=== PATIENT | female | born 1965 | race Caucasian/White ===

== ENCOUNTER 2016-11-13 13:41 | Emergency (ER) | payer SELFPAY ==
[~2016-11-13] VITALS: Ht 160 cm; Wt 102.1 kg
[~2016-11-13 13:41] MED LIST: ASP81TEC PO; ATRV10T PO; AZAT50TA PO; AZIT-21 PO; CPR500T PO; DICY10CA12 PO; HYDR-3812 PO; HYDR1TAB PO; MERCAPTOPURINE PO; METO-333 PO; METR500T PO; ONDA8TAB13 PO; PNT40TEC PO; PRD10T PO; PRD20T PO; TRAM50TA2 PO; [UNRECOGNIZED DRUG - OTHER]
--- OUTSIDE RECORDS SUMMARY | 2016-11-13 13:47 | XMS REPORT ---
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 Name Role Phone MURRAY OROZCO CP Unavailable Allergies No Known Allergies Problems Problem Type Condition Code Onset Dates Condition Status Problem Valeria-menopausal N95.1 Active Assessment Essential hypertension I10 Active Problem Essential hypertension I10 Active Assessment Valeria-menopausal N95.1 Active Assessment Need for hepatitis C screening test Z11.59 Active Medications No Known Medications Procedures Procedure Coding System Code Date GLYCATED HEMOGLOBIN TEST CPT-4 80048 Aug 06, 2016 COMPLETE CBC W/AUTO DIFF WBC CPT-4 89243 Aug 06, 2016 HEPATITIS C AB TEST CPT-4 12044 Aug 06, 2016 URINE CULTURE/COLONY COUNT CPT-4 33228 Aug 06, 2016 COMPREHEN METABOLIC PANEL CPT-4 37495 Aug 06, 2016 LIPID PANEL CPT-4 39638 Aug 06, 2016 VENIPUNCT, ROUTINE* CPT-4 88673 Aug 06, 2016 URINALYSIS, AUTO, W/O SCOPE CPT-4 46705 Aug 06, 2016 Results Name Result Date Reference Range Unit Abnormality Flag UA W/CULTURE IF INDICATED (IN HOUSE) ----HARDIK trace 20160806 ----NIT negative 20160806 ----Exp date 20160806 ----Lot # [id number] ----SG 1.015 20160806 ----KET negative 20160806 ----SEAN negative 20160806 ----GLU negative 20160806 ----Odor none 20160806 ----pH 5.5 20160806 ----BLO negative 20160806 ----URO 0.2 20160806 ----Protein negative 20160806 ----Lot # [id number] ----Exp date 20160806 ----Clarity clear 20160806 ----Color yellow [id number] ROUTINE VENIPUNCTURE Summary Purpose [employer] Submission
[2016-11-13] MEDS ORDERED: ASPIRIN 81 MG CHEW (CHILDREN'S ASA) PO ONE (14:00)
[2016-11-13 14:04] LABS: BASOPHILS % (AUTO) 0 % (0-10); EOSINOPHILS # (AUTO) 0.2 10^3/uL (0.0-0.3); EOSINOPHILS % (AUTO) 1 % (0-10); LYMPHOCYTES # (AUTO) 3.7 X 10^3 (1.0-4.0); LYMPHOCYTES % (AUTO) 23 % (12-44); MEAN CORPUSCULAR HEMOGLOBIN 27 PG (25-34); MEAN CORPUSCULAR HGB CONC 35 G/DL (32-36); MEAN CORPUSCULAR VOLUME 77 FL (80-99); MEAN PLATELET VOLUME 10.7 FL (7.4-10.4); MONOCYTES % (AUTO) 6 % (0-12); NEUTROPHILS % (AUTO) 69 % (42-75); PLATELET COUNT 255 10^3/uL (130-400); RED CELL DISTRIBUTION WIDTH 17.4 % (10.0-14.5); WHITE BLOOD COUNT 15.9 10^3/uL (4.3-11.0)
[2016-11-13 14:13] LABS: PROTHROMBIN TIME PATIENT 12.7 SEC (12.2-14.7)
[2016-11-13 14:23] LABS: ALANINE AMINOTRANSFERASE 19 U/L (0-55); ALBUMIN 4.2 G/DL (3.2-4.5); ANION GAP 13 MMOL/L (5-14); ASPARTATE AMINO TRANSFERASE 17 U/L (5-34); BILIRUBIN,TOTAL 0.3 MG/DL (0.1-1.0); BLOOD UREA NITROGEN 10 MG/DL (7-18); BUN/CREATININE RATIO 14; CALCIUM 9.1 MG/DL (8.5-10.1); CARBON DIOXIDE 18 MMOL/L (21-32); CHLORIDE 108 MMOL/L (98-107); CREATININE SERUM 0.72 MG/DL (0.60-1.30); GFR ESTIMATED > 60; GLUCOSE 149 MG/DL (70-105); LIPASE 25 U/L (8-78); MAGNESIUM 2.1 MG/DL (1.8-2.4); POTASSIUM 3.7 MMOL/L (3.6-5.0); SODIUM 139 MMOL/L (135-145); TOTAL PROTEIN 7.6 G/DL (6.4-8.2)
--- NOTE | 2016-11-13 14:23 | ED Cardiac General ---
History of Present Illness General Chief Complaint: Respiratory Problems Stated Complaint: CHEST PAIN/SOA LEFT ARM NUMBNESS Nursing Triage Note: PT CO OF CHEST PAIN EARLIER TODAY AND HAS SOA AND COUGH. STATES FEELS LIKE MAYBE PNEMONIA Source: patient Exam Limitations: no limitations History of Present Illness Time seen by provider: 13:58 Initial Comments Here with report of cough and congestion for 5 days and thinks that she may have pneumonia. Also had an episode of chest pain earlier today that has subsequently resolved. She felt heaviness in her left anterior chest with some radiation down her left arm. Again this went away. Has persistent cough. Does report chills but no fever. Denies nausea, vomiting or diaphoresis. 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 Prescribed by: SARI JONES on 05/21/162234 Ondansetron 8 Mg Tab.rapdis #10 8 MG PO Q6H PRN PRN NAUSEA/VOMITING Prescribed by: SARI JONES on 05/21/162220 Prednisone 20 Mg Tab #10 40 MG PO DAILY Prescribed by: SARI JONES on 05/21/162220 Review of Systems Constitutional: see HPI chills fever EENTM: No Symptoms Reported Respiratory: See HPI Cough Shortness of Air Wheezing Cardiovascular: No Symptoms Reported Gastrointestinal: See HPIDenies Diarrhea, Denies Nausea Genitourinary: No Symptoms Reported Musculoskeletal: see HPI joint pain muscle pain Skin: no symptoms reported All Other Systems Reviewed Negative Unless Noted: Yes Past Jaynsyo-Njmjpk-Kzxhvt Hx Patient Social History Alcohol Use: Denies Use Recreational Drug Use: No Smoking Status: Current Everyday Smoker Type Used: Cigarettes Recent Foreign Travel: No Contact w/Someone Who Travel: No Recent Infectious Disease Expo: No Recent Hopitalizations: No Physical Abuse Screen: No Sexual Abuse: No Immunizations Up To Date Tetanus Booster (TDap): Unknown Surgeries HX Surgeries: Yes (COLONOSCOPY X2, HEART CATH) Respiratory Hx Respiratory Disorders: Yes Respiratory Disorders: Asthma Cardiovascular Hx Cardiac Disorders: Yes Cardiac Disorders: Coronary Artery Disease, High Cholesterol, Hypertension Neurological Hx Neurological Disorders: No 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 System Hx 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 Disorders: No Genitourinary Hx Genitourinary Disorders: No Gastrointestinal Hx Gastrointestinal Disorders: Yes Gastrointestinal Disorders: Crohns Disease, Polyps, Ulcer Musculoskeletal Hx Musculoskeletal Disorders: No Endocrine Hx Endocrine Disorders: No HEENT HX ENT Disorders: No Cancer Hx Cancer: No Psychosocial Hx Psychiatric Problems: No Integumentary HX Skin/Integumentary Disorder: No Blood Transfusions Hx Blood Disorders: No Adverse Reaction to a Blood Tr: No Reviewed Nursing Assessment Reviewed/Agree w Nursing PMH: Yes Family Medical History Significant Family History: No Pertinent Family Hx Physical Exam Vital Signs Vital Sign - Last 12Hours 11/13/16 13:41 Temp 98.4 Pulse 66 Resp 18 B/P 131/91 Pulse Ox 94 Capillary Refill : Less Than 3 Seconds General Appearance: No Apparent Distress WD/WN HEENT: PERRL/EOMI Pharynx Normal Neck: Non Tender Supple Respiratory: Lungs Clear Normal Breath Sounds Cardiovascular: Regular Rate, Rhythm No Murmur Gastrointestinal: Non Tender Soft Extremity: Non Tender No Calf Tenderness Neurologic/Psychiatric: Alert Oriented x3 Skin: Normal Color Warm/Dry Progress/Results/Core Measures Results/Orders Lab Results Laboratory Tests Test 11/13/16 13:50 Range/Units Activated Partial Thromboplast Time 29 24-35 SEC Alanine Aminotransferase (ALT/SGPT) 19 0-55 U/L Albumin 4.2 3.2-4.5 G/DL Alkaline Phosphatase 89 40-136 U/L Anion Gap 13 5-14 MMOL/L Anisocytosis SLIGHT Aspartate Amino Transf (AST/SGOT) 17 5-34 U/L BUN/Creatinine Ratio 14 Band Neutrophils 5 % Basophils # (Auto) 0.0 0.0-0.1 10^3/uL Basophils % (Manual) 0 % Basophils (%) (Auto) 0 0-10 % Blood Urea Nitrogen 10 7-18 MG/DL Calcium Level 9.1 8.5-10.1 MG/DL Carbon Dioxide Level 18 L 21-32 MMOL/L Chloride Level 108 H 98-107 MMOL/L Creatinine 0.72 0.60-1.30 MG/DL D-Dimer 0.80 H 0.00-0.49 UG/ML Eosinophils # (Auto) 0.2 0.0-0.3 10^3/uL Eosinophils % (Manual) 1 % Eosinophils (%) (Auto) 1 0-10 % Estimat Glomerular Filtration Rate > 60 Glucose Level 149 H 70-105 MG/DL Hematocrit 41 35-52 % Hemoglobin 14.2 11.5-16.0 G/DL INR Comment 1.0 0.8-1.4 Lipase 25 8-78 U/L Lymphocytes # (Auto) 3.7 1.0-4.0 X 10^3 Lymphocytes % (Manual) 27 % Lymphocytes (%) (Auto) 23 12-44 % Magnesium Level 2.1 1.8-2.4 MG/DL Mean Corpuscular Hemoglobin 27 25-34 PG Mean Corpuscular Hemoglobin Concent 35 32-36 G/DL Mean Corpuscular Volume 77 L 80-99 FL Mean Platelet Volume 10.7 H 7.4-10.4 FL Monocytes # (Auto) 1.0 0.0-1.0 X 10^3 Monocytes % (Manual) 4 % Monocytes (%) (Auto) 6 0-12 % Myoglobin 26.8 10.0-92.0 NG/ML Neutrophils # (Auto) 11.0 H 1.8-7.8 X 10^3 Neutrophils % (Manual) 63 % Neutrophils (%) (Auto) 69 42-75 % Platelet Count 255 130-400 10^3/uL Potassium Level 3.7 3.6-5.0 MMOL/L Prothrombin Time 12.7 12.2-14.7 SEC Red Blood Count 5.30 4.35-5.85 10^6/uL Red Cell Distribution Width 17.4 H 10.0-14.5 % Sodium Level 139 135-145 MMOL/L Total Bilirubin 0.3 0.1-1.0 MG/DL Total Protein 7.6 6.4-8.2 G/DL Troponin I < 0.30 <0.30 NG/ML White Blood Count 15.9 H 4.3-11.0 10^3/uL My Orders Orders-GLENDA LAI MD Cbc With Automated Diff (11/13/16 13:54) Magnesium (11/13/16 13:54) Chest 1 View, Ap/Pa Only (11/13/16 13:54) Ekg Tracing (11/13/16 13:54) Cardiac Profile 1 (11/13/16 13:54) Comprehensive Metabolic Panel (11/13/16 13:54) Myoglobin Serum (11/13/16 13:54) Protime With Inr (11/13/16 13:54) Partial Thromboplastin Time (11/13/16 13:54) O2 (11/13/16 13:54) Monitor-Rhythm Ecg Trace Only (11/13/16 13:54) Lipid Panel (11/14/16 06:00) Aspirin Chewable Tablet (Baby Aspirin Ch (11/13/16 14:00) Saline Lock/Iv-Start (11/13/16 13:54) Lipase (11/13/16 13:54) Fibrin Degradation Products (11/13/16 13:54) Manual Differential (11/13/16 13:50) Ct Angio Chest W (11/13/16 15:32) Ns Iv 1000 Ml (Sodium Chloride 0.9%) (11/13/16 15:33) Iohexol Injection (Omnipaque 350 Mg/Ml 1 (11/13/16 15:45) Ns (Ivpb) (Sodium Chloride 0.9% Ivpb Bag (11/13/16 15:45) Medications Given in ED Current Medications Medications Dose Ordered Sig/Calin Route Start Time Stop Time Status Last Admin Dose Admin Aspirin 324 mg 324 mg ONCE ONCE PO 11/13/16 14:00 11/13/16 14:01 DC 11/13/16 14:19 324 MG Iohexol 125 ml ONCE ONCE IV 11/13/16 15:45 11/13/16 15:46 DC 11/13/16 15:44 125 ML Sodium Chloride 100 ml ONCE ONCE IV 11/13/16 15:45 11/13/16 15:46 DC 11/13/16 15:44 80 ML Sodium Chloride 1,000 ml @ 0 mls/hr Q0M ONCE IV 11/13/16 15:33 11/13/16 15:34 DC 11/13/16 16:16 1,000 MLS/HR Vital Signs/I&O Vital Sign - Last 12Hours 11/13/16 13:41 Temp 98.4 Pulse 66 Resp 18 B/P 131/91 Pulse Ox 94 Blood Pressure Mean: 104 Progress Note : Progress Note Seen and evaluated. IV, labs, EKG and chest x-ray ordered. ASA 324 mg by mouth given. Monitor patient. Results reviewed. D-dimer elevated. CT angiogram chest ordered. Normal saline 1 L bolus. Monitor patient. 1625: Results noted below. No pulmonary embolism. We will try outpatient as COPD exacerbation. Due to chronic lung disease, we will also treat for atypical pneumonia with Zithromax. This was discussed with the patient who agrees. Discharged home with return precautions. Patient verbalize understanding instructions and agreement with plan. ECG Initial ECG Impression Date: Nov 13, 2016 Initial ECG Impression Time: 13:48 Initial ECG Rate: 80 Initial ECG Rhythm: Normal Sinus Comment Sinus rhythm with normal axis. No evidence of ST elevation IN. Overall similar to previous of 12/23/11. Interpreted by me. Diagnostic Imaging Diagonstic Imaging: Xray Plain Films/CT/US/NM/MRI: chest [facility] [place] [place] NAME: MACEYLSAHAWN [facility] REC#: [id number] PT STATUS: REG ER : 1965 PHYSICIAN: GLENDA LAI MD ADMIT DATE: 11/13/16/ER Draft Date of Exam:11/13/16 CHEST 1 VIEW, AP/PA ONLY EXAM: CHEST 1 VIEW, AP/PA ONLY. INDICATION: Chest pain. COMPARISON: Chest radiograph of 12/22/2011. FINDINGS: No significant change. Normal heart size and pulmonary vascularity. No focal pulmonary opacity, pleural effusion, or pneumothorax. The osseous structures are unremarkable. IMPRESSION: No acute cardiopulmonary findings. Dictated on workstation # [id number] Dict: 11/13/16 1607 Trans: 11/13/16 1609 [id number] [id number] Interpreted by: RACHAEL TA MD Electronically signed by: Diagonstic Imaging: CT Plain Films/CT/US/NM/MRI: chest Comments [facility] [place], [place] NAME: LASHAWN CHOUDHURY [facility] REC#: [id number] PT STATUS: REG ER : 1965 PHYSICIAN: GLENDA LAI MD ADMIT DATE: 11/13/16/ER Draft Date of Exam:11/13/16 CT ANGIO CHEST W PROCEDURE: CT angiography of the chest with contrast. TECHNIQUE: Multiple contiguous axial images were obtained through the chest after uneventful bolus administration of intravenous contrast. Reconstructed CTA MIP acquisitions were also performed. INDICATION: Chest pain. COMPARISON: Chest radiograph 11/13/2016. FINDINGS: No focal pulmonary artery filling defects. The thoracic aorta and its major branches in the chest demonstrate no narrowing, aneurysm or dissection. Diffuse bronchial wall thickening. Mild emphysematous changes in the lung apices. Minimal dependent atelectasis. The lungs are otherwise clear. No pleural or pericardial effusion. No mediastinal, hilar or axillary lymphadenopathy. Mild degenerative changes in the thoracic spine. The upper abdominal contents, including the adrenal glands, are unremarkable. IMPRESSION: 1. No pulmonary emboli. The thoracic aorta and its major branches in the chest are negative. 2. Mild emphysematous changes in the lung apices. 3. Diffuse bronchial wall thickening. Dictated on workstation # [id number] Dict: 11/13/16 1608 Trans: 11/13/16 1619 [id number] Interpreted by: RACHAEL TA MD Electronically signed by: Departure Impression Impression: Primary Impression: COPD exacerbation Disposition: HOME, SELF-CARE Condition: Stable Departure-Patient Inst. Decision time for Depature: 16:25 Referrals: MURRAY OROZCO MD (PCP/Family) Primary Care Physician Patient Instructions: Acute Bronchitis, Adult (DC) Add. Discharge Instructions: All discharge instructions reviewed with patient and/or family. Voiced understanding. Take medications as directed. Follow-up with your doctor next week for recheck and further evaluation. Return for worse pain, fever, vomiting, weakness, rhythm problems or other concerns as needed. Scripts Azithromycin 250 Mg [id number] Mg PO UD #6 TAB TAKE 2 TABLETS ON DAY ONE THEN TAKE 1 TABLET DAILY FOR FOUR MORE DAYS Prov:GLENDA LAI MD 11/13/16 Prednisone 20 Mg Tab40 Mg PO DAILY #12 TAB Prov:GLENDA LAI MD 11/13/16 GLENDA LAI MD Nov 13, 2016 14:23
[2016-11-13 14:27] LABS: ANISOCYTOSIS SLIGHT; BAND NEUTROPHILS 5 %; BASOPHILS % (MANUAL) 0 %; EOSINOPHILS % (MANUAL) 1 %; LYMPHOCYTES % (MANUAL) 27 %; NEUTROPHILS % (MANUAL) 63 %
[2016-11-13 14:30] LABS: MYOGLOBIN SERUM 26.8 NG/ML (10.0-92.0)
[2016-11-13] MEDS ORDERED: NS IV 1000 ML 1,000 ML IV ONE (15:33)
[2016-11-13] MEDS ORDERED: NS 100 ML (IVPB) BAG IV ONE (15:45)
[2016-11-13] MEDS ORDERED: IOHEXOL 350 MG/ML 150 ML (OMNIPAQUE 350) VIAL IV ONE (15:45)
--- NOTE | 2016-11-13 16:10 | Diagnostic Imaging Report ---
EXAM: CHEST 1 VIEW, AP/PA ONLY. INDICATION: Chest pain. COMPARISON: Chest radiograph of 12/22/2011. FINDINGS: No significant change. Normal heart size and pulmonary vascularity. No focal pulmonary opacity, pleural effusion, or pneumothorax. The osseous structures are unremarkable. IMPRESSION: No acute cardiopulmonary findings. Dictated by: Dictated on workstation # [id number]
--- NOTE | 2016-11-13 16:19 | Diagnostic Imaging Report ---
PROCEDURE: CT angiography of the chest with contrast. TECHNIQUE: Multiple contiguous axial images were obtained through the chest after uneventful bolus administration of intravenous contrast. Reconstructed CTA MIP acquisitions were also performed. INDICATION: Chest pain. COMPARISON: Chest radiograph 11/13/2016. FINDINGS: No focal pulmonary artery filling defects. The thoracic aorta and its major branches in the chest demonstrate no narrowing, aneurysm or dissection. Diffuse bronchial wall thickening. Mild emphysematous changes in the lung apices. Minimal dependent atelectasis. The lungs are otherwise clear. No pleural or pericardial effusion. No mediastinal, hilar or axillary lymphadenopathy. Mild degenerative changes in the thoracic spine. The upper abdominal contents, including the adrenal glands, are unremarkable. IMPRESSION: 1. No pulmonary emboli. The thoracic aorta and its major branches in the chest are negative. 2. Mild emphysematous changes in the lung apices. 3. Diffuse bronchial wall thickening. Dictated by: Dictated on workstation # [id number]
[2016-11-13] MEDS ORDERED: AZIT250T5 PO (16:32)
[2016-11-13] MEDS ORDERED: PRD20T PO (16:32)
[2016-11-13 16:55] VITALS: BP 117/84
== END 2016-11-13 16:55 | disposition home or self-care (01) ==
LOC: EDUNIT# 13:41 → ER 13:43
DX: J44.1 Chronic obstructive pulmonary disease with (acute) exacerbation (principal); I10 Essential (primary) hypertension; Z79.82 Long term (current) use of aspirin; Z79.899 Other long term (current) drug therapy
CPT/HCPCS: 36415; 71010; 71275; 80053; 83690; 83735; 83874; 84484; 85007; 85027; 85379; 85610; 85730; 93005; 93041; 96360

== ENCOUNTER 2017-07-15 21:46 | Emergency (ER) | payer SELFPAY ==
[~2017-07-15] VITALS: Ht 154.9 cm; Wt 92.1 kg
[~2017-07-15 21:46] MED LIST changes: +AZIT250T5 PO
[2017-07-15 22:27] LABS: BASOPHILS % (AUTO) 0 % (0-10); EOSINOPHILS % (AUTO) 0 % (0-10); LYMPHOCYTES # (AUTO) 2.9 X 10^3 (1.0-4.0); LYMPHOCYTES % (AUTO) 26 % (12-44); MEAN CORPUSCULAR HEMOGLOBIN 27 PG (25-34); MEAN CORPUSCULAR HGB CONC 33 G/DL (32-36); MEAN CORPUSCULAR VOLUME 80 FL (80-99); MEAN PLATELET VOLUME 10.9 FL (7.4-10.4); MONOCYTES # (AUTO) 0.5 X 10^3 (0.0-1.0); MONOCYTES % (AUTO) 4 % (0-12); NEUTROPHILS % (AUTO) 70 % (42-75); PLATELET COUNT 296 10^3/uL (130-400); RED BLOOD COUNT 5.31 10^6/uL (4.35-5.85); RED CELL DISTRIBUTION WIDTH 14.5 % (10.0-14.5); WHITE BLOOD COUNT 11.4 10^3/uL (4.3-11.0)
[2017-07-15] MEDS ORDERED: LISI10TA2 PO (22:27)
[2017-07-15 22:28] LABS: BILIRUBIN,URINE NEGATIVE (NEGATIVE); KETONES,URINE NEGATIVE (NEGATIVE); LEUKOCYTE ESTERASE ,URINE NEGATIVE (NEGATIVE); NITRITE,URINE NEGATIVE (NEGATIVE); PH,URINE 6 (5-9); PROTEIN,URINE NEGATIVE (NEGATIVE); UROBILINOGEN,URINE NORMAL (NORMAL)
--- NOTE | 2017-07-15 22:28 | ED GI ---
General Chief Complaint: Abdominal/GI Problems Stated Complaint: VOMITING;FEVER Nursing Triage Note: REPORTS WENT TO DR OROZCO THIS A.M. FOR ABD PAIN AND WAS PRESCRIBED 50 MG STEROIDS. PT CAME TO ED FOR SX OF VOMITING WITH HER ABD PAIN INSTRUCTED BY HER DR. PT REPORTS NO BM FOR 1 WEEK. PT TOOK HYDROCODONE 5/325 AT 2100. Sepsis Screen: No Definite Risk Source of Information: Patient History of Present Illness Time Seen By Provider: 22:20 Initial Comments C/O RUQ PAIN X 2 DAYS AND IS GETTING WORSE NOTHING WORSENS OR IMPROVES PAIN BEGAN HAVING NAUSEA AND VOMITED X1 AT 2000 TONIGHT NO BM X 1 WEEK, NORMALLY STOOLS ARE LOOSE AND HAS ONE DAILY NO FEVER NO DIFFICULTY URINATING--HAS CHRONIC URINARY FREQUENCY ATE [facility] AT [address] HERE PT STATES SHE HAS CROHN'S--DOES NOT TAKE ANY REGULAR MEDICATIONS FOR CROHN'S STATES SHE DOES NOT SEE AND HAS NEVER SEEN A GI SPECIALIST/FISH ROE TECHNICIAN, BUT SEES A DR MEDINA IN [facility] ( WHO IS A GENERAL SURGEON) AND STATES THAT SHE PRESCRIBES "CHEMO" WHEN EVER SHE HAS A FLARE--LAST TIME WAS OVER A YEAR AGO- -PT HAS NO IDEA WHAT "CHEMO" MEDICATIONS THESE ARE. SAW DR. OROZCO TODAY FOR THIS AND WAS PRESCRIBED HYDROCODONE AND PREDNISONE 50 MG A DAY--PT STATES NORMALLY SHE TAKES 10 MG AT A TIME WHEN SHE HAS A FLARE. STATES SHE TOOK A HYDROCODONE AND [address] HERE. PCP: [facility], DR. OROZCO Allergies and Home Medications Allergies Coded Allergies: No Known Drug Allergies (Unverified , 11/17/11) Home Medications Aspirin 81 Mg Tabec, 81 MG PO DAILY, (Reported) Hydrocodone/Acetaminophen 1 Each Tablet, 1 EACH PO Q4H PRN for PAIN, #14 Ref 0 patient must greens picker zofran and prednisone to greens picker pain med. Prescribed by: SARI JONES on 05/21/162234 Hyoscyamine Sulfate 0.125 Mg Tab.subl, 1-2 TAB SL Q4H, #15 Prescribed by: DARCY SPENCE on 07/16/17 0012 Lisinopril 10 Mg Tablet, 10 MG PO DAILY, (Reported) Ondansetron 8 Mg Tab.rapdis, 8 MG PO Q6H PRN for NAUSEA/VOMITING, #10 Ref 0 Prescribed by: SARI JONES on 05/21/16 2221 Ondansetron 8 Mg Tab.rapdis, 8 MG PO Q4H, #14 Prescribed by: DARCY SPENCE on 07/16/17 0012 Promethazine HCl 25 Mg Supp.rect, 25 MG RC Q4H, #10 Prescribed by: DARCY SPENCE on 07/16/17 0012 Review of Systems Constitutional: no symptoms reported Respiratory: No Symptoms Reported Cardiovascular: No Symptoms Reported Gastrointestinal: See HPI, Abdominal Pain, Constipated, Nausea, Vomiting Genitourinary: See HPI, Frequency Musculoskeletal: no symptoms reported Skin: no symptoms reported Psychiatric/Neurological: No Symptoms Reported, Other (STATES SHE HAS 3 CHILDREN IN CUSTODY) Endocrine: No Symptoms Reported Hematologic/Lymphatic: No Symptoms Reported Past Rlffiqb-Vcevar-Rppoua Hx Patient Social History Alcohol Use: Past History (MODERATE USE IN PAST,DENIES RECENT USE, PER PT ON ) Recreational Drug Use: No Smoking Status: Current Everyday Smoker (1 PPD) Type Used: Cigarettes 2nd Hand Smoke Exposure: Yes Recent Foreign Travel: No Contact w/Someone Who Travel: No Recent Infectious Disease Expo: No Recent Hopitalizations: No Immunizations Up To Date Tetanus Booster (TDap): Unknown Seasonal Allergies Seasonal Allergies: No Surgeries History of Surgeries: Yes (EGD'S/ COLONOSCOPIES; CARDIAC CATH--NO INTERNVENTION ; D&C X 2) Respiratory History of Respiratory Disorde: Yes Respiratory Disorders: Asthma, COPD Cardiovascular History of Cardiac Disorders: Yes (CARDIAC CATH--MILD TO MODERATE DISEASE--NO INTERVENTION) Cardiac Disorders: Coronary Artery Disease, High Cholesterol, Hypertension Neurological History of Neurological Disord: No 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 System Hx 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 Disorders: No 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 (NO PERIOID SINCE 10/2015) Genitourinary History of Genitourinary Disor: No Gastrointestinal History of Gastrointestinal Di: Yes Gastrointestinal Disorders: Gastroesophageal Reflux, Crohns Disease, Polyps, Ulcer Musculoskeletal History of Musculoskeletal Dis: No Endocrine History of Endocrine Disorders: No HEENT History of HEENT Disorders: No Cancer History of Cancer: No Psychosocial History of Psychiatric Problem: No Integumentary History of Skin or Integumenta: No Blood Transfusions History of Blood Disorders: No Adverse Reaction to a Blood Tr: No Physical Exam Vital Signs VS - Last 72 Hours, by Label 07/15/17 21:46 Temp 97.6 Pulse 91 Resp 20 B/P (MAP) 146/91 Pulse Ox 94 O2 Delivery Room Air Capillary Refill : Less Than 3 Seconds General Appearance: WD/WN, no apparent distress, obese HEENT: other (MULTIPLE MISSING TEETH) Respiratory: normal breath sounds, no respiratory distress, no accessory muscle use Cardiovascular: regular rate, rhythm, no edema, no JVD, no murmur Gastrointestinal: normal bowel sounds, soft, no organomegaly, no pulsatile mass , No distended, guarding, No rebound, tenderness (RUQ), No hernia, No mass Extremities: normal range of motion, non-tender, normal inspection, no pedal edema, no calf tenderness, normal capillary refill Back: normal inspection, no CVA tenderness Neurologic/Psychiatric: buzzle buffer II-XII nml as tested, no motor/sensory deficits, alert, normal mood/affect, oriented x 3 Skin: normal color, warm/dry, No rash Progress/Results/Core Measures Results/Orders Lab Results Laboratory Tests Test 07/15/17 21:50 07/15/17 21:56 Range/Units White Blood Count 11.4 H 4.3-11.0 10^3/uL Red Blood Count 5.31 4.35-5.85 10^6/uL Hemoglobin 14.1 11.5-16.0 G/DL Hematocrit 43 35-52 % Mean Corpuscular Volume 80 80-99 FL Mean Corpuscular Hemoglobin 27 25-34 PG Mean Corpuscular Hemoglobin Concent 33 32-36 G/DL Red Cell Distribution Width 14.5 10.0-14.5 % Platelet Count 296 130-400 10^3/uL Mean Platelet Volume 10.9 H 7.4-10.4 FL Neutrophils (%) (Auto) 70 42-75 % Lymphocytes (%) (Auto) 26 12-44 % Monocytes (%) (Auto) 4 0-12 % Eosinophils (%) (Auto) 0 0-10 % Basophils (%) (Auto) 0 0-10 % Neutrophils # (Auto) 8.0 H 1.8-7.8 X 10^3 Lymphocytes # (Auto) 2.9 1.0-4.0 X 10^3 Monocytes # (Auto) 0.5 0.0-1.0 X 10^3 Eosinophils # (Auto) 0.0 0.0-0.3 10^3/uL Basophils # (Auto) 0.0 0.0-0.1 10^3/uL Urine Color YELLOW Urine Clarity CLEAR Urine pH 6 5-9 Urine Specific [place] 1.010 L 1.016-1.022 Urine Protein NEGATIVE NEGATIVE Urine Glucose (UA) NEGATIVE NEGATIVE Urine Ketones NEGATIVE NEGATIVE Urine Nitrite NEGATIVE NEGATIVE Urine Bilirubin NEGATIVE NEGATIVE Urine Urobilinogen NORMAL NORMAL MG/DL Urine Leukocyte Esterase NEGATIVE NEGATIVE Urine RBC (Auto) NEGATIVE NEGATIVE Urine RBC NONE /HPF Urine WBC NONE /HPF Urine Squamous Epithelial Cells 0-2 /HPF Urine Crystals NONE /LPF Urine Bacteria NONE /HPF Urine Casts NONE /LPF Urine Mucus NEGATIVE /LPF Urine Culture Indicated NO Sodium Level 139 135-145 MMOL/L Potassium Level 4.2 3.6-5.0 MMOL/L Chloride Level 105 98-107 MMOL/L Carbon Dioxide Level 20 L 21-32 MMOL/L Anion Gap 14 5-14 MMOL/L Blood Urea Nitrogen 17 7-18 MG/DL Creatinine 0.74 0.60-1.30 MG/DL Estimat Glomerular Filtration Rate > 60 BUN/Creatinine Ratio 23 Glucose Level 137 H 70-105 MG/DL Calcium Level 9.6 8.5-10.1 MG/DL Total Bilirubin 0.3 0.1-1.0 MG/DL Aspartate Amino Transf (AST/SGOT) 17 5-34 U/L Alanine Aminotransferase (ALT/SGPT) 27 0-55 U/L Alkaline Phosphatase 90 40-136 U/L Total Protein 8.3 H 6.4-8.2 GM/DL Albumin 4.5 3.2-4.5 GM/DL Amylase Level 66 25-125 U/L Lipase 41 8-78 U/L My Orders Orders - DARCY SPENCE DO Saline Lock/Iv-Start (07/15/17 22:26) Amylase (07/15/17 22:26) Lipase (07/15/17 22:26) Saline Lock/Iv-Start (07/15/17 22:26) Lactated Ringers (Lr 1000 Ml Iv Solution (07/15/17 22:26) Ondansetron Injection (Zofran Injectio (07/15/17 22:30) Promethazine Injection (Phenergan Injec (07/15/17 22:30) Ct Abdomen/Pelvis W (07/15/17 22:51) Iohexol Injection (Omnipaque 350 Mg/Ml 1 (07/15/17 23:00) Ns (Ivpb) (Sodium Chloride 0.9% Ivpb Bag (07/15/17 23:00) Pharmacy Communication (Pharmacy Communi (07/15/17 22:52) Medications Given in ED Current Medications Medications Dose Ordered Sig/Calin Route Start Time Stop Time Status Last Admin Dose Admin Iohexol 100 ml ONCE ONCE IV 07/15/17 23:00 07/15/17 23:01 DC 07/15/17 23:17 100 ML Lactated Ringer's 1,000 ml @ 0 mls/hr Q0M ONCE IV 07/15/17 22:26 07/15/17 22:28 DC 07/15/17 22:37 999 MLS/HR Promethazine HCl 25 mg ONCE ONCE IVP 07/15/17 22:30 07/15/17 22:31 DC 07/15/17 22:37 25 MG Sodium Chloride 100 ml ONCE ONCE IV 07/15/17 23:00 07/15/17 23:01 DC 07/15/17 23:17 100 ML Vital Signs/I&O Vital Sign - Last 12Hours 07/15/17 21:46 Temp 97.6 Pulse 91 Resp 20 B/P (MAP) 146/91 Pulse Ox 94 O2 Delivery Room Air Blood Pressure Mean: 109 Progress Note : Progress Note NAUSEA RESOLVED WITH MEDICATIONS PAIN RESOLVED ON IT'S OWN--STATES ONLY HAS SOME SLIGHT DISCOMFORT IN LLQ NOW Diagnostic Imaging Comments CT ABDOMEN/PELVIS--NO ACUTE PROCESS, + CONSTIPATION--PER [facility] VIA FAX @ 0001 Reviewed: Reviewed by Me Departure Impression Impression: Primary Impression: Abdominal pain Additional Impressions: Constipation Hx of Crohn's disease Disposition: HOME, SELF-CARE Condition: Improved Departure-Patient Inst. Referrals: MURRAY OROZCO MD (PCP/Family) Primary Care Physician Patient Instructions: Acute Abdomen (Belly Pain), Adult (DC), Constipation, Adult (DC), Crohn's Disease (DC) Add. Discharge Instructions: CLEAR LIQUIDS UNTIL YOU HAVE HAD A BM--WATER, BROTH, JELLO, GATORADE NO FOOD UNTIL YOU HAVE HAD A BM TAKE MIRALAX--1-2 CAPFULS IN 8 OZ OF WATER EVERY 4-6 HOURS UNTIL YOU HAVE HAD A BM, THEN USE ONCE DAILY CONTINUE YOUR REGULAR MEDICATIONS PRESCRIBED FOLLOW UP WITH [facility] IN 2 DAYS IF NO BETTER RETURN TO ER IF WORSE All discharge instructions reviewed with patient and/or family. Voiced understanding. Scripts Promethazine HCl (Phenergan) 25 Mg Supp.rect 25 MG RC Q4H for Nausea/Vomiting, #10 SUPP.RECT Prov: DARCY SPENCE DO 07/16/17 Hyoscyamine Sulfate (Levsin-Sl) 0.125 Mg Tab.subl 1-2 TAB SL Q4H for Abdominal Pain, #15 TAB Prov: DARCY SPENCE DO 07/16/17 Ondansetron (Zofran Odt) 8 Mg Tab.rapdis 8 MG PO Q4H for Nausea/Vomiting, #14 TAB Prov: DARCY SPENCE DO 07/16/17 DARCY SPENCE DO Jul 15, 2017 22:28
[2017-07-15 22:35] LABS: SQUAMOUS EPITHELIAL CELL,UR 0-2 /HPF
[2017-07-15] MEDS: LACTATED RINGERS 1,000 ML IV ONE (22:37)
[2017-07-15] MEDS: PROMETHAZINE INJ 25 MG/ML (PHENERGAN) AMP IVP ONE (22:37)
[2017-07-15 22:42] LABS: ALANINE AMINOTRANSFERASE 27 U/L (0-55); ALBUMIN 4.5 GM/DL (3.2-4.5); ANION GAP 14 MMOL/L (5-14); ASPARTATE AMINO TRANSFERASE 17 U/L (5-34); BILIRUBIN,TOTAL 0.3 MG/DL (0.1-1.0); BLOOD UREA NITROGEN 17 MG/DL (7-18); BUN/CREATININE RATIO 23; CALCIUM 9.6 MG/DL (8.5-10.1); CARBON DIOXIDE 20 MMOL/L (21-32); CHLORIDE 105 MMOL/L (98-107); CREATININE SERUM 0.74 MG/DL (0.60-1.30); GFR ESTIMATED > 60; GLUCOSE 137 MG/DL (70-105); POTASSIUM 4.2 MMOL/L (3.6-5.0); SODIUM 139 MMOL/L (135-145); TOTAL PROTEIN 8.3 GM/DL (6.4-8.2)
[2017-07-15 22:54] LABS: AMYLASE 66 U/L (25-125); LIPASE 41 U/L (8-78)
[2017-07-15] MEDS: IOHEXOL 350 MG/ML 100 ML (OMNIPAQUE 350) VIAL IV ONE (23:17)
[2017-07-15] MEDS: NS 100 ML (IVPB) BAG IV ONE (23:17)
[2017-07-16] MEDS ORDERED: PROM25SU43 RC (00:12)
[2017-07-16] MEDS ORDERED: ONDA8TAB9 PO (00:12)
[2017-07-16] MEDS ORDERED: HYOS0.1283 SL (00:12)
[2017-07-16 00:18] VITALS: BP 133/55
[2017-07-16] MEDS: ONDANSETRON 4 MG/2 ML (SDV) Z0FRAN IVP ONE (00:23)
--- NOTE | 2017-07-16 08:01 | Diagnostic Imaging Report ---
PROCEDURE: CT abdomen and pelvis with contrast. TECHNIQUE: Multiple contiguous axial images were obtained through the abdomen and pelvis after administration of intravenous contrast. INDICATION: Nausea and vomiting. Fever. FINDINGS: There is minimal atelectasis in the lung bases. The liver demonstrate diffuse low density compatible with hepatic steatosis. The gallbladder is contracted. No calcified stone is seen. The spleen, the pancreas and the adrenal glands appear unremarkable. The kidneys have symmetric enhancement and contrast excretion. There is no hydronephrosis. The urinary bladder is mildly distended with no focal mass. The uterus and adnexa appear grossly unremarkable. No significant, free fluid or fluid collection in the abdomen or pelvis is seen. The proximal aspect of the appendix is visualized and appear normal. The distal portion of the appendix is not well seen. No regional inflammatory changes or fluid is seen, however. There is moderate amounts of fecal material seen in the colon and rectum. No bowel obstruction. The abdominal aorta is normal in caliber. No paraaortic significantly enlarged lymph node is seen. The osseous structures demonstrate mild degenerative changes. IMPRESSION: 1. Hepatic steatosis. 2. Moderate amounts of fecal material in the colon and rectum may relate to mild constipation. 3. The proximal aspect of the appendix is normal. Its distal aspect is inseparable from adjacent bowel loops. No surrounding inflammatory changes are seen, however. Correlate clinically. Dictated by: Dictated on workstation # [id number]
== END 2017-07-16 00:18 | disposition home or self-care (01) ==
LOC: EDUNIT# 21:46 → ER 21:47
DX: K59.00 Constipation, unspecified (principal); K21.9 Gastro-esophageal reflux disease without esophagitis; I25.10 Atherosclerotic heart disease of native coronary artery without angina pectoris; E78.00 Pure hypercholesterolemia, unspecified; I10 Essential (primary) hypertension; J45.909 Unspecified asthma, uncomplicated; J44.9 Chronic obstructive pulmonary disease, unspecified; F17.210 Nicotine dependence, cigarettes, uncomplicated; Z87.19 Personal history of other diseases of the digestive system; Z79.4 Long term (current) use of insulin
CPT/HCPCS: 36415; 74177; 80053; 81000; 82150; 83690; 85025

== ENCOUNTER 2017-12-05 21:22 | Emergency (ER) | payer OTHER ==
[~2017-12-05] VITALS: Ht 162.6 cm; Wt 81.6 kg
[~2017-12-05 21:22] MED LIST changes: +ACHD5005 PO; +AZIT250T12 PO; -AZIT250T5 PO; -HYDR-3812 PO; +HYOS0.1283 SL; +LISI10TA2 PO; +ONDA8TAB9 PO; +PROM25SU43 RC
[2017-12-05] MEDS ORDERED: KETOROLAC 30 MG/ML VIAL IVP STA (23:31)
[2017-12-05] MEDS ORDERED: LACTATED RINGERS 1,000 ML IV ONE (23:31)
[2017-12-05 23:42] LABS: BILIRUBIN,URINE NEGATIVE (NEGATIVE); CLARITY,URINE CLEAR; COLOR,URINE YELLOW; GLUCOSE, URINE (UA) NEGATIVE (NEGATIVE); KETONES,URINE NEGATIVE (NEGATIVE); LEUKOCYTE ESTERASE ,URINE 1+ (NEGATIVE); NITRITE,URINE NEGATIVE (NEGATIVE); PH,URINE 6.5 (5-9); PROTEIN,URINE NEGATIVE (NEGATIVE); UROBILINOGEN,URINE NORMAL (NORMAL)
[2017-12-05] MEDS ORDERED: ONDANSETRON 4 MG/2 ML (SDV) Z0FRAN IVP ONE (23:45)
[2017-12-05 23:51] LABS: BASOPHILS # (AUTO) 0.1 10^3/uL (0.0-0.1); BASOPHILS % (AUTO) 1 % (0-10); EOSINOPHILS # (AUTO) 0.1 10^3/uL (0.0-0.3); EOSINOPHILS % (AUTO) 1 % (0-10); HEMATOCRIT 42 % (35-52); HEMOGLOBIN 13.9 G/DL (11.5-16.0); LYMPHOCYTES # (AUTO) 1.7 X 10^3 (1.0-4.0); LYMPHOCYTES % (AUTO) 14 % (12-44); MEAN CORPUSCULAR HEMOGLOBIN 26 PG (25-34); MEAN CORPUSCULAR HGB CONC 33 G/DL (32-36); MEAN CORPUSCULAR VOLUME 79 FL (80-99); MEAN PLATELET VOLUME 10.5 FL (7.4-10.4); MONOCYTES # (AUTO) 0.3 X 10^3 (0.0-1.0); MONOCYTES % (AUTO) 2 % (0-12); NEUTROPHILS % (AUTO) 82 % (42-75); PLATELET COUNT 320 10^3/uL (130-400); RED CELL DISTRIBUTION WIDTH 14.9 % (10.0-14.5); WHITE BLOOD COUNT 12.2 10^3/uL (4.3-11.0)
[2017-12-05 23:53] LABS: BACTERIA,URINE NEGATIVE /HPF; WBC,URINE RARE /HPF
[2017-12-06 00:17] LABS: ALANINE AMINOTRANSFERASE 26 U/L (0-55); ALBUMIN 4.3 GM/DL (3.2-4.5); ALKALINE PHOSPHATASE 87 U/L (40-136); AMYLASE 56 U/L (25-125); BILIRUBIN,TOTAL 0.3 MG/DL (0.1-1.0); BUN/CREATININE RATIO 20; CALCIUM 10.1 MG/DL (8.5-10.1); CARBON DIOXIDE 20 MMOL/L (21-32); CHLORIDE 106 MMOL/L (98-107); CREATININE SERUM 0.76 MG/DL (0.60-1.30); GFR ESTIMATED > 60; GLUCOSE 130 MG/DL (70-105); LIPASE 27 U/L (8-78); POTASSIUM 4.6 MMOL/L (3.6-5.0); SODIUM 141 MMOL/L (135-145); TOTAL PROTEIN 7.6 GM/DL (6.4-8.2)
[2017-12-06] MEDS ORDERED: RX-ONDANSETRON 4 MG ODT (ZOFRAN) PPK #4 PO STA (01:01)
[2017-12-06] MEDS ORDERED: RX-HYOSCYAMINE 0.125 MG SL (LEVSIN) PPK#6 SL STA (01:01)
--- NOTE | 2017-12-06 01:13 | ED Abdominal Pain ---
General Chief Complaint: Back Problems Stated Complaint: CHRONS FLARE UP Nursing Triage Note: pt states hx of chrons disease. states lower back/flank pain rt side radiating to front. n/v Sepsis Screen: No Definite Risk Source of Information: Patient History of Present Illness Date Seen by Provider: Dec 05, 2017 Time Seen by Provider: 23:23 Initial Comments PT C/O RIGHT FLANK PAIN RADIATING TO RUQ AND UNDER RIGHT RIBS SINCE 1600 TODAY-- RATES PAIN 8-9/10 TOOK 1 HYDROCODONE AT 1630 WITHOUT RELIEF + NAUSEA, NO VOMITING HAD NORMAL BM AT 1615 WITHOUT IMPROVEMENT IN SYMPTOMS NO FEVER BUT HAD SWEATS WITH THE PAIN NO URINARY SYMPTOMS HAS HAD THESE SAME SYMPTOMS SEVERAL TIMES, BUT NEVER SOUGHT CARE PCP: DR. OROZCO AT [facility] DOES NOT SEE A CAR DISPATCHER OR BUSINESS CONTINUITY SPECIALIST Allergies and Home Medications Allergies Coded Allergies: No Known Drug Allergies (Unverified , 11/17/11) Home Medications Aspirin 81 Mg Tabec, 81 MG PO DAILY, (Reported) Dicyclomine HCl 20 Mg Tablet, 20 MG PO Q6H, #20 Prescribed by: DARCY SPENCE on 12/06/17113 Hydrocodone Bit/Acetaminophen 1 Each Tablet, 1 EACH PO Q4H PRN for PAIN, #14 Ref 0 patient must picker tender helper zofran and prednisone to picker tender helper pain med. Prescribed by: SARI JONES on 05/21/162234 Hyoscyamine Sulfate 0.125 Mg Tab.subl, 1-2 TAB SL Q4H, #15 Prescribed by: DARCY SPENCE on 12/06/17113 Lisinopril 10 Mg Tablet, 10 MG PO DAILY, (Reported) Ondansetron 4 Mg Tab.rapdis, 4 MG PO Q4H, #10 Prescribed by: DARCY SPENCE on 12/06/17113 Pantoprazole Sodium 40 Mg Tablet.dr, 40 MG PO DAILY, #15 Prescribed by: DARCY SPENCE on 12/06/17114 Review of Systems Constitutional: no symptoms reported Respiratory: No Symptoms Reported Cardiovascular: No Symptoms Reported Gastrointestinal: See HPI, Abdominal Pain, Denies Constipated, Denies Diarrhea , Nausea, Denies Vomiting Genitourinary: No Symptoms Reported Musculoskeletal: see HPI, back pain Skin: no symptoms reported Psychiatric/Neurological: No Symptoms Reported Endocrine: No Symptoms Reported Hematologic/Lymphatic: No Symptoms Reported Past Hhiekwj-Vlbvdr-Gnomgn Hx Patient Social History Alcohol Use: Occasionally Uses Recreational Drug Use: No Smoking Status: Current Everyday Smoker (1 PPD) Type Used: Cigarettes 2nd Hand Smoke Exposure: Yes Recent Foreign Travel: No Contact w/Someone Who Travel: No Recent Infectious Disease Expo: No Recent Hopitalizations: No Immunizations Up To Date Tetanus Booster (TDap): Unknown Seasonal Allergies Seasonal Allergies: No Surgeries History of Surgeries: Yes (EGD'S/ COLONOSCOPIES; CARDIAC CATH--NO INTERNVENTION ; D&C X 2) Surgeries: Cardiac Respiratory History of Respiratory Disorde: Yes Respiratory Disorders: Asthma, COPD Cardiovascular History of Cardiac Disorders: Yes (CARDIAC CATH--MILD TO MODERATE DISEASE--NO INTERVENTION) Cardiac Disorders: Coronary Artery Disease, High Cholesterol, Hypertension Neurological History of Neurological Disord: No 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 System Hx 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 Disorders: No 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 Genitourinary History of Genitourinary Disor: No Gastrointestinal History of Gastrointestinal Di: Yes Gastrointestinal Disorders: Gastroesophageal Reflux, Crohns Disease, Polyps, Ulcer Musculoskeletal History of Musculoskeletal Dis: No Endocrine History of Endocrine Disorders: No HEENT History of HEENT Disorders: No Cancer History of Cancer: No Psychosocial History of Psychiatric Problem: No Integumentary History of Skin or Integumenta: No Blood Transfusions History of Blood Disorders: No Adverse Reaction to a Blood Tr: No Physical Exam Vital Signs VS - Last 72 Hours, by Label 12/05/17 12/05/17 12/06/17 22:09 23:41 01:22 Temp 98.0 98.0 98.0 Pulse 86 74 Resp 20 16 B/P (MAP) 164/101 (122) Pulse Ox 96 93 O2 Delivery Room Air Room Air Capillary Refill : Less Than 3 Seconds General Appearance: moderate distress (DUE TO PAIN, HOLDING RIGHT FLANK AND RUQ AND ROCKING BACK AND FORTH) Respiratory: normal breath sounds, no respiratory distress, no accessory muscle use Cardiovascular: regular rate, rhythm, no murmur Gastrointestinal: normal bowel sounds, soft, no organomegaly, no pulsatile mass , No distended, guarding, No rebound, tenderness (RUQ AND RIGHT FLANK), No hernia, No mass Extremities: normal inspection Back: no vertebral tenderness, CVA tenderness (R) Neurologic/Psychiatric: 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 nml as tested, no motor/sensory deficits, alert, oriented x 3 Skin: normal color, warm/dry, No rash Progress/Results/Core Measures Results/Orders Lab Results Laboratory Tests Test 12/05/17 23:30 12/05/17 23:45 Range/Units Urine Color YELLOW Urine Clarity CLEAR Urine pH 6.5 5-9 Urine Specific [place] 1.015 L 1.016-1.022 Urine Protein NEGATIVE NEGATIVE Urine Glucose (UA) NEGATIVE NEGATIVE Urine Ketones NEGATIVE NEGATIVE Urine Nitrite NEGATIVE NEGATIVE Urine Bilirubin NEGATIVE NEGATIVE Urine Urobilinogen NORMAL NORMAL MG/DL Urine Leukocyte Esterase 1+ H NEGATIVE Urine RBC (Auto) NEGATIVE NEGATIVE Urine RBC NONE /HPF Urine WBC RARE /HPF Urine Squamous Epithelial Cells 10-25 H /HPF Urine Crystals NONE /LPF Urine Bacteria NEGATIVE /HPF Urine Casts NONE /LPF Urine Mucus NEGATIVE /LPF Urine Culture Indicated NO White Blood Count 12.2 H 4.3-11.0 10^3/uL Red Blood Count 5.30 4.35-5.85 10^6/uL Hemoglobin 13.9 11.5-16.0 G/DL Hematocrit 42 35-52 % Mean Corpuscular Volume 79 L 80-99 FL Mean Corpuscular Hemoglobin 26 25-34 PG Mean Corpuscular Hemoglobin Concent 33 32-36 G/DL Red Cell Distribution Width 14.9 H 10.0-14.5 % Platelet Count 320 130-400 10^3/uL Mean Platelet Volume 10.5 H 7.4-10.4 FL Neutrophils (%) (Auto) 82 H 42-75 % Lymphocytes (%) (Auto) 14 12-44 % Monocytes (%) (Auto) 2 0-12 % Eosinophils (%) (Auto) 1 0-10 % Basophils (%) (Auto) 1 0-10 % Neutrophils # (Auto) 10.0 H 1.8-7.8 X 10^3 Lymphocytes # (Auto) 1.7 1.0-4.0 X 10^3 Monocytes # (Auto) 0.3 0.0-1.0 X 10^3 Eosinophils # (Auto) 0.1 0.0-0.3 10^3/uL Basophils # (Auto) 0.1 0.0-0.1 10^3/uL Sodium Level 141 135-145 MMOL/L Potassium Level 4.6 3.6-5.0 MMOL/L Chloride Level 106 98-107 MMOL/L Carbon Dioxide Level 20 L 21-32 MMOL/L Anion Gap 15 H 5-14 MMOL/L Blood Urea Nitrogen 15 7-18 MG/DL Creatinine 0.76 0.60-1.30 MG/DL Estimat Glomerular Filtration Rate > 60 BUN/Creatinine Ratio 20 Glucose Level 130 H 70-105 MG/DL Calcium Level 10.1 8.5-10.1 MG/DL Total Bilirubin 0.3 0.1-1.0 MG/DL Aspartate Amino Transf (AST/SGOT) 22 5-34 U/L Alanine Aminotransferase (ALT/SGPT) 26 0-55 U/L Alkaline Phosphatase 87 40-136 U/L Total Protein 7.6 6.4-8.2 GM/DL Albumin 4.3 3.2-4.5 GM/DL Amylase Level 56 25-125 U/L Lipase 27 8-78 U/L My Orders Orders - DARCY SPENCE DO Saline Lock/Iv-Start (12/05/17 23:31) Amylase (12/05/17 23:31) Cbc With Automated Diff (12/05/17 23:31) Comprehensive Metabolic Panel (12/05/17 23:31) Lipase (12/05/17 23:31) Ua Culture If Indicated (12/05/17 23:31) Ondansetron Injection (Zofran Injectio (12/05/17 23:45) Saline Lock/Iv-Start (12/05/17 23:31) Lactated Ringers (Lr 1000 Ml Iv Solution (12/05/17 23:31) Ketorolac Injection (Toradol Injection) (12/05/17 23:31) Ct Abd/Pelvis Wo(Kidney Stone) (12/06/17 00:02) Acute Abd Series (12/06/17 00:03) Hyoscyamine Sl Tablet (Levsin Sl Tablet) (12/06/17 01:15) Rx-Hyoscyamine Tab (Rx-Levsin Sl) (12/06/17 01:01) Rx-Ondansetron Po (Rx-Zofran Po) (12/06/17 01:01) Medications Given in ED Current Medications Medications Dose Ordered Sig/Calin Route Start Time Stop Time Status Last Admin Dose Admin Hyoscyamine Sulfate 0.25 mg ONCE ONCE PO 12/06/17 01:15 12/06/17 01:16 DC 12/06/17 01:10 0.25 MG Lactated Ringer's 1,000 ml @ 0 mls/hr Q0M ONCE IV 12/05/17 23:31 12/05/17 23:34 DC 12/05/17 23:41 0 MLS/HR Ondansetron HCl 4 mg ONCE ONCE IVP 12/05/17 23:45 12/05/17 23:46 DC 12/05/17 23:41 4 MG Vital Signs/I&O Vital Sign - Last 12Hours 12/05/17 12/05/17 12/06/17 22:09 23:41 01:22 Temp 98.0 98.0 98.0 Pulse 86 74 Resp 20 16 B/P (MAP) 164/101 (122) Pulse Ox 96 93 O2 Delivery Room Air Room Air Blood Pressure Mean: 122 Progress Note : Progress Note SIGNIFICANT IMPROVEMENT IN PAIN WITH TORADOL AND NAUSEA RESOLVED WITH ZOFRAN DISCUSSED WITH PT THAT PAIN COULD BE BILIARY COLIC, AND DISCUSSED THAT FURTHER WORK UP COULD BE DONE AN OUTPATIENT BY HER PCP Diagnostic Imaging Comments ACUTE ABDOMEN XRAYS--NO ACUTE PROCESS, PENDING RADIOLOGIST REVIEW CT ABDOMEN/PELVIS--NO ACUTE PROCESS, FATTY LIVER, PER [facility] VIA FAX @ 1025 Reviewed: Reviewed by Me Departure Impression Impression: Primary Impression: RUQ AND RIGHT FLANK PAIN Additional Impression: SUSPECTED BILIARY COLIC Disposition: HOME, SELF-CARE Condition: Improved Departure-Patient Inst. Referrals: MURRAY OROZCO MD (PCP/Family) Primary Care Physician Patient Instructions: POSS GALLSTONE-W/BILIARY COLIC Add. Discharge Instructions: CLEAR LIQUIDS--WATER, BROTH, JELLO, GATORADE BRATS DIET--BANANAS, RICE, APPLESAUCE, TOAST, SALTINES TAKE YOUR HYDROCODONE 1-2 PILLS EVERY 4 HOURS NEEDED FOR PAIN FOLLOW UP WITH DR. OROZCO THIS WEEK FOR FURTHER CARE All discharge instructions reviewed with patient and/or family. Voiced understanding. Scripts Pantoprazole Sodium (Protonix) 40 Mg Tablet.dr 40 MG PO DAILY, #15 TAB Prov: DARCY SPENCE DO 12/06/17 Ondansetron (Zofran Odt) 4 Mg Tab.rapdis 4 MG PO Q4H for Nausea/Vomiting, #10 TAB Prov: DARCY SPENCE DO 2/12/18 Hyoscyamine Sulfate (Levsin-Sl) 0.125 Mg Tab.subl 1-2 TAB SL Q4H for Abdominal Pain, #15 TAB Prov: DARCY SPENCE DO 12/06/17 Dicyclomine HCl (Dicyclomine HCl) 20 Mg Tablet 20 MG PO Q6H for Abdominal Pain, #20 TAB Prov: DARCY SPENCE DO 12/06/17 DARCY SPENCE DO Dec 06, 2017 01:12
[2017-12-06] MEDS ORDERED: DICY20TA10 PO (01:14)
[2017-12-06] MEDS ORDERED: HYOS0.1283 SL (01:14)
[2017-12-06] MEDS ORDERED: ONDA4TAB8 PO (01:14)
[2017-12-06] MEDS ORDERED: HYOSCYAMINE 0.125 MG (LEVSIN) TAB PO ONE (01:15)
[2017-12-06] MEDS ORDERED: PANT40TA2 PO (01:15)
[2017-12-06 01:22] VITALS: BP 141/79
--- NOTE | 2017-12-06 05:22 | Diagnostic Imaging Report ---
INDICATION: Right flank pain COMPARISON: None FINDINGS: Supine and upright views of the abdomen show a nondistended bowel gas pattern. Moderate colonic air and stool is noted. No abnormal air fluid levels or free intraperitoneal air is seen. No abnormal extraosseous calcifications are seen. Bony and soft tissue structures are within normal limits. No organomegaly is identified. Accompanying upright chest shows normal heart size and pulmonary vascularity. The lungs are well aerated and clear. The mediastinum is normal in appearance. IMPRESSION: 1. No bowel obstruction or free air. 2. Normal chest. No pneumonia or pulmonary edema. 3. Moderate colonic air and stool. Please correlate for constipation. Dictated by: Dictated on workstation # [id number]
--- NOTE | 2017-12-06 06:36 | Diagnostic Imaging Report ---
PROCEDURE: CT urinary tract, rule out kidney stone. TECHNIQUE: Multiple contiguous axial images were obtained through the abdomen and pelvis without the use of intravenous contrast. INDICATION: Right flank pain. COMPARISON: 07/15/2017. FINDINGS: Include portions of the lungs are clear. CT ABDOMEN: Liver is diffusely hypodense consistent with background of hepatic steatosis. Otherwise, the liver, spleen, pancreas, adrenal glands, and kidneys have an unremarkable noncontrast CT appearance. Small bowel loops are nondistended. Normal appendix cannot be adequately identified, but there is no pericecal inflammation. There is no loculated fluid collection, free fluid, nor free air within the abdomen. No abnormal mesenteric or retroperitoneal adenopathy is seen. There is mild calcified aortic and arterial atherosclerosis. Bony structures show no acute abnormalities. CT PELVIS: Urinary bladder is unopacified. No calculi are seen within urinary bladder. There is no loculated fluid collection, or free fluid, nor free air within the pelvis. No abnormal lymph nodes are seen. Bony structures show no acute abnormalities. IMPRESSION: 1. No acute abnormalities are seen within the abdomen or pelvis. 2. Hepatic steatosis. Dictated by: Dictated on workstation # [id number]
== END 2017-12-06 01:16 | disposition home or self-care (01) ==
LOC: EDUNIT# 21:22 → ER 21:23
DX: R10.11 Right upper quadrant pain (principal); K21.9 Gastro-esophageal reflux disease without esophagitis; J44.9 Chronic obstructive pulmonary disease, unspecified; I10 Essential (primary) hypertension; I25.10 Atherosclerotic heart disease of native coronary artery without angina pectoris; E78.00 Pure hypercholesterolemia, unspecified; F17.210 Nicotine dependence, cigarettes, uncomplicated; Z87.19 Personal history of other diseases of the digestive system; Z79.82 Long term (current) use of aspirin
CPT/HCPCS: 36415; 74022; 74176; 80053; 81000; 82150; 83690; 85025; 96361; 96374; 96375

== ENCOUNTER → 2017-12-15 | Outpatient (CLI) | payer OTHER ==
[~2017-12-15] MED LIST changes: +DICY20TA10 PO; +ONDA4TAB8 PO; +PANT40TA2 PO
--- NOTE | 2017-12-15 12:49 | Diagnostic Imaging Report ---
EXAM: RIGHT UPPER QUADRANT ULTRASOUND DATE: 12/15/2017. COMPARISON: CT abdomen and pelvis 12/06/2017. INDICATION: 52-year-old female, right upper quadrant abdominal pain. PROCEDURE: Two-dimensional grayscale and color doppler ultrasound examination of the right upper quadrant is performed. FINDINGS: Liver: The liver is of normal size and echotexture without solid or cystic masses. Bile ducts and gallbladder: There is a shadowing echogenic focus within the gallbladder lumen consistent with gallstone. There is no gallbladder distention, pericholecystic fluid, or gallbladder wall thickening. The gallbladder wall measures 0.2 cm. There is no intrahepatic or extrahepatic biliary ductal dilation. The common bile duct measures 0.6 cm. Right kidney: Unremarkable right kidney. No hydronephrosis. The right kidney measures 10.5 cm x 4.1 cm x 5.4 cm. Pancreas: Limited visualized portions of the pancreas are unremarkable. IMPRESSION: 1. Cholelithiasis without evidence of acute cholecystitis. 2. No biliary ductal dilation. 3. Unremarkable sonographic appearance of the liver. 4. Partially visualized portions of the pancreas are unremarkable in appearance. Dictated by: Dictated on workstation # [id number]
== END ==
LOC: RAD 11:44
PROVIDERS: ATTEND Family Medicine
DX: K80.20 Calculus of gallbladder without cholecystitis without obstruction (principal)
CPT/HCPCS: 76705

== ENCOUNTER 2017-12-21 06:05 | Outpatient (CLI) | payer SELFPAY ==
[~2017-12-21] VITALS: Ht 154.9 cm; Wt 87.6 kg
[2017-12-21] MEDS ORDERED: ASPI-999 PO (13:37)
[2017-12-22] MEDS ORDERED: ACHD5005 PO (09:14)
== END 2017-12-21 13:47 ==
LOC: PREOP 06:05
PROVIDERS: ATTEND Surgery
DX: Z01.818 Encounter for other preprocedural examination (principal); K80.10 Calculus of gallbladder with chronic cholecystitis without obstruction

== ENCOUNTER 2017-12-22 06:12 | Day surgery (SDC) | payer SELFPAY ==
[~2017-12-22] VITALS: Ht 154.9 cm; Wt 87.6 kg
[~2017-12-22 06:12] MED LIST changes: +ASPI-999 PO
--- OUTSIDE RECORDS SUMMARY | 2017-12-22 06:17 | XMS REPORT | Continuity of Care Document ---
Author Author [facility] Organization [facility] Address Unknown Phone Unavailable Allergies Active Description Code Type Severity Reaction Onset Reported/Identified Relationship to Patient Clinical Status Yes No Known Drug Allergies [id number] Drug Allergy Unknown N/A 11/17/2011 Medications There is no data. Problems Date Dx Coded Attending Type Code Diagnosis Diagnosed By 02/12/2014 GLENDA LAI MD, Ot 034.0 STREP SORE THROAT 02/12/2014 GLENDA LAI MD, Ot 462 ACUTE PHARYNGITIS 02/12/2014 GLENDA LAI MD Ot 789.00 ABDOMINAL PAIN, UNSPECIFIED SITE 05/21/2016 SARI ROSARIO Ot F17.210 NICOTINE DEPENDENCE, CIGARETTES, UNCOMPL 05/21/2016 RACHEL ROSARIOEN L Ot R10.84 GENERALIZED ABDOMINAL PAIN 05/21/2016 SARI ROSARIO Ot R19.7 DIARRHEA, UNSPECIFIED 05/22/2016 SARI ROSARIO Ot F17.210 NICOTINE DEPENDENCE, CIGARETTES, UNCOMPL 05/22/2016 SARI ROSARIO L Ot R10.84 GENERALIZED ABDOMINAL PAIN 05/22/2016 SARI ROSARIO Ot R19.7 DIARRHEA, UNSPECIFIED 06/16/2016 SARI ROSARIO Ot F17.210 NICOTINE DEPENDENCE, CIGARETTES, UNCOMPL 06/16/2016 RACHEL ROSARIOEN L Ot R10.84 GENERALIZED ABDOMINAL PAIN 06/16/2016 SARI ROSARIO L Ot R19.7 DIARRHEA, UNSPECIFIED 08/12/2016 MURRAY OROZCO MD R Ot N63 UNSPECIFIED LUMP IN BREAST 08/13/2016 MURRAY OROZCO MD Ot N63 UNSPECIFIED LUMP IN BREAST 11/13/2016 MURRAY OROZCO MD Ot N63 UNSPECIFIED LUMP IN BREAST 11/13/2016 GLENDA LAI MD Ot I10 ESSENTIAL (PRIMARY) HYPERTENSION 11/13/2016 GLENDA LAI MD, Ot J44.1 CHRONIC OBSTRUCTIVE PULMONARY DISEASE W 11/13/2016 GLENDA LAI MD Ot R07.9 CHEST PAIN, UNSPECIFIED 11/13/2016 GLENDA LAI MD Ot 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 11/13/2016 GLENDA LAI MD Ot Z79.899 OTHER COLORING ROOM WORKER (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) DRUG THERAPY 07/16/2017 JORDY DO, DARCY K Ot E78.00 PURE HYPERCHOLESTEROLEMIA, UNSPECIFIED 07/16/2017 JORDY DO, DARCY K Ot F17.210 NICOTINE DEPENDENCE, CIGARETTES, UNCOMPL 07/16/2017 JORDY DO, DARCY K Ot I10 ESSENTIAL (PRIMARY) HYPERTENSION 07/16/2017 JORDY DO, DARCY K Ot I25.10 ATHSCL HEART DISEASE OF [place] CORONARY 07/16/2017 JORDY DO, DARCY K Ot J44.9 CHRONIC OBSTRUCTIVE PULMONARY DISEASE, U 07/16/2017 JORDY DO, DARCY K Ot J45.909 UNSPECIFIED ASTHMA, UNCOMPLICATED 07/16/2017 JORDY DO, DARCY K Ot K21.9 GASTRO-ESOPHAGEAL REFLUX DISEASE WITHOUT 07/16/2017 JORDY DO, DARCY K Ot K59.00 CONSTIPATION, UNSPECIFIED 07/16/2017 JORDY DO, DARCY K Ot R10.11 RIGHT UPPER QUADRANT PAIN 07/16/2017 JORDY DO, DARCY K Ot Z79.4 DETENTION (CURRENT) USE OF INSULIN 07/16/2017 JORDY , DARCY K Ot Z87.19 PERSONAL HISTORY OF OTHER DISEASES OF TH 07/21/2017 JORDY DARCY K Ot E78.00 PURE HYPERCHOLESTEROLEMIA, UNSPECIFIED 07/21/2017 JORDY DO, DARCY K Ot F17.210 NICOTINE DEPENDENCE, CIGARETTES, UNCOMPL 07/21/2017 JORDY DO, DARCY K Ot I10 ESSENTIAL (PRIMARY) HYPERTENSION 07/21/2017 JORDY DO, DARCY K Ot I25.10 ATHSCL HEART DISEASE OF [place] CORONARY 07/21/2017 JORDY DO, DARCY K Ot J44.9 CHRONIC OBSTRUCTIVE PULMONARY DISEASE, U 07/21/2017 JORDY DO, DARCY K Ot J45.909 UNSPECIFIED ASTHMA, UNCOMPLICATED 07/21/2017 JORDY DO, DARCY K Ot K21.9 GASTRO-ESOPHAGEAL REFLUX DISEASE WITHOUT 07/21/2017 JORDY DO, DARCY K Ot K59.00 CONSTIPATION, UNSPECIFIED 07/21/2017 JORDY DO, DARCY K Ot R10.11 RIGHT UPPER QUADRANT PAIN 07/21/2017 JORDY DO, DARCY K Ot Z79.4 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 ROOM 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 07/21/2017 JORDY DO, DARCY K Ot Z87.19 PERSONAL HISTORY OF OTHER DISEASES OF 12/06/2017 JORDY DO, DARCY K Ot E78.00 PURE HYPERCHOLESTEROLEMIA, UNSPECIFIED 12/06/2017 JORDY DO, DARCY K Ot F17.210 NICOTINE DEPENDENCE, CIGARETTES, UNCOMPL 12/06/2017 JORDY DO, DARCY K Ot I10 ESSENTIAL (PRIMARY) HYPERTENSION 12/06/2017 JORDY DO, DARCY K Ot I25.10 ATHSCL HEART DISEASE OF [place] CORONARY 12/06/2017 JORDY DO, DARCY K Ot J44.9 CHRONIC OBSTRUCTIVE PULMONARY DISEASE, U 12/06/2017 JORDY DO, DARCY K Ot K21.9 GASTRO-ESOPHAGEAL REFLUX DISEASE WITHOUT 12/06/2017 JORDY DO, DARCY K Ot R10.11 RIGHT UPPER QUADRANT PAIN 12/06/2017 JORDY DO, DARCY K Ot 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 12/06/2017 JORDY DO, DARCY K Ot Z87.19 PERSONAL HISTORY OF OTHER DISEASES OF 12/07/2017 JORDY DO, DARCY K Ot E78.00 PURE HYPERCHOLESTEROLEMIA, UNSPECIFIED 12/07/2017 JORDY DO, DARCY K Ot F17.210 NICOTINE DEPENDENCE, CIGARETTES, UNCOMPL 12/07/2017 JORDY DO, DARCY K Ot I10 ESSENTIAL (PRIMARY) HYPERTENSION 12/07/2017 JORDY DO, DARCY K Ot I25.10 ATHSCL HEART DISEASE OF [place] CORONARY 12/07/2017 JORDY DO, DARCY K Ot J44.9 CHRONIC OBSTRUCTIVE PULMONARY DISEASE, U 12/07/2017 JORDY DO, DARCY K Ot K21.9 GASTRO-ESOPHAGEAL REFLUX DISEASE WITHOUT 12/07/2017 JORDY DO, DARCY K Ot R10.11 RIGHT UPPER QUADRANT PAIN 12/07/2017 JORDY DO, DARCY K Ot Z79.82 DETENTION (CURRENT) USE OF ASPIRIN 12/07/2017 JORDY DO, DARCY K Ot Z87.19 PERSONAL HISTORY OF OTHER DISEASES OF 12/07/2017 ERNESTO GILES, MURRAY Tomlinson Ot N63 UNSPECIFIED LUMP IN BREAST 12/16/2017 MURRAY OROZCO MD, Ot K80.20 CALCULUS OF GALLBLADDER W/O CHOLECYSTITI Procedures There is no data. Results Test Result Range Complete blood count (CBC) with automated white blood cell (WBC) differential - 05/21/16 19:27 Blood leukocytes automated count (number/volume) 9.0 10*3/uL 4.3-11.0 Blood erythrocytes automated count (number/volume) 5.28 10*6/uL 4.35-5.85 Venous blood hemoglobin measurement (mass/volume) 14.3 g/dL 11.5-16.0 Blood hematocrit (volume fraction) 43 % 35-52 Automated erythrocyte mean corpuscular volume 81 [foz_us] 80-99 Automated erythrocyte mean corpuscular hemoglobin (mass per erythrocyte) 27 pg 25-34 Automated erythrocyte mean corpuscular hemoglobin concentration measurement ( mass/volume) 34 g/dL 32-36 Automated erythrocyte distribution width ratio 15.4 % 10.0-14.5 Automated blood platelet count (count/volume) 250 10*3/uL 130-400 Automated blood platelet mean volume measurement 10.7 [foz_us] 7.4-10.4 Automated blood neutrophils/100 leukocytes 50 % 42-75 Automated blood lymphocytes/100 leukocytes 38 % 12-44 Blood monocytes/100 leukocytes 9 % 0-12 Automated blood eosinophils/100 leukocytes 2 % 0-10 Automated blood basophils/100 leukocytes 1 % 0-10 Blood neutrophils automated count (number/volume) 4.5 10*3 1.8-7.8 Blood lymphocytes automated count (number/volume) 3.5 10*3 1.0-4.0 Blood monocytes automated count (number/volume) 0.8 10*3 0.0-1.0 Automated eosinophil count 0.2 10*3/uL 0.0-0.3 Automated blood basophil count (count/volume) 0.1 10*3/uL 0.0-0.1 Comprehensive metabolic panel - 05/21/16 19:27 Serum or plasma sodium measurement (moles/volume) 138 mmol/L 135-145 Serum or plasma potassium measurement (moles/volume) 3.9 mmol/L 3.6-5.0 Serum or plasma chloride measurement (moles/volume) 107 mmol/L 98-107 Carbon dioxide 23 mmol/L 21-32 Serum or plasma anion gap determination (moles/volume) 8 mmol/L 5-14 Serum or plasma urea nitrogen measurement (mass/volume) 16 mg/dL 7-18 Serum or plasma creatinine measurement (mass/volume) 0.73 mg/dL 0.60-1.30 Serum or plasma urea nitrogen/creatinine mass ratio 22 NRG Serum or plasma creatinine measurement with calculation of estimated glomerular filtration rate > NRG Serum or plasma glucose measurement (mass/volume) 96 mg/dL 70-105 Serum or plasma calcium measurement (mass/volume) 9.3 mg/dL 8.5-10.1 Serum or plasma total bilirubin measurement (mass/volume) 0.5 mg/dL 0.1-1.0 Serum or plasma alkaline phosphatase measurement (enzymatic activity/volume) 82 U/L 40-136 Serum or plasma aspartate aminotransferase measurement (enzymatic activity/ volume) 26 U/L 5-34 Serum or plasma alanine aminotransferase measurement (enzymatic activity/volume ) 34 U/L 0-55 Serum or plasma protein measurement (mass/volume) 7.5 g/dL 6.4-8.2 Serum or plasma albumin measurement (mass/volume) 4.5 g/dL 3.2-4.5 Lipase - 05/21/16 19:27 Lipase 28 U/L 8-78 Serum or plasma C reactive protein measurement (mass/volume) - 05/21/16 19:27 Serum or plasma C reactive protein measurement (mass/volume) 0.87 mg /dL 0.00-0.50 Erythrocyte sedimentation rate by westergren method - 05/21/16 19:27 Erythrocyte sedimentation rate by westergren method 11 mm 0-30 Complete urinalysis with reflex to culture - 05/21/16 21:24 Urine color determination YELLOW NRG Urine clarity determination CLEAR NRG Urine pH measurement by test strip 5 5-9 Specific gravity of urine by test strip 1.010 1.016- 1.022 Urine protein assay by test strip, semi-quantitative 1+ NEGATIVE Urine glucose detection by automated test strip NEGATIVE NEGATIVE Erythrocytes detection in urine sediment by light microscopy NEGATIVE NEGATIVE Urine ketones detection by automated test strip NEGATIVE NEGATIVE Urine nitrite detection by test strip NEGATIVE NEGATIVE Urine total bilirubin detection by test strip NEGATIVE NEGATIVE Urine urobilinogen measurement by automated test strip (mass/volume) NORMAL NORMAL Urine leukocyte esterase detection by dipstick NEGATIVE NEGATIVE Automated urine sediment erythrocyte count by microscopy (number/high power field) NONE NRG Automated urine sediment leukocyte count by microscopy (number/high power field ) [HPF] NRG Bacteria detection in urine sediment by light microscopy FEW NRG Squamous epithelial cells detection in urine sediment by light microscopy 2-5 NRG Crystals detection in urine sediment by light microscopy NONE NRG Casts detection in urine sediment by light microscopy NONE NRG Mucus detection in urine sediment by light microscopy NEGATIVE NRG Complete urinalysis with reflex to culture NO NRG Urine drug screening test - 05/21/16 21:24 Urine acetaminophen detection by screening method NEGATIVE NEGATIVE Urine phencyclidine detection by screening method NEGATIVE NEGATIVE Urine benzodiazepines detection by screening method NEGATIVE NEGATIVE Urine cocaine detection NEGATIVE NEGATIVE Urine amphetamines detection by screening method NEGATIVE NEGATIVE Urine methamphetamine detection by screening method NEGATIVE NEGATIVE Urine cannabinoids detection by screening method NEGATIVE NEGATIVE Urine opiates detection by screening method NEGATIVE NEGATIVE Urine barbiturates detection NEGATIVE NEGATIVE Screening urine tricyclic antidepressants detection NEGATIVE NEGATIVE Urine methadone detection by screening method NEGATIVE NEGATIVE Complete blood count (CBC) with automated white blood cell (WBC) differential - 11/13/16 13:50 Blood leukocytes automated count (number/volume) 15.9 10*3/uL 4.3-11.0 Blood erythrocytes automated count (number/volume) 5.30 10*6/uL 4.35-5.85 Venous blood hemoglobin measurement (mass/volume) 14.2 g/dL 11.5-16.0 Blood hematocrit (volume fraction) 41 % 35-52 Automated erythrocyte mean corpuscular volume 77 [foz_us] 80-99 Automated erythrocyte mean corpuscular hemoglobin (mass per erythrocyte) 27 pg 25-34 Automated erythrocyte mean corpuscular hemoglobin concentration measurement ( mass/volume) 35 g/dL 32-36 Automated erythrocyte distribution width ratio 17.4 % 10.0-14.5 Automated blood platelet count (count/volume) 255 10*3/uL 130-400 Automated blood platelet mean volume measurement 10.7 [foz_us] 7.4-10.4 Automated blood neutrophils/100 leukocytes 69 % 42-75 Automated blood lymphocytes/100 leukocytes 23 % 12-44 Blood monocytes/100 leukocytes 6 % 0-12 Automated blood eosinophils/100 leukocytes 1 % 0-10 Automated blood basophils/100 leukocytes 0 % 0-10 Blood neutrophils automated count (number/volume) 11.0 10*3 1.8-7.8 Blood lymphocytes automated count (number/volume) 3.7 10*3 1.0-4.0 Blood monocytes automated count (number/volume) 1.0 10*3 0.0-1.0 Automated eosinophil count 0.2 10*3/uL 0.0-0.3 Automated blood basophil count (count/volume) 0.0 10*3/uL 0.0-0.1 PT panel in platelet poor plasma by coagulation assay - 11/13/16 13:50 Prothrombin time (PT) in platelet poor plasma by coagulation assay 12.7 s 12.2-14.7 INR in platelet poor plasma or blood by coagulation assay 1.0 0.8-1.4 Activated partial thromboplastin time (aPTT) in platelet poor plasma bycoagulation assay - 11/13/16 13:50 Activated partial thromboplastin time (aPTT) in platelet poor plasma bycoagulation assay 29 s 24-35 Fibrin D-dimer FEU measurement in platelet poor plasma (mass/volume) - 13:50 Fibrin D-dimer FEU measurement in platelet poor plasma (mass/volume) 0.80 ug/mL 0.00-0.49 Comprehensive metabolic panel - 11/13/16 13:50 Serum or plasma sodium measurement (moles/volume) 139 mmol/L 135-145 Serum or plasma potassium measurement (moles/volume) 3.7 mmol/L 3.6-5.0 Serum or plasma chloride measurement (moles/volume) 108 mmol/L 98-107 Carbon dioxide 18 mmol/L 21-32 Serum or plasma anion gap determination (moles/volume) 13 mmol/L 5-14 Serum or plasma urea nitrogen measurement (mass/volume) 10 mg/dL 7-18 Serum or plasma creatinine measurement (mass/volume) 0.72 mg/dL 0.60-1.30 Serum or plasma urea nitrogen/creatinine mass ratio 14 NRG Serum or plasma creatinine measurement with calculation of estimated glomerular filtration rate > NRG Serum or plasma glucose measurement (mass/volume) 149 mg/dL 70-105 Serum or plasma calcium measurement (mass/volume) 9.1 mg/dL 8.5-10.1 Serum or plasma total bilirubin measurement (mass/volume) 0.3 mg/dL 0.1-1.0 Serum or plasma alkaline phosphatase measurement (enzymatic activity/volume) 89 U/L 40-136 Serum or plasma aspartate aminotransferase measurement (enzymatic activity/ volume) 17 U/L 5-34 Serum or plasma alanine aminotransferase measurement (enzymatic activity/volume ) 19 U/L 0-55 Serum or plasma protein measurement (mass/volume) 7.6 g/dL 6.4-8.2 Serum or plasma albumin measurement (mass/volume) 4.2 g/dL 3.2-4.5 Magnesium - 11/13/16 13:50 Magnesium 2.1 mg/dL 1.8-2.4 Serum or plasma troponin i.cardiac measurement (mass/volume) - 11/13/16 13:50 Serum or plasma troponin i.cardiac measurement (mass/volume) < ng/ mL <0.30 Blood manual differential performed detection - 11/13/16 13:50 Blood monocytes/100 leukocytes 4 % NRG Manual blood segmented neutrophils/100 leukocytes 63 % NRG Blood band neutrophils/100 leukocytes 5 % NRG Manual blood lymphocytes/100 leukocytes 27 % NRG Manual eosinophils/100 leukocytes in nose 1 % NRG Manual blood basophils/100 leukocytes 0 % NRG Blood anisocytosis detection by light microscopy SLIGHT NRG Myoglobin, serum - 11/13/16 13:50 Myoglobin, serum 26.8 ng/mL 10.0-92.0 Lipase - 11/13/16 13:50 Lipase 25 U/L 8-78 Complete blood count (CBC) with automated white blood cell (WBC) differential - 07/15/17 21:50 Blood leukocytes automated count (number/volume) 11.4 10*3/uL 4.3-11.0 Blood erythrocytes automated count (number/volume) 5.31 10*6/uL 4.35-5.85 Venous blood hemoglobin measurement (mass/volume) 14.1 g/dL 11.5-16.0 Blood hematocrit (volume fraction) 43 % 35-52 Automated erythrocyte mean corpuscular volume 80 [foz_us] 80-99 Automated erythrocyte mean corpuscular hemoglobin (mass per erythrocyte) 27 pg 25-34 Automated erythrocyte mean corpuscular hemoglobin concentration measurement ( mass/volume) 33 g/dL 32-36 Automated erythrocyte distribution width ratio 14.5 % 10.0-14.5 Automated blood platelet count (count/volume) 296 10*3/uL 130-400 Automated blood platelet mean volume measurement 10.9 [foz_us] 7.4-10.4 Automated blood neutrophils/100 leukocytes 70 % 42-75 Automated blood lymphocytes/100 leukocytes 26 % 12-44 Blood monocytes/100 leukocytes 4 % 0-12 Automated blood eosinophils/100 leukocytes 0 % 0-10 Automated blood basophils/100 leukocytes 0 % 0-10 Blood neutrophils automated count (number/volume) 8.0 10*3 1.8-7.8 Blood lymphocytes automated count (number/volume) 2.9 10*3 1.0-4.0 Blood monocytes automated count (number/volume) 0.5 10*3 0.0-1.0 Automated eosinophil count 0.0 10*3/uL 0.0-0.3 Automated blood basophil count (count/volume) 0.0 10*3/uL 0.0-0.1 Complete urinalysis with reflex to culture - 07/15/17 21:50 Urine color determination YELLOW NRG Urine clarity determination CLEAR NRG Urine pH measurement by test strip 6 5-9 Specific gravity of urine by test strip 1.010 1.016- 1.022 Urine protein assay by test strip, semi-quantitative NEGATIVE NEGATIVE Urine glucose detection by automated test strip NEGATIVE NEGATIVE Erythrocytes detection in urine sediment by light microscopy NEGATIVE NEGATIVE Urine ketones detection by automated test strip NEGATIVE NEGATIVE Urine nitrite detection by test strip NEGATIVE NEGATIVE Urine total bilirubin detection by test strip NEGATIVE NEGATIVE Urine urobilinogen measurement by automated test strip (mass/volume) NORMAL NORMAL Urine leukocyte esterase detection by dipstick NEGATIVE NEGATIVE Automated urine sediment erythrocyte count by microscopy (number/high power field) NONE NRG Automated urine sediment leukocyte count by microscopy (number/high power field ) NONE NRG Bacteria detection in urine sediment by light microscopy NONE NRG Squamous epithelial cells detection in urine sediment by light microscopy 0-2 NRG Crystals detection in urine sediment by light microscopy NONE NRG Casts detection in urine sediment by light microscopy NONE NRG Mucus detection in urine sediment by light microscopy NEGATIVE NRG Complete urinalysis with reflex to culture NO NRG Comprehensive metabolic panel - 07/15/17 21:50 Serum or plasma sodium measurement (moles/volume) 139 mmol/L 135-145 Serum or plasma potassium measurement (moles/volume) 4.2 mmol/L 3.6-5.0 Serum or plasma chloride measurement (moles/volume) 105 mmol/L 98-107 Carbon dioxide 20 mmol/L 21-32 Serum or plasma anion gap determination (moles/volume) 14 mmol/L 5-14 Serum or plasma urea nitrogen measurement (mass/volume) 17 mg/dL 7-18 Serum or plasma creatinine measurement (mass/volume) 0.74 mg/dL 0.60-1.30 Serum or plasma urea nitrogen/creatinine mass ratio 23 NRG Serum or plasma creatinine measurement with calculation of estimated glomerular filtration rate > NRG Serum or plasma glucose measurement (mass/volume) 137 mg/dL 70-105 Serum or plasma calcium measurement (mass/volume) 9.6 mg/dL 8.5-10.1 Serum or plasma total bilirubin measurement (mass/volume) 0.3 mg/dL 0.1-1.0 Serum or plasma alkaline phosphatase measurement (enzymatic activity/volume) 90 U/L 40-136 Serum or plasma aspartate aminotransferase measurement (enzymatic activity/ volume) 17 U/L 5-34 Serum or plasma alanine aminotransferase measurement (enzymatic activity/volume ) 27 U/L 0-55 Serum or plasma protein measurement (mass/volume) 8.3 g/dL 6.4-8.2 Serum or plasma albumin measurement (mass/volume) 4.5 g/dL 3.2-4.5 Serum or plasma amylase measurement (enzymatic activity/volume) - 07/15/17 21: 56 Serum or plasma amylase measurement (enzymatic activity/volume) 66 U /L 25-125 Lipase - 07/15/17 21:56 Lipase 41 U/L 8-78 Complete urinalysis with reflex to culture - 12/05/17 23:30 Urine color determination YELLOW NRG Urine clarity determination CLEAR NRG Urine pH measurement by test strip 6.5 5-9 Specific gravity of urine by test strip 1.015 1.016- 1.022 Urine protein assay by test strip, semi-quantitative NEGATIVE NEGATIVE Urine glucose detection by automated test strip NEGATIVE NEGATIVE Erythrocytes detection in urine sediment by light microscopy NEGATIVE NEGATIVE Urine ketones detection by automated test strip NEGATIVE NEGATIVE Urine nitrite detection by test strip NEGATIVE NEGATIVE Urine total bilirubin detection by test strip NEGATIVE NEGATIVE Urine urobilinogen measurement by automated test strip (mass/volume) NORMAL NORMAL Urine leukocyte esterase detection by dipstick 1+ NEGATIVE Automated urine sediment erythrocyte count by microscopy (number/high power field) NONE NRG Automated urine sediment leukocyte count by microscopy (number/high power field ) RARE NRG Bacteria detection in urine sediment by light microscopy NEGATIVE NRG Squamous epithelial cells detection in urine sediment by light microscopy 10-25 NRG Crystals detection in urine sediment by light microscopy NONE NRG Casts detection in urine sediment by light microscopy NONE NRG Mucus detection in urine sediment by light microscopy NEGATIVE NRG Complete urinalysis with reflex to culture NO NRG Complete blood count (CBC) with automated white blood cell (WBC) differential - 12/05/17 23:45 Blood leukocytes automated count (number/volume) 12.2 10*3/uL 4.3-11.0 Blood erythrocytes automated count (number/volume) 5.30 10*6/uL 4.35-5.85 Venous blood hemoglobin measurement (mass/volume) 13.9 g/dL 11.5-16.0 Blood hematocrit (volume fraction) 42 % 35-52 Automated erythrocyte mean corpuscular volume 79 [foz_us] 80-99 Automated erythrocyte mean corpuscular hemoglobin (mass per erythrocyte) 26 pg 25-34 Automated erythrocyte mean corpuscular hemoglobin concentration measurement ( mass/volume) 33 g/dL 32-36 Automated erythrocyte distribution width ratio 14.9 % 10.0-14.5 Automated blood platelet count (count/volume) 320 10*3/uL 130-400 Automated blood platelet mean volume measurement 10.5 [foz_us] 7.4-10.4 Automated blood neutrophils/100 leukocytes 82 % 42-75 Automated blood lymphocytes/100 leukocytes 14 % 12-44 Blood monocytes/100 leukocytes 2 % 0-12 Automated blood eosinophils/100 leukocytes 1 % 0-10 Automated blood basophils/100 leukocytes 1 % 0-10 Blood neutrophils automated count (number/volume) 10.0 10*3 1.8-7.8 Blood lymphocytes automated count (number/volume) 1.7 10*3 1.0-4.0 Blood monocytes automated count (number/volume) 0.3 10*3 0.0-1.0 Automated eosinophil count 0.1 10*3/uL 0.0-0.3 Automated blood basophil count (count/volume) 0.1 10*3/uL 0.0-0.1 Comprehensive metabolic panel - 12/05/17 23:45 Serum or plasma sodium measurement (moles/volume) 141 mmol/L 135-145 Serum or plasma potassium measurement (moles/volume) 4.6 mmol/L 3.6-5.0 Serum or plasma chloride measurement (moles/volume) 106 mmol/L 98-107 Carbon dioxide 20 mmol/L 21-32 Serum or plasma anion gap determination (moles/volume) 15 mmol/L 5-14 Serum or plasma urea nitrogen measurement (mass/volume) 15 mg/dL 7-18 Serum or plasma creatinine measurement (mass/volume) 0.76 mg/dL 0.60-1.30 Serum or plasma urea nitrogen/creatinine mass ratio 20 NRG Serum or plasma creatinine measurement with calculation of estimated glomerular filtration rate > NRG Serum or plasma glucose measurement (mass/volume) 130 mg/dL 70-105 Serum or plasma calcium measurement (mass/volume) 10.1 mg/dL 8.5-10.1 Serum or plasma total bilirubin measurement (mass/volume) 0.3 mg/dL 0.1-1.0 Serum or plasma alkaline phosphatase measurement (enzymatic activity/volume) 87 U/L 40-136 Serum or plasma aspartate aminotransferase measurement (enzymatic activity/ volume) 22 U/L 5-34 Serum or plasma alanine aminotransferase measurement (enzymatic activity/volume ) 26 U/L 0-55 Serum or plasma protein measurement (mass/volume) 7.6 g/dL 6.4-8.2 Serum or plasma albumin measurement (mass/volume) 4.3 g/dL 3.2-4.5 Serum or plasma amylase measurement (enzymatic activity/volume) - 12/05/17 23: 45 Serum or plasma amylase measurement (enzymatic activity/volume) 56 U /L 25-125 Lipase - 12/05/17 23:45 Lipase 27 U/L 8-78 Encounters ACCT No. Visit Date/Time Discharge Status Pt. Type Provider Facility Loc./Unit Complaint [id number] 12/15/2017 11:44:00 12/15/2017 23:59:59 CLS Outpatient MURRAY OROZCO MD [facility] RAD R10.11 RUQ ABD PAIN [id number] 12/05/2017 21:23:00 12/06/2017 01:16:00 DIS Emergency DARCY SPENCE DO [facility] ER CHRONS FLARE UP [id number] 08/11/2017 07:29:00 08/11/2017 23:59:59 CLS Preadmit MURRAY OROZCO MD [facility] SLEEP HYPERSOMNIA G47.10 [id number] 07/15/2017 21:47:00 07/16/2017 00:18:00 DIS Emergency DARCY SPENCE DO [facility] ER VOMITING;FEVER [id number] 11/13/2016 13:43:00 11/13/2016 16:55:00 DIS Emergency MING GILES, GLENDA Manzano [facility] ER CHEST PAIN/SOA LEFT ARM NUMBNESS [id number] 08/12/2016 12:39:00 08/12/2016 23:59:59 CLS Outpatient ERNESTO GILES, MURRAY Tomlinson [facility] RAD BREAST LUMP [id number] 05/21/2016 19:12:00 05/21/2016 22:38:00 DIS Emergency SARI ROSARIO [facility] ER ABD PAIN [id number] 02/12/2014 14:40:00 02/12/2014 16:34:00 DIS Emergency GLENDA LAI MD [facility] ER MULTIPLE COMPLAINTS [id number] 12/22/2017 08:00:00 PEN Graciela MCCRAY [facility]
[2017-12-22 06:25] VITALS: BP 126/97
[2017-12-22] MEDS ORDERED: ceFAZolin INJECTION 1,000 MG in NS (IVPB) 50 ML IV ONE (06:30)
[2017-12-22] MEDS ORDERED: metroNIDAZOLE 500MG/100ML IVPB 100 ML IV ONE (06:30)
[2017-12-22] MEDS ORDERED: ceFAZolin 1,000 MG (ANCEF) VIAL ONE ×2 (06:42→06:49)
[2017-12-22] MEDS ORDERED: metroNIDAZOLE 500MG/100ML IVPB 100 ML ONE (06:43)
[2017-12-22] MEDS ORDERED: NS (IVPB) 50 ML ONE ×2 (06:43→06:49)
[2017-12-22] MEDS: LACTATED RINGERS 1,000 ML IV PRN ×2 (06:50→09:05)
[2017-12-22] MEDS ORDERED: MIDAZOLAM 2 MG/2 ML (VERSED) VIAL ONE (06:56)
[2017-12-22] MEDS ORDERED: GLYCOPYRROLATE 0.2 MG/ML (ROBINUL) 2 ML VIAL ONE (06:56)
[2017-12-22] MEDS ORDERED: proPOfol 200 MG/20 ML (DIPRIVAN) VIAL IV ONE (06:56)
[2017-12-22] MEDS ORDERED: ROCURONIUM 50 MG/5 ML (ZEMURON) VIAL IV ONE (06:56)
[2017-12-22] MEDS ORDERED: DEXAMETHASONE 10 MG/ML (DECADRON) 1 ML VIAL ONE (06:56)
[2017-12-22] MEDS ORDERED: SEVOFLURANE (ULTANE) 15 ML INHAL SOLN ONE (06:56)
[2017-12-22] MEDS ORDERED: NEOSTIGMINE (BLOXIVERZ ) 1 MG/1ML 10 ML VIAL ONE (06:56)
[2017-12-22] MEDS ORDERED: ONDANSETRON 4 MG/2 ML (SDV) Z0FRAN ONE (06:56)
[2017-12-22] MEDS ORDERED: LIDOCAINE PF 2% 5 ML (XYLOCAINE) VIAL ONE (06:56)
[2017-12-22] MEDS ORDERED: fentaNYL INJECTION 100 MCG/2 ML AMP ONE ×2 (06:56→09:07)
[2017-12-22] MEDS ORDERED: FAMOTIDINE 20MG/2ML IV (PEPCID) IV ONE (07:00)
[2017-12-22] MEDS ORDERED: BUP/EPI 0.5% 1:200,000 (SENSORCAINE) 30 ML VIAL ONE (07:14)
--- NOTE | 2017-12-22 07:51 | Progress Note-Pre Operative ---
Pre-Operative Progress Note H&P Reviewed The H&P was reviewed, patient examined and no changes noted. Date Seen by Provider: Dec 16, 2017 Time Seen by Provider: 12:35 Date H&P Reviewed: Dec 22, 2017 Time H&P Reviewed: 07:50 Pre-Operative Diagnosis: Gallstones TASHA MCCRAY MD Dec 22, 2017 7:51 am
[2017-12-22] MEDS ORDERED: ACHD5005 PO (09:14)
--- NOTE | 2017-12-22 09:14 | Operative Report ---
Operative Report Date of Procedure/Surgery Dec 22, 2017 Surgeon (s) TASHA MCCRAY MD Automatic Grinding Machine Operator (s): N/A Post-Operative Diagnosis SAME Procedure Performed Robotic-assisted cholecystectomy Description of Procedure Anesthesia Type: General Estimated blood loss (mL): Minimal Specimen(s) collected/removed Gallbladder with stone Description of the Procedure Indication for the procedure: This lady presented with symptomatic gallstones. She was offered cholecystectomy using minimally invasive technique with robotic assistance. Informed consent was obtained after reviewing the operative details and complications of wound infection and bile leak. Description of the procedure: She was placed supine on the operative table and general anesthesia induced using an endotracheal tube. Ancef and Flagyl were administered intravenously as prophylaxis against wound infection. Sequential compression devices were placed around her legs, to minimize the risk of venous thrombosis. Abdomen was prepared and draped in the usual sterile manner. A subumbilical incision was made and pneumoperitoneum established using a Veress needle intra- abdominal pressure was maintained at 15 mmHg, using carbon dioxide insufflation 12 mm trocar was placed and anatomy visualized using a high definition, 3- dimensional laparoscope associated with da Won system. Under direct view, I placed an 8 mm trocar over each side of the abdomen, followed by a 5 mm trocar over the left subcostal region. The patient was then turned into reverse Trendelenburg position and the robotic system docked in place. Laparoscopic survey confirmed omentum adherent to the gallbladder possibly due to chronic inflammation. It was using the hook cautery and the fundus of the gallbladder retracted cephalad. Infundibulum was grasped with Cadiere forceps and peritoneum overlying Calot's triangle incised using hook cautery, delineating the cystic duct and artery. Both were divided between locking clips. Cholecystectomy was then completed using the hook cautery. Subhepatic space was irrigated with saline and the gallbladder placed in an Endo Catch bag, and removed via the subumbilical trocar site. The fascia over this incision was closed using #1 Vicryl using the German Chavez device. Skin incisions were closed using 4-0 Vicryl, in a subcuticular fashion. 0.5 percent Marcaine with epinephrine was infiltrated along the incisions, both preemptively and at the conclusion of the operation. She tolerated the procedure well, was extubated in the operating room and taken to the recovery room in a stable condition. 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 Prescribed by: SARI JONES on 05/21/16 4275 Lisinopril 10 Mg Tablet, 10 MG PO DAILY, (Reported) TASHA MCCRAY MD Dec 22, 2017 9:14 am
--- NOTE | 2017-12-22 09:15 | Discharge Inst-Simple/Standard ---
Discharge Inst-Standard Discharge Medications New, Converted or Re-Newed RX: RX on Chart Patient Instructions/Follow Up Plan of Care/Instructions/FU: Band-Aids off in 48 hours. Incentive spirometry. Follow-up in 3 weeks. Activity as Tolerated: Yes Discharge Diet: No Restrictions TASHA MCCRAY MD Dec 22, 2017 9:15 am
[2017-12-22] MEDS ORDERED: morphine INJ 10 MG/ML 1ML (SYR OR VIAL) IVP PRN (09:30)
[2017-12-22] MEDS ORDERED: ONDANSETRON 4 MG/2 ML (SDV) Z0FRAN IVP PRN (09:30)
[2017-12-22 10:20] VITALS: BP 133/69
[2017-12-22 10:21] VITALS: BP 133/69
--- NOTE | 2017-12-22 10:43 | Anesthesia-General Post-Op ---
General Patient Condition Mental Status/LOC: Same as Preop Cardiovascular: Satisfactory Nausea/Vomiting: Absent Respiratory: Satisfactory Pain: Controlled Complications: Absent Post Op Complications Complications None Follow Up Care/Instructions Patient Instructions None needed. Anesthesia/Patient Condition Patient Condition Patient is doing well, no complaints, stable vital signs, no apparent adverse anesthesia problems. No complications reported per nursing. ANDREAS ORELLANA CRNA Dec 22, 2017 10:43
[2017-12-22] MEDS ORDERED: HYDROcodone/APAP 5 MG/325 MG (LORTAB) TAB PO ONE (10:45)
[2017-12-22 10:50] VITALS: BP 134/75
[2017-12-22 11:20] VITALS: BP 150/84
== END 2017-12-22 11:20 | disposition home or self-care (01) ==
LOC: SDC 06:12
PROVIDERS: ATTEND Surgery
DX: K80.20 Calculus of gallbladder without cholecystitis without obstruction (principal); Z11.2 Encounter for screening for other bacterial diseases; Z79.899 Other long term (current) drug therapy; Z79.82 Long term (current) use of aspirin; K50.90 Crohn's disease, unspecified, without complications; I10 Essential (primary) hypertension; I25.10 Atherosclerotic heart disease of native coronary artery without angina pectoris; F17.210 Nicotine dependence, cigarettes, uncomplicated; G47.33 Obstructive sleep apnea (adult) (pediatric); J44.9 Chronic obstructive pulmonary disease, unspecified; M19.90 Unspecified osteoarthritis, unspecified site; K21.9 Gastro-esophageal reflux disease without esophagitis
CPT/HCPCS: 84703; 87081; 94664

== ENCOUNTER 2018-10-05 09:59 | Day surgery (SDC) | payer SELFPAY ==
[2018-10-05] VITALS (11 sets, daily range): BP systolic 121–162; BP diastolic 58–86
[~2018-10-05] VITALS: Ht 154.9 cm; Wt 82.1 kg
[2018-10-05] MEDS ORDERED: ASPIRIN 81 MG CHEW (CHILDREN'S ASA) PO ONE ×2 (10:15)
[2018-10-05] MEDS ORDERED: NITROGLYCERIN 0.4 MG SL TABS BTL 25'S SL PRN ×2 (10:15→14:00)
[2018-10-05 10:32] LABS: BASOPHILS # (AUTO) 0.1 10^3/uL (0.0-0.1); BASOPHILS % (AUTO) 1 % (0-10); EOSINOPHILS # (AUTO) 0.3 10^3/uL (0.0-0.3); EOSINOPHILS % (AUTO) 3 % (0-10); HEMATOCRIT 42 % (35-52); HEMOGLOBIN 13.9 G/DL (11.5-16.0); LYMPHOCYTES % (AUTO) 38 % (12-44); MEAN CORPUSCULAR HEMOGLOBIN 27 PG (25-34); MEAN CORPUSCULAR HGB CONC 34 G/DL (32-36); MEAN CORPUSCULAR VOLUME 81 FL (80-99); MEAN PLATELET VOLUME 10.7 FL (7.4-10.4); MONOCYTES # (AUTO) 0.7 X 10^3 (0.0-1.0); MONOCYTES % (AUTO) 8 % (0-12); NEUTROPHILS % (AUTO) 50 % (42-75); PLATELET COUNT 250 10^3/uL (130-400); RED BLOOD COUNT 5.12 10^6/uL (4.35-5.85)
[2018-10-05 10:48] LABS: FIBRIN DEGRADATION PRODUCTS 0.31 UG/ML (0.00-0.49); PROTHROMBIN TIME PATIENT 13.6 SEC (12.2-14.7)
--- NOTE | 2018-10-05 10:50 | Diagnostic Imaging Report ---
INDICATION: Chest pain. Frontal chest obtained at 10:40 a.m. and compared with 11/13/2016. FINDINGS: Heart and mediastinal silhouette are normal in appearance. The lungs are clear. There is no pneumothorax or pleural fluid. IMPRESSION: Negative chest. Dictated by: Dictated on workstation # [id number]
[2018-10-05 10:51] LABS: ALANINE AMINOTRANSFERASE 16 U/L (0-55); ALBUMIN 4.4 GM/DL (3.2-4.5); ALKALINE PHOSPHATASE 77 U/L (40-136); BILIRUBIN,TOTAL 0.6 MG/DL (0.1-1.0); BUN/CREATININE RATIO 19; CALCIUM 9.6 MG/DL (8.5-10.1); CARBON DIOXIDE 20 MMOL/L (21-32); CHLORIDE 106 MMOL/L (98-107); CREATININE SERUM 0.77 MG/DL (0.60-1.30); GFR ESTIMATED > 60; GLUCOSE 95 MG/DL (70-105); LIPASE 25 U/L (8-78); MAGNESIUM 2.2 MG/DL (1.8-2.4); POTASSIUM 4.3 MMOL/L (3.6-5.0); SODIUM 138 MMOL/L (135-145); TOTAL PROTEIN 7.5 GM/DL (6.4-8.2)
[2018-10-05 10:59] LABS: MYOGLOBIN SERUM 28.1 NG/ML (10.0-92.0)
--- NOTE | 2018-10-05 11:30 | ED Chest Pain ---
General Chief Complaint: Chest Pain Stated Complaint: CHEST PAIN Nursing Triage Note: Pt reports CP starting around [address] to work. Pt reports pain was a pressure in L chest followed by L arm pain and tingling. Pt initially rating pain 7/10, pain upon arrival to ED 3/10. Pt reporting she "can't focus" and feeling like L arm is numb. Nursing Sepsis Screen: No Definite Risk History of Present Illness Date Seen by Provider: Oct 05, 2018 Time Seen by Provider: 10:02 Initial Comments Here with report of chest pain that started at 850 this morning. A 7 out of 10 and now is 3 out of 10. Describes it as pressure that goes to the left arm with heaviness. Denies nausea, vomiting or sweating but was short of breath with this. Called her clinic and was instructed to come to the emergency department. Arise with pain 3 out of 10 currently. She takes baby aspirin at nighttime and has not taken it today. Nothing seems to make it better or worse except for time and rest. 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 NTG SL MIXING MACHINE TENDER CORK GASKET: No Associated Symptoms: No abdominal pain, No back pain, No diaphoresis, No dizziness, No fever/chills, No nausea/vomiting; shortness of breath; No weakness Allergies and Home Medications Allergies Coded Allergies: No Known Drug Allergies (Unverified , 12/21/17) Home Medications Aspirin 81 Mg Tablet.dr, 81 MG PO HS, (Reported) Hydrocodone/Acetaminophen 1 Each Tablet, 1 TAB PO TID PRN for PAIN-MODERATE, ( Reported) Lisinopril 10 Mg Tablet, 10 MG PO HS, (Reported) Patient Home Medication List Home Medication List Reviewed: Yes Review of Systems Review of Systems Constitutional: see HPI; No chills, No fever EENTM: No Symptoms Reported Respiratory: See HPI Cardiovascular: See HPI, Chest Pain; Denies Edema Gastrointestinal: Denies Abdominal Pain, Denies Nausea, Denies Vomiting Genitourinary: No Symptoms Reported Musculoskeletal: no symptoms reported Skin: no symptoms reported Psychiatric/Neurological: No Symptoms Reported All Other Systems Reviewed Negative Unless Noted: Yes Past Gjethgk-Zzgqgv-Dpgyyb Hx Past Med/Social Hx: Reviewed Nursing Past Med/Soc Hx Patient Social History Alcohol Use: Occasionally Uses Number of Drinks Today: Alcohol Beverage of Choice: Wine Recreational Drug Use: No Smoking Status: Current Everyday Smoker Type Used: Cigarettes 2nd Hand Smoke Exposure: Yes Recent Foreign Travel: No Contact w/Someone Who Travel: No Recent Infectious Disease Expo: No Recent Hopitalizations: No Immunizations Up To Date Tetanus Booster (TDap): Unknown PED Vaccines UTD: No Seasonal Allergies Seasonal Allergies: No Past Medical History Surgeries: Yes (EGD'S/ COLONOSCOPIES; CARDIAC CATH--NO INTERNVENTION; D&C X 2) Cardiac, Gallbladder Respiratory: Yes Asthma, COPD Cardiac: Yes (CARDIAC CATH--MILD TO MODERATE DISEASE--NO INTERVENTION) Coronary Artery Disease, Hypertension Neurological: Yes Headaches /Migraines 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 Disorders: No 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 Sexually Transmitted Disease: No HIV/AIDS: Yes Genitourinary: No Gastrointestinal: Yes Gastroesophageal Reflux, Crohns Disease, Polyps, Ulcer, Gall Bladder Disease Musculoskeletal: Yes (R HIP/KNEE) Arthritis Endocrine: No HEENT: No Loss of Vision: Bilateral Hearing Impairment: Denies Cancer: No Psychosocial: No Integumentary: No Blood Disorders: No Adverse Reaction/Blood Tranf: No (N/A) Family Medical History Reviewed Nursing Family Hx Physical Exam Vital Signs Vital Signs - First Documented 10/05/18 10:03 Pulse 71 Resp 18 B/P (MAP) 148/86 (106) Pulse Ox 98 O2 Delivery Room Air Capillary Refill : Less Than 3 Seconds Height, Weight, BMI Height: 5'1.00" Weight: 177lbs. 2.0oz. 80.836123or; 36.5 BMI Method:Stated General Appearance: No Apparent Distress, WD/WN HEENT: PERRL/EOMI, Pharynx Normal Neck: Non Tender, Supple Respiratory: Lungs Clear, Normal Breath Sounds Cardiovascular: Regular Rate, Rhythm, No Murmur Gastrointestinal: Non Tender, Soft Extremity: Normal Inspection, Normal Range of Motion Neurologic/Psychiatric: Alert, Oriented x3 Skin: Normal Color, Warm/Dry Progress/Results/Core Measures Results/Orders Lab Results Laboratory Tests Test 10/05/18 10:24 Range/Units White Blood Count 8.0 4.3-11.0 10^3/uL Red Blood Count 5.12 4.35-5.85 10^6/uL Hemoglobin 13.9 11.5-16.0 G/DL Hematocrit 42 35-52 % Mean Corpuscular Volume 81 80-99 FL Mean Corpuscular Hemoglobin 27 25-34 PG Mean Corpuscular Hemoglobin Concent 34 32-36 G/DL Red Cell Distribution Width 15.0 H 10.0-14.5 % Platelet Count 250 130-400 10^3/uL Mean Platelet Volume 10.7 H 7.4-10.4 FL Neutrophils (%) (Auto) 50 42-75 % Lymphocytes (%) (Auto) 38 12-44 % Monocytes (%) (Auto) 8 0-12 % Eosinophils (%) (Auto) 3 0-10 % Basophils (%) (Auto) 1 0-10 % Neutrophils # (Auto) 4.0 1.8-7.8 X 10^3 Lymphocytes # (Auto) 3.0 1.0-4.0 X 10^3 Monocytes # (Auto) 0.7 0.0-1.0 X 10^3 Eosinophils # (Auto) 0.3 0.0-0.3 10^3/uL Basophils # (Auto) 0.1 0.0-0.1 10^3/uL Prothrombin Time 13.6 12.2-14.7 SEC INR Comment 1.0 0.8-1.4 Activated Partial Thromboplast Time 27 24-35 SEC D-Dimer 0.31 0.00-0.49 UG/ML Sodium Level 138 135-145 MMOL/L Potassium Level 4.3 3.6-5.0 MMOL/L Chloride Level 106 98-107 MMOL/L Carbon Dioxide Level 20 L 21-32 MMOL/L Anion Gap 12 5-14 MMOL/L Blood Urea Nitrogen 15 7-18 MG/DL Creatinine 0.77 0.60-1.30 MG/DL Estimat Glomerular Filtration Rate > 60 BUN/Creatinine Ratio 19 Glucose Level 95 70-105 MG/DL Calcium Level 9.6 8.5-10.1 MG/DL Corrected Calcium 9.3 8.5-10.1 MG/DL Magnesium Level 2.2 1.8-2.4 MG/DL Total Bilirubin 0.6 0.1-1.0 MG/DL Aspartate Amino Transf (AST/SGOT) 16 5-34 U/L Alanine Aminotransferase (ALT/SGPT) 16 0-55 U/L Alkaline Phosphatase 77 40-136 U/L Myoglobin 28.1 10.0-92.0 NG/ML Troponin I < 0.30 <0.30 NG/ML Total Protein 7.5 6.4-8.2 GM/DL Albumin 4.4 3.2-4.5 GM/DL Lipase 25 8-78 U/L My Orders Orders - GLENDA LAI MD Cbc With Automated Diff (10/05/18 10:01) Magnesium (10/05/18 10:01) Chest 1 View, Ap/Pa Only (10/05/18 10:01) Ekg Tracing (10/05/18 10:01) Cardiac Profile 1 (10/05/18 10:01) Comprehensive Metabolic Panel (10/05/18 10:01) Myoglobin Serum (10/05/18 10:01) Protime With Inr (10/05/18 10:01) Partial Thromboplastin Time (10/05/18 10:01) O2 (10/05/18 10:01) Monitor-Rhythm Ecg Trace Only (10/05/18 10:01) Aspirin Chewable Tablet (Baby Aspirin Ch (10/05/18 10:15) Saline Lock/Iv-Start (10/05/18 10:01) Lipase (10/05/18 10:01) Aspirin Chewable Tablet (Baby Aspirin Ch (10/05/18 10:15) Nitroglycerin 0.4 Mg Btl 25's (Nitrostat (10/05/18 10:15) Fibrin Degradation Products (10/05/18 10:24) Ticagrelor Tablet (Brilinta Tablet) (10/05/18 12:45) Medications Given in ED Vital Signs/I&O 10/05/18 10:03 Pulse 71 Resp 18 B/P (MAP) 148/86 (106) Pulse Ox 98 O2 Delivery Room Air Blood Pressure Mean: 106 Progress Progress Note : Progress Note Seen and evaluated. IV, labs, EKG and chest x-ray ordered. ASA 324 mg by mouth. Nitroglycerin sublingual ordered. 1115: Labs reviewed and no acute findings. No significant findings on EKG. Pain resolved after nitroglycerin. Previous heart catheter shows non-severe blockage at that time. That was in 2011. She has not seen her doctor since. Monitor patient. 1220: Patient pain free. I discussed the case with her primary doctor for admission who accepts her in observation status. Consult cardiology. 1231: I discussed the case with Dr. Newell who will see the patient in consult. Remains pain free. Admit , observation status. Patient agrees with plan. Initial ECG Impression Date: Oct 05, 2018 Initial ECG Impression Time: 10:03 Initial ECG Rate: 73 Initial ECG Rhythm: Normal Sinus Comment Sinus rhythm with normal axis. No evidence of ST elevation MA. unchanged from previous of 13 November 2016. Interpreted by me. Diagnostic Imaging Diagonstic Imaging: Xray Plain Films/CT/US/NM/MRI: chest Comments [facility] [place], [place] NAME: LASHAWN CHOUDHURY [facility] REC#: [id number] PT STATUS: REG ER : 1965 PHYSICIAN: GLENDA LAI MD ADMIT DATE: 10/05/18/ER Draft Date of Exam:10/05/18 CHEST 1 VIEW, AP/PA ONLY INDICATION: Chest pain. Frontal chest obtained at 10:40 a.m. and compared with 11/13/2016. FINDINGS: Heart and mediastinal silhouette are normal in appearance. The lungs are clear. There is no pneumothorax or pleural fluid. IMPRESSION: Negative chest. Dictated on workstation # [id number] Dict: 10/05/18 1048 Trans: 10/05/18 1050 [id number] Interpreted by: GATO BERMUDEZ MD Electronically signed by: Departure Communication (Admissions) Time/Spoke to Admitting Phy: 12:20 Time/Spoke to Consulting Phy: 12:31 Impression Primary Impression: Chest pain Qualified Codes: R07.9 - Chest pain, unspecified Disposition: ADMITTED INPATIENT Condition: Stable Admissions Decision to Admit Reason: Admit from ER (General) Decision to Admit/Date: Oct 05, 2018 Time/Decision to Admit Time: 12:20 Departure-Patient Inst. Referrals: MURRAY OROZCO MD (PCP/Family) Primary Care Physician GLENDA LAI MD Oct 05, 2018 11:30
[2018-10-05] MEDS ORDERED: TICAGRELOR 90 MG TABLET (BRILINTA) PO ONE (12:45)
--- OUTSIDE RECORDS SUMMARY | 2018-10-05 12:50 | XMS REPORT ---
Author Author MURRAY OROZCO Organization [facility] Address [address] [place] [address] Care Team Providers Care Fixer Boarding Room Name Role Phone MURRAY OROZCO Unavailable PROBLEMS Type Condition ICD9-CM Code JTF02-XQ Code Onset Dates Condition Status SNOMED Code Problem Bilateral carpal tunnel syndrome G56.03 Active 69756993799618489 Problem Tension-type headache, not intractable, unspecified chronicity pattern G44.209 Active 102776254 Problem Chronic pain syndrome G89.4 Active 404096743 Problem Essential hypertension I10 Active 50067931 Problem Valeria-menopausal N95.1 Active 656861178689270 Problem Constipation, unspecified constipation type K59.00 Active 15890310 Problem Primary insomnia F51.01 Active 6116158 ALLERGIES No Information ENCOUNTERS Encounter Location Date Diagnosis [place] [id number] [place] [id number]- 5981 Jul, [facility] [id number] [place] [address] 13670- 3457 Jul, [facility] [id number] [place] [address] 22383- 7656 Jun, Tension-type headache, not intractable, unspecified chronicity pattern G44.209 ; Right hip pain M25.551 ; Chronic pain syndrome G89.4 ; Left foot pain M79.672 and Essential hypertension I10 [facility] [id number] [place] [address] 33418- 2234 May, [facility] [id number] [place] [address] 16823- 3833 Apr, [facility] [id number] [place] [address] 20787- 0248 Apr, [facility] [id number] [place] [address] 24121- 4341 Apr, [facility] [id number] [place] [address] 08219- 3333 Apr, [facility] [id number] [place] [address] 79636- 5722 Mar, [facility] [id number] [place] [address] 93346- 5164 Mar, Left wrist pain M25.532 ; Plantar fasciitis, right M72.2 and Chronic pain syndrome G89.4 [facility] [id number] [place] [address] 60446- 8431 February, [facility] [id number] [place] [address] 22[address] February, Constipation, unspecified constipation type K59.00 [facility] [id number] [place] [address] 05146- 5965 February, [facility] [id number] [place] [address]44 -7967 Jan, Nausea R11.0 ; Fever R50.9 and Acute pharyngitis due to other specified organisms J02.8 [facility] [id number] [place] [address] 27645- 3031 Jan, [facility] [id number] [place] [address] 84846- 8021 Nov, Right upper quadrant abdominal pain R10.11 [facility] [id number] [place] [address] 60490- 7402 Nov, [facility] [id number] [place] [address] 51267- 8832 Aug, [facility] [id number] [place] [address] 06356- 9004 Aug, [facility] [id number] [place] [address] 83297- 1166 Jun, Primary insomnia F51.01 [place] [id number] [place] [address] 30985- 5174 Jun, Crohn''s disease of colon without complication K50.10 ; Apnea spell R06.81 and Right upper quadrant abdominal pain R10.11 [place] [id number] [place] [address] 69144- 5579 Jun, [place] [id number] [place] [address] 98644- 6796 February, Acute Crohns disease, without complications K50.90 ; Primary insomnia F51.01 ; Tobacco abuse counseling Z71.6 and Essential hypertension I10 [place] [id number] [place] [address] 06980- 3673 Jan, [place] [id number] [place] [address] 54283- 5625 Aug, Cough R05 [place] [id number] [place] [address] 86367- 3835 Aug, [place] [id number] [place] [address] 35706- 0650 Jul, Essential hypertension I10 ; Valeria-menopausal N95.1 and Need for hepatitis C screening test Z11.59 [place] [id number] [place] [address] 83966- 6962 Jul, [place] [id number] [place] [address] 12349- 0586 Jul, Breast lump N63 ; Essential hypertension I10 ; History of Crohn's disease Z87.19 ; Valeria-menopausal N95.1 ; Tobacco abuse Z72.0 and Need for hepatitis C screening test Z11.59 IMMUNIZATIONS No Known Immunizations SOCIAL HISTORY Never Assessed REASON FOR VISIT Controlled Medication Refill PLAN OF CARE VITAL SIGNS MEDICATIONS Medication Instructions Dosage Frequency Start Date End Date Duration Status Hydrocodone-Acetaminophen 5-325 MG Orally TID PRN 1 tablet as needed Jul, Active RESULTS No Results PROCEDURES No Known procedures INSTRUCTIONS MEDICATIONS ADMINISTERED No Known Medications MEDICAL (GENERAL) HISTORY Type Description Date Medical History Crohn's Disease Medical History bleeding ulcer as child Medical History Gallbladder spasms/Gallstone Surgical History colonoscpy x2 Surgical History DNC x3 Surgical History gallbladder removed Hospitalization History Diagnosed with Crohns x3 days 2004 Hospitalization History Gallbladder attack/Gallstone 11/2017
--- OUTSIDE RECORDS SUMMARY | 2018-10-05 12:50 | XMS REPORT ---
Author Author MURRAY OROZCO Organization [facility] Address [address] [place] [address] Care Team Providers Care Tax Services Specialist Name Role Phone MURRAY OROZCO Unavailable PROBLEMS Type Condition ICD9-CM Code HYO76-US Code Onset Dates Condition Status SNOMED Code Problem Bilateral carpal tunnel syndrome G56.03 Active 18549371276719812 Problem Tension-type headache, not intractable, unspecified chronicity pattern G44.209 Active 558960641 Problem Chronic pain syndrome G89.4 Active 296489118 Problem Essential hypertension I10 Active 97462322 Problem Valeria-menopausal N95.1 Active 500378134810641 Problem Constipation, unspecified constipation type K59.00 Active 43095848 Problem Primary insomnia F51.01 Active 3022998 ALLERGIES No Information ENCOUNTERS Encounter Location Date Diagnosis [facility] [id number] [place] [address] 16895- 3283 Oct, [facility] [id number] [place] [address] 66074- 7687 Jul, [facility] [id number] [place] [address] 99441- 0926 Jul, [facility] [id number] [place] [address] 93402- 9090 Jun, Tension-type headache, not intractable, unspecified chronicity pattern G44.209 ; Right hip pain M25.551 ; Chronic pain syndrome G89.4 ; Left foot pain M79.672 and Essential hypertension I10 [facility] [id number] [place] [address] 47374- 1012 May, [facility] [id number] [place] [address] 63363- 4918 Apr, [facility] [id number] [place] [address] 20888- 2103 Apr, [facility] [id number] [place] [address] 49650- 1319 Apr, [facility] [id number] [place] [address] 44485- 5670 Apr, [facility] [id number] [place] [address] 98819- 0127 Mar, [facility] [id number] [place] [address] 64297- 5954 Mar, Left wrist pain M25.532 ; Plantar fasciitis, right M72.2 and Chronic pain syndrome G89.4 [facility] [id number] [place] [address] 07596- 8636 February, [facility] [id number] [place] [address] 41002 -5772 February, Constipation, unspecified constipation type K59.00 [facility] [id number] [place] [address] 29585- 0805 February, [facility] [id number] [place] [address] 08456 -2787 Jan, Nausea R11.0 ; Fever R50.9 and Acute pharyngitis due to other specified organisms J02.8 [facility] [id number] [place] [address] 05181- 0921 Jan, [facility] [id number] [place] [address] 14123- 0782 Nov, Right upper quadrant abdominal pain R10.11 [facility] [id number] [place] [address] 03497- 5866 Nov, [facility] [id number] [place] [address] 03072- 8827 Aug, [facility] [id number] [place] [address] 70184- 6500 14 Aug, 2017 [place] [id number] [place] [address] 92674- 3417 Jun, Primary insomnia F51.01 [place] [id number] [place] [address] 64242- 8035 21 Jun, 2017 Crohn''s disease of colon without complication K50.10 ; Apnea spell R06.81 and Right upper quadrant abdominal pain R10.11 [place] [id number] [place] [address] 15639- 7327 20 Jun, 2017 [place] [id number] [place] [address] 83427- 1467 February, Acute Crohns disease, without complications K50.90 ; Primary insomnia F51.01 ; Tobacco abuse counseling Z71.6 and Essential hypertension I10 [place] [id number] [place] [address] 30268- 9881 Jan, [place] [id number] [place] [address] 46292- 3222 Aug, Cough R05 [place] [id number] [place] [address] 75351- 4342 Aug, [place] [id number] [place] [address] 50434- 1518 Jul, Essential hypertension I10 ; Valeria-menopausal N95.1 and Need for hepatitis C screening test Z11.59 [place] [id number] [place] [address] 79344- 1315 Jul, [place] [id number] [place] [address] 47597- 6071 Jul, Breast lump N63 ; Essential hypertension I10 ; History of Crohn's disease Z87.19 ; Valeria-menopausal N95.1 ; Tobacco abuse Z72.0 and Need for hepatitis C screening test Z11.59 IMMUNIZATIONS No Known Immunizations SOCIAL HISTORY Never Assessed REASON FOR VISIT Patient requests PLAN OF CARE VITAL SIGNS MEDICATIONS Unknown Medications RESULTS No Results PROCEDURES No Known procedures [...]
--- OUTSIDE RECORDS SUMMARY | 2018-10-05 12:51 | XMS REPORT ---
Author Author MURRAY OROZCO [facility] Address [address] [place] [address] Care Team Providers Care Thermal Cutter Helper Name Role Phone MURRAY OROZCO Unavailable PROBLEMS Type Condition ICD9-CM Code KRT34-DU Code Onset Dates Condition Status SNOMED Code Problem Chronic pain syndrome G89.4 Active 167474686 Problem Constipation, unspecified constipation type K59.00 Active 83383319 Problem Essential hypertension I10 Active 20751051 Problem Primary insomnia F51.01 Active 7424720 Problem Valeria-menopausal N95.1 Active [id number] ALLERGIES No Information ENCOUNTERS Encounter Location Date Diagnosis [facility] [id number] [place] [address] 51329- 2069 Jun, [facility] [id number] [place] [address] 73373- 4666 May, [facility] [id number] [place] [address] 28860- 2046 Apr, [facility] [id number] [place] [address] 07643- 6243 Apr, [facility] [id number] [place] [address] 62271- 4780 Apr, [facility] [id number] [place] [address] 69192- 6035 Apr, [facility] [id number] [place] [address] 88278- 4181 Mar, [facility] [id number] [place] [address] 85303- 0642 14 Mar, 2018 Left wrist pain M25.532 ; Plantar fasciitis, right M72.2 and Chronic pain syndrome G89.4 [facility] [id number] [place] [address] 89984- 1668 February, [facility] [id number] [place] [address] 83967 -6215 February, Constipation, unspecified constipation type K59.00 [facility] [id number] [place] [address] 48937- 4288 February, [facility] [id number] [place] [address] 09982 -0335 Jan, Nausea R11.0 ; Fever R50.9 and Acute pharyngitis due to other specified organisms J02.8 [place] [id number] [place] [address] 72263- 7175 Jan, [facility] [id number] [place] [address] 15974- 1666 Nov, Right upper quadrant abdominal pain R10.11 [place] [id number] [place] [address] 05286- 5473 Nov, [facility] [id number] [place] [address] 95227- 7845 Aug, [place] [id number] [place] [address] 58576- 9590 Aug, [place] [id number] [place] [address] 62269- 0581 Jun, Primary insomnia F51.01 [facility] [id number] [place] [address] 47990- 9363 Jun, Crohn''s disease of colon without complication K50.10 ; Apnea spell R06.81 and Right upper quadrant abdominal pain R10.11 [facility] [id number] [place] [address] 13770- 3052 Jun, [facility] [id number] [place] [address] 23400- 4514 February, Acute Crohns disease, without complications K50.90 ; Primary insomnia F51.01 ; Tobacco abuse counseling Z71.6 and Essential hypertension I10 [place] [id number] [place] [address] 34376- 1584 Jan, [place] [id number] [place] [address] 95390- 7521 Aug, Cough R05 [place] [id number] [place] [address] 57567- 4721 Aug, [place] [id number] [place] [address] 14922- 9371 Jul, Essential hypertension I10 ; Valeria-menopausal N95.1 and Need for hepatitis C screening test Z11.59 [place] [id number] [place] [address] 38736- 6137 Jul, [place] [id number] [place] [address] 34866- 0500 10 Jul, 2016 Breast lump N63 ; Essential hypertension I10 ; History of Crohn's disease Z87.19 ; Valeria-menopausal N95.1 ; Tobacco abuse Z72.0 and Need for hepatitis C screening test Z11.59 IMMUNIZATIONS No Known Immunizations SOCIAL HISTORY Never Assessed REASON FOR VISIT Requesting brace PLAN OF CARE VITAL SIGNS MEDICATIONS Unknown [...]
--- OUTSIDE RECORDS SUMMARY | 2018-10-05 12:51 | XMS REPORT ---
Author Author MURRAY OROZCO Organization [facility] Address [address] [place] [address] Care Team Providers Care Tool Maker Name Role Phone MURRAY OROZCO Unavailable PROBLEMS Type Condition ICD9-CM Code [id number] Code Onset Dates Condition Status SNOMED Code Problem Chronic pain syndrome G89.4 Active 019600850 Problem Constipation, unspecified constipation type K59.00 Active 07876515 Problem Essential hypertension I10 Active 57991433 Problem Primary insomnia F51.01 Active 9173738 Problem Valeria-menopausal N95.1 Active [id number] ALLERGIES No Information ENCOUNTERS Encounter Location Date Diagnosis [facility] [id number] [place] [address] 95499- 5963 Jun, [facility] [id number] [place] [address] 44346- 7215 Apr, [facility] [id number] [place] [address] 10827- 7350 Apr, [facility] [id number] [place] [address] 36945- 0911 Apr, [facility] [id number] [place] [address] 13274- 9272 Apr, [facility] [id number] [place] [address] 64138- 5288 Mar, [facility] [id number] [place] [address] 43453- 2429 Mar, Left wrist pain M25.532 ; Plantar fasciitis, right M72.2 and Chronic pain syndrome G89.4 [facility] [id number] [place] [address] 39132- 6142 February, [facility] [id number] [place] [address] 68090 -5582 February, Constipation, unspecified constipation type K59.00 [facility] [id number] [place] [address] 02059- 5713 February, [facility] [id number] [place] [address] 85235 -5537 Jan, Nausea R11.0 ; Fever R50.9 and Acute pharyngitis due to other specified organisms J02.8 [place] [id number] [place] [address] 31495- 6077 Jan, [place] [address] 13368- 1343 Nov, Right upper quadrant abdominal pain R10.11 [place] [id number] [place] [address] 80849- 8165 Nov, [facility] [id number] [place] [address] 52963- 2315 Aug, [place] [id number] [place] [address] 06563- 7310 Aug, [place] [id number] [place] [address] 06320- 2624 Jun, Primary insomnia F51.01 [place] [id number] [place] [address] 48141- 9788 Jun, Crohn''s disease of colon without complication K50.10 ; Apnea spell R06.81 and Right upper quadrant abdominal pain R10.11 [place] [id number] [place] [address] 12270- 2965 Jun, [place] [address] 22393- 6165 February, Acute Crohns disease, without complications K50.90 ; Primary insomnia F51.01 ; Tobacco abuse counseling Z71.6 and Essential hypertension I10 [place] [id number] [address]- 6471 Jan, [facility] [address] [place] [address]- 3169 Aug, Cough R05 [facility] [address] [address]- 4583 Aug, [facility] [id number] [place] [address] 73174- 7531 Jul, Essential hypertension I10 ; Valeria-menopausal N95.1 and Need for hepatitis C screening test Z11.59 [facility] [address] [place] [address]- 1831 Jul, [facility] [address] [place] [address]- 5728 Jul, Breast lump N63 ; Essential hypertension I10 ; History of Crohn's disease Z87.19 ; Valeria-menopausal N95.1 ; Tobacco abuse Z72.0 and Need for hepatitis C screening test Z11.59 IMMUNIZATIONS No Known Immunizations SOCIAL HISTORY Never Assessed REASON FOR VISIT Requests return call PLAN OF CARE VITAL SIGNS MEDICATIONS Unknown [...]
--- OUTSIDE RECORDS SUMMARY | 2018-10-05 12:51 | XMS REPORT ---
Author Author MURRAY OROZCO [facility] Address [address] [place] [address] Care Team Providers Care Facsimile Operator Name Role Phone MURRAY OROZCO Unavailable PROBLEMS Type Condition ICD9-CM Code IVC89-UM Code Onset Dates Condition Status SNOMED Code Problem Chronic pain syndrome G89.4 Active 159333036 Problem Constipation, unspecified constipation type K59.00 Active 63846998 Problem Essential hypertension I10 Active 77731450 Problem Primary insomnia F51.01 Active 8404971 Problem Valeria-menopausal N95.1 Active [id number] ALLERGIES No Known Allergies ENCOUNTERS Encounter Location Date Diagnosis [facility] [id number] [place] [address] 69080- 2725 Jun, [facility] [id number] [place] [address] 39586- 3075 May, [facility] [id number] [place] [address] 53974- 3556 Apr, [facility] [id number] [place] [address] 87430- 3852 Apr, [facility] [id number] [place] [address] 13754- 9612 Apr, [facility] [id number] [place] [address] 15297- 9977 Apr, [facility] [id number] [place] [address] 04334- 7660 Mar, [facility] [id number] [place] [address] 25697- 8310 14 Mar, 2018 Left wrist pain M25.532 ; Plantar fasciitis, right M72.2 and Chronic pain syndrome G89.4 [facility] [id number] [place] [address] 36814- 3467 February, [facility] [id number] [place] [address] 86593 -8448 February, Constipation, unspecified constipation type K59.00 [facility] [id number] [place] [address] 56572- 2542 February, [facility] [id number] [place] [address] 33184 -6145 Jan, Nausea R11.0 ; Fever R50.9 and Acute pharyngitis due to other specified organisms J02.8 [place] [id number] [place] [address] 18993- 2679 Jan, [place] [id number] [place] [address] 87363- 9543 Nov, Right upper quadrant abdominal pain R10.11 [place] [id number] [place] [address] 75532- 1752 Nov, [place] [id number] [place] [address] 11988- 1472 Aug, [place] [id number] [place] [address] 33122- 6240 Aug, [place] [id number] [place] [address] 56833- 5106 Jun, Primary insomnia F51.01 [facility] [id number] [place] [address] 92097- 9356 Jun, Crohn''s disease of colon without complication K50.10 ; Apnea spell R06.81 and Right upper quadrant abdominal pain R10.11 [facility] [id number] [place] [address] 93381- 2252 Jun, [facility] [id number] [place] [address] 32461- 4676 February, Acute Crohns disease, without complications K50.90 ; Primary insomnia F51.01 ; Tobacco abuse counseling Z71.6 and Essential hypertension I10 [place] [id number] [place] [address] 94631- 5046 Jan, [place] [id number] [place] [address] 60607- 7256 Aug, Cough R05 [place] [address] 29190- 5330 Aug, [place] [address] 98169- 6232 Jul, Essential hypertension I10 ; Valeria-menopausal N95.1 and Need for hepatitis C screening test Z11.59 [place] [id number] [place] [address] 26698- 1856 Jul, [place] [address] 33333- 7750 Jul, Breast lump N63 ; Essential hypertension I10 ; History of Crohn's disease Z87.19 ; Valeria-menopausal N95.1 ; Tobacco abuse Z72.0 and Need for hepatitis C screening test Z11.59 IMMUNIZATIONS No Known Immunizations SOCIAL HISTORY Never Assessed REASON FOR VISIT pain medication-LAMONT Gonzalez, every morning pt gets tingling in her two middle fingers on left side and it moves up to her arm, Rt foot is hurting her as well so bad that she can't walk very well on it PLAN OF CARE Activity Details Follow Up 3 Months with Anthony myers wrist pain Reason: VITAL SIGNS Height 51.5 in 2018-04-07 Weight 188.5 lbs 2018-04-07 Temperature 97.8 degrees Fahrenheit 2018-04-07 Heart Rate 72 bpm 2018-04-07 Respiratory Rate 20 2018-04-07 BMI 49.96 kg/m2 2018-04-07 Blood pressure systolic 122 mmHg 2018-04-07 Blood pressure diastolic 70 mmHg 2018-04-07 MEDICATIONS Medication Instructions Dosage Frequency Start Date End Date Duration Status Aspirin 81 MG Orally Once a day 1 tablet 24h Jul, 30 day(s) Active Lisinopril 10 MG TAKE ONE TABLET BY MOUTH ONCE DAILY 30 Active Hydrocodone-Acetaminophen 5-325 MG Orally TID PRN 1 tablet as needed February, Active RESULTS No Results PROCEDURES No Known [...]
--- OUTSIDE RECORDS SUMMARY | 2018-10-05 12:51 | XMS REPORT ---
Author Author MURRAY OROZCO [facility] Address [address] [place] [address] Care Team Providers Care Spike Driver Name Role Phone MURRAY OROZCO Unavailable PROBLEMS ALLERGIES No Known Allergies ENCOUNTERS IMMUNIZATIONS No Known Immunizations SOCIAL HISTORY No smoking Hx information available REASON FOR VISIT PLAN OF CARE VITAL SIGNS MEDICATIONS RESULTS No Results PROCEDURES No Known procedures INSTRUCTIONS MEDICATIONS ADMINISTERED No Known Medications MEDICAL (GENERAL) HISTORY
--- OUTSIDE RECORDS SUMMARY | 2018-10-05 12:51 | XMS REPORT ---
Author Author MURRAY OROZCO [facility] Address [address] [place] [address] Care Team Providers Care Tube Repairer Name Role Phone MURRAY OROZCO Unavailable PROBLEMS Type Condition ICD9-CM Code [id number] Code Onset Dates Condition Status SNOMED Code Problem Chronic pain syndrome G89.4 Active 725093923 Problem Constipation, unspecified constipation type K59.00 Active 98863569 Problem Essential hypertension I10 Active 09604499 Problem Primary insomnia F51.01 Active 7081166 Problem Valeria-menopausal N95.1 Active [id number] ALLERGIES No Information ENCOUNTERS Encounter Location Date Diagnosis [facility] [id number] [place] [address] 40586- 7335 Jun, [facility] [id number] [place] [address] 76077- 0594 May, [facility] [id number] [place] [address] 00714- 7256 Apr, [facility] [id number] [place] [address] 59694- 4806 Apr, [facility] [id number] [place] [address] 23228- 2721 Apr, [facility] [id number] [place] [address] 84326- 5848 Apr, [facility] [id number] [place] [address] 42629- 7732 Mar, [facility] [id number] [place] [address] 76914- 1734 14 Mar, 2018 Left wrist pain M25.532 ; Plantar fasciitis, right M72.2 and Chronic pain syndrome G89.4 [facility] [id number] [place] [address] 38668- 2772 February, [facility] [id number] [place] [address] 73941 -3688 February, Constipation, unspecified constipation type K59.00 [facility] [id number] [place] [address] 92638- 6104 February, [facility] [id number] [place] [address] 73552 -9296 Jan, Nausea R11.0 ; Fever R50.9 and Acute pharyngitis due to other specified organisms J02.8 [place] [id number] [place] [address] 20406- 2522 Jan, [facility] [id number] [place] [address] 89281- 5673 Nov, Right upper quadrant abdominal pain R10.11 [place] [id number] [place] [address] 09580- 7009 Nov, [facility] [id number] [place] [address] 08790- 5634 Aug, [place] [id number] [place] [address] 71913- 0728 Aug, [place] [id number] [place] [address] 43746- 0816 Jun, Primary insomnia F51.01 [facility] [id number] [place] [address] 12558- 3323 Jun, Crohn''s disease of colon without complication K50.10 ; Apnea spell R06.81 and Right upper quadrant abdominal pain R10.11 [facility] [id number] [place] [address] 17029- 6886 Jun, [facility] [id number] [place] [address] 86947- 1257 February, Acute Crohns disease, without complications K50.90 ; Primary insomnia F51.01 ; Tobacco abuse counseling Z71.6 and Essential hypertension I10 [place] [id number] [place] [address] 04073- 1239 Jan, [place] [facility] [id number] [place] [address] 91564- 1122 Aug, Cough R05 [place] [id number] [place] [address] 98136- 4411 Aug, [place] [id number] [place] [address] 98425- 0273 13 Jul, 2016 Essential hypertension I10 ; Valeria-menopausal N95.1 and Need for hepatitis C screening test Z11.59 [place] [id number] [place] [address] 60756- 6334 Jul, [place] [id number] [place] [address] 63133- 7746 10 Jul, 2016 Breast lump N63 ; Essential hypertension I10 ; History of Crohn's disease Z87.19 ; Valeria-menopausal N95.1 ; Tobacco abuse Z72.0 and Need for hepatitis C screening test Z11.59 IMMUNIZATIONS No Known Immunizations SOCIAL HISTORY Never Assessed REASON FOR VISIT FYI only PLAN OF CARE VITAL SIGNS MEDICATIONS Unknown [...]
--- OUTSIDE RECORDS SUMMARY | 2018-10-05 12:51 | XMS REPORT ---
Author Author MURRAY OROZCO [facility] Address [address] [place] [address] Care Team Providers Care Tar Pot Worker Name Role Phone MURRAY OROZCO Unavailable PROBLEMS Type Condition ICD9-CM Code UCR26-MQ Code Onset Dates Condition Status SNOMED Code Problem Chronic pain syndrome G89.4 Active 359244167 Problem Constipation, unspecified constipation type K59.00 Active 52252577 Problem Essential hypertension I10 Active 12079126 Problem Primary insomnia F51.01 Active 8735609 Problem Valeria-menopausal N95.1 Active [id number] ALLERGIES No Information ENCOUNTERS Encounter Location Date Diagnosis [facility] [id number] [place] [address] 98347- 2156 Jun, [facility] [id number] [place] [address] 44244- 4647 May, [facility] [id number] [place] [address] 29622- 2917 Apr, [facility] [id number] [place] [address] 44985- 7318 Apr, [facility] [id number] [place] [address] 44723- 5142 Apr, [facility] [id number] [place] [address] 16537- 2177 Apr, [facility] [id number] [place] [address] 84854- 9248 Mar, [facility] [id number] [place] [address] 57477- 1010 14 Mar, 2018 Left wrist pain M25.532 ; Plantar fasciitis, right M72.2 and Chronic pain syndrome G89.4 [facility] [id number] [place] [address] 21548- 8008 February, [facility] [id number] [place] [address] 32411 -8405 February, Constipation, unspecified constipation type K59.00 [facility] [id number] [place] [address] 09146- 5618 February, [facility] [id number] [place] [address] 41814 -2959 Jan, Nausea R11.0 ; Fever R50.9 and Acute pharyngitis due to other specified organisms J02.8 [place] [id number] [place] [address] 61324- 7387 Jan, [facility] [id number] [place] [address] 23975- 7181 Nov, Right upper quadrant abdominal pain R10.11 [place] [facility] [id number] [place] [address] 79978- 0396 Nov, [facility] [id number] [place] [address] 42498- 6873 Aug, [place] [facility] [id number] [place] [address] 89057- 5006 Aug, [place] [facility] [id number] [place] [address] 52802- 8926 Jun, Primary insomnia F51.01 [facility] [id number] [place] [address] 18592- 6275 Jun, Crohn''s disease of colon without complication K50.10 ; Apnea spell R06.81 and Right upper quadrant abdominal pain R10.11 [facility] [id number] [place] [address] 22915- 2848 Jun, [facility] [id number] [place] [address] 50578- 3268 February, Acute Crohns disease, without complications K50.90 ; Primary insomnia F51.01 ; Tobacco abuse counseling Z71.6 and Essential hypertension I10 [place] [address] [place] [address] 81517- 9338 Jan, [facility] [facility] [id number] [place] [address] 60585- 4641 Aug, Cough R05 [place] [id number] [place] [address] 25824- 5553 Aug, [place] [facility] [id number] [place] [address] 42493- 4015 Jul, Essential hypertension I10 ; Valeria-menopausal N95.1 and Need for hepatitis C screening test Z11.59 [place] [address] [place] [address] 85728- 4704 Jul, [facility] [facility] [id number] [place] [address] 33514- 7287 10 Jul, 2016 Breast lump N63 ; [...]
--- OUTSIDE RECORDS SUMMARY | 2018-10-05 12:51 | XMS REPORT ---
Author Author STERLING KIM [facility] Address [address] [place] [address] Care Team Providers Care Circular Knife Cutter Machine Name Role Phone KIM KATZ Unavailable PROBLEMS Type Condition ICD9-CM Code IUL67-UU Code Onset Dates Condition Status SNOMED Code Problem Chronic pain syndrome G89.4 Active 502426241 Problem Constipation, unspecified constipation type K59.00 Active 27704673 Problem Essential hypertension I10 Active 14107994 Problem Primary insomnia F51.01 Active 1567099 Problem Valeria-menopausal N95.1 Active [id number] ALLERGIES No Information ENCOUNTERS Encounter Location Date Diagnosis [place] [facility] [id number] [place] [address] 77430- 6715 Jun, [facility] [id number] [place] [address] 70331- 4611 May, [facility] [id number] [place] [address] 21108- 6589 Apr, [facility] [id number] [place] [address] 02298- 6721 Apr, [facility] [id number] [place] [address] 31482- 5364 Apr, [facility] [id number] [place] [address] 88866- 4768 Apr, [facility] [address] [address]- 1969 15 Mar, 2018 [facility] [id number] [place] [address] 17699- 9671 14 Mar, 2018 Left wrist pain M25.532 ; Plantar fasciitis, right M72.2 and Chronic pain syndrome G89.4 [facility] [id number] [address]- 5259 February, [facility] [id number] [place] [address] 08789 -8222 February, Constipation, unspecified constipation type K59.00 [facility] [id number] [place] [address] 02890- 7579 February, [facility] [id number] [place] [address] 69814 -4005 Jan, Nausea R11.0 ; Fever R50.9 and Acute pharyngitis due to other specified organisms J02.8 [place] [id number] [place] [address] 61590- 6577 Jan, [facility] [id number] [place] [address] 70256- 5368 Nov, Right upper quadrant abdominal pain R10.11 [place] [id number] [place] [address] 08534- 5498 Nov, [place] [id number] [place] [address] 18706- 4227 Aug, [place] [id number] [place] [address] 53878- 7009 Aug, [place] [id number] [place] [address] 64330- 5612 Jun, Primary insomnia F51.01 [facility] [id number] [place] [address] 85032- 7183 Jun, Crohn''s disease of colon without complication K50.10 ; Apnea spell R06.81 and Right upper quadrant abdominal pain R10.11 [facility] [id number] [place] [address] 59243- 4839 Jun, [facility] [id number] [place] [address] 61000- 9308 02 May, 2017 Acute Crohns disease, without complications K50.90 ; Primary insomnia F51.01 ; Tobacco abuse counseling Z71.6 and Essential hypertension I10 [place] [address] [address]- 0184 Jan, [facility] [address] [address]- 3509 Aug, Cough R05 [place] [id number] [place] [address] 38528- 3782 Aug, [place] [id number] [place] [address] 55882- 7147 13 Jul, 2016 Essential hypertension I10 ; Valeria-menopausal N95.1 and Need for hepatitis C screening test Z11.59 [place] [address] [place] [address] 29885- 9186 Jul, [place] [id number] [place] [address] 29946- 7931 10 Jul, 2016 Breast lump N63 ; [...] Orally TID PRN 1 tablet as needed Apr, Active RESULTS No Results PROCEDURES No Known [...]
--- OUTSIDE RECORDS SUMMARY | 2018-10-05 12:51 | XMS REPORT ---
Author Author CALINMONTYKAT Organization [facility] Address [address] [place] [address] Care Team Providers Care Childbirth Educator Name Role Phone KAT LAYTON Unavailable PROBLEMS Type Condition ICD9-CM Code [id number] Code Onset Dates Condition Status SNOMED Code Problem Tension-type headache, not intractable, unspecified chronicity pattern G44.209 Active 226315751 Problem Chronic pain syndrome G89.4 Active 429921149 Problem Essential hypertension I10 Active 55700267 Problem Valeria-menopausal N95.1 Active 300119367316614 Problem Constipation, unspecified constipation type K59.00 Active 39599640 Problem Primary insomnia F51.01 Active 0877587 ALLERGIES No Information ENCOUNTERS Encounter Location Date Diagnosis [facility] [id number] [place] [address] 87119- 2360 Jun, Tension-type headache, not intractable, unspecified chronicity pattern G44.209 ; Right hip pain M25.551 ; Chronic pain syndrome G89.4 ; Left foot pain M79.672 and Essential hypertension I10 [facility] [id number] [place] [address] 60025- 5070 May, [facility] [id number] [place] [address] 18610- 6809 Apr, [facility] [id number] [place] [address] 44972- 3757 Apr, [facility] [address] 22440- 0926 Apr, [facility] [id number] [place] [address] 51355- 6522 Apr, [facility] [id number] [place] [address] 93050- 9144 Mar, [facility] [address] [place] [address] 55371- 3852 14 Mar, 2018 Left wrist pain M25.532 ; Plantar fasciitis, right M72.2 and Chronic pain syndrome G89.4 [facility] [id number] [place] [address] 40716- 5879 February, [facility] [id number] [place] [address] 01100 -1987 February, Constipation, unspecified constipation type K59.00 [place] [id number] [place] [address] 22194- 5935 February, [facility] [id number] [place] [address] 43375 -4453 Jan, Nausea R11.0 ; Fever R50.9 and Acute pharyngitis due to other specified organisms J02.8 [place] [id number] [place] [address] 93192- 7873 Jan, [facility] [id number] [place] [address] 48268- 3826 Nov, Right upper quadrant abdominal pain R10.11 [facility] [id number] [place] [address] 61533- 9179 Nov, [place] [id number] [place] [address] 56501- 4289 Aug, [facility] [id number] [place] [address] 50216- 3061 Aug, [place] [id number] [place] [address] 12704- 1647 Jun, Primary insomnia F51.01 [facility] [id number] [place] [address] 69548- 1908 Jun, Crohn''s disease of colon without complication K50.10 ; Apnea spell R06.81 and Right upper quadrant abdominal pain R10.11 [place] [address] [address]- 6976 Jun, [place] [id number] [place] [address] 69322- 9192 February, Acute Crohns disease, without complications K50.90 ; Primary insomnia F51.01 ; Tobacco abuse counseling Z71.6 and Essential hypertension I10 [place] [id number] [place] [address] 24710- 9244 Jan, [place] [id number] [place] [address] 03287- 0978 Aug, Cough R05 [place] [id number] [place] [address] 49479- 2860 Aug, [place] [id number] [place] [address] 64894- 7506 Jul, Essential hypertension I10 ; Valeria-menopausal N95.1 and Need for hepatitis C screening test Z11.59 [place] [address] [place] [address] 91076- 2768 Jul, [place] [id number] [place] [address] 21315- 8240 Jul, Breast lump N63 ; Essential hypertension I10 ; History of Crohn's disease Z87.19 ; Valeria-menopausal N95.1 ; Tobacco abuse Z72.0 and Need for hepatitis C screening test Z11.59 IMMUNIZATIONS No Known Immunizations SOCIAL HISTORY Never Assessed REASON FOR VISIT Controlled refill/FYI PLAN OF CARE VITAL SIGNS MEDICATIONS Medication Instructions Dosage Frequency Start Date End Date Duration Status Hydrocodone-Acetaminophen 5-325 MG Orally TID PRN 1 tablet as needed May, Active RESULTS No Results PROCEDURES No Known [...]
--- OUTSIDE RECORDS SUMMARY | 2018-10-05 12:52 | XMS REPORT ---
Author Author MURRAY OROZCO Organization [facility] Address [address] [place] [address] Care Team Providers Care Rumper Name Role Phone MURRAY OROZCO Unavailable PROBLEMS Type Condition ICD9-CM Code MHU63-NR Code Onset Dates Condition Status SNOMED Code Problem Chronic pain syndrome G89.4 Active 343871991 Problem Constipation, unspecified constipation type K59.00 Active 39828479 Problem Essential hypertension I10 Active 56338162 Problem Primary insomnia F51.01 Active 4715075 Problem Valeria-menopausal N95.1 Active [id number] ALLERGIES No Information ENCOUNTERS Encounter Location Date Diagnosis [facility] [address] 39231- 7122 Apr, [facility] [address] 44722- 2612 Mar, [facility] [address] 39153- 1385 Mar, Left wrist pain M25.532 ; Plantar fasciitis, right M72.2 and Chronic pain syndrome G89.4 [facility] [id number] [place] [address] 90088- 6458 February, [facility] [address] 42866 -0628 February, Constipation, unspecified constipation type K59.00 [facility] [address] 36270- 4969 February, [facility] [address] 33041 -6242 24 Jan, 2018 Nausea R11.0 ; Fever R50.9 and Acute pharyngitis due to other specified organisms J02.8 [facility] [id number] [place] [address] 89563- 0685 Jan, [facility] [id number] [place] [address] 67467- 3249 Nov, Right upper quadrant abdominal pain R10.11 [facility] [id number] [place] [address] 09654- 7030 Nov, [facility] [id number] [place] [address] 11374- 3764 Aug, [facility] [id number] [place] [address] 55499- 7955 Aug, [facility] [id number] [place] [address] 67789- 6172 Jun, Primary insomnia F51.01 [place] [id number] [place] [address] 27154- 0339 Jun, Crohn''s disease of colon without complication K50.10 ; Apnea spell R06.81 and Right upper quadrant abdominal pain R10.11 [place] [id number] [place] [address] 14079- 0429 Jun, [facility] [id number] [place] [address] 29248- 4243 February, Acute Crohns disease, without complications K50.90 ; Primary insomnia F51.01 ; Tobacco abuse counseling Z71.6 and Essential hypertension I10 [facility] [id number] [place] [address] 84692- 4986 Jan, [facility] [id number] [place] [address] 29595- 6907 Aug, Cough R05 [facility] [id number] [place] [address] 49983- 1388 Aug, [facility] [id number] [place] [address] 43275- 2346 Jul, Essential hypertension I10 ; Valeria-menopausal N95.1 and Need for hepatitis C screening test Z11.59 [facility] [address] [facility] [id number] [place] [address] 13 Jul, 2016 [facility] [address] [facility] [id number] [place] [address]- 2761 10 Jul, 2016 Breast lump N63 ; Essential hypertension I10 ; History of Crohn's disease Z87.19 ; Valeria-menopausal N95.1 ; Tobacco abuse Z72.0 and Need for hepatitis C screening test Z11.59 IMMUNIZATIONS No Known Immunizations SOCIAL HISTORY Never Assessed REASON FOR VISIT Controlled Med Refill PLAN OF CARE VITAL SIGNS MEDICATIONS Medication Instructions Dosage Frequency Start Date End Date Duration Status Hydrocodone-Acetaminophen 5-325 MG Orally TID PRN 1 tablet as needed Nov, Active RESULTS No Results PROCEDURES No Known procedures INSTRUCTIONS MEDICATIONS ADMINISTERED No Known Medications MEDICAL (GENERAL) HISTORY Type Description Date Medical History Crohn's Disease Medical History bleeding ulcer as child Medical History Gallbladder spasms/Gallstone Surgical History colonoscpy x2 Surgical History DNC x3 Surgical History gallbladder removed Hospitalization History Diagnosed with Crohns x3 days 2003 Hospitalization History Gallbladder attack/Gallstone 11/2017
--- OUTSIDE RECORDS SUMMARY | 2018-10-05 12:52 | XMS REPORT ---
Author Author MURRAY OROZCO Organization [facility] Address [address] [place] [address] Care Team Providers Care Carbon Printer Name Role Phone MURRAY OROZCO Unavailable PROBLEMS Type Condition ICD9-CM Code [id number] Code Onset Dates Condition Status SNOMED Code Problem Chronic pain syndrome G89.4 Active 570329616 Problem Constipation, unspecified constipation type K59.00 Active 50977710 Problem Essential hypertension I10 Active 88745252 Problem Primary insomnia F51.01 Active 8180178 Problem Valeria-menopausal N95.1 Active [id number] ALLERGIES No Information ENCOUNTERS Encounter Location Date Diagnosis [facility] [id number] [place] [address] 12795- 0851 Apr, [facility] [id number] [place] [address] 57294- 0519 Apr, [facility] [id number] [place] [address] 03464- 7284 Apr, [facility] [id number] [place] [address] 96067- 7556 Apr, [facility] [id number] [place] [address] 33134- 4157 Mar, [facility] [id number] [place] [address] 97320- 5494 Mar, Left wrist pain M25.532 ; Plantar fasciitis, right M72.2 and Chronic pain syndrome G89.4 [facility] [id number] [place] [address] 23007- 8670 February, [facility] [id number] [place] [address] 30981 -0137 February, Constipation, unspecified constipation type K59.00 [facility] [address] [address] 6[address] February, [facility] [id number] [place] [address] 47678 -2745 Jan, Nausea R11.0 ; Fever R50.9 and Acute pharyngitis due to other specified organisms J02.8 [facility] [id number] [place] [address] 43838- 1875 Jan, [facility] [id number] [place] [address] 60380- 8419 Nov, Right upper quadrant abdominal pain R10.11 [facility] [id number] [place] [address] 81079- 0966 Nov, [facility] [id number] [place] [address] 76896- 1222 Aug, [facility] [id number] [place] [address] 94929- 3834 Aug, [facility] [id number] [place] [address] 69759- 9424 Jun, Primary insomnia F51.01 [facility] [id number] [place] [address] 45693- 2433 21 Jun, 2017 Crohn''s disease of colon without complication K50.10 ; Apnea spell R06.81 and Right upper quadrant abdominal pain R10.11 [facility] [address] [address] 2419 Jun, [facility] [id number] [place] [address] 45331- 0134 February, Acute Crohns disease, without complications K50.90 ; Primary insomnia F51.01 ; Tobacco abuse counseling Z71.6 and Essential hypertension I10 [facility] [address] [place] [address] 81463- 5654 07 Jan, 2017 [facility] [address] [facility] [id number] [address] 5395 Aug, Cough R05 [facility] [address] [address]- 7100 Aug, [facility] [id number] [address]- 2978 Jul, Essential hypertension I10 ; Valeria-menopausal N95.1 and Need for hepatitis C screening test Z11.59 [facility] [id number] [address]- 7756 Jul, [place] [id number] [address] 9638 Jul, Breast lump N63 ; Essential hypertension I10 ; History of Crohn's disease Z87.19 ; Valeria-menopausal N95.1 ; Tobacco abuse Z72.0 and Need for hepatitis C screening test Z11.59 IMMUNIZATIONS No Known Immunizations SOCIAL HISTORY Never Assessed REASON FOR VISIT F/u PLAN OF CARE VITAL SIGNS MEDICATIONS Unknown [...]
--- OUTSIDE RECORDS SUMMARY | 2018-10-05 12:52 | XMS REPORT ---
Author Author ALYSSA DOMÍNGUEZ [facility]ALK IN [facility] Address [address] [place] [address] Care Team Providers Care Bulwark Carpenter Name Role Phone ALYSSA DOMÍNGUEZ Unavailable PROBLEMS Type Condition ICD9-CM Code AZW88-KL Code Onset Dates Condition Status SNOMED Code Problem Chronic pain syndrome G89.4 Active 888741866 Problem Constipation, unspecified constipation type K59.00 Active 23674104 Problem Essential hypertension I10 Active 66476741 Problem Primary insomnia F51.01 Active 7543194 Problem Valeria-menopausal N95.1 Active [id number] ALLERGIES No Known Allergies ENCOUNTERS Encounter Location Date Diagnosis [facility] [id number] [place] [address] 79223- 5072 Apr, [facility] [id number] [place] [address] 48291- 5726 Apr, [facility] [id number] [place] [address] 60994- 4878 Apr, [facility] [id number] [place] [address] 05608- 5004 Apr, [facility] [id number] [place] [address] 10021- 2695 Mar, [facility] [id number] [place] [address] 71063- 4480 Mar, Left wrist pain M25.532 ; Plantar fasciitis, right M72.2 and Chronic pain syndrome G89.4 [facility] [id number] [place] [address] 04290- 1447 February, [facility]ALK IN [facility] [id number] [place] [address] 38464 -4116 February, Constipation, unspecified constipation type K59.00 [facility] [id number] [place] [address] 20112- 6383 February, [facility] IN [facility] [id number] [place] [address] 61237 -7816 Jan, Nausea R11.0 ; Fever R50.9 and Acute pharyngitis due to other specified organisms J02.8 [facility] [id number] [place] [address] 80496- 6267 Jan, [facility] [id number] [place] [address] 84333- 9581 Nov, Right upper quadrant abdominal pain R10.11 [facility] [id number] [place] [address] 83008- 7909 Nov, [facility] [id number] [place] [address] 98577- 6942 Aug, [facility] [id number] [place] [address] 35014- 8323 Aug, [facility] [id number] [place] [address] 63693- 7607 Jun, Primary insomnia F51.01 [facility] [id number] [place] [address] 20062- 0639 Jun, Crohn''s disease of colon without complication K50.10 ; Apnea spell R06.81 and Right upper quadrant abdominal pain R10.11 [facility] [address] [place] [address] 66108- 1703 Jun, [facility] [id number] [place] [address] 39353- 8246 February, Acute Crohns disease, without complications K50.90 ; Primary insomnia F51.01 ; Tobacco abuse counseling Z71.6 and Essential hypertension I10 [facility] [id number] [place] [address] 93859- 3301 Jan, [facility] [address] [facility] [id number] [address]- 0383 Aug, Cough R05 [facility] [address] 8702 Aug, [facility] [id number] [address]- 1065 Jul, Essential hypertension I10 ; Valeria-menopausal N95.1 and Need for hepatitis C screening test Z11.59 [facility] [address] [address]- 9029 Jul, [place] [address] [place] [address] 27368- 9820 Jul, Breast lump N63 ; Essential hypertension I10 ; History of Crohn's disease Z87.19 ; Valeria-menopausal N95.1 ; Tobacco abuse Z72.0 and Need for hepatitis C screening test Z11.59 IMMUNIZATIONS No Known Immunizations SOCIAL HISTORY Never Assessed REASON FOR VISIT Nausea/constipated Pt c/o nausea and constipated for 4-5 days, recently had gallbladder removed 4-5 weeks ago LAM[facility] Vanegas PLAN OF CARE Activity Details Follow Up prn Reason: VITAL SIGNS Height 51.5 in 2018-02-22 Weight 188.2 lbs 2018-02-22 Temperature 97.5 degrees Fahrenheit 2018-02-22 Heart Rate 90 bpm 2018-02-22 Respiratory Rate 20 2018-02-22 BMI 49.88 kg/m2 2018-02-22 Blood pressure systolic 122 mmHg 2018-02-22 Blood pressure diastolic 76 mmHg 2018-02-22 MEDICATIONS Medication Instructions Dosage Frequency Start Date End Date Duration Status Lisinopril 10 mg Orally Once a day 1 tablet 24h 30 Active Zofran ODT 4 MG Orally every 8 hours prn 2 tablets on the tongue and allow to dissolve Jan, 05 days Not-Taking PredniSONE 20 mg Orally twice a day 1 tablet 12h 24 Jan, 2018 February, 07 days Active Pantoprazole Sodium 40 MG Orally Once a day 1 tablet 24h Not- Taking Aspirin 81 MG Orally Once a day 1 tablet 24h 10 Jul, 2016 30 day(s) Active Zofran ODT 4 MG Orally Every 8 hours PRN 1 tablet on the tongue and allow to dissolve 5 days Active Mercaptopurine 50 MG Not-Taking Hyoscyamine Sulfate 0.125 MG Orally every 4 hrs 1 tablet as needed 4h Not-Taking Hydrocodone-Acetaminophen 5-325 MG Orally TID PRN 1 tablet as needed Nov, Active Azathioprine 50 MG Not-Taking Dicyclomine HCl 20 MG Orally Four times a day 1 tablet 6h Not- Taking RESULTS No Results PROCEDURES No Known procedures [...]
--- OUTSIDE RECORDS SUMMARY | 2018-10-05 12:52 | XMS REPORT ---
Author Author MURRAY OROZCO Organization [facility] Address [address] [place] [address] Care Team Providers Care Graphotype Operator Name Role Phone MURRAY OROZCO Unavailable PROBLEMS Type Condition ICD9-CM Code CHG38-KV Code Onset Dates Condition Status SNOMED Code Problem Chronic pain syndrome G89.4 Active 869022366 Problem Constipation, unspecified constipation type K59.00 Active 81742145 Problem Essential hypertension I10 Active 72159873 Problem Primary insomnia F51.01 Active 9798679 Problem Valeria-menopausal N95.1 Active 287165011983790 ALLERGIES No Known Allergies ENCOUNTERS Encounter Location Date Diagnosis [facility] [id number] [place] [address] 12745- 2907 Jun, [facility] [id number] [place] [address] 21893- 0668 Apr, [facility] [id number] [place] [address] 35976- 3056 Apr, [facility] [id number] [place] [address] 97133- 5603 Apr, [facility] [id number] [place] [address] 01444- 4332 Apr, [facility] [id number] [place] [address] 00599- 0949 Mar, [facility] [id number] [place] [address] 11690- 2160 Mar, Left wrist pain M25.532 ; Plantar fasciitis, right M72.2 and Chronic pain syndrome G89.4 [facility] [id number] [place] [address] 53647- 3617 February, [facility] [id number] [place] [address] 55195 -1550 February, Constipation, unspecified constipation type K59.00 [facility] [id number] [place] [address] 29720- 7052 February, [facility] [id number] [place] [address] 29057 -5855 Jan, Nausea R11.0 ; Fever R50.9 and Acute pharyngitis due to other specified organisms J02.8 [place] [id number] [place] [address] 66733- 7303 Jan, [place] [address] 91305- 9121 Nov, Right upper quadrant abdominal pain R10.11 [place] [id number] [place] [address] 90056- 6308 Nov, [facility] [id number] [place] [address] 52037- 9657 Aug, [place] [id number] [place] [address] 76598- 8291 Aug, [place] [id number] [place] [address] 45950- 5767 Jun, Primary insomnia F51.01 [place] [id number] [place] [address] 85829- 5654 Jun, Crohn''s disease of colon without complication K50.10 ; Apnea spell R06.81 and Right upper quadrant abdominal pain R10.11 [place] [id number] [place] [address] 65669- 4659 Jun, [place] [address] 79647- 9300 February, Acute Crohns disease, without complications K50.90 ; Primary insomnia F51.01 ; Tobacco abuse counseling Z71.6 and Essential hypertension I10 [place] [id number] [address]- 9347 Jan, [place] [address] [address]- 8539 Aug, Cough R05 [facility] [address] [place] [address] 16600- 2075 Aug, [place] [id number] [place] [address] 35634- 5865 Jul, Essential hypertension I10 ; Valeria-menopausal N95.1 and Need for hepatitis C screening test Z11.59 [place] [address] [place] [address] 96077- 3118 Jul, [place] [address] [place] [address] 14142- 6412 Jul, Breast lump N63 ; Essential hypertension I10 ; History of Crohn's disease Z87.19 ; Valeria-menopausal N95.1 ; Tobacco abuse Z72.0 and Need for hepatitis C screening test Z11.59 IMMUNIZATIONS No Known Immunizations SOCIAL HISTORY Never Assessed REASON FOR VISIT Hospital [facility], --went in for pain, they thinking that it was caused by gallbladder. PLAN OF CARE Activity Details Follow Up Will call results later today Reason: VITAL SIGNS Height 51.5 in 2017-12-15 Weight 196 lbs 2017-12-15 Temperature 98.1 degrees Fahrenheit 2017-12-15 Heart Rate 84 bpm 2017-12-15 Respiratory Rate 20 2017-12-15 BMI 51.95 kg/m2 2017-12-15 Blood pressure systolic 130 mmHg 2017-12-15 Blood pressure diastolic 88 mmHg 2017-12-15 MEDICATIONS Medication Instructions Dosage Frequency Start Date End Date Duration Status Azathioprine 50 MG Not-Taking Hyoscyamine Sulfate 0.125 MG Orally every 4 hrs 1 tablet as needed 4h Active Mercaptopurine 50 MG Not-Taking Aspirin 81 MG Orally Once a day 1 tablet 24h Jul, 30 day(s) Active Lisinopril 10 mg Orally Once a day 1 tablet 24h 30 Active Hydrocodone-Acetaminophen 5-325 MG Orally TID PRN 1 tablet as needed Nov, Active Pantoprazole Sodium 40 MG Orally Once a day 1 tablet 24h Active Dicyclomine HCl 20 MG Orally Four times a day 1 tablet 6h Active RESULTS Name Result Date Reference Range AMERITOX 2017-12-15 Ultrasound : Abdomen, LIMITED (specify organ) 2017-12-15 PROCEDURES Procedure Date Ordered Result Body Site No Charge Dec 15, 2017 INSTRUCTIONS MEDICATIONS ADMINISTERED No Known Medications MEDICAL (GENERAL) HISTORY Type Description Date Medical History Crohn's Disease Medical History bleeding ulcer as child Medical History Gallbladder spasms/Gallstone Surgical History colonoscpy x2 Surgical History DNC x3 Surgical History gallbladder removed Hospitalization History Diagnosed with Crohns x3 days 2004 Hospitalization History Gallbladder attack/Gallstone 11/2017
--- OUTSIDE RECORDS SUMMARY | 2018-10-05 12:52 | XMS REPORT ---
Author Author MURRAY OROZCO Organization [facility] Address [address] [place] [address] Care Team Providers Care Radio Mechanic Helper Name Role Phone MURRAY OROZCO Unavailable PROBLEMS Type Condition ICD9-CM Code NXL83-UX Code Onset Dates Condition Status SNOMED Code Problem Chronic pain syndrome G89.4 Active 401346685 Problem Constipation, unspecified constipation type K59.00 Active 23069491 Problem Essential hypertension I10 Active 36710055 Problem Primary insomnia F51.01 Active 7287381 Problem Valeria-menopausal N95.1 Active [id number] ALLERGIES No Known Allergies ENCOUNTERS Encounter Location Date Diagnosis [facility] [address] 5[address]80- 9694 Apr, [facility] [id number] [place] [address] 82848- 9888 Apr, [facility] [address] 39745- 5388 Apr, [facility] [id number] [place] [address] 57946- 0199 Mar, [facility] [id number] [place] [address] 08679- 5362 14 Mar, 2018 Left wrist pain M25.532 ; Plantar fasciitis, right M72.2 and Chronic pain syndrome G89.4 [facility] [id number] [place] [address] 37754- 4155 February, [facility] [id number] [place] [address] 41544 -5817 February, Constipation, unspecified constipation type K59.00 [facility] [id number] [place] [address] 37132- 2102 February, [facility] [address] [place] [address] 00716 -9999 Jan, Nausea R11.0 ; Fever R50.9 and Acute pharyngitis due to other specified organisms J02.8 [facility] [id number] [place] [address] 70356- 1264 Jan, [facility] [address] 68288- 1694 Nov, Right upper quadrant abdominal pain R10.11 [facility] [id number] [place] [address] 14058- 1421 Nov, [facility] [id number] [place] [address] 90433- 2942 Aug, [facility] [id number] [place] [address] 47185- 2953 Aug, [facility] [id number] [place] [address] 14686- 3868 Jun, Primary insomnia F51.01 [facility] [id number] [place] [address] 19795- 6660 Jun, Crohn''s disease of colon without complication K50.10 ; Apnea spell R06.81 and Right upper quadrant abdominal pain R10.11 [facility] [id number] [place] [address] 64522- 9642 Jun, [facility] [id number] [place] [address] 68651- 8033 February, Acute Crohns disease, without complications K50.90 ; Primary insomnia F51.01 ; Tobacco abuse counseling Z71.6 and Essential hypertension I10 [facility] [id number] [place] [address] 42928- 2873 Jan, [facility] [id number] [place] [address] 19823- 3599 Aug, Cough R05 [place] [address] [facility] [id number] [address]- 0074 Aug, [facility] [address] [facility] [id number] [address]- 3343 Jul, Essential hypertension I10 ; Valeria-menopausal N95.1 and Need for hepatitis C screening test Z11.59 [facility] [address] [facility] [id number], [place] [address]- 9391 Jul, [facility] [address] [facility] [id number], [place] [address]- 2113 Jul, Breast lump N63 ; Essential hypertension I10 ; History of Crohn's disease Z87.19 ; Valeria-menopausal N95.1 ; Tobacco abuse Z72.0 and Need for hepatitis C screening test Z11.59 IMMUNIZATIONS No Known Immunizations SOCIAL HISTORY Never Assessed REASON FOR VISIT Abdominal pain, RUQ pain x2 days. Vomiting yesterday. Feels nauseas. Thinks she having a flare up -[facility] PLAN OF CARE Activity Details Follow Up 4 Weeks with Anthony myers pain Reason: VITAL SIGNS Height 51.5 in 2017-07-15 Weight 203 lbs 2017-07-15 Temperature 98.3 degrees Fahrenheit 2017-07-15 Heart Rate 90 bpm 2017-07-15 Respiratory Rate 20 2017-07-15 BMI 53.81 kg/m2 2017-07-15 Blood pressure systolic 90 mmHg 2017-07-15 Blood pressure diastolic 60 mmHg 2017-07-15 MEDICATIONS Medication Instructions Dosage Frequency Start Date End Date Duration Status Aspirin 81 MG Orally Once a day 1 tablet 24h Jul, 30 day(s) Active Hydrocodone-Acetaminophen 5-325 MG Orally every 6 hrs 1 tablet as needed 6h Not-Taking Mercaptopurine 50 MG Not-Taking PredniSONE 50 mg Orally Once a day 1 tablet 24h Jun, Jun, 07 days Active [place] 5-325 MG Orally every 6 hrs 1 tablet as needed 6h Jun,Jul 14 days Active Lisinopril 10 mg Orally Once a day 1 tablet 24h 30 Active Azathioprine 50 MG Not-Taking RESULTS No Results PROCEDURES No Known procedures [...]
--- OUTSIDE RECORDS SUMMARY | 2018-10-05 12:52 | XMS REPORT ---
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 Name Role Phone JENY LOUISA Unavailable PROBLEMS Type Condition ICD9-CM Code RDI30-AW Code Onset Dates Condition Status SNOMED Code Problem Chronic pain syndrome G89.4 Active 562621391 Problem Constipation, unspecified constipation type K59.00 Active 74925696 Problem Essential hypertension I10 Active 93150150 Problem Primary insomnia F51.01 Active 8718838 Problem Valeria-menopausal N95.1 Active [id number] ALLERGIES No Known Allergies ENCOUNTERS Encounter Location Date Diagnosis [facility] [id number] [place] [address] 84236- 3722 Apr, [facility] [id number] [place] [address] 29468- 8470 Apr, [facility] [id number] [place] [address] 51626- 9775 Apr, [facility] [id number] [place] [address] 24043- 0219 Apr, [facility] [id number] [place] [address] 80455- 4533 Mar, [facility] [id number] [place] [address] 47623- 7097 14 Mar, 2018 Left wrist pain M25.532 ; Plantar fasciitis, right M72.2 and Chronic pain syndrome G89.4 [facility] [id number] [place] [address] 70706- 1172 February, [facility] [id number] [place] [address] 24361 -9738 February, Constipation, unspecified constipation type K59.00 [facility] [address], [place] [address] February, [facility] [id number] [place] [address] 43943 -0519 Jan, Nausea R11.0 ; Fever R50.9 and Acute pharyngitis due to other specified organisms J02.8 [facility] [id number] [place] [address] 80588- 6983 Jan, [facility] [id number] [place] [address] 59372- 6481 Nov, Right upper quadrant abdominal pain R10.11 [facility] [id number] [place] [address] 24998- 6489 Nov, [facility] [id number] [place] [address] 01555- 6638 Aug, [facility] [id number] [place] [address] 86729- 0656 Aug, [facility] [id number] [place] [address] 55568- 2344 Jun, Primary insomnia F51.01 [facility] [id number] [place] [address] 98941- 1912 21 Jun, 2017 Crohn''s disease of colon without complication K50.10 ; Apnea spell R06.81 and Right upper quadrant abdominal pain R10.11 [facility] [address], [place] [address] 6381 Jun, [facility] [id number] [place] [address] 70846- 8360 February, Acute Crohns disease, without complications K50.90 ; Primary insomnia F51.01 ; Tobacco abuse counseling Z71.6 and Essential hypertension I10 [facility] [address] [place] [address] 26428- 3524 Jan, [place] [id number], [place] [address] 7522 Aug, Cough R05 [place] [address], [place] [address]- 1147 Aug, [place] [address], [place] [address] 1403 Jul, Essential hypertension I10 ; Valeria-menopausal N95.1 and Need for hepatitis C screening test Z11.59 [place] [id number], [place] [address] 0317 Jul, [place] [address] [place] [address] 84266- 3684 Jul, Breast lump N63 ; Essential hypertension I10 ; History of Crohn's disease Z87.19 ; Valeria-menopausal N95.1 ; Tobacco abuse Z72.0 and Need for hepatitis C screening test Z11.59 IMMUNIZATIONS Vaccine Route Administration Date Status BICILLIN C-R IM Intramuscular February 15, 2018 Administered SOCIAL HISTORY Never Assessed REASON FOR VISIT fever for the past 24 hours. nauseated. [email or web address] PLAN OF CARE Activity Details Follow Up 3-5 days if no improvement, sooner prn Reason: VITAL SIGNS Height 51.5 in 2018-02-15 Weight 186.6 lbs 2018-02-15 Temperature 100.4 degrees Fahrenheit 2018-02-15 Heart Rate 88 bpm 2018-02-15 Respiratory Rate 20 2018-02-15 BMI 49.46 kg/m2 2018-02-15 Blood pressure systolic 128 mmHg 2018-02-15 Blood pressure diastolic 78 mmHg 2018-02-15 MEDICATIONS Medication Instructions Dosage Frequency Start Date End Date Duration Status Lisinopril 10 mg Orally Once a day 1 tablet 24h 30 Active Hydrocodone-Acetaminophen 5-325 MG Orally TID PRN 1 tablet as needed Nov, Active Zofran ODT 4 MG Orally every 8 hours prn 2 tablets on the tongue and allow to dissolve Jan, 05 days Active Azathioprine 50 MG Not-Taking Aspirin 81 MG Orally Once a day 1 tablet 24h 10 Jul, 2016 30 day(s) Active Dicyclomine HCl 20 MG Orally Four times a day 1 tablet 6h Not- Taking Pantoprazole Sodium 40 MG Orally Once a day 1 tablet 24h Not- Taking PredniSONE 20 mg Orally twice a day 1 tablet 12h 24 Jan, 2018 February, 07 days Active Mercaptopurine 50 MG Not-Taking Hyoscyamine Sulfate 0.125 MG Orally every 4 hrs 1 tablet as needed 4h Not-Taking RESULTS Name Result Date Reference Range STREP A (IN HOUSE) 2018-02-15 STREP A negative Control + Lot # [id number] Exp date 07 11 20 PROCEDURES Procedure Date Ordered Result Body Site STREP A ASSAY W/OPTIC February 15, 2018 THER/PROPH/DIAG INJ, SC/IM February 15, 2018 INJECTION PCN G BRYAN[place] [id number] UNITS February 15, 2018 INSTRUCTIONS MEDICATIONS ADMINISTERED No Known Medications MEDICAL (GENERAL) HISTORY Type Description Date Medical History Crohn's Disease Medical History bleeding ulcer as child Medical History Gallbladder spasms/Gallstone Surgical History colonoscpy x2 Surgical History DNC x3 Surgical History gallbladder removed Hospitalization History Diagnosed with Crohns x3 days 2004 Hospitalization History Gallbladder attack/Gallstone 11/2017
--- OUTSIDE RECORDS SUMMARY | 2018-10-05 12:52 | XMS REPORT ---
Author Author MURRAY OROZCO Organization [facility] Address [address] [place] [address] Care Team Providers Care Manager Security Name Role Phone MURRAY OROZCO Unavailable PROBLEMS Type Condition ICD9-CM Code FJR06-DW Code Onset Dates Condition Status SNOMED Code Problem Chronic pain syndrome G89.4 Active 370490765 Problem Constipation, unspecified constipation type K59.00 Active 56943681 Problem Essential hypertension I10 Active 09185500 Problem Primary insomnia F51.01 Active 3780018 Problem Valeria-menopausal N95.1 Active [id number] ALLERGIES No Information ENCOUNTERS Encounter Location Date Diagnosis [facility] [id number] [place] [address] 72251- 5119 Apr, [facility] [id number] [place] [address] 66708- 3169 Apr, [facility] [id number] [place] [address] 44723- 9661 Apr, [facility] [id number] [place] [address] 54079- 4451 Apr, [facility] [id number] [place] [address] 03779- 0240 Mar, [facility] [id number] [place] [address] 94116- 1461 Mar, Left wrist pain M25.532 ; Plantar fasciitis, right M72.2 and Chronic pain syndrome G89.4 [facility] [address] [place] [address] 31233- 3236 February, [facility] [id number] [place] [address] 60562 -4671 February, Constipation, unspecified constipation type K59.00 [facility] [address], [place] [address] 4152 February, [facility] [id number] [place] [address] 54661 -1890 Jan, Nausea R11.0 ; Fever R50.9 and Acute pharyngitis due to other specified organisms J02.8 [facility] [id number] [place] [address] 75046- 6548 Jan, [facility] [id number] [place] [address] 22131- 0729 Nov, Right upper quadrant abdominal pain R10.11 [facility] [id number] [place] [address] 27586- 5908 Nov, [facility] [id number] [place] [address] 95941- 6103 Aug, [facility] [id number] [place] [address] 35770- 9309 Aug, [facility] [id number] [place] [address] 44970- 1994 Jun, Primary insomnia F51.01 [facility] [id number] [place] [address] 15668- 5812 21 Jun, 2017 Crohn''s disease of colon without complication K50.10 ; Apnea spell R06.81 and Right upper quadrant abdominal pain R10.11 [facility] [address], [place] [address]- 3259 Jun, [facility] [id number] [place] [address] 69806- 0345 February, Acute Crohns disease, without complications K50.90 ; Primary insomnia F51.01 ; Tobacco abuse counseling Z71.6 and Essential hypertension I10 [facility] [address] [place] [address] 89341- 7978 07 Jan, 2017 [facility] [address] [facility] [id number] [address] 9433 Aug, Cough R05 [facility] [address], [place] [address]- 9832 Aug, [facility] [id number], [place] [address]- 0271 Jul, Essential hypertension I10 ; Valeria-menopausal N95.1 and Need for hepatitis C screening test Z11.59 [facility] [id number], [place] [address]- 8957 Jul, [place] [id number], [place] [address]- 9107 Jul, Breast lump N63 ; Essential hypertension [...]
--- OUTSIDE RECORDS SUMMARY | 2018-10-05 12:52 | XMS REPORT ---
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 Role Phone MURRAY OROZCO Unavailable PROBLEMS Type Condition ICD9-CM Code CCA79-HA Code Onset Dates Condition Status SNOMED Code Problem Primary insomnia F51.01 Active 4095777 Problem Essential hypertension I10 Active 38845975 Problem Valeria-menopausal N95.1 Active [id number] ALLERGIES No Information ENCOUNTERS Encounter Location Date Diagnosis [facility] [id number] [place] [address] 08250 -2660 Jan, Nausea R11.0 ; Fever R50.9 and Acute pharyngitis due to other specified organisms J02.8 [facility] [id number] [place] [address] 25832- 6415 Jan, [facility] [address] 42099- 5432 Nov, Right upper quadrant abdominal pain R10.11 [facility] [id number] [place] [address] 78590- 7486 Nov, [facility] [id number] [place] [address] 76419- 1757 Aug, [facility] [id number] [place] [address] 76083- 2698 Aug, [facility] [address] 63900- 5367 Jun, Primary insomnia F51.01 [facility] [id number] [place] [address] 66081- 5864 Jun, Crohn''s disease of colon without complication K50.10 ; Apnea spell R06.81 and Right upper quadrant abdominal pain R10.11 [place] [address] [place] [address] 84349- 0303 Jun, [place] [id number] [place] [address] 71136- 0972 February, Acute Crohns disease, without complications K50.90 ; Primary insomnia F51.01 ; Tobacco abuse counseling Z71.6 and Essential hypertension I10 [place] [id number] [place] [address] 02489- 4327 Jan, [place] [id number] [place] [address] 05139- 2135 Aug, Cough R05 [place] [id number] [place] [address] 29905- 0159 Aug, [place] [address] 49675- 8742 Jul, Essential hypertension I10 ; Valeria-menopausal N95.1 and Need for hepatitis C screening test Z11.59 [place] [id number] [place] [address] 93039- 8202 Jul, [place] [id number] [place] [address] 87162- 4349 Jul, Breast lump N63 ; Essential hypertension I10 ; History of Crohn's disease Z87.19 ; Valeria-menopausal N95.1 ; Tobacco abuse Z72.0 and Need for hepatitis C screening test Z11.59 IMMUNIZATIONS No Known Immunizations SOCIAL HISTORY Never Assessed REASON FOR VISIT Requesting return call PLAN OF CARE VITAL SIGNS [...]
--- OUTSIDE RECORDS SUMMARY | 2018-10-05 12:52 | XMS REPORT ---
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 Name Role Phone MURRAY OROZCO Unavailable PROBLEMS Type Condition ICD9-CM Code ZRM24-XU Code Onset Dates Condition Status SNOMED Code Problem Chronic pain syndrome G89.4 Active 058085599 Problem Constipation, unspecified constipation type K59.00 Active 50991814 Problem Essential hypertension I10 Active 46434539 Problem Primary insomnia F51.01 Active 4232188 Problem Valeria-menopausal N95.1 Active [id number] ALLERGIES No Information ENCOUNTERS Encounter Location Date Diagnosis [facility] [id number] [place] [address] 52819- 5818 Jun, [facility] [id number] [place] [address] 66768- 1459 Apr, [facility] [id number] [place] [address] 32411- 6928 Apr, [facility] [id number] [place] [address] 16427- 1441 Apr, [facility] [id number] [place] [address] 33076- 7521 Apr, [facility] [id number] [place] [address] 98661- 6273 Mar, [facility] [id number] [place] [address] 27556- 1063 Mar, Left wrist pain M25.532 ; Plantar fasciitis, right M72.2 and Chronic pain syndrome G89.4 [facility] [id number] [place] [address] 56662- 3918 February, [facility] [address] [place] [address] 60616 -4484 February, Constipation, unspecified constipation type K59.00 [facility] [id number] [place] [address] 10310- 4652 February, [facility] [id number] [place] [address] 02483 -7548 Jan, Nausea R11.0 ; Fever R50.9 and Acute pharyngitis due to other specified organisms J02.8 [place] [id number] [place] [address] 47278- 2691 Jan, [place] [address] 99186- 1197 Nov, Right upper quadrant abdominal pain R10.11 [place] [id number] [place] [address] 38658- 4027 Nov, [facility] [id number] [place] [address] 86655- 9505 Aug, [place] [id number] [place] [address] 40569- 8526 Aug, [place] [id number] [place] [address] 03342- 2876 Jun, Primary insomnia F51.01 [place] [id number] [place] [address] 00503- 0030 Jun, Crohn''s disease of colon without complication K50.10 ; Apnea spell R06.81 and Right upper quadrant abdominal pain R10.11 [place] [id number] [place] [address] 43717- 5996 Jun, [place] [address] 37610- 5993 February, Acute Crohns disease, without complications K50.90 ; Primary insomnia F51.01 ; Tobacco abuse counseling Z71.6 and Essential hypertension I10 [place] [id number], [place] [address]- 9509 Jan, [facility] [address], [place] [address]- 8555 Aug, Cough R05 [facility] [address] 3611 Aug, [facility] [address], [place] [address]- 2948 Jul, Essential hypertension I10 ; Valeria-menopausal N95.1 and Need for hepatitis C screening test Z11.59 [place] [address], [place] [address]- 5142 Jul, [facility] [address], [place] [address]- 7611 Jul, Breast lump N63 ; Essential hypertension [...]
--- OUTSIDE RECORDS SUMMARY | 2018-10-05 12:53 | XMS REPORT ---
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 Role Phone MURRAY OROZCO Unavailable PROBLEMS Type Condition ICD9-CM Code ACF47-FM Code Onset Dates Condition Status SNOMED Code Problem Constipation, unspecified constipation type K59.00 Active 43270273 Problem Primary insomnia F51.01 Active 1906137 Problem Essential hypertension I10 Active 83694721 Problem Valeria-menopausal N95.1 Active [id number] ALLERGIES No Information ENCOUNTERS Encounter Location Date Diagnosis [facility] [id number] [place] [address] 50877 -9335 February, Constipation, unspecified constipation type K59.00 [facility] [id number] [place] [address] 40026- 7569 February, [facility] [address] 63807 -3056 Jan, Nausea R11.0 ; Fever R50.9 and Acute pharyngitis due to other specified organisms J02.8 [place] [id number] [place] [address] 00888- 8339 Jan, [facility] [address] 35869- 5073 Nov, Right upper quadrant abdominal pain R10.11 [place] [address] 77475- 2182 15 Nov, 2017 [facility] [address] 22419- 3854 Aug, [place] [address] 63435- 4760 Aug, [place] [address] [address]- 5381 Jun, Primary insomnia F51.01 [place] [id number] [place] [address] 72443- 6875 Jun, Crohn''s disease of colon without complication K50.10 ; Apnea spell R06.81 and Right upper quadrant abdominal pain R10.11 [place] [id number] [place] [address] 41504- 7217 20 Jun, 2017 [place] [id number] [place] [address] 11351- 4869 February, Acute Crohns disease, without complications K50.90 ; Primary insomnia F51.01 ; Tobacco abuse counseling Z71.6 and Essential hypertension I10 [place] [id number] [place] [address] 07938- 9067 Jan, [place] [id number] [place] [address] 98911- 2160 Aug, Cough R05 [place] [id number] [place] [address] 98583- 7905 Aug, [place] [id number] [place] [address] 37037- 6138 Jul, Essential hypertension I10 ; Valeria-menopausal N95.1 and Need for hepatitis C screening test Z11.59 [place] [id number] [place] [address] 65445- 0882 Jul, [place] [id number] [place] [address] 93066- 0111 10 Jul, 2016 Breast lump N63 ; Essential hypertension I10 ; History of Crohn's disease Z87.19 ; Valeria-menopausal N95.1 ; Tobacco abuse Z72.0 and Need for hepatitis C screening test Z11.59 IMMUNIZATIONS No Known Immunizations SOCIAL HISTORY Never Assessed REASON FOR VISIT Requests return call PLAN OF CARE VITAL SIGNS MEDICATIONS No Known Medications RESULTS No Results PROCEDURES No Known [...]
--- OUTSIDE RECORDS SUMMARY | 2018-10-05 12:54 | XMS REPORT | Continuity of Care Document ---
Author Author [facility] Organization [facility] Address Unknown Phone Unavailable Allergies Active Description Code Type Severity Reaction Onset Reported/Identified Relationship to Patient Clinical Status Yes No Known Drug Allergies [id number] Drug Allergy Unknown N/A 12/21/2017 Medications There is no data. Problems Date Dx Coded Attending Type Code Diagnosis Diagnosed By 11/17/2011 Ot 789.07 ABDOMINAL PAIN, GENERALIZED 11/18/2011 Ot 555.9 REGIONAL ENTERITIS NOS 12/23/2011 Ot 305.1 TOBACCO USE DISORDER 12/23/2011 Ot 414.01 CORONARY ATHEROSCLEROSIS OF [place] CORON 12/23/2011 Ot 555.9 REGIONAL ENTERITIS NOS 12/23/2011 Ot 786.59 CHEST PAIN NEC 12/23/2011 Ot 790.5 ABN SERUM ENZY LEVEL NEC 12/23/2011 Ot V12.71 PERSONAL HISTORY OF PEPTIC ULCER DISEASE 12/23/2011 Ot V17.49 FAMILY HISTORY OF OTHER CARDIOVASCULAR D 12/23/2011 Ot V58.65 LONG-TERM( CURRENT)USE OF STEROIDS 12/23/2011 Ot V58.69 OTH MED,LT, CURRENT USE 02/12/2014 GLENDA LAI MD Ot 034.0 STREP SORE THROAT 02/12/2014 GLENDA LAI MD Ot 462 ACUTE PHARYNGITIS 02/12/2014 GLENDA LAI MD Ot 789.00 ABDOMINAL PAIN, UNSPECIFIED SITE 05/21/2016 SARI ROSARIO Ot F17.210 NICOTINE DEPENDENCE, CIGARETTES, UNCOMPL 05/21/2016 SARI ROSARIO Ot R10.84 GENERALIZED ABDOMINAL PAIN 05/21/2016 SARI ROSARIO Ot R19.7 DIARRHEA, UNSPECIFIED 05/22/2016 SARI ROSARIO Ot F17.210 NICOTINE DEPENDENCE, CIGARETTES, UNCOMPL 05/22/2016 SARI ROSARIO Ot R10.84 GENERALIZED ABDOMINAL PAIN 05/22/2016 SARI ROSARIO Ot R19.7 DIARRHEA, UNSPECIFIED 06/16/2016 SARI ROSARIO Ot F17.210 NICOTINE DEPENDENCE, CIGARETTES, UNCOMPL 06/16/2016 SARI ROSARIO Ot R10.84 GENERALIZED ABDOMINAL PAIN 06/16/2016 SARI ROSARIO Ot R19.7 DIARRHEA, UNSPECIFIED 08/12/2016 MURRAY OROZCO MD R Ot N63 UNSPECIFIED LUMP IN BREAST 08/13/2016 MURRAY OROZCO MD R Ot N63 UNSPECIFIED LUMP IN BREAST 11/13/2016 ERNESTO GILES, MURRAY R Ot N63 UNSPECIFIED LUMP IN BREAST 11/13/2016 GLENDA LAI MD, Ot I10 ESSENTIAL (PRIMARY) HYPERTENSION 11/13/2016 GLENDA LAI MD, Ot J44.1 CHRONIC OBSTRUCTIVE PULMONARY DISEASE W 11/13/2016 GLENDA LAI MD Ot R07.9 CHEST PAIN, UNSPECIFIED 11/13/2016 GLENDA LAI MD Ot Z79.82 CUSTODIAN (CURRENT) USE OF ASPIRIN 11/13/2016 GLENDA LAI MD Ot Z79.899 OTHER HALF-WAY (CURRENT) DRUG THERAPY 07/16/2017 JORDY DO, DARCY K Ot E78.00 PURE HYPERCHOLESTEROLEMIA, UNSPECIFIED 07/16/2017 JORDY DO, DARCY K Ot F17.210 NICOTINE DEPENDENCE, CIGARETTES, UNCOMPL 07/16/2017 JORDY DO, DARCY K Ot I10 ESSENTIAL (PRIMARY) HYPERTENSION 07/16/2017 JORDY DO, DARCY K Ot I25.10 ATHSCL HEART DISEASE OF [place] CORONARY 07/16/2017 JORDY DO DARCY K Ot J44.9 CHRONIC OBSTRUCTIVE PULMONARY DISEASE, U 07/16/2017 JORDY DO, DARCY K Ot J45.909 UNSPECIFIED ASTHMA, UNCOMPLICATED 07/16/2017 JORDY DO, DARCY K Ot K21.9 GASTRO-ESOPHAGEAL REFLUX DISEASE WITHOUT 07/16/2017 JORDY DO, DARCY K Ot K59.00 CONSTIPATION, UNSPECIFIED 07/16/2017 JORDY DO, DARCY K Ot R10.11 RIGHT UPPER QUADRANT PAIN 07/16/2017 JORDY DO DARCY K Ot Z79.4 CUSTODIAN (CURRENT) USE OF INSULIN 07/16/2017 JORDY DO DARCY K Ot Z87.19 PERSONAL HISTORY OF OTHER DISEASES OF TH 07/21/2017 JORDY DO, DARCY K Ot E78.00 PURE HYPERCHOLESTEROLEMIA, UNSPECIFIED 07/21/2017 JORDY DO, DARCY K Ot F17.210 NICOTINE DEPENDENCE, CIGARETTES, UNCOMPL 07/21/2017 JORDY DO, DARCY K Ot I10 ESSENTIAL (PRIMARY) HYPERTENSION 07/21/2017 JORDY DO, DARCY K Ot I25.10 ATHSCL HEART DISEASE OF [place] CORONARY 07/21/2017 JORDY DO, DARCY K Ot J44.9 CHRONIC OBSTRUCTIVE PULMONARY DISEASE, U 07/21/2017 JORDY DO, DARCY K Ot J45.909 UNSPECIFIED ASTHMA, UNCOMPLICATED 07/21/2017 JORDY DO, DARCY K Ot K21.9 GASTRO-ESOPHAGEAL REFLUX DISEASE WITHOUT 07/21/2017 JORDY DO, DARCY K Ot K59.00 CONSTIPATION, UNSPECIFIED 07/21/2017 JORDY DO, DARCY K Ot R10.11 RIGHT UPPER QUADRANT PAIN 07/21/2017 JORDY DO, DARCY K Ot Z79.4 CUSTODIAN (CURRENT) USE OF INSULIN 07/21/2017 JORDY DO, DARCY K Ot Z87.19 PERSONAL HISTORY OF OTHER DISEASES OF TH 12/06/2017 JORDY DO, DARCY K Ot E78.00 PURE HYPERCHOLESTEROLEMIA, UNSPECIFIED 12/06/2017 JORDY DO, DARCY K Ot F17.210 NICOTINE DEPENDENCE, CIGARETTES, UNCOMPL 12/06/2017 JORDY DO, DARCY K Ot I10 ESSENTIAL (PRIMARY) HYPERTENSION 12/06/2017 JORDY DO, DARCY K Ot I25.10 ATHSCL HEART DISEASE OF [place] CORONARY 12/06/2017 JORDY DO, DARCY K Ot J44.9 CHRONIC OBSTRUCTIVE PULMONARY DISEASE, U 12/06/2017 JORDY DO, DARCY K Ot K21.9 GASTRO-ESOPHAGEAL REFLUX DISEASE WITHOUT 12/06/2017 JORDY DO, DARCY K Ot R10.11 RIGHT UPPER QUADRANT PAIN 12/06/2017 JORDY DO, DARCY K Ot Z79.82 HALF-WAY (CURRENT) USE OF ASPIRIN 12/06/2017 JORDY DO, DARCY K Ot Z87.19 PERSONAL HISTORY OF OTHER DISEASES OF TH 12/07/2017 JORDY DO, DARCY K Ot E78.00 PURE HYPERCHOLESTEROLEMIA, UNSPECIFIED 12/07/2017 JORDY DO, DARCY K Ot F17.210 NICOTINE DEPENDENCE, CIGARETTES, UNCOMPL 12/07/2017 JORDY ILDEFONSOA K Ot I10 ESSENTIAL (PRIMARY) HYPERTENSION 12/07/2017 JORDY DO DARCY K Ot I25.10 ATHSCL HEART DISEASE OF [place] CORONARY 12/07/2017 JORDY DARCY MASSEY Ot J44.9 CHRONIC OBSTRUCTIVE PULMONARY DISEASE, U 12/07/2017 JORDY DARCY K Ot K21.9 GASTRO-ESOPHAGEAL REFLUX DISEASE WITHOUT 12/07/2017 JORDY DOILDEFONSOA K Ot R10.11 RIGHT UPPER QUADRANT PAIN 12/07/2017 ILDEFONSO SPENCE DOA K Ot Z79.82 CUSTODIAN (CURRENT) USE OF ASPIRIN 12/07/2017 JORDY DOILDEFONSOA K Ot Z87.19 PERSONAL HISTORY OF OTHER DISEASES OF TH 12/07/2017 ERNESTO GILES, MURRAY Tomlinson Ot N63 UNSPECIFIED LUMP IN BREAST 12/16/2017 ERNESTO GILES, MURRAY Tomlinson Ot K80.20 CALCULUS OF GALLBLADDER W/O CHOLECYSTITI 12/21/2017 SHAZIA GILES, TASHA Love Ot K80.10 CALCULUS OF GALLBLADDER W CHRONIC CHOLEC 12/21/2017 SHAZIA GILES, TASHA Lvoe Ot Z01.818 ENCOUNTER FOR OTHER PREPROCEDURAL EXAMIN 12/22/2017 TASHA MCCRAY MD Ot K80.10 CALCULUS OF GALLBLADDER W CHRONIC CHOLEC 12/22/2017 SHAZIA GILES, TASHA Love Ot Z01.818 ENCOUNTER FOR OTHER PREPROCEDURAL EXAMIN 12/22/2017 SHAZIA GILES, TASHA Love Ot F17.210 NICOTINE DEPENDENCE, CIGARETTES, UNCOMPL 12/22/2017 SHAZIA GILES, TASHA Love Ot G47.33 OBSTRUCTIVE SLEEP APNEA (ADULT) (PEDIATR 12/22/2017 SHAZIA GILES, TASHA Love Ot I10 ESSENTIAL (PRIMARY) HYPERTENSION 12/22/2017 SHAZIA GILES, TASHA Love Ot I25.10 ATHSCL HEART DISEASE OF [place] CORONARY 12/22/2017 SHAZIA GILES, TASHA Love Ot J44.9 CHRONIC OBSTRUCTIVE PULMONARY DISEASE, U 12/22/2017 TASHA MCCRAY MD Ot K21.9 GASTRO-ESOPHAGEAL REFLUX DISEASE WITHOUT 12/22/2017 TASHA MCCRAY MD Ot K50.90 CROHN'S DISEASE, UNSPECIFIED, WITHOUT CO 12/22/2017 SHAZIA GILES, TASHA Love Ot K80.20 CALCULUS OF GALLBLADDER W/O CHOLECYSTITI 12/22/2017 TASHA MCCRAY MD Ot M19.90 UNSPECIFIED OSTEOARTHRITIS, UNSPECIFIED 12/22/2017 TASHA MCCRAY MD Ot Z11.2 ENCOUNTER FOR SCREENING FOR OTHER BACTER 12/22/2017 TASHA MCCRAY MD Ot Z79.82 CUSTODIAN (CURRENT) USE OF ASPIRIN 12/22/2017 TASHA MCCRAY MD Ot Z79.899 OTHER HALF-WAY (CURRENT) DRUG THERAPY 12/23/2017 TASHA MCCRAY MD Ot F17.210 NICOTINE DEPENDENCE, CIGARETTES, UNCOMPL 12/23/2017 TASHA MCCRAY MD Ot G47.33 OBSTRUCTIVE SLEEP APNEA (ADULT) (PEDIATR 12/23/2017 TASHA MCCRAY MD Ot I10 ESSENTIAL (PRIMARY) HYPERTENSION 12/23/2017 TASHA MCCRAY MD Ot I25.10 ATHSCL HEART DISEASE OF [place] CORONARY 12/23/2017 TASHA MCCRAY MD Ot J44.9 CHRONIC OBSTRUCTIVE PULMONARY DISEASE, U 12/23/2017 TASHA MCCRAY MD Ot K21.9 GASTRO-ESOPHAGEAL REFLUX DISEASE WITHOUT 12/23/2017 TASHA MCCRAY MD Ot K50.90 CROHN'S DISEASE, UNSPECIFIED, WITHOUT CO 12/23/2017 TASHA MCCRAY MD Ot K80.20 CALCULUS OF GALLBLADDER W/O CHOLECYSTITI 12/23/2017 TASHA MCCRAY MD Ot M19.90 UNSPECIFIED OSTEOARTHRITIS, UNSPECIFIED 12/23/2017 TASHA MCCRAY MD Ot Z11.2 ENCOUNTER FOR SCREENING FOR OTHER BACTER 12/23/2017 TASHA MCCRAY MD Ot Z79.82 CUSTODIAN (CURRENT) USE OF ASPIRIN 12/23/2017 TASHA MCCRAY MD Ot Z79.899 OTHER HALF-WAY (CURRENT) DRUG THERAPY 12/28/2017 TASHA MCCRAY MD Ot F17.210 NICOTINE DEPENDENCE, CIGARETTES, UNCOMPL 12/28/2017 TASHA MCCRAY MD Ot G47.33 OBSTRUCTIVE SLEEP APNEA (ADULT) (PEDIATR 12/28/2017 TASHA MCCRAY MD Ot I10 ESSENTIAL (PRIMARY) HYPERTENSION 12/28/2017 TASHA MCCRAY MD Ot I25.10 ATHSCL HEART DISEASE OF [place] CORONARY 12/28/2017 TASHA MCCRAY MD Ot J44.9 CHRONIC OBSTRUCTIVE PULMONARY DISEASE, U 12/28/2017 TASHA MCCRAY MD Ot K21.9 GASTRO-ESOPHAGEAL REFLUX DISEASE WITHOUT 12/28/2017 TASHA MCCRAY MD Ot K50.90 CROHN'S DISEASE, UNSPECIFIED, WITHOUT CO 12/28/2017 TASHA MCCRAY MD Ot K80.20 CALCULUS OF GALLBLADDER W/O CHOLECYSTITI 12/28/2017 TASHA MCCRAY MD Ot M19.90 UNSPECIFIED OSTEOARTHRITIS, UNSPECIFIED 12/28/2017 TASHA MCCRAY MD Ot Z11.2 ENCOUNTER FOR SCREENING FOR OTHER BACTER 12/28/2017 TASHA MCCRAY MD Ot Z79.82 HALF-WAY (CURRENT) USE OF ASPIRIN 12/28/2017 TASHA MCCRAY MD Ot Z79.899 OTHER CUSTODIAN (CURRENT) DRUG THERAPY 12/31/2017 TASHA MCCRAY MD Ot F17.210 NICOTINE DEPENDENCE, CIGARETTES, UNCOMPL 12/31/2017 TASHA MCCRAY MD Ot G47.33 OBSTRUCTIVE SLEEP APNEA (ADULT) (PEDIATR 12/31/2017 TASHA MCCRAY MD Ot I10 ESSENTIAL (PRIMARY) HYPERTENSION 12/31/2017 TASHA MCCRAY MD Ot I25.10 ATHSCL HEART DISEASE OF [place] CORONARY 12/31/2017 TASHA MCCRAY MD Ot J44.9 CHRONIC OBSTRUCTIVE PULMONARY DISEASE, U 12/31/2017 TASHA MCCRAY MD Ot K21.9 GASTRO-ESOPHAGEAL REFLUX DISEASE WITHOUT 12/31/2017 TASHA MCCRAY MD Ot K50.90 CROHN'S DISEASE, UNSPECIFIED, WITHOUT CO 12/31/2017 TASHA MCCRYA MD Ot K80.20 CALCULUS OF GALLBLADDER W/O CHOLECYSTITI 12/31/2017 TASHA MCCRAY MD Ot M19.90 UNSPECIFIED OSTEOARTHRITIS, UNSPECIFIED 12/31/2017 TASHA MCCRAY MD Ot Z11.2 ENCOUNTER FOR SCREENING FOR OTHER BACTER 12/31/2017 TASHA MCCRAY MD Ot Z79.82 CUSTODIAN (CURRENT) USE OF ASPIRIN 12/31/2017 TASHA MCCRAY MD Ot Z79.899 OTHER CUSTODIAN (CURRENT) DRUG THERAPY 03/07/2018 ERNESTO GILES, MURRAY Tomlinson Ot N63 UNSPECIFIED LUMP IN BREAST 03/07/2018 MURRAY OROZCO MD Ot K80.20 CALCULUS OF GALLBLADDER W/O CHOLECYSTITI 03/07/2018 MURRAY OROZCO MD Ot K80.20 CALCULUS OF GALLBLADDER W/O CHOLECYSTITI 03/08/2018 TASHA MCCRAY MD Ot F17.210 NICOTINE DEPENDENCE, CIGARETTES, UNCOMPL 03/08/2018 SHAZIA GILES, TASHA Love Ot G47.33 OBSTRUCTIVE SLEEP APNEA (ADULT) (PEDIATR 03/08/2018 TASHA MCCRAY MD Ot I10 ESSENTIAL (PRIMARY) HYPERTENSION 03/08/2018 TASHA MCCRAY MD Ot I25.10 ATHSCL HEART DISEASE OF [place] CORONARY 03/08/2018 TASHA MCCRAY MD Ot J44.9 CHRONIC OBSTRUCTIVE PULMONARY DISEASE, U 03/08/2018 TASHA CMCRAY MD Ot K21.9 GASTRO-ESOPHAGEAL REFLUX DISEASE WITHOUT 03/08/2018 TASHA MCCRAY MD Ot K50.90 CROHN'S DISEASE, UNSPECIFIED, WITHOUT CO 03/08/2018 TASHA MCCRAY MD Ot K80.20 CALCULUS OF GALLBLADDER W/O CHOLECYSTITI 03/08/2018 TASHA MCCRAY MD Ot M19.90 UNSPECIFIED OSTEOARTHRITIS, UNSPECIFIED 03/08/2018 TASHA MCCRAY MD Ot Z11.2 ENCOUNTER FOR SCREENING FOR OTHER BACTER 03/08/2018 TASHA MCCRAY MD Ot Z79.82 HALF-WAY (CURRENT) USE OF ASPIRIN 03/08/2018 TASHA MCCRAY MD Ot Z79.899 OTHER CUSTODIAN (CURRENT) DRUG THERAPY 05/13/2018 MURRAY OROZCO MD Ot N63 UNSPECIFIED LUMP IN BREAST 05/13/2018 MURRAY OROZCO MD Ot K80.20 CALCULUS OF GALLBLADDER W/O CHOLECYSTITI 05/13/2018 MURRAY OROZCO MD Ot N63 UNSPECIFIED LUMP IN BREAST 05/13/2018 MURRAY OROZCO MD Ot K80.20 CALCULUS OF GALLBLADDER W/O CHOLECYSTITI 07/07/2018 MURRAY OROZCO MD Ot N63 UNSPECIFIED LUMP IN BREAST 07/07/2018 MURRAY OROZCO MD Ot K80.20 CALCULUS OF GALLBLADDER W/O CHOLECYSTITI [...] methadone detection by screening method NEGATIVE NEGATIVE CBC With Differential/Platelet - 08/06/16 13:57 WBC 7.8 x10E3/uL 3.4-10.8 RBC 5.89 x10E6/uL 3.77-5.28 Hemoglobin 15.6 g/dL 11.1-15.9 Hematocrit 47.5 % 34.0-46.6 MCV 81 fL 79-97 MCH 26.5 pg 26.6-33.0 MCHC 32.8 g/dL 31.5-35.7 RDW 14.5 % 12.3-15.4 Platelets 295 x10E3/uL 150-379 Neutrophils 59 % Lymphs 30 % Monocytes 8 % Eos 2 % Basos 1 % Neutrophils (Absolute) 4.5 x10E3/uL 1.4-7.0 Lymphs (Absolute) 2.4 x10E3/uL 0.7-3.1 Monocytes(Absolute) 0.6 x10E3/uL 0.1-0.9 Eos (Absolute) 0.2 x10E3/uL 0.0-0.4 Baso (Absolute) 0.1 x10E3/uL 0.0-0.2 Immature Granulocytes 0 % Immature Grans (Abs) 0.0 x10E3/uL 0.0-0.1 Comp. Metabolic Panel (14) - 08/06/16 13:57 Glucose, Serum 95 mg/dL 65-99 BUN 10 mg/dL 6-24 Creatinine, Serum 0.69 mg/dL 0.57-1.00 eGFR If NonAfricn Am 100 mL/min/1.73 >59 eGFR If Africn Am 115 mL/min/1.73 >59 BUN/Creatinine Ratio 14 9-23 Sodium, Serum 138 mmol/L 134-144 Potassium, Serum 4.8 mmol/L 3.5-5.2 Chloride, Serum 96 mmol/L 97-108 Carbon Dioxide, Total 23 mmol/L 18-29 Calcium, Serum 9.6 mg/dL 8.7-10.2 Protein, Total, Serum 7.4 g/dL 6.0-8.5 Albumin, Serum 4.5 g/dL 3.5-5.5 Globulin, Total 2.9 g/dL 1.5-4.5 A/G Ratio 1.6 1.1-2.5 Bilirubin, Total 0.8 mg/dL 0.0-1.2 Alkaline Phosphatase, S 63 IU/L 39-117 AST (SGOT) 48 IU/L 0-40 ALT (SGPT) 63 IU/L 0-32 Lipid Panel - 08/06/16 13:57 Cholesterol, Total 254 mg/dL 100-199 Triglycerides 182 mg/dL 0-149 HDL Cholesterol 37 mg/dL >39 VLDL Cholesterol Erik 36 mg/dL 5-40 LDL Cholesterol Calc 181 mg/dL 0-99 Hemoglobin A1c - 08/06/16 13:57 Hemoglobin A1c 5.9 % 4.8-5.6 HCV Antibody - 08/06/16 13:57 Hep C Virus Ab <0.1 s/co ratio 0.0-0.9 Urine Culture, Routine - 08/06/16 13:57 Urine Culture, Routine Note Complete blood count (CBC) with automated white [...] - 12/05/17 23:45 Lipase 27 U/L 8-78 Urine beta human chorionic gonadotropin (hCG) measurement - 12/22/17 06:25 Urine beta human chorionic gonadotropin (hCG) measurement NEGATIVE NEGATIVE Methicillin resistant Staphylococcus aureus (MRSA) screening culture - 06:25 Methicillin resistant Staphylococcus aureus (MRSA) screening culture NEG NRG Complete blood count (CBC) with automated white blood cell (WBC) differential - 10/05/18 10:24 Blood leukocytes automated count (number/volume) 8.0 10*3/uL 4.3-11.0 Blood erythrocytes automated count (number/volume) 5.12 10*6/uL 4.35-5.85 Venous blood hemoglobin measurement (mass/volume) 13.9 g/dL 11.5-16.0 Blood hematocrit (volume fraction) 42 % 35-52 Automated erythrocyte mean corpuscular volume 81 [foz_us] 80-99 Automated erythrocyte mean corpuscular hemoglobin (mass per erythrocyte) 27 pg 25-34 Automated erythrocyte mean corpuscular hemoglobin concentration measurement ( mass/volume) 34 g/dL 32-36 Automated erythrocyte distribution width ratio 15.0 % 10.0-14.5 Automated blood platelet count (count/volume) 250 10*3/uL 130-400 Automated blood platelet mean volume measurement 10.7 [foz_us] 7.4-10.4 Automated blood neutrophils/100 leukocytes 50 % 42-75 Automated blood lymphocytes/100 leukocytes 38 % 12-44 Blood monocytes/100 leukocytes 8 % 0-12 Automated blood eosinophils/100 leukocytes 3 % 0-10 Automated blood basophils/100 leukocytes 1 % 0-10 Blood neutrophils automated count (number/volume) 4.0 10*3 1.8-7.8 Blood lymphocytes automated count (number/volume) 3.0 10*3 1.0-4.0 Blood monocytes automated count (number/volume) 0.7 10*3 0.0-1.0 Automated eosinophil count 0.3 10*3/uL 0.0-0.3 Automated blood basophil count (count/volume) 0.1 10*3/uL 0.0-0.1 Comprehensive metabolic panel - 10/05/18 10:24 Serum or plasma sodium measurement (moles/volume) 138 mmol/L 135-145 Serum or plasma potassium measurement (moles/volume) 4.3 mmol/L 3.6-5.0 Serum or plasma chloride measurement (moles/volume) 106 mmol/L 98-107 Carbon dioxide 20 mmol/L 21-32 Serum or plasma anion gap determination (moles/volume) 12 mmol/L 5-14 Serum or plasma urea nitrogen measurement (mass/volume) 15 mg/dL 7-18 Serum or plasma creatinine measurement (mass/volume) 0.77 mg/dL 0.60-1.30 Serum or plasma urea nitrogen/creatinine mass ratio 19 NRG Serum or plasma creatinine measurement with calculation of estimated glomerular filtration rate > NRG Serum or plasma glucose measurement (mass/volume) 95 mg/dL 70-105 Serum or plasma calcium measurement (mass/volume) 9.6 mg/dL 8.5-10.1 Serum or plasma total bilirubin measurement (mass/volume) 0.6 mg/dL 0.1-1.0 Serum or plasma alkaline phosphatase measurement (enzymatic activity/volume) 77 U/L 40-136 Serum or plasma aspartate aminotransferase measurement (enzymatic activity/ volume) 16 U/L 5-34 Serum or plasma alanine aminotransferase measurement (enzymatic activity/volume ) 16 U/L 0-55 Serum or plasma protein measurement (mass/volume) 7.5 g/dL 6.4-8.2 Serum or plasma albumin measurement (mass/volume) 4.4 g/dL 3.2-4.5 CALCIUM CORRECTED 9.3 mg/dL 8.5-10.1 Magnesium - 10/05/18 10:24 Magnesium 2.2 mg/dL 1.8-2.4 Serum or plasma troponin i.cardiac measurement (mass/volume) - 10/05/18 10:24 Serum or plasma troponin i.cardiac measurement (mass/volume) < ng/ mL <0.30 PT panel in platelet poor plasma by coagulation assay - 10/05/18 10:24 Prothrombin time (PT) in platelet poor plasma by coagulation assay 13.6 s 12.2-14.7 INR in platelet poor plasma or blood by coagulation assay 1.0 0.8-1.4 Activated partial thromboplastin time (aPTT) in platelet poor plasma bycoagulation assay - 10/05/18 10:24 Activated partial thromboplastin time (aPTT) in platelet poor plasma bycoagulation assay 27 s 24-35 Fibrin D-dimer FEU measurement in platelet poor plasma (mass/volume) - 10:24 Fibrin D-dimer FEU measurement in platelet poor plasma (mass/volume) 0.31 ug/mL 0.00-0.49 Myoglobin, serum - 10/05/18 10:24 Myoglobin, serum 28.1 ng/mL 10.0-92.0 Lipase - 10/05/18 10:24 Lipase 25 U/L 8-78 Encounters ACCT No. Visit Date/Time Discharge Status Pt. Type Provider Facility Loc./Unit Complaint [id number] 12/22/2017 06:12:00 12/22/2017 11:20:00 DIS Outpatient TASHA MCCRAY MD [facility] SDC GALLSTONES [id number] 12/21/2017 06:05:00 12/21/2017 13:47:00 DIS Outpatient TASHA MCCRAY MD [facility] PREOP G[place]ST[place]ES [id number] 12/15/2017 11:44:00 12/15/2017 23:59:59 CLS Outpatient MURRAY OROZCO MD [facility] RAD R10.11 RUQ ABD PAIN [id number] 12/05/2017 21:23:00 12/06/2017 01:16:00 DIS Emergency DARCY SPENCE DO [facility] ER CHRONS FLARE UP [id number] 08/11/2017 07:29:00 08/11/2017 23:59:59 CLS Preadmit MURRAY OROZCO MD [facility] SLEEP HYPERSOMNIA G47.10 [id number] 07/15/2017 21:47:00 07/16/2017 00:18:00 DIS Emergency DARCY SPENCE DO [facility] ER VOMITING;FEVER [id number] 11/13/2016 13:43:00 11/13/2016 16:55:00 DIS Emergency GLENDA LAI MD [facility] ER CHEST PAIN/SOA LEFT ARM NUMBNESS [id number] 08/12/2016 12:39:00 08/12/2016 23:59:59 CLS Outpatient MURRAY OROZCO MD [facility] RAD BREAST LUMP [id number] 05/21/2016 19:12:00 05/21/2016 22:38:00 DIS Emergency SARI ROSARIO [facility] ER ABD PAIN [id number] 02/12/2014 14:40:00 02/12/2014 16:34:00 DIS Emergency GLENDA LAI MD [facility] ER MULTIPLE COMPLAINTS [id number] 10/05/2018 10:00:00 ACT Emergency GLENDA LAI MD [facility] ER CHEST PAIN [id number] 12/22/2011 18:45:00 Document Registration [id number] 11/18/2011 08:25:00 Document Registration [id number] 11/17/2011 04:41:00 Document Registration [id number] 04/07/2018 09:00:00 04/07/2018 23:59:59 [facility] Outpatient MURRAY OROZCO [facility] [id number] 08/09/2016 07:05:00 Document Registration
[2018-10-05] MEDS ORDERED: morphine INJ 4 MG/ML 1 ML (VIAL/SYRINGE) IV PRN (14:00)
[2018-10-05] MEDS ORDERED: CATHETER FLUSH 10 ML SYR IV PRN (14:00)
[2018-10-05] MEDS: NS IV 1000 ML 1,000 ML IV SCH (14:02)
[2018-10-05] MEDS ORDERED: ASPI-983 PO (14:02)
[2018-10-05] MEDS ORDERED: HYDR-3812 PO (14:03)
--- OUTSIDE RECORDS SUMMARY | 2018-10-05 14:29 | XMS REPORT | Continuity of Care Document ---
Author Author [facility] Organization [facility] Address Unknown Phone Unavailable Allergies Active Description Code Type Severity Reaction Onset Reported/Identified Relationship to Patient Clinical Status Yes No Known Drug Allergies [id number] Drug Allergy Unknown N/A 12/21/2017 Medications There is no data. Problems Date Dx Coded Attending Type Code Diagnosis Diagnosed By 11/17/2011 Ot 789.07 ABDOMINAL PAIN, GENERALIZED 11/18/2011 Ot 555.9 REGIONAL ENTERITIS NOS 12/23/2011 Ot 305.1 TOBACCO USE DISORDER 12/23/2011 Ot 414.01 CORONARY ATHEROSCLEROSIS OF [place] CORON 12/23/2011 Ot 555.9 REGIONAL ENTERITIS NOS [...] UNSPECIFIED 11/13/2016 GLENDA LAI MD Ot Z79.82 ROLLER MAN (CURRENT) USE OF ASPIRIN 11/13/2016 GLENDA LAI MD Ot Z79.899 OTHER LONG-TERM (CURRENT) DRUG THERAPY 07/16/2017 JORDY DO, DARCY K Ot E78.00 PURE HYPERCHOLESTEROLEMIA, UNSPECIFIED 07/16/2017 JORDY DO, DARCY K Ot F17.210 NICOTINE DEPENDENCE, CIGARETTES, UNCOMPL 07/16/2017 JORDY DO, DARCY K Ot I10 ESSENTIAL (PRIMARY) HYPERTENSION 07/16/2017 JORDY DO, DARCY K Ot I25.10 ATHSCL HEART DISEASE OF [place] CORONARY 07/16/2017 JORDY DO DARCY K Ot J44.9 CHRONIC OBSTRUCTIVE PULMONARY DISEASE, U 07/16/2017 JORDY DO, DARCY K Ot J45.909 UNSPECIFIED ASTHMA, UNCOMPLICATED 07/16/2017 JORDY DO, DARCY K Ot K21.9 GASTRO-ESOPHAGEAL REFLUX DISEASE WITHOUT 07/16/2017 JORDY DO, DARCY K Ot K59.00 CONSTIPATION, UNSPECIFIED 07/16/2017 JORDY DO, DARCY K Ot R10.11 RIGHT UPPER QUADRANT PAIN 07/16/2017 JORDY DO DARCY K Ot Z79.4 ROLLER MAN (CURRENT) USE OF INSULIN 07/16/2017 JORDY DO DARCY K Ot Z87.19 PERSONAL HISTORY OF OTHER DISEASES OF TH 07/21/2017 JORDY DO, DARCY K Ot E78.00 PURE HYPERCHOLESTEROLEMIA, UNSPECIFIED 07/21/2017 JORDY DO, DARCY K Ot F17.210 NICOTINE DEPENDENCE, CIGARETTES, UNCOMPL 07/21/2017 JORDY DO, DARCY K Ot I10 ESSENTIAL (PRIMARY) HYPERTENSION 07/21/2017 JORDY DO, DARCY K Ot I25.10 ATHSCL HEART DISEASE OF [place] CORONARY 07/21/2017 JORDY DO, DARCY K Ot J44.9 CHRONIC OBSTRUCTIVE PULMONARY DISEASE, U 07/21/2017 JORDY DO, DARCY K Ot J45.909 UNSPECIFIED ASTHMA, UNCOMPLICATED 07/21/2017 JORDY DO, DARCY K Ot K21.9 GASTRO-ESOPHAGEAL REFLUX DISEASE WITHOUT 07/21/2017 JORDY DO, DARCY K Ot K59.00 CONSTIPATION, UNSPECIFIED 07/21/2017 JORDY DO, DARCY K Ot R10.11 RIGHT UPPER QUADRANT PAIN 07/21/2017 JORDY DO, DARCY K Ot Z79.4 ROLLER MAN (CURRENT) USE OF INSULIN 07/21/2017 JORDY DO, DARCY K Ot Z87.19 PERSONAL HISTORY OF OTHER DISEASES OF TH 12/06/2017 JORDY DO, DARCY K Ot E78.00 PURE HYPERCHOLESTEROLEMIA, UNSPECIFIED 12/06/2017 JORDY DO, DARCY K Ot F17.210 NICOTINE DEPENDENCE, CIGARETTES, UNCOMPL 12/06/2017 JORDY DO, DARCY K Ot I10 ESSENTIAL (PRIMARY) HYPERTENSION 12/06/2017 JORDY DO, DARCY K Ot I25.10 ATHSCL HEART DISEASE OF [place] CORONARY 12/06/2017 JORDY DO, DARCY K Ot J44.9 CHRONIC OBSTRUCTIVE PULMONARY DISEASE, U 12/06/2017 JORDY DO, ADRCY K Ot K21.9 GASTRO-ESOPHAGEAL REFLUX DISEASE WITHOUT 12/06/2017 JORDY DO, DARCY K Ot R10.11 RIGHT UPPER QUADRANT PAIN 12/06/2017 JORDY DO, DARCY K Ot Z79.82 LONG-TERM (CURRENT) USE OF ASPIRIN 12/06/2017 JORDY DO, DARCY K Ot Z87.19 PERSONAL HISTORY OF OTHER DISEASES OF TH 12/07/2017 JORDY DO, DARCY K Ot E78.00 PURE HYPERCHOLESTEROLEMIA, UNSPECIFIED 12/07/2017 JORDY DO, DARCY K Ot F17.210 NICOTINE DEPENDENCE, CIGARETTES, UNCOMPL 12/07/2017 JORDY ILDEFONSOA K Ot I10 ESSENTIAL (PRIMARY) HYPERTENSION 12/07/2017 JORDY DO DARCY K Ot I25.10 ATHSCL HEART DISEASE OF [place] CORONARY 12/07/2017 JORDY DARCY MASSEY Ot J44.9 CHRONIC OBSTRUCTIVE PULMONARY DISEASE, U 12/07/2017 JORDY DARCY K Ot K21.9 GASTRO-ESOPHAGEAL REFLUX DISEASE WITHOUT 12/07/2017 JORDY DOILDEFONSOA K Ot R10.11 RIGHT UPPER QUADRANT PAIN 12/07/2017 ILDEFONSO SPENCE DOA K Ot Z79.82 ROLLER MAN (CURRENT) USE OF ASPIRIN 12/07/2017 JORDY DOILDEFONSOA K Ot Z87.19 PERSONAL HISTORY OF OTHER DISEASES OF TH 12/07/2017 ERNESTO GILES, MURRAY Tomlinson Ot N63 UNSPECIFIED LUMP IN BREAST 12/16/2017 ERNESTO GILES, MURRAY Tomlinson Ot K80.20 CALCULUS OF GALLBLADDER W/O CHOLECYSTITI 12/21/2017 SHAZIA GILES, TASHA Love Ot K80.10 CALCULUS OF GALLBLADDER W CHRONIC CHOLEC 12/21/2017 SHAZIA GILES, TASHA Love Ot Z01.818 ENCOUNTER [...] Love Ot I25.10 ATHSCL HEART DISEASE OF [place] CORONARY 12/22/2017 SHAZIA GILES, TASHA Love Ot [...] BACTER 12/22/2017 TASHA MCCRAY MD Ot Z79.82 ROLLER MAN (CURRENT) USE OF ASPIRIN 12/22/2017 TASHA MCCRAY MD Ot Z79.899 OTHER LONG-TERM (CURRENT) DRUG THERAPY 12/23/2017 TASHA MCCRAY MD Ot F17.210 NICOTINE DEPENDENCE, CIGARETTES, UNCOMPL 12/23/2017 TASHA MCCRAY MD Ot G47.33 OBSTRUCTIVE SLEEP APNEA (ADULT) (PEDIATR 12/23/2017 TASHA MCCRAY MD Ot I10 ESSENTIAL (PRIMARY) HYPERTENSION 12/23/2017 TASHA MCCRAY MD Ot I25.10 ATHSCL HEART DISEASE OF [place] CORONARY 12/23/2017 TASHA MCCRAY MD Ot J44.9 [...] BACTER 12/23/2017 TASHA MCCRAY MD Ot Z79.82 ROLLER MAN (CURRENT) USE OF ASPIRIN 12/23/2017 TASHA MCCRAY MD Ot Z79.899 OTHER LONG-TERM (CURRENT) DRUG THERAPY 12/28/2017 TASHA MCCRAY MD Ot F17.210 NICOTINE DEPENDENCE, CIGARETTES, UNCOMPL 12/28/2017 TASHA MCCRAY MD Ot G47.33 OBSTRUCTIVE SLEEP APNEA (ADULT) (PEDIATR 12/28/2017 TASHA MCCRAY MD Ot I10 ESSENTIAL (PRIMARY) HYPERTENSION 12/28/2017 TASHA MCCRAY MD Ot I25.10 ATHSCL HEART DISEASE OF [place] CORONARY 12/28/2017 TASHA MCCRAY MD Ot J44.9 [...] BACTER 12/28/2017 TASHA MCCRAY MD Ot Z79.82 LONG-TERM (CURRENT) USE OF ASPIRIN 12/28/2017 TASHA MCCRAY MD Ot Z79.899 OTHER ROLLER MAN (CURRENT) DRUG THERAPY 12/31/2017 TASHA MCCRAY MD Ot F17.210 NICOTINE DEPENDENCE, CIGARETTES, UNCOMPL 12/31/2017 TASHA MCCRAY MD Ot G47.33 OBSTRUCTIVE SLEEP APNEA (ADULT) (PEDIATR 12/31/2017 TASHA MCCRAY MD Ot I10 ESSENTIAL (PRIMARY) HYPERTENSION 12/31/2017 TASHA MCCRAY MD Ot I25.10 ATHSCL HEART DISEASE OF [place] CORONARY 12/31/2017 TASHA MCCRAY MD Ot J44.9 CHRONIC OBSTRUCTIVE PULMONARY DISEASE, U 12/31/2017 TASHA MCCRAY MD Ot K21.9 GASTRO-ESOPHAGEAL REFLUX DISEASE WITHOUT 12/31/2017 TASHA MCCRAY MD Ot K50.90 CROHN'S DISEASE, UNSPECIFIED, WITHOUT CO 12/31/2017 TASHA MCCRAY MD Ot K80.20 CALCULUS OF GALLBLADDER W/O CHOLECYSTITI 12/31/2017 TASHA MCCRAY MD Ot M19.90 UNSPECIFIED OSTEOARTHRITIS, UNSPECIFIED 12/31/2017 TASHA MCCRAY MD Ot Z11.2 ENCOUNTER FOR SCREENING FOR OTHER BACTER 12/31/2017 TASHA MCCRAY MD Ot Z79.82 ROLLER MAN (CURRENT) USE OF ASPIRIN 12/31/2017 TASHA MCCRAY MD Ot Z79.899 OTHER ROLLER MAN (CURRENT) DRUG THERAPY 03/07/2018 ERNESTO GILES, MURRAY Tomlinson Ot N63 UNSPECIFIED LUMP IN BREAST 03/07/2018 MURRAY OROZCO MD Ot K80.20 CALCULUS OF GALLBLADDER W/O CHOLECYSTITI 03/07/2018 MURRAY OROZCO MD Ot K80.20 CALCULUS OF GALLBLADDER W/O CHOLECYSTITI 03/08/2018 SHAZIA GILES, TASHA Love Ot F17.210 NICOTINE DEPENDENCE, CIGARETTES, UNCOMPL 03/08/2018 SHAZIA GILES, TASHA Love Ot G47.33 OBSTRUCTIVE SLEEP APNEA (ADULT) (PEDIATR 03/08/2018 SHAZIA GILES, TASHA Love Ot I10 ESSENTIAL (PRIMARY) HYPERTENSION 03/08/2018 SHAZIA GILES, TASHA Love Ot I25.10 ATHSCL HEART DISEASE OF [place] CORONARY 03/08/2018 SHAZIA GILES, TASHA Love Ot J44.9 CHRONIC OBSTRUCTIVE PULMONARY DISEASE, U 03/08/2018 TASHA MCCRAY MD Ot K21.9 GASTRO-ESOPHAGEAL REFLUX DISEASE WITHOUT 03/08/2018 SHAZIA GILES, TASHA Love Ot K50.90 CROHN'S DISEASE, UNSPECIFIED, WITHOUT CO 03/08/2018 TASHA MCCRAY MD Ot K80.20 CALCULUS OF GALLBLADDER W/O CHOLECYSTITI 03/08/2018 TASHA MCCRAY MD Ot M19.90 UNSPECIFIED OSTEOARTHRITIS, UNSPECIFIED 03/08/2018 SHAZIA GILES, TASHA Love Ot Z11.2 ENCOUNTER FOR SCREENING FOR OTHER BACTER 03/08/2018 SHAZIA GILES, TASHA Love Ot Z79.82 LONG-TERM (CURRENT) USE OF ASPIRIN 03/08/2018 TASHA MCCRAY MD Ot Z79.899 OTHER ROLLER MAN (CURRENT) DRUG THERAPY 05/13/2018 MURRAY OROZCO MD [...] Ot K80.20 CALCULUS OF GALLBLADDER W/O CHOLECYSTITI 10/05/2018 MURRAY OROZCO MD Ot K80.20 CALCULUS OF GALLBLADDER W/O CHOLECYSTITI 10/05/2018 ERNESTO GILES, MRURAY Tomlinson Ot K80.20 CALCULUS OF GALLBLADDER W/O [...] Status Pt. Type Provider Facility Loc./Unit Complaint [id number] 12/22/2017 06:12:00 12/22/2017 11:20:00 DIS Outpatient TASHA MCCRAY MD [facility] SDC GALLSTONES [id number] 12/21/2017 06:05:00 12/21/2017 13:47:00 DIS Outpatient TASHA MCCRAY MD [facility] PREOP GALLSTONES [id number] 12/15/2017 11:44:00 12/15/2017 23:59:59 CLS Outpatient MURRAY OROZCO MD [facility] RAD R10.11 RUQ ABD PAIN [id number] 12/05/2017 21:23:00 12/06/2017 01:16:00 DIS Emergency DARCY SPENCE DO [facility] ER CHRONS FLARE UP [id number] 08/11/2017 07:29:00 08/11/2017 23:59:59 CLS Preadmit MURRAY OROZCO MD [facility] SLEEP HYPERSOMNIA G47.10 [id number] 07/15/2017 21:47:00 07/16/2017 00:18:00 DIS Emergency JORDY DODARCY [facility] ER VOMITING;FEVER [id number] 11/13/2016 13:43:00 11/13/2016 16:55:00 DIS Emergency GLENDA LAI MD [facility] ER CHEST PAIN/SOA LEFT ARM NUMBNESS [id number] 08/12/2016 12:39:00 08/12/2016 23:59:59 CLS Outpatient MURRAY OROZCO MD [facility] RAD BREAST LUMP [id number] 05/21/2016 19:12:00 05/21/2016 22:38:00 DIS Emergency SARI ROSARIO [facility] ER ABD PAIN [id number] 02/12/2014 14:40:00 02/12/2014 16:34:00 DIS Emergency GLENDA LAI MD [facility] ER MULTIPLE COMPLAINTS [id number] 10/05/2018 12:59:00 ACT Inpatient MURRAY OROZCO MD [facility] 4TH CHEST PAIN [id number] 12/22/2011 18:45:00 Document Registration [id number] 11/18/2011 08:25:00 Document Registration [id number] 11/17/2011 04:41:00 Document Registration [id number] 04/07/2018 09:00:00 04/07/2018 23:59:59 CLS Outpatient MURRAY OROZCO [facility] [id number] 08/09/2016 07:05:00 Document Registration
[2018-10-05] MEDS ORDERED: FLU QUADRIvalent (5+ YOA) 2018-2019 (AFLURIA) 0.5 ML IM ONE (14:30)
[2018-10-05] MEDS: CATHETER FLUSH 10 ML SYR IV SCH ×2 (14:49→21:51)
[2018-10-05 16:51] LABS: MYOGLOBIN SERUM 29.5 NG/ML (10.0-92.0)
--- NOTE | 2018-10-05 17:22 | Consultation-Cardiology ---
HPI-Cardiology Cardiology Consultation: Date of Consultation 10/05/18 Date of Admission Attending Physician Sandra Cruz MD Admitting Physician Sandra Cruz MD Consulting Physician Ivan NEWELL MD HPI: Time Seen by a Provider: 17:22 Chief Complaint: Chest pain This is a 53 year old lady with history of moderate CAD on cath in 2011. She also has history of active smoking and premature family history of CAD. She denies DM but has HTN. No lipids according to the patient. She presented with prolonged episode of substernal chest pain. for a few hours. moderate to severe intensity with significant improvement with ER treatment. Shortness of breath. No radiation. No exacerbating or relieving factors. no other cardiac symptoms. Review of Systems-Cardiology Review of Systems Constitutional: As described under HPI; No As described under HPI, No no symptoms reported, No chills, No fever, No lightheadedness Eyes: No As described under HPI, No no symptoms reported, No blindness, No blurred vision, No contact lenses, No drainage, No decreased acuity, No foreign body sensation, No pain, No vision change Ears/Nose/Throat: No As described under HPI, No no symptoms reported, No chronic hearing loss, No ear discharge, No ear pain, No nasal drainage, No ulcerations Respiratory: No no symptoms reported; As described under HPI; No As described under HPI, No cough, No orthopnea, No shortness of breath, No SOB with excertion Cardiovascular: No no symptoms reported; As described under HPI; No As described under HPI; chest pain; No edema, No irregular heart rate, No lightheadedness, No palpitations Gastrointestinal: No no symptoms reported, No As described under HPI, No abdomen distended, No abdominal pain, No blood streaked bowels, No constipation , No diarrhea, No nausea, No vomiting, No stool coloration changes Genitourinary: No As described under HPI, No burning, No dysuria, No discharge , No frequency, No flank pain, No hematuria, No urgency : Yes : No Skin: No rash, No skin related problems, No ulcerations Psychiatric/Neurological: No anxiety, No depression, No seizure, No focal weakness, No syncope Hematologic: No bleeding abnormalities All Other Systems Reviewed Negative Unless Noted: Yes [id number] Hx Patient Social History Alcohol Use: Occasionally Uses Recreational Drug Use: No Smoking Status: Current Everyday Smoker Type Used: Cigarettes 2nd Hand Smoke Exposure: Yes Recent Foreign Travel: No Recent Infectious Disease Expo: No Physical Abuse Screen: No Sexual Abuse: No Immunizations Up To Date Tetanus Booster (TDap): Unknown Past Medical History PMH As described under Assessment. Allergies and Home Medications Allergies Coded Allergies: No Known Drug Allergies (Unverified , 12/21/17) Home Medications Aspirin 81 Mg Tablet.dr, 81 MG PO HS, (Reported) Hydrocodone/Acetaminophen 1 Each Tablet, 1 TAB PO TID PRN for PAIN-MODERATE, ( Reported) Lisinopril 10 Mg Tablet, 10 MG PO HS, (Reported) Patient Home Medication List Home Medication List Reviewed: Yes Physical Exam-Cardiology Physical Exam Vital Signs/I&O 10/05/18 10/05/18 10/05/18 10/05/18 10:03 13:40 13:40 14:00 Temp 97.3 97.3 Pulse 71 63 63 60 Resp 18 20 20 20 B/P (MAP) 148/86 (106) 156/94 (114) 121/81 (94) 162/67 (98) Pulse Ox 98 96 100 100 O2 Delivery Room Air 10/05/18 10/05/18 10/05/18 10/05/18 14:00 14:27 14:35 14:46 Temp 98.4 98.2 Pulse 59 57 68 Resp 20 20 B/P (MAP) 122/58 (79) 137/78 (97) Pulse Ox 98 100 100 O2 Delivery Room Air 10/05/18 10/05/18 10/05/18 10/05/18 15:07 16:00 17:00 18:00 Temp 97.8 97.5 Pulse 64 67 63 68 Resp 20 20 B/P (MAP) 143/86 (105) 151/66 (94) 148/72 (97) 150/68 (95) Pulse Ox 98 98 O2 Delivery Room Air 10/05/18 10/05/18 19:00 19:00 Pulse 59 65 Capillary Refill : Less Than 3 Seconds Constitutional: appears stated age, AAO x 3; No apparent distress; well- developed, well-nourished HEENT: PERRL; No discharge; hearing is well preserved, oral hygience is good; No ulceration, No xanthelasmas are seen Neck: No non-tender, No full range of motion, No supple, No normal inspection, No carotid bruit, No limited range of motion, No lymphadenopathy (R), No lymphadenopathy (L), No tender lateral, No tender midline, No thyromegaly, No other; carotid pulses are 2 + bilaterally; No with good upstrokes Respiratory: No accessory muscle use, No respiratory distress, No chest tender , No chest expansion is symmetric; chest is bilaterally symmetric; No lungs clear to percussion; lungs clear to auscultation; No crackles, No rhonchi, No rales, No stridor, No wheezing, No pleural rub, No other Cardiovascular: regular rate-rhythm; No irregularly irregular, No extra beats, No parasternal heave is noted, No JVD, No edema, No bradycardia, No tachycardia , No point of maximal impulse, No cardiac thrills are palpable; S1 and S2; No gallop/S3, No gallop/S4, No diastolic murmur, No systolic murmur, No friction rub, No click, No other Gastrointestinal: No tender, No soft, No round, No distended, No pulsatile mass , No organomegaly, No guarding, No rebound, No tenderness, No hernia, No mass, No audible bowel sounds, No abnormal bowel sounds, No abdominal bruits, No spleenomegaly, No other Rectal: deferred Extremities: No normal range of motion, No non-tender, No normal inspection, No pedal edema, No calf tenderness, No normal capillary refill, No pelvis stable , No calf tenderness, No inflammation, No pedal edema, No slow capillary refill , No swelling, No other, No abrasion, No clubbing, No cyanosis, No ecchymosis, No laceration, No no lower extremity edema bilateral, No significant edema, No tenderness, No wound Neurologic/Psychiatric: no motor/sensory deficits, alert, normal mood/affect, oriented x 3, power is 5/5 both on sides Skin: No normal color, No warm/dry, No cyanosis, No cool, No diaphoresis, No damp, No ecchymosis, No jaundice, No mottled, No pallor, No rash, No tattoos/ piercings, No ulcerations, No rash on exposed areas, No ulcerations on exposed areas, No other Data Review Labs Laboratory Tests 12/12/18 10:24: White Blood Count 8.0, Red Blood Count 5.12, Hemoglobin 13.9, Hematocrit 42, Mean Corpuscular Volume 81, Mean Corpuscular Hemoglobin 27, Mean Corpuscular Hemoglobin Concent 34, Red Cell Distribution Width 15.0H, Platelet Count 250, Mean Platelet Volume 10.7H, Neutrophils (%) (Auto) 50, Lymphocytes (%) (Auto) 38 , Monocytes (%) (Auto) 8, Eosinophils (%) (Auto) 3, Basophils (%) (Auto) 1, Neutrophils # (Auto) 4.0, Lymphocytes # (Auto) 3.0, Monocytes # (Auto) 0.7, Eosinophils # (Auto) 0.3, Basophils # (Auto) 0.1, Prothrombin Time 13.6, INR Comment 1.0, Activated Partial Thromboplast Time 27, D-Dimer 0.31, Sodium Level 138, Potassium Level 4.3, Chloride Level 106, Carbon Dioxide Level 20L, Anion Gap 12, Blood Urea Nitrogen 15, Creatinine 0.77, Estimat Glomerular Filtration Rate > 60, BUN/Creatinine Ratio 19, Glucose Level 95, Calcium Level 9.6, Corrected Calcium 9.3, Magnesium Level 2.2, Total Bilirubin 0.6, Aspartate Amino Transf (AST/SGOT) 16, Alanine Aminotransferase (ALT/SGPT) 16, Alkaline Phosphatase 77, Myoglobin 28.1, Troponin I < 0.30, Total Protein 7.5, Albumin 4.4, Lipase 25 10/05/18 16:10: Myoglobin 29.5, Troponin I < 0.30 ECG Impression ECG Initial ECG Rhythm: Normal Sinus, PVC Initial ECG Impression: Normal A/P-Cardiology Assessment/Admission Diagnosis Unstable angina, Moderate CAD, Active smoking, Hypertension Plan I discussed at length with the patient and considering prolonged episode of chest pain with history of moderate CAD, I have recommended coronary angiography. All risk and complications explained in detail and informed consent done. Brilinta bolus given. Cath in am. Echo today. Smoking cessation strongly recommended. HTN - continue outpatient meds. Thank you for your consultation. Please call me if you have any questions. Christopher Newell MD, FACP, FACC, FSCAI, FHRS, CCDS Interventional Cardiology Cardiac Electrophysiology Vascular Medicine and Endovascular Interventions Clinical Quality Measures AMI/AHF: ASA po Prior to arrival: Yes DVT/VTE Risk/Contraindication: Risk Factor Score Per Nursin RFS Level Per Nursing on Admit: 4+=Very High Ivan NEWELL MD Oct 05, 2018 17:22
[2018-10-06] VITALS (23 sets, daily range): BP systolic 113–135; BP diastolic 58–95
[2018-10-06 04:54] LABS: BASOPHILS # (AUTO) 0.1 10^3/uL (0.0-0.1); BASOPHILS % (AUTO) 1 % (0-10); EOSINOPHILS # (AUTO) 0.3 10^3/uL (0.0-0.3); EOSINOPHILS % (AUTO) 4 % (0-10); HEMATOCRIT 42 % (35-52); HEMOGLOBIN 13.7 G/DL (11.5-16.0); LYMPHOCYTES # (AUTO) 3.8 X 10^3 (1.0-4.0); LYMPHOCYTES % (AUTO) 47 % (12-44); MEAN CORPUSCULAR HEMOGLOBIN 27 PG (25-34); MEAN CORPUSCULAR HGB CONC 33 G/DL (32-36); MEAN CORPUSCULAR VOLUME 82 FL (80-99); MEAN PLATELET VOLUME 11.1 FL (7.4-10.4); MONOCYTES # (AUTO) 0.7 X 10^3 (0.0-1.0); MONOCYTES % (AUTO) 8 % (0-12); NEUTROPHILS # (AUTO) 3.3 X 10^3 (1.8-7.8); NEUTROPHILS % (AUTO) 40 % (42-75); PLATELET COUNT 274 10^3/uL (130-400); RED BLOOD COUNT 5.15 10^6/uL (4.35-5.85); RED CELL DISTRIBUTION WIDTH 15.2 % (10.0-14.5); WHITE BLOOD COUNT 8.1 10^3/uL (4.3-11.0)
[2018-10-06] MEDS: CATHETER FLUSH 10 ML SYR IV SCH ×3 (05:15→20:12)
[2018-10-06 05:22] LABS: ALANINE AMINOTRANSFERASE 17 U/L (0-55); ALBUMIN 4.3 GM/DL (3.2-4.5); ALKALINE PHOSPHATASE 77 U/L (40-136); BILIRUBIN,TOTAL 0.6 MG/DL (0.1-1.0); BUN/CREATININE RATIO 19; CALCIUM 9.6 MG/DL (8.5-10.1); CARBON DIOXIDE 21 MMOL/L (21-32); CHLORIDE 109 MMOL/L (98-107); CHOLESTEROL 237 MG/DL (< 200); CREATININE SERUM 0.79 MG/DL (0.60-1.30); GFR ESTIMATED > 60; GLUCOSE 92 MG/DL (70-105); HDL CHOLESTEROL 41 MG/DL (40-60); POTASSIUM 4.3 MMOL/L (3.6-5.0); SODIUM 141 MMOL/L (135-145); TOTAL PROTEIN 7.3 GM/DL (6.4-8.2); TRIGLYCERIDES 219 MG/DL (<150); VLDL CHOLESTEROL 44 MG/DL (5-40)
[2018-10-06] MEDS ORDERED: HEParin (CATH LAB) 2,000 ML IV ONE (07:25)
[2018-10-06] MEDS ORDERED: LIDOCAINE 1% INJ 20 ML 20 ML VIAL ONE (07:25)
[2018-10-06] MEDS ORDERED: ASPIRIN E.C. 81 MG (ECOTRIN) TAB PO SCH (09:00)
[2018-10-06] MEDS: NS IV 1000 ML 1,000 ML IV SCH ×2 (10:32→16:18)
[2018-10-06] MEDS: NICOTINE 14 MG (NICODERM) PATCH TD SCH (12:10)
--- NOTE | 2018-10-06 12:11 | History & Physicial ([facility]) ---
HPI History of Present Illness: 53 yo F that presented to ER yesterday with chest pain. States that she was driving to work and it was like a heaviness in the middle of her chest. She states that it then let up and then came back a couple mins later and went down her arm. Nitro in the ER resolved the pain. States that she has had more mild chest pain overnight. + smoking history for the last 40 years. States that he mother had a massive heart attack in her 50s. Previous cath 2011 that showed mild-moderate disease but no intervention. States that she has been getting more headaches the last couple weeks. Source: patient, family () Exam Limitations: no limitations Date seen by provider: Oct 06, 2018 Time Seen by Provider: 09:15 Attending Physician Murray Cruz MD PCP Murray Cruz MD Consult Date of Admission Oct 05, 2018 at 12:59 Home Medications Home Medications Reviewed patient Home Medication Reconciliation performed by pharmacy medication reconciliations shift lab technician and/or nursing. Patients Allergies have been reviewed. Allergies Coded Allergies: No Known Drug Allergies (Unverified , 12/21/17) [id number] Hx Patient Social History Marrital Status: Living Status: Lives with Alcohol Use: Occasionally Uses Recreational Drug Use: No Smoking Status: Current Everyday Smoker Type Used: Cigarettes 2nd Hand Smoke Exposure: Yes Recent Foreign Travel: No Contact w/other who traveled: No Recent Hopitalizations: No Recent Infectious Disease Expo: No Physical Abuse Screen: No Sexual Abuse: No Immunizations Up To Date Tetanus Booster (TDap): Unknown Past Medical History HTN Tobacco use HLD Review of Systems ([facility]) Constitutional: no symptoms reported; No chills, No fever, No weakness EENTM: no symptoms reported Respiratory: dyspnea on exertion, short of breath Cardiovascular: chest pain; No edema, No palpitations Gastrointestinal: no symptoms reported; No abdominal pain, No constipation, No nausea, No vomiting Genitourinary: no symptoms reported; No dysuria, No frequency, No hematuria Musculoskeletal: joint pain (left arm pain with chest pain) Skin: no symptoms reported Psychiatric/Neurological: Anxiety, Headache, Numbness Reviewed Test Results Reviewed Test Results Lab Laboratory Tests Test 10/05/18 16:10 10/06/18 04:17 Range/Units Myoglobin 29.5 10.0-92.0 NG/ML Troponin I < 0.30 <0.30 NG/ML White Blood Count 8.1 4.3-11.0 10^3/uL Red Blood Count 5.15 4.35-5.85 10^6/uL Hemoglobin 13.7 11.5-16.0 G/DL Hematocrit 42 35-52 % Mean Corpuscular Volume 82 80-99 FL Mean Corpuscular Hemoglobin 27 25-34 PG Mean Corpuscular Hemoglobin Concent 33 32-36 G/DL Red Cell Distribution Width 15.2 H 10.0-14.5 % Platelet Count 274 130-400 10^3/uL Mean Platelet Volume 11.1 H 7.4-10.4 FL Neutrophils (%) (Auto) 40 L 42-75 % Lymphocytes (%) (Auto) 47 H 12-44 % Monocytes (%) (Auto) 8 0-12 % Eosinophils (%) (Auto) 4 0-10 % Basophils (%) (Auto) 1 0-10 % Neutrophils # (Auto) 3.3 1.8-7.8 X 10^3 Lymphocytes # (Auto) 3.8 1.0-4.0 X 10^3 Monocytes # (Auto) 0.7 0.0-1.0 X 10^3 Eosinophils # (Auto) 0.3 0.0-0.3 10^3/uL Basophils # (Auto) 0.1 0.0-0.1 10^3/uL Sodium Level 141 135-145 MMOL/L Potassium Level 4.3 3.6-5.0 MMOL/L Chloride Level 109 H 98-107 MMOL/L Carbon Dioxide Level 21 21-32 MMOL/L Anion Gap 11 5-14 MMOL/L Blood Urea Nitrogen 15 7-18 MG/DL Creatinine 0.79 0.60-1.30 MG/DL Estimat Glomerular Filtration Rate > 60 BUN/Creatinine Ratio 19 Glucose Level 92 70-105 MG/DL Calcium Level 9.6 8.5-10.1 MG/DL Corrected Calcium 9.4 8.5-10.1 MG/DL Total Bilirubin 0.6 0.1-1.0 MG/DL Aspartate Amino Transf (AST/SGOT) 17 5-34 U/L Alanine Aminotransferase (ALT/SGPT) 17 0-55 U/L Alkaline Phosphatase 77 40-136 U/L Total Protein 7.3 6.4-8.2 GM/DL Albumin 4.3 3.2-4.5 GM/DL Triglycerides Level 219 H <150 MG/DL Cholesterol Level 237 H < 200 MG/DL LDL Cholesterol Direct 152 H 1-129 MG/DL VLDL Cholesterol 44 H 5-40 MG/DL HDL Cholesterol 41 40-60 MG/DL Physical Exam-([facility]) Physical Exam Vital Signs VS - Last 72 Hours, by Label 10/05/18 10/05/18 10/05/18 10/05/18 10:03 13:40 13:40 14:00 Temp 97.3 97.3 Pulse 71 63 63 60 Resp 18 20 20 20 B/P (MAP) 148/86 (106) 156/94 (114) 121/81 (94) 162/67 (98) Pulse Ox 98 96 100 100 O2 Delivery Room Air 10/05/18 10/05/18 10/05/18 10/05/18 14:00 14:27 14:35 14:46 Temp 98.4 98.2 Pulse 59 57 68 Resp 20 20 B/P (MAP) 122/58 (79) 137/78 (97) Pulse Ox 98 100 100 O2 Delivery Room Air 10/05/18 10/05/18 10/05/18 10/05/18 15:07 16:00 17:00 18:00 Temp 97.8 97.5 Pulse 64 67 63 68 Resp 20 20 B/P (MAP) 143/86 (105) 151/66 (94) 148/72 (97) 150/68 (95) Pulse Ox 98 98 O2 Delivery Room Air 10/05/18 10/05/18 10/05/18 10/05/18 19:00 19:00 19:00 20:00 Temp 98.0 Pulse 59 65 67 62 Resp 20 B/P (MAP) 132/70 (90) 129/71 (90) Pulse Ox 96 O2 Delivery Room Air 10/05/18 10/06/18 10/06/18 10/06/18 21:00 00:34 01:00 04:00 Temp 97.0 97.4 Pulse 67 59 54 63 Resp 16 16 B/P (MAP) 138/73 (94) 116/75 (89) 119/58 (78) Pulse Ox 96 93 O2 Delivery Room Air Room Air 10/06/18 10/06/18 07:39 08:00 Temp 97.2 Pulse 53 67 Resp 20 B/P (MAP) 128/75 (92) Pulse Ox 97 O2 Delivery Room Air Capillary Refill : Less Than 3 Seconds General Appearance: WD/WN, no apparent distress HEENT: PERRL/EOMI Neck: non-tender, full range of motion, supple Respiratory: chest non-tender, normal breath sounds, no respiratory distress, no accessory muscle use Cardiovascular: normal peripheral pulses, regular rate, rhythm, no edema, no murmur Gastrointestinal: normal bowel sounds, non tender, soft Back: no CVA tenderness, no vertebral tenderness Extremities: no pedal edema, no calf tenderness, normal capillary refill Neurologic/Psychiatric: pin maker II-XII nml as tested, no motor/sensory deficits, alert, normal mood/affect, oriented x 3 Skin: normal color, warm/dry Lymphatic: no adenopathy Assessment/Plan Assessment/Plan Admission Status: Observation (1) Chest pain Status: Acute Assessment & Plan: - concerning for typical chest pain given pain with left arm , relieved by nitro, history of tobacco use and significant family history. Dr Newell to take patient to cath today Qualifiers: Qualified Codes: R07.9 - Chest pain, unspecified (2) HTN (hypertension) Status: Acute Assessment & Plan: - Restart Lisinopril after procedure Qualifiers: Qualified Codes: I10 - Essential (primary) hypertension (3) HLD (hyperlipidemia) Status: Chronic Assessment & Plan: - Start Statin due to CAD risk factors Qualifiers: Qualified Codes: E78.2 - Mixed hyperlipidemia (4) Headache Status: Acute Assessment & Plan: - will continue to monitor, consider Carotid US depending on cath results Qualifiers: Qualified Codes: R51 - Headache (5) Tobacco abuse Status: Chronic Assessment & Plan: - Discussed the importance of cessation Clinical Quality Measures AMI/AHF: ASA po Prior to arrival: Yes DVT/VTE Risk/Contraindication: Risk Factor Score Per Nursin RFS Level Per Nursing on Admit: 4+=Very High Copy Copies To 1: MURRAY CRUZ MD, HOLLY R MD Oct 06, 2018 12:11
[2018-10-06] MEDS ORDERED: fentaNYL INJECTION 100 MCG/2 ML AMP ONE ×2 (13:33→15:12)
[2018-10-06] MEDS ORDERED: MIDAZOLAM 5 MG/5 ML (VERSED) VIAL ONE (13:33)
[2018-10-06] MEDS ORDERED: VERAPAMIL 5 MG/2 ML (CALAN) VIAL IV ONE ×2 (13:45→14:52)
[2018-10-06] MEDS ORDERED: NITRO DRIP 25000 MCG/D5W 250 ML IV ONE (13:45)
[2018-10-06] MEDS ORDERED: HEParin 1000 UNIT/ML (10ML VIAL) FOR BOLUS ONE (13:45)
--- NOTE | 2018-10-06 13:55 | Cardiology Progress Note ---
Cardiology SOAP Progress Note Subjective: No further chest pain Objective: I&O/Vital Signs 10/06/18 10/06/18 10/06/18 10/06/18 04:00 07:39 08:00 12:00 Temp 97.4 97.2 97.5 Pulse 63 53 67 61 Resp 16 20 20 B/P (MAP) 119/58 (78) 128/75 (92) 135/95 (108) Pulse Ox 93 97 97 O2 Delivery Room Air Room Air Room Air 10/06/18 13:00 Pulse 69 10/06/18 00:00 Intake Total 265 ml Output Total 600 ml Balance -335 ml Weight (Pounds): 181 Weight (Ounces): 0.2 Weight (Calculated Kilograms): 82.079932 Constitutional: appears stated age, AAO x 3; No apparent distress; well- developed, well-nourished Respiratory: No accessory muscle use, No respiratory distress, No chest tender , No chest expansion is symmetric; chest is bilaterally symmetric; No lungs clear to percussion; lungs clear to auscultation; No crackles, No rhonchi, No rales, No stridor, No wheezing, No pleural rub, No other Cardiovascular: regular rate-rhythm; No irregularly irregular, No extra beats, No parasternal heave is noted, No JVD, No edema, No bradycardia, No tachycardia , No point of maximal impulse, No cardiac thrills are palpable; S1 and S2; No gallop/S3, No gallop/S4, No diastolic murmur, No systolic murmur, No friction rub, No click, No other Gastrointestional: No tender, No soft, No round, No distended, No pulsatile mass, No organomegaly, No guarding, No rebound, No tenderness, No hernia, No mass, No audible bowel sounds, No abnormal bowel sounds, No abdominal bruits, No spleenomegaly, No other Extremities: No normal range of motion, No non-tender, No normal inspection, No pedal edema, No calf tenderness, No normal capillary refill, No pelvis stable , No calf tenderness, No inflammation, No pedal edema, No slow capillary refill , No swelling, No other, No abrasion, No clubbing, No cyanosis, No ecchymosis, No laceration, No no lower extremity edema bilateral, No significant edema, No tenderness, No wound Neurologic/Psychiatric: no motor/sensory deficits, alert, normal mood/affect, oriented x 3, power is 5/5 both on sides Skin: No normal color, No warm/dry, No cyanosis, No cool, No diaphoresis, No damp, No ecchymosis, No jaundice, No mottled, No pallor, No rash, No tattoos/ piercings, No ulcerations, No rash on exposed areas, No ulcerations on exposed areas, No other Results/Procedures: Labs Laboratory Tests 10/05/18 16:10: Myoglobin 29.5, Troponin I < 0.30 10/06/18 04:17: White Blood Count 8.1, Red Blood Count 5.15, Hemoglobin 13.7, Hematocrit 42, Mean Corpuscular Volume 82, Mean Corpuscular Hemoglobin 27, Mean Corpuscular Hemoglobin Concent 33, Red Cell Distribution Width 15.2H, Platelet Count 274, Mean Platelet Volume 11.1H, Neutrophils (%) (Auto) 40L, Lymphocytes (%) (Auto) 47H, Monocytes (%) (Auto) 8, Eosinophils (%) (Auto) 4, Basophils (%) (Auto) 1, Neutrophils # (Auto) 3.3, Lymphocytes # (Auto) 3.8, Monocytes # (Auto) 0.7, Eosinophils # (Auto) 0.3, Basophils # (Auto) 0.1, Sodium Level 141, Potassium Level 4.3, Chloride Level 109H, Carbon Dioxide Level 21, Anion Gap 11, Blood Urea Nitrogen 15, Creatinine 0.79, Estimat Glomerular Filtration Rate > 60, BUN/ Creatinine Ratio 19, Glucose Level 92, Calcium Level 9.6, Corrected Calcium 9.4 , Total Bilirubin 0.6, Aspartate Amino Transf (AST/SGOT) 17, Alanine Aminotransferase (ALT/SGPT) 17, Alkaline Phosphatase 77, Total Protein 7.3, Albumin 4.3, Triglycerides Level 219H, Cholesterol Level 237H, LDL Cholesterol Direct 152H, VLDL Cholesterol 44H, HDL Cholesterol 41 A/P: Assessment/Dx: Unstable angina, Moderate CAD, Active smoking, Hypertension Plan: I discussed at length with the patient and considering prolonged episode of chest pain with history of moderate CAD, I have recommended coronary angiography. All risk and complications explained in detail and informed consent done. Brilinta bolus given. Cath today. Echo today. Smoking cessation strongly recommended. HTN - continue outpatient meds. Thank you for your consultation. Please call me if you have any questions. Christopher Newell MD, FACP, FACC, FSCAI, FHRS, CCDS Interventional Cardiology Cardiac Electrophysiology Vascular Medicine and Endovascular Interventions Clinical Quality Measures AMI/AHF: ASA po Prior to arrival: Yes Ivan NEWELL MD Oct 06, 2018 1:54 pm
--- NOTE | 2018-10-06 13:55 | Cardiac Procedure Note-CS/ASA ---
Pre-Procedure Note Pre-Op Procedure Note H&P Reviewed The H&P was reviewed, patient examined and no changes noted. Date H&P Reviewed: Oct 06, 2018 Time H&P Reviewed: 13:55 Conscious Sedation Pre-Proced Time 13:55 ASA Score 3 For ASA 3 and 4: Consider anesthesia and medical clearance. Also, for patients with a history of failed moderate sedation consider anesthesia. Airway Lungs Heart ASA score ASA 1: a normal healthy patient ASA 2: a patient with a mild systemic disease (mid diabetes, controlled hypertension, obesity ASA 3: a patient with a severe systemic disease that limits activity (angina , COPD, prior Myocardial infarction) ASA 4: a patient with an incapacitating disease that is a constant threat to life (CHF, renal failure) ASA 5: a moribund patient not expected to survive 24 hrs. (ruptured aneurysm) ASA 6: a declared brain patient whose organs are being harvested. For emergent operations, add the letter E after the classification Mallampati Classification Grade 1 Sedation Plan Analgesia, Amnesia, Plan communicated to team members, Discussed options with patient/fam, Discussed risks with patient/fam The patient is an appropriate candidate to undergo the planned procedure, sedation, and anesthesia. The patient immediately re-assessed prior to indication. Ivan NORIEGA MD Oct 06, 2018 13:55
[2018-10-06] MEDS ORDERED: ADENOSINE 3 MG/1 ML (ADENOSCAN) 30ML VIAL IV ONE ×2 (14:18→14:41)
[2018-10-06] MEDS ORDERED: MIDAZOLAM 2 MG/2 ML (VERSED) VIAL ONE (14:58)
--- NOTE | 2018-10-06 15:38 | Coronary Angiography Report ---
Coronary Angiography Report DATE OF PROCEDURE: 10/06/18 INDICATION: Unstable angina. PREOPERATIVE DIAGNOSIS: Unstable angina. POSTOPERATIVE DIAGNOSIS: Moderate to Severe ostial and proximal LAD stenosis, Moderate to severe pRCA stenosis. HISTORY: This is a 53-year-old lady with history of moderate CAD in 2012 angiogram. She has long-term history of active smoking, hypertension and family history. She presented with a prolonged episode of chest pain with negative troponin and EKG did not reveal any significant ST deviation. Therefore, the patient was scheduled for coronary angiography. PROCEDURES PERFORMED: 1.Coronary angiography. 2.Left heart catheterization. 3. Right upper extremity angiography. 4. Right femoral artery access attempt. 5. FFR to the LAD. 6. FFR to the RCA. COMPLICATIONS: None. SPECIMENS: None. ESTIMATED BLOOD LOSS: 10 mL ANESTHESIA: Conscious sedation ANTICOAGULATION: IV heparin CONTRAST: 165 ml. FLUOROSCOPY: FLOUROSCOPY DOSE: 659 mgy. PROCEDURE DETAILS: The patient is a 53 female and was brought to the laborer hoisting after informed consent was taken. All the risks and complications were explained in detail; this included the risk of bleeding, vascular damage, stroke , VA and even . The patient was draped and prepped in the usual sterile fashion. Access was gained in the right radial artery with a 6 [place] sheath. Coronary angiography and left heart catheterization was performed with the Turpin catheter. Right upper extremity angiography was done due to significant pain in the upper extremity with any movement of the catheter, therefore spasm needed to be ruled out. FINDINGS: 1.Left main: Patent. 2.LAD: Moderate to severe ostial stenosis. Stenosis severity 60-70%. Proximal/ mid LAD and moderate to severe stenosis. Stenosis severity 70-80 percent. 3.Left circumflex artery: Mild mid left circumflex artery disease. 4.RCA: Moderate to severe stenosis in the proximal RCA. Stenosis severity 60- 70 percent. 5.Left heart catheterization: LV 83/2 mmHg. LVEDP 11 mmHg. Aortic pressure 85/ 53 mmHg. Normal LV function with no wall motion abnormalities. There is no gradient across the aortic valve. 6. Right upper extremity angiography: This was performed since the patient developed significant discomfort in her right upper extremity after catheter exchange. Spasm needed to be ruled out. Right upper extremity angiography did not reveal any severe spasm. RECOMMENDATIONS: 1. FFR to the LAD is recommended. 2. FFR to the RCA is recommended. FFR DETAILS: We performed FFR through the same diagnostic catheter. ACT was done twice. The lesion in the LAD was crossed with the FFR wire. Baseline FFR was 0.90. Adenosine was started at 140 g per KG per minute for 3 minutes. Lowest FFR was 0.78. This is significant therefore PCI is recommended. The wire was taken out and post-angiogram did not show any significant vascular complication. We then cannulated the RCA with the same diagnostic catheter and crossed the lesion in the proximal RCA with the FFR wire. The FFR wire was placed in the distal RCA. Baseline FFR was 0.90. Adenosine was again started at 140 g per KG per minute for 3 minutes. Unfortunately there was significant dampening noted therefore I pulled out the diagnostic catheter from the ostium of the RCA. On fluoroscopy the wire was still across the lesion. When adenosine infusion was completed, FFR was 0.95. However Fluoroscopic image showed that the FFR wire was in the distal aorta. Therefore I'm not sure if the wire was inadvertently pulled back during adenosine infusion or after. However post FFR angiogram did not reveal any vascular complication. We therefore decided to pursue PCI to the LAD. We took a 3.5 EBU guide catheter, however there was a kink therefore we took it out. And we then took a JL 3.5 guide catheter. However the patient started to complain of significant right upper extremity discomfort. Angiographically did not reveal any severe spasm. Verapamil and nitroglycerin were both given however patient still continued to have discomfort even with minimal manipulation of the guide catheter. We therefore decided to quit from radial approach and gain access in the right femoral artery. The patient was fully heparinized and ACT was over 200 seconds. We did one attempt and got a good flow back however we were not able to thread a guidewire into the femoral artery. The needle was taken out and manual compression done for the next 10-15 minutes. Since the patient was fully heparinized we decided not to attempt further femoral access. The right radial artery was closed with the radial band. The patient left the catheter lab with normal hemodynamics and no further upper extremity discomfort. CONCLUSIONS: 1. Staged PCI to the LAD tomorrow. Likely will recheck the FFR of the RCA. 2. Continue dual antiplatelet therapy. Christopher Newell MD, FACP, FACC, [facility] Interventional Cardiology Ivan NEWELL MD Oct 06, 2018 15:37
[2018-10-06] MEDS ORDERED: PATIENT MAY USE OWN MEDS, ALL PO SCH (15:45)
[2018-10-06] MEDS: TICAGRELOR 90 MG TABLET (BRILINTA) PO SCH (20:11)
[2018-10-07] VITALS (25 sets, daily range): BP systolic 106–160; BP diastolic 56–92
[2018-10-07] MEDS: NS IV 1000 ML 1,000 ML IV SCH ×5 (02:21→21:39)
[2018-10-07] MEDS: CATHETER FLUSH 10 ML SYR IV SCH ×3 (03:49→22:00)
[2018-10-07] MEDS ORDERED: HEParin (CATH LAB) 2,000 ML IV ONE (07:22)
[2018-10-07] MEDS ORDERED: LIDOCAINE 1% INJ 20 ML 20 ML VIAL ONE (07:22)
[2018-10-07] MEDS ORDERED: MIDAZOLAM 5 MG/5 ML (VERSED) VIAL ONE (07:27)
[2018-10-07] MEDS ORDERED: HEParin 1000 UNIT/ML (10ML VIAL) FOR BOLUS ONE (07:28)
[2018-10-07] MEDS ORDERED: fentaNYL INJECTION 100 MCG/2 ML AMP ONE (07:28)
[2018-10-07 07:55] LABS: BUN/CREATININE RATIO 20; CALCIUM 8.6 MG/DL (8.5-10.1); CARBON DIOXIDE 20 MMOL/L (21-32); CHLORIDE 112 MMOL/L (98-107); GFR ESTIMATED > 60; GLUCOSE 87 MG/DL (70-105); POTASSIUM 3.7 MMOL/L (3.6-5.0); SODIUM 141 MMOL/L (135-145)
[2018-10-07] MEDS ORDERED: TICAGRELOR 90 MG TABLET (BRILINTA) PO ONE ×3 (08:18→09:32)
[2018-10-07] MEDS: TICAGRELOR 90 MG TABLET (BRILINTA) PO SCH ×2 (08:27→21:16)
[2018-10-07] MEDS ORDERED: ADENOSINE 3 MG/1 ML (ADENOSCAN) 30ML VIAL IV ONE (08:42)
[2018-10-07] MEDS ORDERED: NITRO DRIP 25000 MCG/D5W 250 ML IV ONE (08:55)
[2018-10-07] MEDS ORDERED: NS IV 1000 ML 1,000 ML ONE (09:18)
--- NOTE | 2018-10-07 09:43 | Cardiology Progress Note ---
Cardiology SOAP Progress Note Subjective: No further chest pain. Objective: I&O/Vital Signs 10/07/18 10/07/18 10/07/18 10/07/18 04:00 07:00 08:00 08:27 Temp 98.0 97.5 Pulse 68 71 67 Resp 20 20 B/P (MAP) 126/68 (87) 147/80 (102) Pulse Ox 96 99 O2 Delivery Room Air Room Air Room Air 10/07/18 10/07/18 10/07/18 10/07/18 10:05 10:05 10:05 10:15 Temp 97.3 Pulse 61 63 63 Resp 12 B/P (MAP) 121/67 (85) 121/67 (85) Pulse Ox 98 98 O2 Delivery Room Air Room Air Room Air 10/07/18 10/07/18 10/07/18 10/07/18 10:30 10:45 11:00 11:15 Pulse 63 64 63 65 Resp 7 8 8 B/P (MAP) 129/82 (98) 146/89 (108) 149/86 (107) 114/92 (99) Pulse Ox 98 89 98 O2 Delivery Room Air Room Air Room Air Room Air 10/07/18 10/07/18 10/07/18 10/07/18 11:30 11:48 12:00 12:00 Temp 97.8 Pulse 66 64 Resp 11 9 B/P (MAP) 130/82 (98) 135/80 (98) Pulse Ox 99 98 99 O2 Delivery Room Air Room Air Room Air 10/07/18 12:12 Temp 96.9 10/07/18 00:00 Intake Total 460 ml Balance 460 ml Weight (Pounds): 181 Weight (Ounces): 0.2 Weight (Calculated Kilograms): 82.341713 Constitutional: appears stated age, AAO x 3; No apparent distress; well- developed, well-nourished Respiratory: No accessory muscle use, No respiratory distress, No chest tender , No chest expansion is symmetric; chest is bilaterally symmetric; No lungs clear to percussion; lungs clear to auscultation; No crackles, No rhonchi, No rales, No stridor, No wheezing, No pleural rub, No other Cardiovascular: regular rate-rhythm; No irregularly irregular, No extra beats, No parasternal heave is noted, No JVD, No edema, No bradycardia, No tachycardia , No point of maximal impulse, No cardiac thrills are palpable; S1 and S2; No gallop/S3, No gallop/S4, No diastolic murmur, No systolic murmur, No friction rub, No click, No other Gastrointestional: No tender, No soft, No round, No distended, No pulsatile mass, No organomegaly, No guarding, No rebound, No tenderness, No hernia, No mass, No audible bowel sounds, No abnormal bowel sounds, No abdominal bruits, No spleenomegaly, No other Extremities: No normal range of motion, No non-tender, No normal inspection, No pedal edema, No calf tenderness, No normal capillary refill, No pelvis stable , No calf tenderness, No inflammation, No pedal edema, No slow capillary refill , No swelling, No other, No abrasion, No clubbing, No cyanosis, No ecchymosis, No laceration, No no lower extremity edema bilateral, No significant edema, No tenderness, No wound Neurologic/Psychiatric: no motor/sensory deficits, alert, normal mood/affect, oriented x 3, power is 5/5 both on sides Skin: No normal color, No warm/dry, No cyanosis, No cool, No diaphoresis, No damp, No ecchymosis, No jaundice, No mottled, No pallor, No rash, No tattoos/ piercings, No ulcerations, No rash on exposed areas, No ulcerations on exposed areas, No other Results/Procedures: Labs Laboratory Tests 10/07/18 06:38: Sodium Level 141, Potassium Level 3.7, Chloride Level 112H, Carbon Dioxide Level 20L, Anion Gap 9, Blood Urea Nitrogen 14, Creatinine 0.70, Estimat Glomerular Filtration Rate > 60, BUN/Creatinine Ratio 20, Glucose Level 87, Calcium Level 8.6 Microbiology 10/05/18 MRSA Screen - Final, Complete MRSA not isolated A/P: Assessment/Dx: Unstable angina, Moderate to severe CAD, PCI planned today. Active smoking, Hypertension Plan: Severe LAD stenosis by FFR on yesterday cath. PCI could not be done since the patient developed significant spasm and pain in her right upper extremity, where we had our guide catheter and therefore we could not manipulate our equipment. Since we had already given heparin, we tried femoral access once, we got good flow back but could not thread a wire therefore we stopped. Plan to PCI to LAD and repeat FFR to RCA. Smoking cessation strongly recommended. HTN - continue outpatient meds. Thank you for your consultation. Please call me if you have any questions. Christopher Newell MD, FACP, FACC, FSCAI, FHRS, CCDS Interventional Cardiology Cardiac Electrophysiology Vascular Medicine and Endovascular Interventions Clinical Quality Measures AMI/AHF: ASA po Prior to arrival: Yes Ivan NEWELL MD Oct 07, 2018 09:43
--- NOTE | 2018-10-07 09:44 | Coronary Angiography & PCI ---
Coronary Angiography & PCI DATE OF PROCEDURE: 10/07/18 INDICATION: Severe LAD stenosis. Unstable angina. PREOPERATIVE DIAGNOSIS: Severe LAD stenosis by FFR. Unstable angina. POSTOPERATIVE DIAGNOSIS: Successful PCI to the LAD with 2 drug-eluting stents. At least moderate stenosis in proximal RCA. HISTORY: This is a 53-year-old lady with history of moderate CAD in 2012 angiogram. She has long-term history of active smoking, hypertension and family history. She presented with a prolonged episode of chest pain with negative troponin and EKG did not reveal any significant ST deviation. Coronary angiography was done yesterday which showed severe LAD stenosis significant with FFR of 0.78. Due to significant upper extremity discomfort we had to stop the procedure from radial approach. Since the patient was fully heparinized, we did one attempt to get femoral access but were not able to advance the guidewire and therefore the needle had to be taken out and manual compression was done for 15 minutes. It was decided that the safest approach is to bring the patient back for staged PCI. PROCEDURES PERFORMED: 1. PCI to the LAD (ostium and proximal/mid). 2. FFR to the RCA. COMPLICATIONS: None. SPECIMENS: None. ESTIMATED BLOOD LOSS: 10 mL ANESTHESIA: Conscious sedation ANTICOAGULATION: IV heparin CONTRAST: 140 ml. FLUOROSCOPY: FLOUROSCOPY DOSE: 1069 mgy. INTERVENTION DETAILS: The patient was brought to the catheter lab after informed consent was taken. She was draped and prepped in the usual sterile fashion. Access was gained in the right femoral artery with a 6 Wallisian sheath. Heparin was given for anticoagulation. One ACT was done which was over 200 seconds. Patient was on aspirin and Brilinta. We took a JR4 guide catheter with sideholes and cannulated the RCA. We then took an FFR wire and crossed the lesion in the proximal RCA and the tip of the wire was placed in the distal RCA. Adenosine was started at 140 g per KG per minute. Lowest FFR was 0.80-0.82. However spasm was noted in the proximal RCA. This responded to nitroglycerin. The wire was taken out and there was no vascular complication. We then took a EBU 3.5 guide catheter and cannulated the left coronary system. The lesion was crossed with a FFR wire. The tip of the FFR wire was placed in the distal LAD. Baseline FFR was 0.89. Direct stenting of the mid LAD lesion was done with a Xience Leisa 2.5 x 12 drug-eluting stent which was deployed at 12 chapito for 22 seconds. Mild spasm was noted which responded to intracoronary nitroglycerin 200 g. Baseline FFR without adenosine improved to 0.96. We then took a second Xience Leisa 2.5 x 12 mm drug-eluting stent and very carefully deployed it in the ostium of the LAD. Before deploying we checked the placement at high magnification in numerous cranial and caudal views. Once we were satisfied with deployed it at 14 chapito for 30 seconds. Excellent angiographic results were noted. CÉSAR-3 flow with no residual stenosis. The wire was taken out and post- angiogram showed no vascular complication. The right femoral artery was closed with a mynx device. CONCLUSIONS: 1. Successful PCI to the ostium of the LAD and proximal/mid LAD with 2 drug- eluting stents. 2. At least moderate disease in the RCA which we will follow clinically. 3. Dual antiplatelet therapy for at least 1 year. Lisinopril, high-dose statin and beta jahaira. 4. Smoking cessation was strongly recommended. 5. The patient will be observed in the ICU overnight. Christopher Newell MD, FACP, FACC, [facility] Interventional Cardiology Ivan NEWELL MD Oct 07, 2018 09:44
--- NOTE | 2018-10-07 09:44 | Cardiac Procedure Note-CS/ASA ---
Pre-Procedure Note Pre-Op Procedure Note H&P Reviewed The H&P was reviewed, patient examined and no changes noted. Date H&P Reviewed: Oct 06, 2018 Time H&P Reviewed: 08:30 Conscious Sedation Pre-Proced Time 08:30 ASA Score 3 For ASA 3 and 4: Consider anesthesia and medical clearance. Also, for patients with a history of failed moderate sedation consider anesthesia. Airway Lungs Heart ASA score ASA 1: a normal healthy patient ASA 2: a patient with a mild systemic disease (mid diabetes, controlled hypertension, obesity ASA 3: a patient with a severe systemic disease that limits activity (angina , COPD, prior Myocardial infarction) ASA 4: a patient with an incapacitating disease that is a constant threat to life (CHF, renal failure) ASA 5: a moribund patient not expected to survive 24 hrs. (ruptured aneurysm) ASA 6: a declared brain patient whose organs are being harvested. For emergent operations, add the letter E after the classification Mallampati Classification Grade 1 Sedation Plan Analgesia, Amnesia, Plan communicated to team members, Discussed options with patient/fam, Discussed risks with patient/fam The patient is an appropriate candidate to undergo the planned procedure, sedation, and anesthesia. The patient immediately re-assessed prior to indication. Ivan NORIEGA MD Oct 07, 2018 09:44
[2018-10-07] MEDS ORDERED: PATIENT MAY USE OWN MEDS, ALL PO SCH (09:45)
[2018-10-07] MEDS ORDERED: HYDROcodone/APAP 5 MG/325 MG (LORTAB) TAB ONE (10:55)
[2018-10-07] MEDS: PATCH REMOVAL TP SCH (10:59)
[2018-10-07] MEDS: HYDROcodone/APAP 5 MG/325 MG (LORTAB) TAB PO PRN ×2 (10:59→17:48)
[2018-10-07] MEDS: NICOTINE 14 MG (NICODERM) PATCH TD SCH (10:59)
[2018-10-07] MEDS ORDERED: NON-FORMULARY MEDICATION 1 EA EA (Hydrocodone/Acetaminophen (Hydrocodone-Acetamin 5-325 mg PO PRN (11:00)
[2018-10-07] MEDS: ASPIRIN E.C. 81 MG (ECOTRIN) TAB PO SCH (13:41)
--- NOTE | 2018-10-07 16:27 | Progress Note (SOAP) ---
Subjective Subjective/Events-last exam Patient just got back from cath. Unable to perform yesterday due to spasms in the wrist. Patient doing well. States that she is having back pain from having to lay flat. Denies any chest pain or shortness of breath. Review of Systems Date Seen by Provider: Oct 07, 2018 Time Seen by Provider: 09:15 Pulmonary: No Dyspnea, No Cough Cardiovascular: No: Chest Pain, Palpitations Musculoskeletal: back pain Objective Exam Last Set of Vital Signs Vital Signs Date Time Temp Pulse Resp B/P (MAP) Pulse Ox O2 Delivery O2 Flow Rate FiO2 10/07/18 15:34 99.0 10/07/18 15:21 98 Room Air 10/07/18 14:00 64 34 117/64 (81) Capillary Refill : Less Than 3 Seconds I&O Intake and Output 10/07/18 00:00 Intake Total 760 ml Output Total 1100 ml Balance -340 ml Intake Oral 760 ml Output Urine Total 1100 ml # Voids 6 General: Alert, Oriented X3, Cooperative, No Acute Distress HEENT: Mucous Memb Moist/[place] Lungs: Clear to Auscultation, Normal Air Movement Heart: Regular Rate, No Murmurs Abdomen: Normal Bowel Sounds, Soft, No Tenderness, No Masses Extremities: No Edema, No Tenderness/Swelling Skin: No Rashes, No Breakdown Psych/Mental Status: Mental Status NL, Mood NL Results/Procedures Lab Laboratory Tests 10/07/18 06:38: Sodium Level 141, Potassium Level 3.7, Chloride Level 112H, Carbon Dioxide Level 20L, Anion Gap 9, Blood Urea Nitrogen 14, Creatinine 0.70, Estimat Glomerular Filtration Rate > 60, BUN/Creatinine Ratio 20, Glucose Level 87, Calcium Level 8.6 Microbiology 10/05/18 MRSA Screen - Final, Complete MRSA not isolated Assessment/Plan Assessment/Plan (1) Chest pain Status: Acute Assessment & Plan: - concerning for typical chest pain given pain with left arm , relieved by nitro, history of tobacco use and significant family history. Dr Newell to take patient to cath today 10/07- cath today from groin, + intervention, will need to be on brilinta Qualifiers: Qualified Codes: R07.9 - Chest pain, unspecified (2) HTN (hypertension) Status: Acute Assessment & Plan: - Restart Lisinopril after procedure Qualifiers: Qualified Codes: I10 - Essential (primary) hypertension (3) HLD (hyperlipidemia) Status: Chronic Assessment & Plan: - Start Statin due to CAD risk factors Qualifiers: Qualified Codes: E78.2 - Mixed hyperlipidemia (4) Headache Status: Acute Assessment & Plan: - will continue to monitor, consider Carotid US depending on cath results Qualifiers: Qualified Codes: R51 - Headache (5) Tobacco abuse Status: Chronic Assessment & Plan: - Discussed the importance of cessation Clinical Quality Measures AMI/AHF: ASA po Prior to arrival: Yes DVT/VTE Risk/Contraindication: Risk Factor Score Per Nursin RFS Level Per Nursing on Admit: 4+=Very High MURRAY OROZCO MD Oct 07, 2018 16:27
[2018-10-07] MEDS ORDERED: POLYETHYLENE GLYCOL 17 GM (MIRALAX) PACK PO PRN (17:00)
[2018-10-07] MEDS ORDERED: TICAGRELOR 90 MG TABLET (BRILINTA) PO SCH (21:00)
[2018-10-07] MEDS ORDERED: ATORVASTATIN 80 MG (LIPITOR) TABLET PO SCH (21:00)
[2018-10-07] MEDS: meTOprolol TARTRATE 25 MG (LOPRESSOR) TABLET PO SCH (21:17)
[2018-10-08] VITALS (10 sets, daily range): BP systolic 99–140; BP diastolic 52–92
[2018-10-08] MEDS ORDERED: NITROGLYCERIN 0.4 MG SL TABS BTL 25'S SL SCH
[2018-10-08 03:20] LABS: MEAN PLATELET VOLUME 10.9 FL (7.4-10.4); RED BLOOD COUNT 4.08 10^6/uL (4.35-5.85); RED CELL DISTRIBUTION WIDTH 14.8 % (10.0-14.5); WHITE BLOOD COUNT 7.7 10^3/uL (4.3-11.0)
[2018-10-08 03:39] LABS: BUN/CREATININE RATIO 14; CALCIUM 8.9 MG/DL (8.5-10.1); CARBON DIOXIDE 18 MMOL/L (21-32); CHLORIDE 111 MMOL/L (98-107); CREATININE SERUM 0.71 MG/DL (0.60-1.30); GFR ESTIMATED > 60; GLUCOSE 90 MG/DL (70-105); POTASSIUM 3.6 MMOL/L (3.6-5.0); SODIUM 141 MMOL/L (135-145)
[2018-10-08] MEDS: NS IV 1000 ML 1,000 ML IV SCH ×2 (06:50→07:47)
[2018-10-08] MEDS: CATHETER FLUSH 10 ML SYR IV SCH (06:50)
[2018-10-08] MEDS ORDERED: FLU QUADRIvalent (5+ YOA) 2018-2019 (AFLURIA) 0.5 ML IM ONE (08:08)
[2018-10-08] MEDS: meTOprolol TARTRATE 25 MG (LOPRESSOR) TABLET PO SCH (08:14)
[2018-10-08] MEDS: TICAGRELOR 90 MG TABLET (BRILINTA) PO SCH (08:14)
[2018-10-08] MEDS: NICOTINE 14 MG (NICODERM) PATCH TD SCH (08:15)
[2018-10-08] MEDS: PATCH REMOVAL TP SCH (08:15)
[2018-10-08] MEDS: ASPIRIN E.C. 81 MG (ECOTRIN) TAB PO SCH (08:15)
[2018-10-08] MEDS ORDERED: ASPIRIN E.C. 81 MG (ECOTRIN) TAB PO SCH (09:00)
[2018-10-08] MEDS ORDERED: lisINopril 40 MG (PRINIVIL) TABLET PO SCH (09:00)
[2018-10-08] MEDS ORDERED: lisINopril 5 MG (PRINIVIL) TABLET PO SCH (09:00)
--- NOTE | 2018-10-08 10:09 | Discharge Summary ---
Diagnosis/Chief Complaint Date of Admission Oct 05, 2018 at 12:59 Date of Discharge 10/08/18 Admission Diagnosis Admission Diagnosis Chest pain HTN HLD Headache Tobacco Use Discharge Diagnosis See Below Problems/Diagnosis: (1) Chest pain Assessment & Plan: - concerning for typical chest pain given pain with left arm , relieved by nitro, history of tobacco use and significant family history. Dr Newell to take patient to cath today 10/07- cath today from groin, + intervention, will need to be on brilinta 10/08- No recurrent change pain since intervention, scripts sent, will need followup with Cardiology and PCP Qualifiers: Qualified Codes: I20.0 - Unstable angina Status: Acute (2) HTN (hypertension) Assessment & Plan: - Restart Lisinopril after procedure Qualifiers: Qualified Codes: I10 - Essential (primary) hypertension Status: Acute (3) HLD (hyperlipidemia) Assessment & Plan: - Start Statin due to CAD risk factors Qualifiers: Qualified Codes: E78.2 - Mixed hyperlipidemia Status: Chronic (4) Headache Assessment & Plan: - will continue to monitor, consider Carotid US depending on cath results Qualifiers: Qualified Codes: R51 - Headache Status: Acute (5) Tobacco abuse Assessment & Plan: - Discussed the importance of cessation Status: Chronic Chief Complaint/HPI Chief Complaint/HPI 53 yo F that presented to ER yesterday with chest pain. States that she was driving to work and it was like a heaviness in the middle of her chest. She states that it then let up and then came back a couple mins later and went down her arm. Nitro in the ER resolved the pain. States that she has had more mild chest pain overnight. + smoking history for the last 40 years. States that he mother had a massive heart attack in her 50s. Previous cath 2011 that showed mild-moderate disease but no intervention. States that she has been getting more headaches the last couple weeks. Discharge Summary-Simple/Stand Procedures Cardiac Cath 10/06: Unsuccessful due to spasm Cardiac Cath 10/07: + intervention by Dr Newell Consultations Dr Newell, Cardiology Discharge Physical Examination Allergies: Coded Allergies: No Known Drug Allergies (Unverified , 12/21/17) Vitals & I&Os Vital Sign - Last 12Hours Date Time Temp Pulse Resp B/P (MAP) Pulse Ox O2 Delivery O2 Flow Rate FiO2 10/08/18 08:03 Room Air 10/08/18 08:02 98.0 10/08/18 08:00 57 22 108/60 (76) 100 Intake and Output 10/08/18 00:00 Intake Total 2180 ml Balance 2180 ml General Appearance: Alert, Oriented X3, Cooperative, No Acute Distress HEENT: Mucous Memb Moist/[place] Respiratory: Clear to Auscultation, Normal Air Movement Cardiovascular: Regular Rate, No Murmurs Abdominal: Normal Bowel Sounds, Soft, No Tenderness, No Masses Extremities: No Edema, No Tenderness/Swelling Skin: No Rashes, No Breakdown Neuro: Normal Gait, Normal Speech, Strength at 5/5 X4 Ext, Cranial Nerves 3-12 NL Psych/Mental Status: Mental Status NL, Mood NL Hospital Course See final discharge diagnosis. Discussion & Recommendations 53 yo F that presented with Chest pain concerning for unstable angina. CE were negative thru admission. Patient was taken to chemical laboratory assistant but Dr Newell and received intervention with stents. Chest pain has not reoccurred since procedure. Discussed with patient the need to stop smoking. Patient will have close followup with Dr Newell and Dr Cruz following discharge Discharge Condition at discharge stable Instructions to patient/family Please see electronic discharge instructions given to patient. Discharge Medications Reviewed and agree with Discharge Medication list on patient's Discharge Instruction sheet Clinical Quality Measures AMI/AHF: ASA po Prior to arrival: Yes DVT/VTE Risk/Contraindication: Risk Factor Score Per Nursin RFS Level Per Nursing on Admit: 4+=Very High Copy Copies To 1: MURRAY CRUZ MD, HOLLY R MD Oct 08, 2018 10:09
[2018-10-08] MEDS ORDERED: TICA90TA PO (10:12)
[2018-10-08] MEDS ORDERED: ATOR80TA76 PO (10:12)
[2018-10-08] MEDS ORDERED: Nitroglycerin SL (10:12)
[2018-10-08] MEDS ORDERED: METO-333 PO (10:12)
--- NOTE | 2018-10-08 10:14 | Discharge Instructions ---
Discharge [facility] Discharge Medications New, Converted or Re-Newed RX: Transmitted to Pharmacy New Medications: Atorvastatin Calcium (Atorvastatin Calcium) 80 Mg Tablet 80 MG PO HS, #30 TAB Metoprolol Tartrate (Metoprolol Tartrate) 25 Mg Tablet 12.5 MG PO BID, #60 TAB [Nitroglycerin] () 0.4 MG BTL 0 MG SL UD PRN for CHEST PAIN, #10 EA Ticagrelor (Brilinta) 90 Mg Tablet 90 MG PO BID, #60 TAB Continued Medications: Aspirin (Aspirin EC) 81 Mg Tablet.dr 81 MG PO HS, TAB Hydrocodone/Acetaminophen (Hydrocodone-Acetamin 5-325 mg) 1 Each Tablet 1 TAB PO TID PRN for PAIN-MODERATE, TAB Lisinopril (Lisinopril) 10 Mg Tablet 10 MG PO HS, TAB Patient Instructions Goal/Follow Up Appt: You have an appt with Anthony on 10/10 @ 1142 Return to [facility] For: Chest pain Shortness of breath Activity & Diet Discharge Diet: Cardiac Diet Activity as Tolerated: Yes Copy Copies To 1: MURRAY OROZCO MD, HOLLY R MD Oct 08, 2018 10:14
--- NOTE | 2018-10-08 10:20 | Cardiology Progress Note ---
Cardiology SOAP Progress Note Subjective: No chest pain. Objective: I&O/Vital Signs 10/07/18 10/08/18 10/08/18 10/08/18 23:00 00:00 00:00 00:18 Temp 97.8 Pulse 63 59 Resp 19 19 B/P (MAP) 106/62 (77) 126/75 (92) Pulse Ox 99 99 98 O2 Delivery Room Air Room Air Room Air 10/08/18 10/08/18 10/08/18 10/08/18 01:00 01:00 02:00 03:00 Pulse 60 58 58 62 Resp 19 20 24 B/P (MAP) 99/52 (68) 102/62 (75) 120/69 (86) Pulse Ox 100 100 100 O2 Delivery Room Air Room Air Room Air 10/08/18 10/08/18 10/08/18 10/08/18 03:46 04:00 04:00 05:00 Temp 97.8 Pulse 55 64 Resp 14 20 B/P (MAP) 123/86 (98) 140/84 (102) Pulse Ox 100 98 100 O2 Delivery Room Air Room Air Room Air 10/08/18 10/08/18 10/08/18 10/08/18 06:00 07:00 07:00 08:00 Pulse 64 64 70 57 Resp 17 19 22 B/P (MAP) 132/67 (88) 122/92 (102) 108/60 (76) Pulse Ox 100 100 100 O2 Delivery Room Air Room Air Room Air 10/08/18 10/08/18 08:02 08:03 Temp 98.0 O2 Delivery Room Air 10/08/18 00:00 Intake Total 2180 ml Balance 2180 ml Weight (Pounds): 181 Weight (Ounces): 0.2 Weight (Calculated Kilograms): 82.683302 Constitutional: appears stated age, AAO x 3; No apparent distress; well- developed, well-nourished Respiratory: No accessory muscle use, No respiratory distress, No chest tender , No chest expansion is symmetric; chest is bilaterally symmetric; No lungs clear to percussion; lungs clear to auscultation; No crackles, No rhonchi, No rales, No stridor, No wheezing, No pleural rub, No other Cardiovascular: regular rate-rhythm; No irregularly irregular, No extra beats, No parasternal heave is noted, No JVD, No edema, No bradycardia, No tachycardia , No point of maximal impulse, No cardiac thrills are palpable; S1 and S2; No gallop/S3, No gallop/S4, No diastolic murmur, No systolic murmur, No friction rub, No click, No other Gastrointestional: No tender, No soft, No round, No distended, No pulsatile mass, No organomegaly, No guarding, No rebound, No tenderness, No hernia, No mass, No audible bowel sounds, No abnormal bowel sounds, No abdominal bruits, No spleenomegaly, No other Extremities: No normal range of motion, No non-tender, No normal inspection, No pedal edema, No calf tenderness, No normal capillary refill, No pelvis stable , No calf tenderness, No inflammation, No pedal edema, No slow capillary refill , No swelling, No other, No abrasion, No clubbing, No cyanosis, No ecchymosis, No laceration, No no lower extremity edema bilateral, No significant edema, No tenderness, No wound Neurologic/Psychiatric: no motor/sensory deficits, alert, normal mood/affect, oriented x 3, power is 5/5 both on sides Skin: No normal color, No warm/dry, No cyanosis, No cool, No diaphoresis, No damp, No ecchymosis, No jaundice, No mottled, No pallor, No rash, No tattoos/ piercings, No ulcerations, No rash on exposed areas, No ulcerations on exposed areas, No other Results/Procedures: Labs Laboratory Tests 10/08/18 03:00: White Blood Count 7.7, Red Blood Count 4.08L, Hemoglobin 11.0L, Hematocrit 34L, Mean Corpuscular Volume 82, Mean Corpuscular Hemoglobin 27, Mean Corpuscular Hemoglobin Concent 33, Red Cell Distribution Width 14.8H, Platelet Count 188, Mean Platelet Volume 10.9H, Sodium Level 141, Potassium Level 3.6, Chloride Level 111H, Carbon Dioxide Level 18L, Anion Gap 12, Blood Urea Nitrogen 10, Creatinine 0.71, Estimat Glomerular Filtration Rate > 60, BUN/Creatinine Ratio 14, Glucose Level 90, Calcium Level 8.9 Microbiology 10/05/18 MRSA Screen - Final, Complete MRSA not isolated A/P: Assessment/Dx: Unstable angina, Moderate to severe CAD, PCI done yesterday to LAD with 2 RYNE Active smoking, Hypertension, Hyperlipidemia Plan: Severe LAD stenosis treated with 2 RYNE. aspirin, brilinta, BB, AKILA inhibitor and Lipitor. FFR of the RCA was 0.80-0.82. Will clinically follow. Some spasm was noted as well. Smoking cessation strongly recommended. HTN - continue outpatient meds. Lipids- lipitor. Follow in Oct 2018 in office. Thank you for your consultation. Please call me if you have any questions. Christopher Newell MD, FACP, FACC, FSCAI, FHRS, CCDS Interventional Cardiology Cardiac Electrophysiology Vascular Medicine and Endovascular Interventions Clinical Quality Measures AMI/AHF: ASA po Prior to arrival: Yes Ivan NEWELL MD Oct 08, 2018 10:20
--- NOTE | 2018-10-08 10:21 | Discharge Inst-Post CATH ---
Discharge Inst-CATH Post Cardiac Cath D/C Inst Follow Up/Plan Dr Newell in second week of Oct 2018 CARDIAC CATH DISCHARGE INSTRUCTIONS *Hold Metformin for 48 hours post heart cath. ACTIVITY * Go Home directly and rest. * Limit activity of the leg (or wrist if it was used) for 7 days including aerobics, swimming, jogging, bicycling, etc. * Restrict stair-climbing for 7 days if possible, if not, climb up with your non -cath leg, then bring together on the same step. * Avoid lifting, pushing, pulling or excessive movement of the affected extremity for 7 days. * Customary sexual activity may be resumed after 2 days-use caution not to use a position that strains or causes pain to the affected extremity. * No driving for 24 hours. * NO SMOKING. * Avoid straining for bowel movements for 7 days. * Gentle walking on level ground is allowed. * Returning to work will depend on the type of procedure and the results. Your doctor will discuss this with you. CALL YOUR DOCTOR FOR ANY OF THE FOLLOWING: *If bleeding from the puncture site occurs- Apply gentle pressure to site with clean cloth and call your doctor or EMS. * If a knot or lump forms under the skin, increases in size, or causes pain. * If bruising appears to be worsening or moving further down your leg instead of disappearing. * Temperature above 101 F. CARE OF YOUR GROIN INCISION; * Bruising or purple discoloration of the skin near the puncture site is common. * You may shower only, no bathtub bathing for 5 days. Be careful to avoid slipping as your leg may feel stiff. * If a closure device was used on your femoral artery, please see the attached guide regarding care of the device and your leg. * Leave the dressing on, until removed by office staff. CARE OF YOUR WRIST INCISION; * Bruising or purple discoloration of the skin near the puncture site is common. * You may shower. * DO NOT submerge wrist. * Leave dressing on, until removed by office staff.. Ivan NEWELL MD Oct 08, 2018 10:20
[2018-10-08] MEDS ORDERED: RELABEL FOR HOME USE MC PRN (10:30)
--- OUTSIDE RECORDS SUMMARY | 2018-10-10 14:15 | XMS REPORT ---
Author Author MURRAY OROZCO Organization [facility] Address [address] [place] [address] Care Team Providers Care Javascript Ui Developer Name Role Phone MURRAY OROZCO Unavailable PROBLEMS Type Condition ICD9-CM Code MLU69-UJ Code Onset Dates Condition Status SNOMED Code Problem Bilateral carpal tunnel syndrome G56.03 Active [id number] Problem Tension-type headache, not intractable, unspecified chronicity pattern G44.209 Active 867688390 Problem Chronic pain syndrome G89.4 Active 373036216 Problem Essential hypertension I10 Active 21010653 Problem Valeria-menopausal N95.1 Active 882034123128841 Problem Constipation, unspecified constipation type K59.00 Active 01344172 Problem Primary insomnia F51.01 Active [id number] ALLERGIES No Information ENCOUNTERS Encounter Location Date Diagnosis [facility] [id number] [place] [address] [phone]- [phone] Sep, [facility] [id number] [place] [address] 59550- 4554 Jul, [facility] [id number] [place] [address] 13582- 0918 Jul, [facility] [id number] [place] [address] 75397- 6950 Jun, Tension-type headache, not intractable, unspecified chronicity pattern G44.209 ; Right hip pain M25.551 ; Chronic pain syndrome G89.4 ; Left foot pain M79.672 and Essential hypertension I10 [facility] [id number] [place] [address] 73612- 8080 May, [facility] [id number] [place] [address] 93985- 4638 Apr, [facility] [id number] [place] [address] 31883- 9602 Apr, [facility] [id number] [place] [address] 41029- 0446 Apr, [facility] [id number] [place] [address] 75445- 8698 Apr, [facility] [id number] [place] [address] 49319- 1531 Mar, [facility] [id number] [place] [address] 61764- 4732 Mar, Left wrist pain M25.532 ; Plantar fasciitis, right M72.2 and Chronic pain syndrome G89.4 [facility] [id number] [place] [address] 09539- 6675 February, [facility] [id number] [place] [address] [phone] -[phone] February, Constipation, unspecified constipation type K59.00 [facility] [id number] [place] [address] 23282- 2548 February, [facility] [id number] [place] [address] 06435 -[phone] Jan, Nausea R11.0 ; Fever R50.9 and Acute pharyngitis due to other specified organisms J02.8 [facility] [id number] [place] [address] 74993- 8182 Jan, [facility] [id number] [place] [address] 27149- 8790 Nov, Right upper quadrant abdominal pain R10.11 [facility] [id number] [place] [address] 98323- 5086 Nov, [facility] [id number] [place] [address] 92158- 7141 Aug, [facility] [id number] [place] [address] 68852- 7419 14 Aug, 2017 [place] [id number] [place] [address] 35766- 1696 Jun, Primary insomnia F51.01 [place] [id number] [place] [address] 21073- 7106 21 Jun, 2017 Crohn''s disease of colon without complication K50.10 ; Apnea spell R06.81 and Right upper quadrant abdominal pain R10.11 [place] [id number] [place] [address] 62612- 7710 20 Jun, 2017 [place] [id number] [place] [address] 94533- 2535 February, Acute Crohns disease, without complications K50.90 ; Primary insomnia F51.01 ; Tobacco abuse counseling Z71.6 and Essential hypertension I10 [id number] [place] [address] 38451- 5126 Jan, [place] [id number] [place] [address] 36720- 9073 Aug, Cough R05 [place] [id number] [place] [address] 86591- 3069 Aug, [place] [id number] [place] [address] 09798- 7521 Jul, Essential hypertension I10 ; Valeria-menopausal N95.1 and Need for hepatitis C screening test Z11.59 [place] [id number] [place] [address] 64533- 8431 Jul, [place] [id number] [place] [address] 39596- 7712 10 Jul, 2016 Breast lump N63 ; Essential hypertension I10 ; History of Crohn's disease Z87.19 ; Valeria-menopausal N95.1 ; Tobacco abuse Z72.0 and Need for hepatitis C screening test Z11.59 IMMUNIZATIONS No Known Immunizations SOCIAL HISTORY Never Assessed REASON FOR VISIT triage PLAN OF CARE VITAL SIGNS MEDICATIONS Unknown [...]
--- OUTSIDE RECORDS SUMMARY | 2018-10-10 14:18 | XMS REPORT | Continuity of Care Document ---
Author Author [facility] Organization [facility] Address Unknown Phone Unavailable Allergies Active Description Code Type Severity Reaction Onset Reported/Identified Relationship to Patient Clinical Status Yes No Known Drug Allergies [id number] Drug Allergy Unknown N/A 12/21/2017 Medications There is no data. Problems Date Dx Coded Attending Type Code Diagnosis Diagnosed By 11/17/2011 Ot 789.07 ABDOMINAL PAIN, GENERALIZED 11/18/2011 Ot 555.9 REGIONAL ENTERITIS NOS 12/23/2011 Ot 305.1 TOBACCO USE DISORDER 12/23/2011 Ot 414.01 CORONARY ATHEROSCLEROSIS OF [place] CORON 12/23/2011 Ot 555.9 REGIONAL ENTERITIS NOS [...] UNSPECIFIED 11/13/2016 GLENDA LAI MD Ot Z79.82 HAND PACKER (CURRENT) USE OF ASPIRIN 11/13/2016 GLENDA LAI MD Ot Z79.899 OTHER MCC (CURRENT) DRUG THERAPY 07/16/2017 JORDY DO, DARCY K Ot E78.00 PURE HYPERCHOLESTEROLEMIA, UNSPECIFIED 07/16/2017 JORDY DO, DARCY K Ot F17.210 NICOTINE DEPENDENCE, CIGARETTES, UNCOMPL 07/16/2017 JORDY DO, DARCY K Ot I10 ESSENTIAL (PRIMARY) HYPERTENSION 07/16/2017 JORDY DO, DARCY K Ot I25.10 ATHSCL HEART DISEASE OF [place] CORONARY 07/16/2017 JORDY DO DARCY K Ot J44.9 CHRONIC OBSTRUCTIVE PULMONARY DISEASE, U 07/16/2017 JORDY DO, DARCY K Ot J45.909 UNSPECIFIED ASTHMA, UNCOMPLICATED 07/16/2017 JORDY DO, DARCY K Ot K21.9 GASTRO-ESOPHAGEAL REFLUX DISEASE WITHOUT 07/16/2017 JORDY DO, DARCY K Ot K59.00 CONSTIPATION, UNSPECIFIED 07/16/2017 JORDY DO, DARCY K Ot R10.11 RIGHT UPPER QUADRANT PAIN 07/16/2017 JORDY DO DARCY K Ot Z79.4 HAND PACKER (CURRENT) USE OF INSULIN 07/16/2017 JORDY DO DARCY K Ot Z87.19 PERSONAL HISTORY OF OTHER DISEASES OF TH 07/21/2017 JORDY DO, DARCY K Ot E78.00 PURE HYPERCHOLESTEROLEMIA, UNSPECIFIED 07/21/2017 JORDY DO, DARCY K Ot F17.210 NICOTINE DEPENDENCE, CIGARETTES, UNCOMPL 07/21/2017 JORDY DO, DARCY K Ot I10 ESSENTIAL (PRIMARY) HYPERTENSION 07/21/2017 JORDY DO, DARCY K Ot I25.10 ATHSCL HEART DISEASE OF [place] CORONARY 07/21/2017 JORDY DO, DARCY K Ot J44.9 CHRONIC OBSTRUCTIVE PULMONARY DISEASE, U 07/21/2017 JORDY DO, DARCY K Ot J45.909 UNSPECIFIED ASTHMA, UNCOMPLICATED 07/21/2017 JORDY DO, DARCY K Ot K21.9 GASTRO-ESOPHAGEAL REFLUX DISEASE WITHOUT 07/21/2017 JORDY DO, DARCY K Ot K59.00 CONSTIPATION, UNSPECIFIED 07/21/2017 JORDY DO, DARCY K Ot R10.11 RIGHT UPPER QUADRANT PAIN 07/21/2017 JORDY DO, DARCY K Ot Z79.4 HAND PACKER (CURRENT) USE OF INSULIN 07/21/2017 JORDY DO, DARCY K Ot Z87.19 PERSONAL HISTORY OF OTHER DISEASES OF TH 12/06/2017 JORDY DO, DARCY K Ot E78.00 PURE HYPERCHOLESTEROLEMIA, UNSPECIFIED 12/06/2017 JORDY DO, DARCY K Ot F17.210 NICOTINE DEPENDENCE, CIGARETTES, UNCOMPL 12/06/2017 JORDY DO, DARCY K Ot I10 ESSENTIAL (PRIMARY) HYPERTENSION 12/06/2017 JORYD DO, DARCY K Ot I25.10 ATHSCL HEART DISEASE OF [place] CORONARY 12/06/2017 JORDY DO, DARCY K Ot J44.9 CHRONIC OBSTRUCTIVE PULMONARY DISEASE, U 12/06/2017 JORDY DO, DARCY K Ot K21.9 GASTRO-ESOPHAGEAL REFLUX DISEASE WITHOUT 12/06/2017 JORDY DO, DARCY K Ot R10.11 RIGHT UPPER QUADRANT PAIN 12/06/2017 JORDY DO, DARCY K Ot Z79.82 MCC (CURRENT) USE OF ASPIRIN 12/06/2017 JORDY DO, DARCY K Ot Z87.19 PERSONAL HISTORY OF OTHER DISEASES OF TH 12/07/2017 JORDY DO, DARCY K Ot E78.00 PURE HYPERCHOLESTEROLEMIA, UNSPECIFIED 12/07/2017 JORDY DO, DARCY K Ot F17.210 NICOTINE DEPENDENCE, CIGARETTES, UNCOMPL 12/07/2017 JORDY ILDEFONSOA K Ot I10 ESSENTIAL (PRIMARY) HYPERTENSION 12/07/2017 JORYD DO DARCY K Ot I25.10 ATHSCL HEART DISEASE OF [place] CORONARY 12/07/2017 JORDY DARCY MASSEY Ot J44.9 CHRONIC OBSTRUCTIVE PULMONARY DISEASE, U 12/07/2017 JORDY DARCY K Ot K21.9 GASTRO-ESOPHAGEAL REFLUX DISEASE WITHOUT 12/07/2017 JORDY DOILDEFONSOA K Ot R10.11 RIGHT UPPER QUADRANT PAIN 12/07/2017 ILDEFONSO SPENCE DOA K Ot Z79.82 HAND PACKER (CURRENT) USE OF ASPIRIN 12/07/2017 JORDY DOILDEFONSOA [...] Love Ot I25.10 ATHSCL HEART DISEASE OF [place] CORONARY 12/22/2017 SHAZIA GILES, TASHA Love Ot [...] BACTER 12/22/2017 TASHA MCCRAY MD Ot Z79.82 HAND PACKER (CURRENT) USE OF ASPIRIN 12/22/2017 TASHA MCCRAY MD Ot Z79.899 OTHER MCC (CURRENT) DRUG THERAPY 12/23/2017 TASHA MCCRAY MD Ot F17.210 NICOTINE DEPENDENCE, CIGARETTES, UNCOMPL 12/23/2017 TASHA MCCRAY MD Ot G47.33 OBSTRUCTIVE SLEEP APNEA (ADULT) (PEDIATR 12/23/2017 TASHA MCCRAY MD Ot I10 ESSENTIAL (PRIMARY) HYPERTENSION 12/23/2017 TASHA MCCRAY MD Ot I25.10 ATHSCL HEART DISEASE OF [place] CORONARY 12/23/2017 TASHA MCCRAY MD Ot J44.9 [...] BACTER 12/23/2017 TASHA MCCRAY MD Ot Z79.82 HAND PACKER (CURRENT) USE OF ASPIRIN 12/23/2017 TASHA MCCRAY MD Ot Z79.899 OTHER MCC (CURRENT) DRUG THERAPY 12/28/2017 TASHA MCCRAY MD Ot F17.210 NICOTINE DEPENDENCE, CIGARETTES, UNCOMPL 12/28/2017 TASHA MCCRAY MD Ot G47.33 OBSTRUCTIVE SLEEP APNEA (ADULT) (PEDIATR 12/28/2017 TASHA MCCRAY MD Ot I10 ESSENTIAL (PRIMARY) HYPERTENSION 12/28/2017 TASHA MCCRAY MD Ot I25.10 ATHSCL HEART DISEASE OF [place] CORONARY 12/28/2017 TASHA MCCRAY MD Ot J44.9 [...] BACTER 12/28/2017 TASHA MCCRAY MD Ot Z79.82 MCC (CURRENT) USE OF ASPIRIN 12/28/2017 TASHA MCCRAY MD Ot Z79.899 OTHER HAND PACKER (CURRENT) DRUG THERAPY 12/31/2017 TASHA MCCRAY MD Ot F17.210 NICOTINE DEPENDENCE, CIGARETTES, UNCOMPL 12/31/2017 TASHA MCCRAY MD Ot G47.33 OBSTRUCTIVE SLEEP APNEA (ADULT) (PEDIATR 12/31/2017 TASHA MCCRAY MD Ot I10 ESSENTIAL (PRIMARY) HYPERTENSION 12/31/2017 TASHA MCCRAY MD Ot I25.10 ATHSCL HEART DISEASE OF [place] CORONARY 12/31/2017 TASHA MCCRAY MD Ot J44.9 CHRONIC OBSTRUCTIVE PULMONARY DISEASE, U 12/31/2017 TASHA MCCRAY MD Ot K21.9 GASTRO-ESOPHAGEAL REFLUX DISEASE WITHOUT 12/31/2017 TASHA MCCRAY MD Ot K50.90 CROHN'S DISEASE, UNSPECIFIED, WITHOUT CO 12/31/2017 ATSHA MCCRAY MD Ot K80.20 CALCULUS OF GALLBLADDER W/O CHOLECYSTITI 12/31/2017 TASHA MCCRAY MD Ot M19.90 UNSPECIFIED OSTEOARTHRITIS, UNSPECIFIED 12/31/2017 TASHA MCCRAY MD Ot Z11.2 ENCOUNTER FOR SCREENING FOR OTHER BACTER 12/31/2017 TASHA MCCRAY MD Ot Z79.82 MCC (CURRENT) USE OF ASPIRIN 12/31/2017 TASHA MCCRAY MD Ot Z79.899 OTHER HAND PACKER (CURRENT) DRUG THERAPY 03/07/2018 ERNESTO GILES, MURRAY [...] Love Ot I25.10 ATHSCL HEART DISEASE OF [place] CORONARY 03/08/2018 SHAZIA GILES, TASHA Love Ot [...] 03/08/2018 SHAZIA GILES, TASHA Love Ot Z79.82 MCC (CURRENT) USE OF ASPIRIN 03/08/2018 TASHA MCCRAY MD Ot Z79.899 OTHER HAND PACKER (CURRENT) DRUG THERAPY 05/13/2018 MURRAY OROZCO MD [...] OF GALLBLADDER W/O CHOLECYSTITI 10/05/2018 ERNESTO GILES, MURRAY Tomlinson Ot K80.20 CALCULUS [...] - 10/05/18 10:24 Lipase 25 U/L 8-78 Serum or plasma troponin i.cardiac measurement (mass/volume) - 10/05/18 16:10 Serum or plasma troponin i.cardiac measurement (mass/volume) < ng/ mL <0.30 Myoglobin, serum - 10/05/18 16:10 Myoglobin, serum 29.5 ng/mL 10.0-92.0 Methicillin resistant Staphylococcus aureus (MRSA) screening culture - 18:10 Methicillin resistant Staphylococcus aureus (MRSA) screening culture NEG NRG Complete blood count (CBC) with automated white blood cell (WBC) differential - 10/06/18 04:17 Blood leukocytes automated count (number/volume) 8.1 10*3/uL 4.3-11.0 Blood erythrocytes automated count (number/volume) 5.15 10*6/uL 4.35-5.85 Venous blood hemoglobin measurement (mass/volume) 13.7 g/dL 11.5-16.0 Blood hematocrit (volume fraction) 42 % 35-52 Automated erythrocyte mean corpuscular volume 82 [foz_us] 80-99 Automated erythrocyte mean corpuscular hemoglobin (mass per erythrocyte) 27 pg 25-34 Automated erythrocyte mean corpuscular hemoglobin concentration measurement ( mass/volume) 33 g/dL 32-36 Automated erythrocyte distribution width ratio 15.2 % 10.0-14.5 Automated blood platelet count (count/volume) 274 10*3/uL 130-400 Automated blood platelet mean volume measurement 11.1 [foz_us] 7.4-10.4 Automated blood neutrophils/100 leukocytes 40 % 42-75 Automated blood lymphocytes/100 leukocytes 47 % 12-44 Blood monocytes/100 leukocytes 8 % 0-12 Automated blood eosinophils/100 leukocytes 4 % 0-10 Automated blood basophils/100 leukocytes 1 % 0-10 Blood neutrophils automated count (number/volume) 3.3 10*3 1.8-7.8 Blood lymphocytes automated count (number/volume) 3.8 10*3 1.0-4.0 Blood monocytes automated count (number/volume) 0.7 10*3 0.0-1.0 Automated eosinophil count 0.3 10*3/uL 0.0-0.3 Automated blood basophil count (count/volume) 0.1 10*3/uL 0.0-0.1 Comprehensive metabolic panel - 10/06/18 04:17 Serum or plasma sodium measurement (moles/volume) 141 mmol/L 135-145 Serum or plasma potassium measurement (moles/volume) 4.3 mmol/L 3.6-5.0 Serum or plasma chloride measurement (moles/volume) 109 mmol/L 98-107 Carbon dioxide 21 mmol/L 21-32 Serum or plasma anion gap determination (moles/volume) 11 mmol/L 5-14 Serum or plasma urea nitrogen measurement (mass/volume) 15 mg/dL 7-18 Serum or plasma creatinine measurement (mass/volume) 0.79 mg/dL 0.60-1.30 Serum or plasma urea nitrogen/creatinine mass ratio 19 NRG Serum or plasma creatinine measurement with calculation of estimated glomerular filtration rate > NRG Serum or plasma glucose measurement (mass/volume) 92 mg/dL 70-105 Serum or plasma calcium measurement (mass/volume) 9.6 mg/dL 8.5-10.1 Serum or plasma total bilirubin measurement (mass/volume) 0.6 mg/dL 0.1-1.0 Serum or plasma alkaline phosphatase measurement (enzymatic activity/volume) 77 U/L 40-136 Serum or plasma aspartate aminotransferase measurement (enzymatic activity/ volume) 17 U/L 5-34 Serum or plasma alanine aminotransferase measurement (enzymatic activity/volume ) 17 U/L 0-55 Serum or plasma protein measurement (mass/volume) 7.3 g/dL 6.4-8.2 Serum or plasma albumin measurement (mass/volume) 4.3 g/dL 3.2-4.5 CALCIUM CORRECTED 9.4 mg/dL 8.5-10.1 Lipid 1996 panel - 10/06/18 04:17 Serum or plasma triglyceride measurement (mass/volume) 219 mg/dL <150 Serum or plasma cholesterol measurement (mass/volume) 237 mg/dL < 200 Serum or plasma cholesterol in HDL measurement (mass/volume) 41 mg/ dL 40-60 Cholesterol in LDL [mass/volume] in serum or plasma by direct assay 152 mg/dL 1-129 Serum or plasma cholesterol in VLDL measurement (mass/volume) 44 mg/ dL 5-40 Whole blood basic metabolic panel - 10/07/18 06:38 Serum or plasma sodium measurement (moles/volume) 141 mmol/L 135-145 Serum or plasma potassium measurement (moles/volume) 3.7 mmol/L 3.6-5.0 Serum or plasma chloride measurement (moles/volume) 112 mmol/L 98-107 Carbon dioxide 20 mmol/L 21-32 Serum or plasma anion gap determination (moles/volume) 9 mmol/L 5-14 Serum or plasma urea nitrogen measurement (mass/volume) 14 mg/dL 7-18 Serum or plasma creatinine measurement (mass/volume) 0.70 mg/dL 0.60-1.30 Serum or plasma urea nitrogen/creatinine mass ratio 20 NRG Serum or plasma creatinine measurement with calculation of estimated glomerular filtration rate > NRG Serum or plasma glucose measurement (mass/volume) 87 mg/dL 70-105 Serum or plasma calcium measurement (mass/volume) 8.6 mg/dL 8.5-10.1 Automated blood complete blood count (hemogram) panel - 10/08/18 03:00 Blood leukocytes automated count (number/volume) 7.7 10*3/uL 4.3-11.0 Blood erythrocytes automated count (number/volume) 4.08 10*6/uL 4.35-5.85 Venous blood hemoglobin measurement (mass/volume) 11.0 g/dL 11.5-16.0 Blood hematocrit (volume fraction) 34 % 35-52 Automated erythrocyte mean corpuscular volume 82 [foz_us] 80-99 Automated erythrocyte mean corpuscular hemoglobin (mass per erythrocyte) 27 pg 25-34 Automated erythrocyte mean corpuscular hemoglobin concentration measurement ( mass/volume) 33 g/dL 32-36 Automated erythrocyte distribution width ratio 14.8 % 10.0-14.5 Automated blood platelet count (count/volume) 188 10*3/uL 130-400 Automated blood platelet mean volume measurement 10.9 [foz_us] 7.4-10.4 Whole blood basic metabolic panel - 10/08/18 03:00 Serum or plasma sodium measurement (moles/volume) 141 mmol/L 135-145 Serum or plasma potassium measurement (moles/volume) 3.6 mmol/L 3.6-5.0 Serum or plasma chloride measurement (moles/volume) 111 mmol/L 98-107 Carbon dioxide 18 mmol/L 21-32 Serum or plasma anion gap determination (moles/volume) 12 mmol/L 5-14 Serum or plasma urea nitrogen measurement (mass/volume) 10 mg/dL 7-18 Serum or plasma creatinine measurement (mass/volume) 0.71 mg/dL 0.60-1.30 Serum or plasma urea nitrogen/creatinine mass ratio 14 NRG Serum or plasma creatinine measurement with calculation of estimated glomerular filtration rate > NRG Serum or plasma glucose measurement (mass/volume) 90 mg/dL 70-105 Serum or plasma calcium measurement (mass/volume) 8.9 mg/dL 8.5-10.1 Encounters ACCT No. Visit Date/Time Discharge Status Pt. Type Provider Facility Loc./Unit Complaint [id number] 10/05/2018 12:59:00 10/08/2018 10:46:00 DIS Inpatient MURRAY OROZCO MD [facility] ICU CHEST PAIN [id number] 12/22/2017 06:12:00 12/22/2017 11:20:00 DIS Outpatient TASHA MCCRAY MD [facility] SDC GALLSTONES [id number] 12/21/2017 06:05:00 12/21/2017 13:47:00 DIS Outpatient TASHA MCCRAY MD [facility] PREOP GALLSTONES [id number] 12/15/2017 11:44:00 12/15/2017 23:59:59 CLS Outpatient MURRAY OROZCO MD [facility] RAD R10.11 RUQ ABD PAIN [id number] 12/05/2017 21:23:00 12/06/2017 01:16:00 DIS Emergency JORDY DARCY MASSEY [facility] ER CHRONS FLARE UP [id number] 08/11/2017 07:29:00 08/11/2017 23:59:59 CLS Preadmit MURRAY OROZCO MD [facility] SLEEP HYPERSOMNIA G47.10 [id number] 07/15/2017 21:47:00 07/16/2017 00:18:00 DIS Emergency JORDY DODARCY [facility] ER VOMITING;FEVER [id number] 11/13/2016 13:43:00 11/13/2016 16:55:00 DIS Emergency GLENDA LAI MD [facility] ER CHEST PAIN/SOA LEFT ARM NUMBNESS [id number] 08/12/2016 12:39:00 08/12/2016 23:59:59 CLS Outpatient MURRAY OROZCO MD [facility] RAD BREAST LUMP [id number] 05/21/2016 19:12:00 05/21/2016 22:38:00 DIS Emergency SARI ROSARIO [facility] ER ABD PAIN [id number] 02/12/2014 14:40:00 02/12/2014 16:34:00 DIS Emergency GLENDA LAI MD [facility] ER MULTIPLE COMPLAINTS [id number] 12/22/2011 18:45:00 Document Registration [id number] 11/18/2011 08:25:00 Document Registration [id number] 11/17/2011 04:41:00 Document Registration [id number] 10/10/2018 11:40:00 ACT Outpatient MURRAY OROZCO [facility] [id number] 08/09/2016 07:05:00 Document Registration
== END 2018-10-08 10:46 | disposition home or self-care (01) ==
LOC: EDUNIT# 09:59 → ER 10:00 → UNDOADMOB 12:59 → 4TH 12:59 → CATH 13:45 → 4TH 13:45 → ICU 10-07 10:02 → 4TH 10-07 10:02 → ICU 10-07 13:15 → CATH 10-08 10:46 → UNDODISOB 10-08 10:46
PROVIDERS: ATTEND Family Medicine
DX: I25.119 Atherosclerotic heart disease of native coronary artery with unspecified angina pectoris (principal); I10 Essential (primary) hypertension; E78.5 Hyperlipidemia, unspecified; F17.210 Nicotine dependence, cigarettes, uncomplicated; R51 Headache; K50.90 Crohn's disease, unspecified, without complications; K21.9 Gastro-esophageal reflux disease without esophagitis
CPT/HCPCS: 36140; 36415; 71045; 80048; 80053; 80061; 83690; 83735; 83874; 84484; 85025; 85027; 85347; 85379; 85610; 85730; 87081; 90471; 90686; 93005; 93041; 93306; 93458; G0378

== ENCOUNTER 2019-02-20 21:50 | Observation (INO) | payer OTHER ==
[~2019-02-20] VITALS: Ht 154.9 cm; Wt 83.5 kg
[~2019-02-20 21:50] MED LIST changes: +ASPI-983 PO; +ATOR80TA76 PO; +HYDR-3812 PO; +Nitroglycerin SL; +TICA90TA PO
[2019-02-20 22:14] LABS: BASOPHILS # (AUTO) 0.1 10^3/uL (0.0-0.1); BASOPHILS % (AUTO) 1 % (0-10); EOSINOPHILS # (AUTO) 0.3 10^3/uL (0.0-0.3); EOSINOPHILS % (AUTO) 3 % (0-10); HEMATOCRIT 40 % (35-52); LYMPHOCYTES # (AUTO) 4.6 X 10^3 (1.0-4.0); LYMPHOCYTES % (AUTO) 48 % (12-44); MEAN CORPUSCULAR HEMOGLOBIN 27 PG (25-34); MEAN CORPUSCULAR HGB CONC 33 G/DL (32-36); MEAN CORPUSCULAR VOLUME 82 FL (80-99); MONOCYTES # (AUTO) 0.8 X 10^3 (0.0-1.0); MONOCYTES % (AUTO) 8 % (0-12); NEUTROPHILS # (AUTO) 3.8 X 10^3 (1.8-7.8); NEUTROPHILS % (AUTO) 39 % (42-75); PLATELET COUNT 252 10^3/uL (130-400); RED CELL DISTRIBUTION WIDTH 16.3 % (10.0-14.5); WHITE BLOOD COUNT 9.6 10^3/uL (4.3-11.0)
[2019-02-20 22:22] LABS: INR 1.1 (0.8-1.4); PROTHROMBIN TIME PATIENT 14.3 SEC (12.2-14.7)
[2019-02-20 22:29] LABS: ALANINE AMINOTRANSFERASE 22 U/L (0-55); ALBUMIN 4.5 GM/DL (3.2-4.5); ALKALINE PHOSPHATASE 110 U/L (40-136); BILIRUBIN,TOTAL 0.7 MG/DL (0.1-1.0); BUN/CREATININE RATIO 22; CALCIUM 9.5 MG/DL (8.5-10.1); CARBON DIOXIDE 22 MMOL/L (21-32); CHLORIDE 106 MMOL/L (98-107); CREATININE SERUM 0.82 MG/DL (0.60-1.30); GFR ESTIMATED > 60; GLUCOSE 103 MG/DL (70-105); MAGNESIUM 2.4 MG/DL (1.8-2.4); POTASSIUM 3.6 MMOL/L (3.6-5.0); SODIUM 142 MMOL/L (135-145); TOTAL PROTEIN 7.5 GM/DL (6.4-8.2)
[2019-02-20] MEDS ORDERED: ASPIRIN 81 MG CHEW (CHILDREN'S ASA) PO ONE (22:30)
--- NOTE | 2019-02-20 23:14 | ED Chest Pain ---
General Chief Complaint: Chest Pain Stated Complaint: INTERMITTENT CP, "3 HEART ATTACKS TODAY" Nursing Triage Note: PATIENT AMBULATORY TO ER WITH FAMILY MEMBERS WITH COMPLAINT OF CHEST PAIN. PATIENT STATES FIRST EPISODE OF CHEST PAIN WOKE HER UP FROM SLEEP THIS MORNING. SHE STATES SHE WENT TO WORK AND AROUND 10 AM HAD ANOTHER EPISODE OF CHEST PAIN. SHE TOOK ONE NITRO SUBLINGUAL AROUND 10:00 AM AND THE CHEST PAIN SUBSIDED. TONIGHT THE CHEST PAIN CAME BACK AND PATIENT TOOK A SECOND NITRO JUST BEFORE COMING TO THE ER. PATIENT STATES SHE IS PAIN FREE AT THIS TIME. PAIN IS TO THE CENTER OF HER CHEST AND PATIENT DESCRIBES IT PRESSURE. PAIN DOES NOT RADIATE. Nursing Sepsis Screen: No Definite Risk Source: patient, old records Exam Limitations: no limitations History of Present Illness Date Seen by Provider: Feb 20, 2019 Time Seen by Provider: 21:52 Initial Comments This 53-year-old woman presents to the emergency room with complaints of chest pain starting this morning. The initial pain woke her from sleep and then dissipated. She had another episode of chest pain at 10:00 that was alleviated with a dose of nitroglycerin. She then had another episode of chest pain at 22: 00 that again was relieved by nitroglycerin. She took aspirin 81 mg this morning and her usual Brilinta. Patient has history of coronary artery disease and had 2 stents placed during a cardiac catheterization September 2018. Dr. Newell is her visitor services associate. She is presently pain free. Allergies and Home Medications Allergies Coded Allergies: No Known Drug Allergies (Unverified , 12/21/17) Home Medications Aspirin 81 Mg Tablet., 81 MG PO HS, (Reported) Atorvastatin Calcium 80 Mg Tablet, 80 MG PO HS Prescribed by: MURRAY OROZCO on 10/08/18 1012 Hydrocodone/Acetaminophen 1 Each Tablet, 1 TAB PO TID PRN for PAIN-MODERATE, ( Reported) Lisinopril 10 Mg Tablet, 10 MG PO HS, (Reported) Metoprolol Tartrate 25 Mg Tablet, 12.5 MG PO BID Prescribed by: MURRAY OROZCO on 10/08/18 1012 Ticagrelor 90 Mg Tablet, 90 MG PO BID Prescribed by: MURRAY OROZCO on 10/08/18 1012 [Nitroglycerin] 0.4 MG BTL, 0 MG SL UD PRN for CHEST PAIN Prescribed by: MURRAY OROZCO on 10/08/18 1012 Patient Home Medication List Home Medication List Reviewed: Yes Review of Systems Review of Systems Constitutional: no symptoms reported EENTM: No Symptoms Reported Respiratory: No Symptoms Reported Cardiovascular: See HPI Gastrointestinal: No Symptoms Reported Genitourinary: No Symptoms Reported Musculoskeletal: no symptoms reported Skin: no symptoms reported Psychiatric/Neurological: No Symptoms Reported Endocrine: No Symptoms Reported Hematologic/Lymphatic: No Symptoms Reported Past Wjhfhhy-Cukokn-Abmkff Hx Past Med/Social Hx: Reviewed and Corrections made Patient Social History Alcohol Use: Rarely Uses Alcohol Beverage of Choice: Wine Recreational Drug Use: No Smoking Status: Current Everyday Smoker Type Used: Cigarettes, Electronic/Vapor 2nd Hand Smoke Exposure: Yes Recent Foreign Travel: No Contact w/Someone Who Travel: No Recent Infectious Disease Expo: No Recent Hopitalizations: No Immunizations Up To Date Tetanus Booster (TDap): Unknown PED Vaccines UTD: Yes Seasonal Allergies Seasonal Allergies: No Past Medical History Surgeries: Yes Coronary Stent Respiratory: Yes Asthma Cardiac: Yes (CORONARY STENTS X 2) Coronary Artery Disease, Hypertension Neurological: Yes Headaches /Migraines 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 Disorders: No 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 0.2oz. 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 as Tested Skin: Normal Color, Warm/Dry Progress/Results/Core Measures Results/Orders Lab Results Laboratory Tests Test 02/20/19 21:58 Range/Units White Blood Count 9.6 4.3-11.0 10^3/uL Red Blood Count 4.87 4.35-5.85 10^6/uL Hemoglobin 13.0 11.5-16.0 G/DL Hematocrit 40 35-52 % Mean Corpuscular Volume 82 80-99 FL Mean Corpuscular Hemoglobin 27 25-34 PG Mean Corpuscular Hemoglobin Concent 33 32-36 G/DL Red Cell Distribution Width 16.3 H 10.0-14.5 % Platelet Count 252 130-400 10^3/uL Mean Platelet Volume 11.0 H 7.4-10.4 FL Neutrophils (%) (Auto) 39 L 42-75 % Lymphocytes (%) (Auto) 48 H 12-44 % Monocytes (%) (Auto) 8 0-12 % Eosinophils (%) (Auto) 3 0-10 % Basophils (%) (Auto) 1 0-10 % Neutrophils # (Auto) 3.8 1.8-7.8 X 10^3 Lymphocytes # (Auto) 4.6 H 1.0-4.0 X 10^3 Monocytes # (Auto) 0.8 0.0-1.0 X 10^3 Eosinophils # (Auto) 0.3 0.0-0.3 10^3/uL Basophils # (Auto) 0.1 0.0-0.1 10^3/uL Prothrombin Time 14.3 12.2-14.7 SEC INR Comment 1.1 0.8-1.4 Activated Partial Thromboplast Time 34 24-35 SEC Sodium Level 142 135-145 MMOL/L Potassium Level 3.6 3.6-5.0 MMOL/L Chloride Level 106 98-107 MMOL/L Carbon Dioxide Level 22 21-32 MMOL/L Anion Gap 14 5-14 MMOL/L Blood Urea Nitrogen 18 7-18 MG/DL Creatinine 0.82 0.60-1.30 MG/DL Estimat Glomerular Filtration Rate > 60 BUN/Creatinine Ratio 22 Glucose Level 103 70-105 MG/DL Calcium Level 9.5 8.5-10.1 MG/DL Corrected Calcium 9.1 8.5-10.1 MG/DL Magnesium Level 2.4 1.8-2.4 MG/DL Total Bilirubin 0.7 0.1-1.0 MG/DL Aspartate Amino Transf (AST/SGOT) 18 5-34 U/L Alanine Aminotransferase (ALT/SGPT) 22 0-55 U/L Alkaline Phosphatase 110 40-136 U/L Myoglobin 26.9 10.0-92.0 NG/ML Troponin I < 0.028 <0.028 NG/ML Total Protein 7.5 6.4-8.2 GM/DL Albumin 4.5 3.2-4.5 GM/DL My Orders Orders - AUGUSTUS DIAZ MD Cbc With Automated Diff (02/20/19 22:10) Magnesium (02/20/19 22:10) Chest 1 View, Ap/Pa Only (02/20/19 22:10) Ekg Tracing (02/20/19 22:10) Cardiac Profile 1 (02/20/19 22:10) Comprehensive Metabolic Panel (02/20/19 22:10) Myoglobin Serum (02/20/19 22:10) Protime With Inr (02/20/19 22:10) Partial Thromboplastin Time (02/20/19 22:10) O2 (02/20/19 22:10) Monitor-Rhythm Ecg Trace Only (02/20/19 22:10) Lipid Panel (02/21/19 06:00) Ed Iv/Invasive Line Start (02/20/19 22:10) Aspirin Chewable Tablet (Baby Aspirin Ch (02/20/19 22:30) Medications Given in ED Current Medications Medications Dose Ordered Sig/Calin Route Start Time Stop Time Status Last Admin Dose Admin Aspirin 243 mg ONCE ONCE PO 02/20/19 22:30 02/20/19 22:31 DC 02/20/19 22:26 243 MG Vital Signs/I&O 02/20/19 02/20/19 21:52 22:09 Temp 98.3 Pulse 63 Resp 18 B/P (MAP) 136/76 (96) Pulse Ox 98 O2 Delivery Room Air Room Air Blood Pressure Mean: 96 Progress Progress Note : Progress Note Patient remained pain free throughout her ER stay. Workup was unremarkable. Case was discussed with Dr. Beckford who agrees patient should stay for cardiac rule out given her repeated episodes of chest pain with known coronary artery disease. She received the balance of her 324 mg aspirin dose. Initial ECG Impression Date: Feb 20, 2019 Initial ECG Impression Time: 21:52 Initial ECG Rate: 61 Initial ECG Rhythm: Normal Sinus Initial ECG Intervals: Normal Initial ECG Impression: Normal Comment Normal sinus rhythm with no ST elevation or depression. No abnormal intervals or axis deviation. Diagnostic Imaging Diagonstic Imaging: Xray Plain Films/CT/US/NM/MRI: chest Comments Chest x-ray viewed by me. Report not yet available. No acute abnormalities appreciated. Departure Communication (Admissions) Time/Spoke to Admitting Phy: 23:18 Dr. Flanagan Time/Spoke to Consulting Phy: 23:15 Dr. Beckford Impression Primary Impression: Chest pain Qualified Codes: R07.9 - Chest pain, unspecified Additional Impression: Coronary artery disease Qualified Codes: I25.10 - Atherosclerotic heart disease of [place] coronary artery without angina pectoris Disposition: 09 ADMITTED INPATIENT Condition: Improved Admissions Decision to Admit Reason: Admit from ER (General) Decision to Admit/Date: Feb 20, 2019 Time/Decision to Admit Time: 23:15 Departure-Patient Inst. Referrals: MURRAY OROZCO MD (PCP/Family) Primary Care Physician AUGUSTUS DIAZ MD Feb 20, 2019 23:14
[2019-02-21] VITALS (34 sets, daily range): BP systolic 91–142; BP diastolic 40–88
--- OUTSIDE RECORDS SUMMARY | 2019-02-21 00:25 | XMS REPORT ---
Author Author MURRAY OROZCO Organization [facility] Address [address] [place] [address] Care Team Providers Care Toe Former Stitchdowns Name Role Phone MURRAY OROZCO Unavailable PROBLEMS Type Condition ICD9-CM Code [id number] Code Onset Dates Condition Status SNOMED Code Problem Essential hypertension I10 Active 24655762 Problem Constipation, unspecified constipation type K59.00 Active 89464387 Problem Primary insomnia F51.01 Active 6070855 Problem Bilateral carpal tunnel syndrome G56.03 Active 18523959733704551 Problem Valeria-menopausal N95.1 Active 069643230598276 Problem Mixed hyperlipidemia E78.2 Active 505495907 Problem Unstable angina I20.0 Active 8390768 Problem Tension-type headache, not intractable, unspecified chronicity pattern G44.209 Active 995765103 Problem Chronic pain syndrome G89.4 Active 983130318 Problem 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 Active 4396301654468 Problem Adult BMI 45.0-49.9 kg/sq m Z68.42 Active 720976561 ALLERGIES No Information ENCOUNTERS Encounter Location Date Diagnosis [facility] [address] [address] Sep, [facility] [id number] [place] [address] Sep, [facility] [id number] [place] [address] 82371- 99[address] Sep, Unstable angina I20.0 ; 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 ; Tobacco use Z72.0 ; Essential hypertension I10 ; Mixed hyperlipidemia E78.2 and Adult BMI 45.0-49.9 kg/sq m Z68.42 [facility] [id number] [place] [address] 96410- 8[address] Sep, [facility] [id number] [place] [address] 92396- 5763 Jul, [facility] [id number] [place] [address] 56500- 3451 Jul, [facility] [id number] [place] [address] 61826- 8212 Jun, Tension-type headache, not intractable, unspecified chronicity pattern G44.209 ; Right hip pain M25.551 ; Chronic pain syndrome G89.4 ; Left foot pain M79.672 and Essential hypertension I10 [facility] [address] [address] May, [facility] [id number] [place] [address] 61761- 8665 Apr, [facility] [address] [address] Apr, [facility] [id number] [place] [address] 08689- 6870 Apr, [facility] [id number] [place] [address] 81621- 3474 Apr, [facility] [id number] [place] [address] 80968- 5545 Mar, [facility] [id number] [place] [address] 36031- 7636 Mar, Left wrist pain M25.532 ; Plantar fasciitis, right M72.2 and Chronic pain syndrome G89.4 [facility] [id number] [place] [address] 60654- 49[address] February, [facility] [id number] [place] [address]37 [address] February, Constipation, unspecified constipation type K59.00 [facility] [id number] [place] [address] 72389- 8[address] February, [facility] [address] [address] Jan, Nausea R11.0 ; Fever R50.9 and Acute pharyngitis due to other specified organisms J02.8 [facility] [address] [address] Jan, [facility] [id number] [place] [address] 63532- 2085 Nov, Right upper quadrant abdominal pain R10.11 [facility] [id number] [place] [address] 54766- 1625 Nov, [facility] [id number] [place] [address] 32101- 9547 Aug, [facility] [id number] [place] [address] 63428- 0034 Aug, [facility] [id number] [place] [address] 22878- 1810 Jun, Primary insomnia F51.01 [facility] [id number] [place] [address] 38778- 6[address] Jun, Crohn''s disease of colon without complication K50.10 ; Apnea spell R06.81 and Right upper quadrant abdominal pain R10.11 [facility] [id number] [place] [address] 44085- 3345 Jun, [facility] [id number] [place] [address] 55281- 1480 February, Acute Crohns disease, without complications K50.90 ; Primary insomnia F51.01 ; Tobacco abuse counseling Z71.6 and Essential hypertension I10 [facility] [address] [address] Jan, [facility] [id number] [place] [address] 84286- 4636 Aug, Cough R05 [facility] [address] [facility] [id number] [address] Aug, [facility] [address] [facility] [id number], [place] [address] Jul, Essential hypertension I10 ; Valeria-menopausal N95.1 and Need for hepatitis C screening test Z11.59 [facility] [address] [facility] [id number] [address] Jul, [facility] [address] [facility] [id number] [address] Jul, Breast lump N63 ; Essential hypertension I10 ; History of Crohn's disease Z87.19 ; Valeria-menopausal N95.1 ; Tobacco abuse Z72.0 and Need for hepatitis C screening test Z11.59 IMMUNIZATIONS No Known Immunizations SOCIAL HISTORY Never Assessed REASON FOR VISIT PALS- Brilinta PLAN OF CARE VITAL SIGNS MEDICATIONS Medication Instructions Dosage Frequency Start Date End Date Duration Status Brilinta 90 MG Orally Twice a day 1 tablet 12h 18 Sep, 2018 90 days Active RESULTS No Results PROCEDURES No Known [...]
--- OUTSIDE RECORDS SUMMARY | 2019-02-21 00:25 | XMS REPORT ---
Author Author MURRAY OROZCO Organization [facility] Address [address] [place] [address] Care Team Providers Care Pickling Machine Operator Name Role Phone MURRAY OROZCO Unavailable PROBLEMS Type Condition ICD9-CM Code [id number] Code Onset Dates Condition Status SNOMED Code Problem Essential hypertension I10 Active 78210050 Problem Constipation, unspecified constipation type K59.00 Active 14119834 Problem Primary insomnia F51.01 Active 1299768 Problem Bilateral carpal tunnel syndrome G56.03 Active 28442719291465206 Problem Valeria-menopausal N95.1 Active 737969307562428 Problem Mixed hyperlipidemia E78.2 Active 634402978 Problem Unstable angina I20.0 Active 1856172 Problem Tension-type headache, not intractable, unspecified chronicity pattern G44.209 Active 609082410 Problem Chronic pain syndrome G89.4 Active 858906432 Problem Coronary artery disease involving [place] coronary artery of ag[place] heart with unstable angina pectoris I25.110 Active 1498105035538 Problem Adult BMI 45.0-49.9 kg/sq m Z68.42 Active 922105088 ALLERGIES No Information ENCOUNTERS Encounter Location Date Diagnosis [facility] [address], [place] [address] Sep, [facility] [address] [place] [address]13- [address] Sep, Unstable angina I20.0 ; Coronary artery disease involving [place] coronary artery of ag[place] heart with unstable angina pectoris I25.110 ; Tobacco use Z72.0 ; Essential hypertension I10 ; Mixed hyperlipidemia E78.2 and Adult BMI 45.0-49.9 kg/sq m Z68.42 [facility] [address] [place] [address] 60008[address] Sep, [facility] [id number] [place] [address] 66180- 5912 Jul, [facility] [id number] [place] [address] 85348- 3260 Jul, [facility] [id number] [place] [address] 55245- 3497 Jun, Tension-type headache, not intractable, unspecified chronicity pattern G44.209 ; Right hip pain M25.551 ; Chronic pain syndrome G89.4 ; Left foot pain M79.672 and Essential hypertension I10 [facility] [id number] [place] [address] 35183- 0053 May, [facility] [id number] [place] [address] 28838- 4869 Apr, [facility] [id number] [place] [address] 35738- 7885 Apr, [facility] [id number] [place] [address] 39517- 4209 Apr, [facility] [id number] [place] [address] 60282- 5658 Apr, [facility] [id number] [place] [address] 61834- 2490 Mar, [facility] [id number] [place] [address] 23904- 2980 Mar, Left wrist pain M25.532 ; Plantar fasciitis, right M72.2 and Chronic pain syndrome G89.4 [facility] [id number] [place] [address] 32223- 9613 February, [facility] [id number] [place] [address] 89029 [address] February, Constipation, unspecified constipation type K59.00 [facility] [id number] [place] [address] 46834- 6378 February, [facility] [id number] [place] [address] 41299 -9064 Jan, Nausea R11.0 ; Fever R50.9 and Acute pharyngitis due to other specified organisms J02.8 [facility] [id number] [place] [address] 88026- 8465 Jan, [facility] [id number] [place] [address] 88699- 8877 Nov, Right upper quadrant abdominal pain R10.11 [facility] [id number] [place] [address] 65668- 9428 Nov, [place] [address] [address] Aug, [place] [id number] [place] [address] 08929- 5814 Aug, [place] [address] [address]- [address] Jun, Primary insomnia F51.01 [place] [id number] [place] [address] 39016- 0631 Jun, Crohn''s disease of colon without complication K50.10 ; Apnea spell R06.81 and Right upper quadrant abdominal pain R10.11 [place] [id number] [place] [address] 43330- 8926 Jun, [place] [id number] [place] [address] 77187- 7976 February, Acute Crohns disease, without complications K50.90 ; Primary insomnia F51.01 ; Tobacco abuse counseling Z71.6 and Essential hypertension I10 [place] [address] [address]- [address] Jan, [facility] [id number] [place] [address] 15682- 2132 Aug, Cough R05 [place] [address] 23921- [address] Aug, [facility] [address] [facility] [id number] [place] [address] Jul, Essential hypertension I10 ; Valeria-menopausal N95.1 and Need for hepatitis C screening test Z11.59 [facility] [address] [facility] [id number] [place] [address] Jul, [facility] [address] [facility] [id number] [address] Jul, Breast lump N63 ; Essential hypertension [...]
--- OUTSIDE RECORDS SUMMARY | 2019-02-21 00:25 | XMS REPORT ---
Author Author MURRAY OROZCO Organization [facility] Address [address] [place] [address] Care Team Providers Care Debubblizer Name Role Phone MURRAY OROZCO Unavailable PROBLEMS Type Condition ICD9-CM Code NUI04-EJ Code Onset Dates Condition Status SNOMED Code Problem Essential hypertension I10 Active 30270584 Problem Constipation, unspecified constipation type K59.00 Active 75192500 Problem Primary insomnia F51.01 Active 8613874 Problem Bilateral carpal tunnel syndrome G56.03 Active 59330115200725274 Problem Valeria-menopausal N95.1 Active 917652522832933 Problem Mixed hyperlipidemia E78.2 Active 910057103 Problem Unstable angina I20.0 Active 9813454 Problem Tension-type headache, not intractable, unspecified chronicity pattern G44.209 Active 254558581 Problem Chronic pain syndrome G89.4 Active 784481513 Problem Coronary artery disease involving atka coronary artery of atka heart with unstable angina pectoris I25.110 Active 0950903239721 Problem Adult BMI 45.0-49.9 kg/sq m Z68.42 Active 486525521 ALLERGIES No Known Allergies ENCOUNTERS Encounter Location Date Diagnosis [facility] [address] [address] Sep, [facility] [id number] [place] [address] Sep, Unstable angina I20.0 ; Coronary artery disease involving atka coronary artery of atka heart with unstable angina pectoris I25.110 ; Tobacco use Z72.0 ; Essential hypertension I10 ; Mixed hyperlipidemia E78.2 and Adult BMI 45.0-49.9 kg/sq m Z68.42 [facility] [address], [place] [address] Sep, [facility] [id number] [place] [address] Jul, [facility] [id number] [place] [address]- [address] Jul, [facility] [id number] [place] [address]44- [address] Jun, Tension-type headache, not intractable, unspecified chronicity pattern G44.209 ; Right hip pain M25.551 ; Chronic pain syndrome G89.4 ; Left foot pain M79.672 and Essential hypertension I10 [facility] [id number] [place] [address] May, [facility] [id number] [place] [address]- 6[address] Apr, [facility] [id number] [place] [address] 04[address]- [address] Apr, [facility] [id number] [place] [address]62- 0[address] Apr, [facility] [id number] [place] [address] 98068- 0362 Apr, [facility] [id number] [place] [address] 90369- 37[address] Mar, [facility] [id number] [place] [address]- [address] Mar, Left wrist pain M25.532 ; Plantar fasciitis, right M72.2 and Chronic pain syndrome G89.4 [facility] [id number] [place] [address] 89468- [address] February, [facility] [id number] [place] [address] February, Constipation, unspecified constipation type K59.00 [facility] [id number] [place] [address] 7[address]- [address] February, [facility] [id number] [place] [address] Jan, Nausea R11.0 ; Fever R50.9 and Acute pharyngitis due to other specified organisms J02.8 [place] [place] [id number] [place] [address] 74714- [address]238 Jan, [facility] [id number] [place] [address] 24466- 9417 Nov, Right upper quadrant abdominal pain R10.11 [facility] [id number] [place] [address] 73916- 0989 Nov, [place] [address] [address] Aug, [place] [id number] [place] [address] 8[address]68- [address] Aug, [place] [address] [address]- [address] Jun, Primary insomnia F51.01 [place] [id number] [place] [address] 80381- [address] Jun, Crohn''s disease of colon without complication K50.10 ; Apnea spell R06.81 and Right upper quadrant abdominal pain R10.11 [place] [id number] [place] [address] 15222- 0061 Jun, [place] [id number] [place] [address] 17906- 3940 February, Acute Crohns disease, without complications K50.90 ; Primary insomnia F51.01 ; Tobacco abuse counseling Z71.6 and Essential hypertension I10 [place] [address] [address]- [address] Jan, [place] [id number] [place] [address] 14356- 6401 Aug, Cough R05 [place] [address] [address] Aug, [facility] [address] [facility] [id number] [address] 13 Jul, 2016 Essential hypertension I10 ; Valeria-menopausal N95.1 and Need for hepatitis C screening test Z11.59 [facility] [address] [facility] [id number] [address] 13 Jul, 2016 [facility] [address] [facility] [id number] [address] Jul, Breast lump N63 ; Essential hypertension I10 ; History of Crohn's disease Z87.19 ; Valeria-menopausal N95.1 ; Tobacco abuse Z72.0 and Need for hepatitis C screening test Z11.59 IMMUNIZATIONS No Known Immunizations SOCIAL HISTORY Never Assessed REASON FOR VISIT [facility] follow up -- ghassan glass PLAN OF CARE Activity Details Follow Up 4 Weeks with [place] Reason: VITAL SIGNS Height 51.5 in 2018-10-10 Weight 178.0 lbs 2018-10-10 Temperature 97.2 degrees Fahrenheit 2018-10-10 BMI 47.18 kg/m2 2018-10-10 Blood pressure systolic 128 mmHg 2018-10-10 Blood pressure diastolic 72 mmHg 2018-10-10 MEDICATIONS Medication Instructions Dosage Frequency Start Date End Date Duration Status Ticagrelor 90 MG Orally Twice a day 1 tablet 12h 30 day(s) Active Aspirin 81 MG Orally Once a day 1 tablet 24h Jul, 30 day(s) Active Atorvastatin Calcium 80 MG Orally Once a day 1 tablet 24h 30 day(s) Active Lisinopril 10 MG TAKE ONE TABLET BY MOUTH ONCE DAILY 30 Active Hydrocodone-Acetaminophen 5-325 MG Orally TID PRN 1 tablet as needed Jul, Active Nitroglycerin 0.4 MG as directed Active Metoprolol Tartrate 25 MG Orally Twice a day 1 tablet with food 12h 30 day(s) Active RESULTS No Results PROCEDURES No Known [...]
--- OUTSIDE RECORDS SUMMARY | 2019-02-21 00:28 | XMS REPORT | Continuity of Care Document ---
Author Organization Unknown Address Unknown Allergies Active Description Code Type Severity Reaction Onset Reported/Identified Relationship to Patient Clinical Status Yes No Known Drug Allergies [id number] Drug Allergy Unknown N/A 12/21/2017 Medications There is no data. Problems Date Dx Coded Attending Type Code Diagnosis Diagnosed By 11/17/2011 Ot 789.07 ABDOMINAL PAIN, GENERALIZED 11/18/2011 Ot 555.9 REGIONAL ENTERITIS NOS 12/23/2011 Ot 305.1 TOBACCO USE DISORDER 12/23/2011 Ot 414.01 CORONARY ATHEROSCLEROSIS OF UTE CORON 12/23/2011 Ot 555.9 REGIONAL ENTERITIS NOS [...] LUMP IN BREAST 11/13/2016 MURRAY OROZCO MD R Ot N63 UNSPECIFIED LUMP IN BREAST 11/13/2016 GLENDA LAI MD, Ot I10 ESSENTIAL (PRIMARY) HYPERTENSION 11/13/2016 GLENDA LAI MD, Ot J44.1 CHRONIC OBSTRUCTIVE PULMONARY DISEASE W 11/13/2016 GLENDA LAI MD Ot R07.9 CHEST PAIN, UNSPECIFIED 11/13/2016 GLENDA LAI MD Ot 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 11/13/2016 GLENDA LAI MD Ot Z79.899 OTHER SHELTER (CURRENT) DRUG THERAPY 07/16/2017 JORDY DO, DARCY K Ot E78.00 PURE HYPERCHOLESTEROLEMIA, UNSPECIFIED 07/16/2017 JORDY DO, DARCY K Ot F17.210 NICOTINE DEPENDENCE, CIGARETTES, UNCOMPL 07/16/2017 JORDY DO, DARCY K Ot I10 ESSENTIAL (PRIMARY) HYPERTENSION 07/16/2017 JORDY DO, DARCY K Ot I25.10 ATHSCL HEART DISEASE OF U[place] CORONARY 07/16/2017 JORDY DO DARCY K Ot J44.9 CHRONIC OBSTRUCTIVE PULMONARY DISEASE, U 07/16/2017 JORDY DO, DARCY K Ot J45.909 UNSPECIFIED ASTHMA, UNCOMPLICATED 07/16/2017 JORDY DO, DARCY K Ot K21.9 GASTRO-ESOPHAGEAL REFLUX DISEASE WITHOUT 07/16/2017 JORDY DO, DARCY K Ot K59.00 CONSTIPATION, UNSPECIFIED 07/16/2017 JORDY DO DARCY K Ot R10.11 RIGHT UPPER QUADRANT PAIN 07/16/2017 JORDY DO DARCY K Ot Z79.4 SHELTER (CURRENT) USE OF INSULIN 07/16/2017 JORDY DO DARCY K Ot Z87.19 PERSONAL HISTORY OF OTHER DISEASES OF TH 07/21/2017 JORDY DO, DARCY K Ot E78.00 PURE HYPERCHOLESTEROLEMIA, UNSPECIFIED 07/21/2017 JORDY DO, DARCY K Ot F17.210 NICOTINE DEPENDENCE, CIGARETTES, UNCOMPL 07/21/2017 JORDY DO, DARCY K Ot I10 ESSENTIAL (PRIMARY) HYPERTENSION 07/21/2017 JORDY DO, DARCY K Ot I25.10 ATHSCL HEART DISEASE OF [place] CORONARY 07/21/2017 JORDY DO, DARCY K Ot J44.9 CHRONIC OBSTRUCTIVE PULMONARY DISEASE, U 07/21/2017 JORDY DO, DARCY K Ot J45.909 UNSPECIFIED ASTHMA, UNCOMPLICATED 07/21/2017 JORDY DO, DARCY K Ot K21.9 GASTRO-ESOPHAGEAL REFLUX DISEASE WITHOUT 07/21/2017 JORDY DO, DARCY K Ot K59.00 CONSTIPATION, UNSPECIFIED 07/21/2017 JORDY DO, DARCY K Ot R10.11 RIGHT UPPER QUADRANT PAIN 07/21/2017 JORDY DO, DARCY K Ot Z79.4 SHELTER (CURRENT) USE OF INSULIN 07/21/2017 JORDY DO, DARCY K Ot Z87.19 PERSONAL HISTORY OF OTHER DISEASES OF TH 12/06/2017 JORDY DO, DARCY K Ot E78.00 PURE HYPERCHOLESTEROLEMIA, UNSPECIFIED 12/06/2017 JORDY DO, DARCY K Ot F17.210 NICOTINE DEPENDENCE, CIGARETTES, UNCOMPL 12/06/2017 JORDY DO, DARCY K Ot I10 ESSENTIAL (PRIMARY) HYPERTENSION 12/06/2017 JORDY DO, DARCY K Ot I25.10 ATHSCL HEART DISEASE OF [place] CORONARY 12/06/2017 JORDY DO, DARCY K Ot J44.9 CHRONIC OBSTRUCTIVE PULMONARY DISEASE, U 12/06/2017 JORDY DO, DARCY K Ot K21.9 GASTRO-ESOPHAGEAL REFLUX DISEASE WITHOUT 12/06/2017 JORDY DO, DARCY K Ot R10.11 RIGHT UPPER QUADRANT PAIN 12/06/2017 JORDY DO, DARCY K Ot 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 12/06/2017 JORDY DO, DARCY K Ot Z87.19 PERSONAL HISTORY OF OTHER DISEASES OF 12/07/2017 JORDY DO, DARCY K Ot E78.00 PURE HYPERCHOLESTEROLEMIA, UNSPECIFIED 12/07/2017 JORDY DO, DARCY K Ot F17.210 NICOTINE DEPENDENCE, CIGARETTES, UNCOMPL 12/07/2017 ILDEFONSO SPENCE DOA K Ot I10 ESSENTIAL (PRIMARY) HYPERTENSION 12/07/2017 DARCY SPENCE DO K Ot I25.10 ATHSCL HEART DISEASE OF [place] CORONARY 12/07/2017 DARCY SPENCE DO Ot J44.9 CHRONIC OBSTRUCTIVE PULMONARY DISEASE, U 12/07/2017 JORDY DARCY MASSEY Ot K21.9 GASTRO-ESOPHAGEAL REFLUX DISEASE WITHOUT 12/07/2017 JORDY DODARCY Ot R10.11 RIGHT UPPER QUADRANT PAIN 12/07/2017 DARCY SPENCE DO K Ot 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 12/07/2017 JORDY ILDEFONSOA K Ot Z87.19 PERSONAL HISTORY OF OTHER [...] EXAMIN 12/22/2017 SHAZIA GILES, TASHA Love Ot K80.10 CALCULUS OF GALLBLADDER W CHRONIC CHOLEC 12/22/2017 SHAZIA GLIES, TASHA Love Ot Z01.818 ENCOUNTER FOR OTHER PREPROCEDURAL EXAMIN 12/22/2017 SHAZIA GILES, TASHA Love Ot F17.210 NICOTINE DEPENDENCE, CIGARETTES, UNCOMPL 12/22/2017 SHAZIA GILES, TASHA Love Ot G47.33 OBSTRUCTIVE SLEEP APNEA (ADULT) (PEDIATR 12/22/2017 SHAZIA GILES, TASHA Love Ot I10 ESSENTIAL (PRIMARY) HYPERTENSION 12/22/2017 SHAZIA GILES, TASHA Love Ot I25.10 ATHSCL HEART DISEASE OF UTE CORONARY 12/22/2017 SHAZIA GILES, TASHA Love Ot J44.9 CHRONIC OBSTRUCTIVE PULMONARY DISEASE, U 12/22/2017 SHAZIA GILES, TASHA Love Ot K21.9 GASTRO-ESOPHAGEAL REFLUX DISEASE WITHOUT 12/22/2017 SHAZIA GILES, TASHA Love Ot K50.90 CROHN'S DISEASE, UNSPECIFIED, WITHOUT CO 12/22/2017 SHAZIA GILES, TASHA Love Ot K80.20 CALCULUS OF GALLBLADDER W/O CHOLECYSTITI 12/22/2017 TASHA MCCRAY MD Ot M19.90 UNSPECIFIED OSTEOARTHRITIS, UNSPECIFIED 12/22/2017 TASHA MCCRAY MD Ot Z11.2 ENCOUNTER FOR SCREENING FOR OTHER BACTER 12/22/2017 TASHA MCCRAY MD Ot 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 12/22/2017 TASHA MCCRAY MD Ot Z79.899 OTHER SHELTER (CURRENT) DRUG THERAPY 12/23/2017 TASHA MCCRAY MD Ot F17.210 NICOTINE DEPENDENCE, CIGARETTES, UNCOMPL 12/23/2017 TASHA MCCRAY MD Ot G47.33 OBSTRUCTIVE SLEEP APNEA (ADULT) (PEDIATR 12/23/2017 TASHA MCCRAY MD Ot I10 ESSENTIAL (PRIMARY) HYPERTENSION 12/23/2017 TASHA MCCRAY MD Ot I25.10 ATHSCL HEART DISEASE OF UTE CORONARY 12/23/2017 TASHA MCCRAY MD Ot J44.9 [...] BACTER 12/23/2017 TASHA MCCRAY MD Ot 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 12/23/2017 TASHA MCCRAY MD Ot 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 12/28/2017 TASHA MCCRAY MD Ot F17.210 NICOTINE DEPENDENCE, CIGARETTES, UNCOMPL 12/28/2017 TASHA MCCRAY MD Ot G47.33 OBSTRUCTIVE SLEEP APNEA (ADULT) (PEDIATR 12/28/2017 TASHA MCCRAY MD Ot I10 ESSENTIAL (PRIMARY) HYPERTENSION 12/28/2017 TASHA MCCRAY MD Ot I25.10 ATHSCL HEART DISEASE OF [place] CORONARY 12/28/2017 TASHA MCCRAY MD Ot J44.9 CHRONIC OBSTRUCTIVE PULMONARY DISEASE, U 12/28/2017 TASHA MCCRAY MD Ot K21.9 GASTRO-ESOPHAGEAL REFLUX DISEASE WITHOUT 12/28/2017 TASHA MCCRAY MD Ot K50.90 CROHN'S DISEASE, UNSPECIFIED, WITHOUT CO 12/28/2017 TASHA MCCRAY MD Ot K80.20 CALCULUS OF GALLBLADDER W/O CHOLECYSTITI 12/28/2017 TASHA MCCRAY MD, Ot M19.90 UNSPECIFIED OSTEOARTHRITIS, UNSPECIFIED 12/28/2017 TASHA MCCRAY MD Ot Z11.2 ENCOUNTER FOR SCREENING FOR OTHER BACTER 12/28/2017 TASHA MCCRAY MD Ot 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 12/28/2017 TASHA MCCRAY MD, Ot 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 12/31/2017 TASHA MCCRAY MD Ot F17.210 NICOTINE DEPENDENCE, CIGARETTES, UNCOMPL 12/31/2017 TASHA MCCRAY MD Ot G47.33 OBSTRUCTIVE SLEEP APNEA (ADULT) (PEDIATR 12/31/2017 TASHA MCCRAY MD Ot I10 ESSENTIAL (PRIMARY) HYPERTENSION 12/31/2017 TASHA MCCRAY MD Ot I25.10 ATHSCL HEART DISEASE OF UTE CORONARY 12/31/2017 TASHA MCCRAY MD Ot J44.9 CHRONIC OBSTRUCTIVE PULMONARY DISEASE, U 12/31/2017 TASHA MCCRAY MD Ot K21.9 GASTRO-ESOPHAGEAL REFLUX DISEASE WITHOUT 12/31/2017 TASHA MCCRAY MD Ot K50.90 CROHN'S DISEASE, UNSPECIFIED, WITHOUT CO 12/31/2017 TASHA MCCRAY MD Ot K80.20 CALCULUS OF GALLBLADDER W/O CHOLECYSTITI 12/31/2017 TASHA MCCRAY MD, Ot M19.90 UNSPECIFIED OSTEOARTHRITIS, UNSPECIFIED 12/31/2017 TASHA MCCRAY MD Ot Z11.2 ENCOUNTER FOR SCREENING FOR OTHER BACTER 12/31/2017 TASHA MCCRAY MD Ot Z79.82 SHELTER (CURRENT) USE OF ASPIRIN 12/31/2017 TASHA MCCRAY MD Ot Z79.899 OTHER SHELTER (CURRENT) DRUG THERAPY 03/07/2018 MURRAY OROZCO MD Ot N63 UNSPECIFIED LUMP IN BREAST 03/07/2018 [...] Love Ot I25.10 ATHSCL HEART DISEASE OF [place] CORONARY 03/08/2018 SHAZIA GILES, TASHA Love Ot J44.9 CHRONIC OBSTRUCTIVE PULMONARY DISEASE, U 03/08/2018 SHAZIA GILES, TASHA Love Ot K21.9 GASTRO-ESOPHAGEAL REFLUX DISEASE WITHOUT 03/08/2018 TASHA MCCRAY MD Ot K50.90 CROHN'S DISEASE, UNSPECIFIED, WITHOUT CO 03/08/2018 TASHA MCCRAY MD Ot K80.20 CALCULUS OF GALLBLADDER W/O CHOLECYSTITI 03/08/2018 TASHA MCCRAY MD Ot M19.90 UNSPECIFIED OSTEOARTHRITIS, UNSPECIFIED 03/08/2018 SHAZIA GILES, TASHA Love Ot Z11.2 ENCOUNTER FOR SCREENING FOR OTHER BACTER 03/08/2018 SHAZIA GILES, TASHA Love Ot Z79.82 SHELTER (CURRENT) USE OF ASPIRIN 03/08/2018 TASHA MCCRAY MD Ot 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 05/13/2018 MURRAY OROZCO MD [...] Ot K80.20 CALCULUS OF GALLBLADDER W/O CHOLECYSTITI 10/08/2018 MURRAY OROZCO MD Ot E78.5 HYPERLIPIDEMIA, UNSPECIFIED 10/08/2018 MURRAY OROZCO MD Ot F17.210 NICOTINE DEPENDENCE, CIGARETTES, UNCOMPL 10/08/2018 MURRAY OROZCO MD Ot I10 ESSENTIAL (PRIMARY) HYPERTENSION 10/08/2018 MURRAY OROZCO MD Ot I25.119 ATHSCL HEART DISEASE OF [place] COR ART W 10/08/2018 MURRAY OROZCO MD Ot K21.9 GASTRO-ESOPHAGEAL REFLUX DISEASE WITHOUT 10/08/2018 MURRAY OROZCO MD Ot K50.90 CROHN'S DISEASE, UNSPECIFIED, WITHOUT CO 10/08/2018 MURRAY OROZCO MD Ot R51 HEADACHE 10/10/2018 MURRAY OROZCO MD Ot E78.5 HYPERLIPIDEMIA, UNSPECIFIED 10/10/2018 MURRAY OROZCO MD Ot F17.210 NICOTINE DEPENDENCE, CIGARETTES, UNCOMPL 10/10/2018 MURRAY OROZCO MD Ot I10 ESSENTIAL (PRIMARY) HYPERTENSION 10/10/2018 MURRAY OROZCO MD Ot I25.119 ATHSCL HEART DISEASE OF [place] COR ART W 10/10/2018 MURRAY OROZCO MD Ot K21.9 GASTRO-ESOPHAGEAL REFLUX DISEASE WITHOUT 10/10/2018 MURRAY OROZCO MD Ot K50.90 CROHN'S DISEASE, UNSPECIFIED, WITHOUT CO 10/10/2018 MURRAY OROZCO MD Ot R51 HEADACHE 11/29/2018 MURRAY OROZCO MD Ot K80.20 CALCULUS OF GALLBLADDER W/O CHOLECYSTITI 11/29/2018 Ivan NORIEGA MD Ot R06.02 SHORTNESS OF BREATH 11/29/2018 Ivan NORIEGA MD Ot R06.02 SHORTNESS OF BREATH 01/24/2019 Ivan NORIEGA MD Ot R06.02 SHORTNESS OF BREATH Procedures There is no data. Results Test [...] Status Pt. Type Provider Facility Loc./Unit Complaint [id number] 02/07/2019 14:20:00 02/07/2019 23:59:59 CLS Outpatient MURRAY OROZCO [facility] [id number] 11/18/2018 15:39:00 11/18/2018 23:59:59 CLS Outpatient Ivan [facility]GA [facility] [id number] 10/05/2018 13:45:00 10/08/2018 10:46:00 DIS Outpatient MURRAY OROZCO MD [facility] CATH CHEST PAIN [id number] 12/22/2017 06:12:00 12/22/2017 11:20:00 DIS Outpatient TASHA MCCRAY MD [facility] SDC GALLSTONES [id number] 12/21/2017 06:05:00 12/21/2017 13:47:00 DIS Outpatient TASHA MCCRAY MD [facility] PREOP GALLSTONES [id number] 12/15/2017 11:44:00 12/15/2017 23:59:59 CLS Outpatient MURRAY OROZCO MD [facility] RAD R10.11 RUQ ABD PAIN [id number] 12/05/2017 21:23:00 12/06/2017 01:16:00 DIS Emergency DARCY SPENCE DO [facility] ER CHRONS FLARE UP [id number] 08/11/2017 07:29:00 08/11/2017 23:59:59 CLS Preadmit MURRAY OROZCO MD [facility] SLEEP HYPERSOMNIA G47.10 [id number] 07/15/2017 21:47:00 07/16/2017 00:18:00 DIS Emergency DARCY SPENCE DO [facility] ER VOMITING;FEVER [id number] 11/13/2016 13:43:00 11/13/2016 16:55:00 DIS Emergency GLENDA LAI MD [facility] ER CHEST PAIN/SOA LEFT ARM NUMBNESS [id number] 08/12/2016 12:39:00 08/12/2016 23:59:59 CLS Outpatient MURRAY OROZCO MD [facility] RAD BREAST LUMP [id number] 05/21/2016 19:12:00 05/21/2016 22:38:00 DIS Emergency SARI ROSARIO [facility] ER ABD PAIN [id number] 02/12/2014 14:40:00 02/12/2014 16:34:00 DIS Emergency GLENDA LAI MD [facility] ER MULTIPLE COMPLAINTS [id number] 12/22/2011 18:45:00 Document Registration [id number] 11/18/2011 08:25:00 Document Registration [id number] 11/17/2011 04:41:00 Document Registration
[2019-02-21] MEDS ORDERED: NITROGLYCERIN 0.4 MG SL TABS BTL 25'S SL PRN (02:00)
[2019-02-21] MEDS ORDERED: morphine INJ 4 MG/ML 1 ML (VIAL/SYRINGE) IV PRN (02:00)
[2019-02-21] MEDS ORDERED: CATHETER FLUSH 10 ML SYR IV PRN (02:00)
[2019-02-21] MEDS: CATHETER FLUSH 10 ML SYR IV SCH ×3 (05:06→23:21)
[2019-02-21 06:32] LABS: CHOLESTEROL 110 MG/DL (< 200); HDL CHOLESTEROL 33 MG/DL (40-60); TRIGLYCERIDES 211 MG/DL (<150); VLDL CHOLESTEROL 42 MG/DL (5-40)
--- NOTE | 2019-02-21 07:40 | Diagnostic Imaging Report ---
Patient History: Chest pain. Technique: Single frontal view of the chest Comparison: 10/05/2018 FINDINGS: The lung volumes are normal. No focal consolidation is seen. No large pleural effusion or pneumothorax is seen. The cardiomediastinal silhouette is normal in size and contour. No acute osseous abnormality is seen. IMPRESSION: No acute pulmonary abnormality seen. Dictated by: Dictated on workstation # [id number]
--- NOTE | 2019-02-21 08:45 | NUR ---
DR. NORIEGA NOTIFIED OF PTS. P=52 AND BP-106/50 AND STATED TO HOLD ALL BP MEDS FOR NOW.
[2019-02-21] MEDS ORDERED: ASPIRIN E.C. 81 MG (ECOTRIN) TAB PO SCH (09:00)
[2019-02-21] MEDS ORDERED: TICAGRELOR 90 MG TABLET (BRILINTA) PO SCH (09:00)
[2019-02-21] MEDS: lisINopril 10 MG (PRINIVIL) TABLET PO SCH (09:47)
[2019-02-21] MEDS: meTOprolol TARTRATE 25 MG (LOPRESSOR) TABLET PO SCH ×2 (09:47→21:24)
[2019-02-21] MEDS ORDERED: ATOR80TA76 PO (10:22)
--- NOTE | 2019-02-21 10:30 | NUR ---
LASHAWN CHOUDHURY demonstrates understanding of discharge instructions and accurately returns instructions upon questioning. Copy of Post-Discharge Instructions given to PT. LASHAWN CHOUDHURY is able to manage continuing needs after discharge. Patients belongings returned to PT. Patient discharged from [facility] on 02/21/19 at 10:30. LASHAWN CHOUDHURY left floor via W/C, accompanied by STAFF AND FAMILY PER AUTO. Addendum: 02/21/19 at 1509 by MIKAYLA YOUSIF RN WRONG CHART
[2019-02-21] MEDS ORDERED: METO-333 PO (10:41)
[2019-02-21] MEDS ORDERED: BUPR-42 PO (10:41)
[2019-02-21] MEDS ORDERED: TICA90TA PO (10:41)
--- NOTE | 2019-02-21 10:44 | NUR ---
SPOKE WITH THE PATIENT ABOUT HER MEDICATIONS, SHE LISTED WHAT SHE IS TAKING AND I VERIFIED WITH [facility]. [facility] FILLED: 02-15-19 HYDROCODONE 5-325MG TID PRN #84 02-07-19 METOPROLOL TARTRATE 25MG 1/2 BID 01-31-19 LIPITOR 80MG HS (DOES NOT THINK SHE TAKES A CHOLESTEROL MED BUT DOES KNOW SHE TAKES A BIG WHITE TAB AT HS THAT SHE IS NOT SURE WHAT IT IS FOR) 01-31-19 LISINOPRIL 10MG DAILY SHE RECEIVED WELLBUTRIN XL 150MG DAILY #90 FROM THE REPOSITORY 02-06-19. THEY ALSO STATE THEY COMPLETED THE PALS APPLICATION FOR BRILINTA 90MG BID ON 02-09-19 SO IT MAY NOT HAVE BEEN DELIVERED TO THE PATIENT YET FROM THE [facility] BUT SHOULD BE IN THE WORKS. OTC: ASPIRIN 81MG DAILY
--- NOTE | 2019-02-21 10:45 | Consultation-Cardiology ---
HPI-Cardiology Cardiology Consultation: Date of Consultation 02/21/19 Date of Admission Attending Physician Sosa Flanagan MD Admitting Physician Sandra Cruz MD Consulting Physician Ivan NEWELL MD HPI: Time Seen by a Provider: 09:00 Chief Complaint: Chest pain This is a 53-year-old lady with known history of CAD with unstable angina in September 2018 requiring coronary angiography which revealed severe LAD stenosis treated with 2 drug-eluting stents. Moderate to severe RCA stenosis with borderline FFR was left alone. The patient was on dual antiplatelet therapy but complained of severe prolonged chest pain which brought her to the ER. Severe intensity 08/03. No significant radiation. Substernal in origin. No significant associated cardiac symptoms. No exacerbating or relieving factors. Review of Systems-Cardiology Review of Systems Constitutional: As described under HPI; No As described under HPI, No no symptoms reported, No chills, No fever, No lightheadedness Eyes: No As described under HPI, No no symptoms reported, No blindness, No blurred vision, No contact lenses, No drainage, No decreased acuity, No foreign body sensation, No pain, No vision change Ears/Nose/Throat: No As described under HPI, No no symptoms reported, No chronic hearing loss, No ear discharge, No ear pain, No nasal drainage, No ulcerations Respiratory: No no symptoms reported; As described under HPI; No As described under HPI, No cough, No orthopnea, No shortness of breath, No SOB with excertion Cardiovascular: No no symptoms reported; As described under HPI; No As described under HPI; chest pain; No edema, No irregular heart rate, No lightheadedness, No palpitations Gastrointestinal: No no symptoms reported, No As described under HPI, No abdomen distended, No abdominal pain, No blood streaked bowels, No constipation , No diarrhea, No nausea, No vomiting, No stool coloration changes Genitourinary: No As described under HPI, No burning, No dysuria, No discharge , No frequency, No flank pain, No hematuria, No urgency : Yes : No Skin: No rash, No skin related problems, No ulcerations Psychiatric/Neurological: No anxiety, No depression, No seizure, No focal weakness, No syncope Hematologic: No bleeding abnormalities NSH-Gepdzp-Ibtlkr Hx Patient Social History Alcohol Use: Rarely Uses Recreational Drug Use: No Smoking Status: Current Everyday Smoker Type Used: Cigarettes, Electronic/Vapor 2nd Hand Smoke Exposure: Yes Recent Foreign Travel: No Recent Infectious Disease Expo: No Hospitalization with Isolation: Denies Immunizations Up To Date Tetanus Booster (TDap): Unknown Date of Pneumonia Vaccine: Sep 24, 2018 Past Medical History PMH As described under Assessment. Family Medical History Family History: Cancer of mouth 19 MOTHER, , Age:67, Onset:Unknown Cardiovascular disease 19 MOTHER, , Age:67, Onset:Unknown Completed stroke 19 MOTHER, , Age:67, Onset:Unknown Diabetes mellitus 19 MOTHER, , Age:67, Onset:Unknown FH: CABG (coronary artery bypass surgery) 19 MOTHER, , Age:67, Onset:Unknown FH: lung cancer 19 MOTHER, , Age:67, Onset:Unknown FH: ovarian cancer 19 MOTHER, , Age:67, Onset:Unknown GERD 19 FATHER, , Age:69, Onset:Unknown Hypertension 19 MOTHER, , Age:67, Onset:Unknown Allergies and Home Medications Allergies Coded Allergies: No Known Drug Allergies (Unverified , 12/21/17) Home Medications Aspirin 81 Mg Tablet.dr, 81 MG PO DAILY, (Reported) Atorvastatin Calcium 80 Mg Tablet, 80 MG PO HS, (Reported) Bupropion HCl 150 Mg Tab.er.24h, 150 MG PO DAILY, (Reported) Hydrocodone/Acetaminophen 1 Each Tablet, 1 TAB PO TID PRN for PAIN-MODERATE, ( Reported) Lisinopril 10 Mg Tablet, 10 MG PO DAILY, (Reported) Metoprolol Tartrate 25 Mg Tablet, 12.5 MG PO BID, (Reported) TAKES 1/2 (25MG) TABLET Ticagrelor 90 Mg Tablet, 90 MG PO BID, (Reported) Patient Home Medication List Home Medication List Reviewed: Yes Physical Exam-Cardiology Physical Exam Vital Signs/I&O 02/21/19 02/21/19 02/21/19 02/21/19 01:30 01:45 02:00 02:30 Pulse 57 56 52 49 Resp 17 12 25 16 B/P (MAP) 108/49 (68) 114/55 (74) 107/60 (76) 95/52 (66) O2 Delivery Room Air Room Air Room Air Room Air 02/21/19 02/21/19 02/21/19 02/21/19 03:00 03:30 04:00 04:00 Pulse 47 50 46 Resp 15 21 17 B/P (MAP) 91/60 (70) 121/68 (85) 92/68 (76) Pulse Ox 99 O2 Delivery Room Air Room Air Room Air Room Air 02/21/19 02/21/19 02/21/19 02/21/19 04:20 04:25 05:00 06:00 Temp 97.2 Pulse 68 61 48 Resp 14 25 21 B/P (MAP) 119/88 (98) 130/70 (90) 124/63 (83) O2 Delivery Room Air Room Air Room Air 02/21/19 02/21/19 02/21/19 02/21/19 07:00 08:00 08:00 08:00 Temp 97.2 Pulse 54 56 Resp 23 B/P (MAP) 106/40 (62) Pulse Ox 96 O2 Delivery Room Air Room Air 02/21/19 02/21/19 09:00 10:30 Pulse 56 Resp 23 B/P (MAP) 106/40 Pulse Ox 96 O2 Delivery Room Air Room Air Capillary Refill : Less Than 3 Seconds Constitutional: appears stated age, AAO x 3; No apparent distress; well- developed, well-nourished HEENT: PERRL; No normal ENT inspection, No TMs normal, No pharynx normal, No scleral icterus (R), No scleral icterus (L), No pale conjunctivae (R), No pale conjunctivae (L), No photophobia, No TM abnormal (R), No TM abnormal (L), No pharyngeal erythema, No tonsillar exudate, No other, No discharge, No EOMI; hearing is well preserved; No hard of hearing; oral hygience is good; No ulceration, No xanthelasmas are seen Neck: No non-tender, No full range of motion, No supple, No normal inspection, No carotid bruit, No limited range of motion, No lymphadenopathy (R), No lymphadenopathy (L), No tender lateral, No tender midline, No thyromegaly, No other; carotid pulses are 2 + bilaterally; No with good upstrokes Respiratory: No accessory muscle use, No respiratory distress, No chest tender , No chest expansion is symmetric; chest is bilaterally symmetric; No lungs clear to percussion; lungs clear to auscultation; No crackles, No rhonchi, No rales, No stridor, No wheezing, No pleural rub, No other Cardiovascular: regular rate-rhythm; No irregularly irregular, No extra beats, No parasternal heave is noted, No JVD, No edema, No bradycardia, No tachycardia , No point of maximal impulse, No cardiac thrills are palpable; S1 and S2; No gallop/S3, No gallop/S4, No diastolic murmur, No systolic murmur, No friction rub, No click, No other Gastrointestinal: No tender, No soft, No round, No distended, No pulsatile mass , No organomegaly, No guarding, No rebound, No tenderness, No hernia, No mass, No audible bowel sounds, No abnormal bowel sounds, No abdominal bruits, No spleenomegaly, No other Rectal: deferred Extremities: No normal range of motion, No non-tender, No normal inspection, No pedal edema, No calf tenderness, No normal capillary refill, No pelvis stable , No calf tenderness, No inflammation, No pedal edema, No slow capillary refill , No swelling, No other, No abrasion, No clubbing, No cyanosis, No ecchymosis, No laceration, No no lower extremity edema bilateral, No significant edema, No tenderness, No wound Neurologic/Psychiatric: no motor/sensory deficits, alert, normal mood/affect, oriented x 3, power is 5/5 both on sides Skin: No normal color, No warm/dry, No cyanosis, No cool, No diaphoresis, No damp, No ecchymosis, No jaundice, No mottled, No pallor, No rash, No tattoos/ piercings, No ulcerations, No rash on exposed areas, No ulcerations on exposed areas, No other Data Review Labs Laboratory Tests 02/20/19 21:58: White Blood Count 9.6, Red Blood Count 4.87, Hemoglobin 13.0, Hematocrit 40, Mean Corpuscular Volume 82, Mean Corpuscular Hemoglobin 27, Mean Corpuscular Hemoglobin Concent 33, Red Cell Distribution Width 16.3H, Platelet Count 252, Mean Platelet Volume 11.0H, Neutrophils (%) (Auto) 39L, Lymphocytes (%) (Auto) 48H, Monocytes (%) (Auto) 8, Eosinophils (%) (Auto) 3, Basophils (%) (Auto) 1, Neutrophils # (Auto) 3.8, Lymphocytes # (Auto) 4.6H, Monocytes # (Auto) 0.8, Eosinophils # (Auto) 0.3, Basophils # (Auto) 0.1, Prothrombin Time 14.3, INR Comment 1.1, Activated Partial Thromboplast Time 34, Sodium Level 142, Potassium Level 3.6, Chloride Level 106, Carbon Dioxide Level 22, Anion Gap 14, Blood Urea Nitrogen 18, Creatinine 0.82, Estimat Glomerular Filtration Rate > 60 , BUN/Creatinine Ratio 22, Glucose Level 103, Calcium Level 9.5, Corrected Calcium 9.1, Magnesium Level 2.4, Total Bilirubin 0.7, Aspartate Amino Transf ( AST/SGOT) 18, Alanine Aminotransferase (ALT/SGPT) 22, Alkaline Phosphatase 110, Myoglobin 26.9, Troponin I < 0.028, Total Protein 7.5, Albumin 4.5 02/21/19 04:15: Troponin I < 0.028, Triglycerides Level 211H, Cholesterol Level 110, LDL Cholesterol Direct 46, VLDL Cholesterol 42H, HDL Cholesterol 33L ECG Impression ECG Initial ECG Rhythm: Normal Sinus Initial ECG Impression: Normal A/P-Cardiology Assessment/Admission Diagnosis Prolonged chest pain, CAD, Hypertension, Hyperlipidemia Plan Unstable angina, negative serial troponin and EKG. However due to recent stents and previously known moderate to severe RCA disease, will recommend coronary angiography. Continue dual antiplatelet therapy. CAD, known PCI to the LAD in September 2018 with 2 drug-eluting stents. Continue aspirin, Brilinta, Lipitor. Hypertension, currently patient heart rate was in the 50s and systolic blood pressure of 100 mmHg. Therefore beta jahaira and lisinopril was held. Hyperlipidemia, continue atorvastatin. Thank you for your consultation. Please call me if you have any questions. Christopher Newell MD, FACP, FACC, FSCAI, FHRS, CCDS Interventional Cardiology Cardiac Electrophysiology Vascular Medicine and Endovascular Interventions Clinical Quality Measures AMI/AHF: ASA po Prior to arrival: Yes (THIS MORNING 81 MG) DVT/VTE Risk/Contraindication: Risk Factor Score Per Nursin RFS Level Per Nursing on Admit: 3=High Ivan NEWELL MD Feb 21, 2019 10:45
--- NOTE | 2019-02-21 11:00 | NUR ---
TRANSFERRED FROM ICU PER W/C. ALERT AND COOPERATIVE. SKIN W/D. RESP. REGULAR. DENIES CHEST PAIN. AT BEDSIDE.
--- NOTE | 2019-02-21 12:10 | History & Physicial (CHS) ---
HPI History of Present Illness: 53 yo female came to ER due to recurrent chest pain. She had 2 stents placed a few months ago and follows with Dr. Newell. She states yesterday am she was woken from sleep with chest pain, nausea, dizziness and diaphoresis. She brushed it off because she had to go to work, but it did persist throughout the day until she finally felt she should take nitroglycerin, which helped a little. At the end of the day when she was showering the pain recurred and she decided to come to the ER. Source: patient Date seen by provider: Feb 21, 2019 Time Seen by Provider: 09:40 Attending Physician Sosa Flanagan MD PCP Murray Cruz MD Consult Date of Admission Feb 20, 2019 at 23:21 Home Medications Home Medications Reviewed patient Home Medication Reconciliation performed by pharmacy medication reconciliations certified ophthalmic technician and/or nursing. Patients Allergies have been reviewed. Allergies Coded Allergies: No Known Drug Allergies (Unverified , 12/21/17) [id number] Hx Patient Social History Alcohol Use: Rarely Uses Recreational Drug Use: No Smoking Status: Current Everyday Smoker Type Used: Cigarettes, Electronic/Vapor 2nd Hand Smoke Exposure: Yes Recent Foreign Travel: No Contact w/other who traveled: No Recent Hopitalizations: No Recent Infectious Disease Expo: No Immunizations Up To Date Tetanus Booster (TDap): Unknown Date of Pneumonia Vaccine: Sep 24, 2018 Past Medical History PMHx: HTN Tobacco use HLD CAD ASOD COPD SurgHx: Cardiac stent x2 Family Medical History Family History: Cancer of mouth 19 MOTHER, , Age:67, Onset:Unknown Cardiovascular disease 19 MOTHER, , Age:67, Onset:Unknown Completed stroke 19 MOTHER, , Age:67, Onset:Unknown Diabetes mellitus 19 MOTHER, , Age:67, Onset:Unknown FH: CABG (coronary artery bypass surgery) 19 MOTHER, , Age:67, Onset:Unknown FH: lung cancer 19 MOTHER, , Age:67, Onset:Unknown FH: ovarian cancer 19 MOTHER, , Age:67, Onset:Unknown GERD 19 FATHER, , Age:69, Onset:Unknown Hypertension 19 MOTHER, , Age:67, Onset:Unknown Review of Systems (CHC) Constitutional: dizziness; No fever Respiratory: No cough Cardiovascular: see HPI Gastrointestinal: constipation (chronic), nausea Genitourinary: No dysuria Musculoskeletal: No joint pain Skin: No rash Psychiatric/Neurological: No Symptoms Reported Reviewed Test Results Reviewed Test Results Lab Laboratory Tests Test 02/20/19 21:58 02/21/19 04:15 Range/Units White Blood Count 9.6 4.3-11.0 10^3/uL Red Blood Count 4.87 4.35-5.85 10^6/uL Hemoglobin 13.0 11.5-16.0 G/DL Hematocrit 40 35-52 % Mean Corpuscular Volume 82 80-99 FL Mean Corpuscular Hemoglobin 27 25-34 PG Mean Corpuscular Hemoglobin Concent 33 32-36 G/DL Red Cell Distribution Width 16.3 H 10.0-14.5 % Platelet Count 252 130-400 10^3/uL Mean Platelet Volume 11.0 H 7.4-10.4 FL Neutrophils (%) (Auto) 39 L 42-75 % Lymphocytes (%) (Auto) 48 H 12-44 % Monocytes (%) (Auto) 8 0-12 % Eosinophils (%) (Auto) 3 0-10 % Basophils (%) (Auto) 1 0-10 % Neutrophils # (Auto) 3.8 1.8-7.8 X 10^3 Lymphocytes # (Auto) 4.6 H 1.0-4.0 X 10^3 Monocytes # (Auto) 0.8 0.0-1.0 X 10^3 Eosinophils # (Auto) 0.3 0.0-0.3 10^3/uL Basophils # (Auto) 0.1 0.0-0.1 10^3/uL Prothrombin Time 14.3 12.2-14.7 SEC INR Comment 1.1 0.8-1.4 Activated Partial Thromboplast Time 34 24-35 SEC Sodium Level 142 135-145 MMOL/L Potassium Level 3.6 3.6-5.0 MMOL/L Chloride Level 106 98-107 MMOL/L Carbon Dioxide Level 22 21-32 MMOL/L Anion Gap 14 5-14 MMOL/L Blood Urea Nitrogen 18 7-18 MG/DL Creatinine 0.82 0.60-1.30 MG/DL Estimat Glomerular Filtration Rate > 60 BUN/Creatinine Ratio 22 Glucose Level 103 70-105 MG/DL Calcium Level 9.5 8.5-10.1 MG/DL Corrected Calcium 9.1 8.5-10.1 MG/DL Magnesium Level 2.4 1.8-2.4 MG/DL Total Bilirubin 0.7 0.1-1.0 MG/DL Aspartate Amino Transf (AST/SGOT) 18 5-34 U/L Alanine Aminotransferase (ALT/SGPT) 22 0-55 U/L Alkaline Phosphatase 110 40-136 U/L Myoglobin 26.9 10.0-92.0 NG/ML Troponin I < 0.028 < 0.028 <0.028 NG/ML Total Protein 7.5 6.4-8.2 GM/DL Albumin 4.5 3.2-4.5 GM/DL Triglycerides Level 211 H <150 MG/DL Cholesterol Level 110 < 200 MG/DL LDL Cholesterol Direct 46 1-129 MG/DL VLDL Cholesterol 42 H 5-40 MG/DL HDL Cholesterol 33 L 40-60 MG/DL Radiology CXR 02/20 no acute abnormalities Physical Exam-(CHC) Physical Exam Vital Signs VS - Last 72 Hours, by Label 02/20/19 02/20/19 02/21/19 02/21/19 21:52 22:09 00:34 00:42 Temp 98.3 98.3 Pulse 63 54 Resp 18 18 B/P (MAP) 136/76 (96) 123/67 (85) Pulse Ox 98 98 99 O2 Delivery Room Air Room Air Room Air Room Air 02/21/19 02/21/19 02/21/19 02/21/19 00:48 00:48 00:58 01:00 Temp 96.8 Pulse 54 58 55 53 Resp 16 11 B/P (MAP) 128/58 (81) 113/72 (86) Pulse Ox 99 O2 Delivery Room Air Room Air 02/21/19 02/21/19 02/21/19 02/21/19 01:00 01:01 01:15 01:30 Temp 96.8 Pulse 53 54 64 57 Resp 13 16 23 17 B/P (MAP) 113/74 (87) 128/58 107/72 (84) 108/49 (68) Pulse Ox 99 O2 Delivery Room Air Room Air Room Air Room Air 02/21/19 02/21/19 02/21/19 02/21/19 01:45 02:00 02:30 03:00 Pulse 56 52 49 47 Resp 12 25 16 15 B/P (MAP) 114/55 (74) 107/60 (76) 95/52 (66) 91/60 (70) O2 Delivery Room Air Room Air Room Air Room Air 02/21/19 02/21/19 02/21/19 02/21/19 03:30 04:00 04:00 04:20 Temp 97.2 Pulse 50 46 Resp 21 17 B/P (MAP) 121/68 (85) 92/68 (76) Pulse Ox 99 O2 Delivery Room Air Room Air Room Air 02/21/19 02/21/19 02/21/19 02/21/19 04:25 05:00 06:00 07:00 Pulse 68 61 48 54 Resp 14 25 21 B/P (MAP) 119/88 (98) 130/70 (90) 124/63 (83) O2 Delivery Room Air Room Air Room Air 02/21/19 02/21/19 02/21/19 02/21/19 08:00 08:00 08:00 09:00 Temp 97.2 Pulse 56 Resp 23 B/P (MAP) 106/40 (62) Pulse Ox 96 O2 Delivery Room Air Room Air Room Air 02/21/19 10:30 Pulse 56 Resp 23 B/P (MAP) 106/40 Pulse Ox 96 O2 Delivery Room Air Capillary Refill : Less Than 3 Seconds General Appearance: WD/WN, no apparent distress Respiratory: lungs clear, normal breath sounds Cardiovascular: regular rate, rhythm, no murmur Gastrointestinal: normal bowel sounds, non tender, soft, no organomegaly Extremities: no pedal edema Neurologic/Psychiatric: alert, normal mood/affect Skin: normal color, warm/dry Assessment/Plan Assessment/Plan Admission Status: Observation (1) Chest pain Status: Acute Assessment & Plan: Troponin negative but high risk, Cardiology consulted, appreciate recommendations. Qualifiers: Qualified Codes: R07.9 - Chest pain, unspecified (2) Coronary artery disease Status: Acute Qualifiers: Qualified Codes: I25.10 - Atherosclerotic heart disease of [place] coronary artery without angina pectoris (3) HLD (hyperlipidemia) Status: Chronic Qualifiers: Qualified Codes: E78.00 - Pure hypercholesterolemia, unspecified (4) HTN (hypertension) Status: Acute Qualifiers: Qualified Codes: I10 - Essential (primary) hypertension (5) Tobacco abuse Status: Chronic Assessment & Plan: Encouraged cessation (6) DVT prophylaxis Status: Acute Assessment & Plan: Enoxaparin Clinical Quality Measures AMI/AHF: ASA po Prior to arrival: Yes (THIS MORNING 81 MG) DVT/VTE Risk/Contraindication: Risk Factor Score Per Nursin RFS Level Per Nursing on Admit: 3=High Copy Copies To 1: MURRAY CRUZ MD, BETHANY N MD Feb 21, 2019 12:10
[2019-02-21] MEDS ORDERED: NON-FORMULARY MEDICATION 1 EA EA (Hydrocodone/Acetaminophen (Hydrocodone-Acetamin 5-325 mg PO PRN (12:15)
[2019-02-21] MEDS ORDERED: ENOXAPARIN 40 MG/0.4 ML (LOVENOX) SYR SC SCH (13:00)
[2019-02-21] MEDS ORDERED: HYDROcodone/APAP 5 MG/325 MG (LORTAB) TAB PO PRN (13:00)
--- NOTE | 2019-02-21 13:45 | NUR ---
Pastoral care visit.
[2019-02-21] MEDS ORDERED: LIDOCAINE 1% INJ 20 ML 20 ML VIAL ONE (14:57)
[2019-02-21] MEDS ORDERED: HEParin (CATH LAB) 2,000 ML IV ONE (14:57)
[2019-02-21] MEDS ORDERED: NS IV 1000 ML 1,000 ML ONE ×2 (14:57→16:27)
--- NOTE | 2019-02-21 16:26 | NUR ---
TO HEART CATH CENTER PER BED.
[2019-02-21] MEDS ORDERED: MIDAZOLAM 5 MG/5 ML (VERSED) VIAL ONE (16:27)
[2019-02-21] MEDS ORDERED: fentaNYL INJECTION 100 MCG/2 ML AMP ONE (16:28)
--- NOTE | 2019-02-21 17:22 | Cardiac Procedure Note-CS/ASA ---
Pre-Procedure Note Pre-Op Procedure Note H&P Reviewed The H&P was reviewed, patient examined and no changes noted. Date H&P Reviewed: Feb 21, 2019 Time H&P Reviewed: 16:00 Conscious Sedation Pre-Proced Time 16:00 ASA Score 3 For ASA 3 and 4: Consider anesthesia and medical clearance. Also, for patients with a history of failed moderate sedation consider anesthesia. Airway Lungs Heart ASA score ASA 1: a normal healthy patient ASA 2: a patient with a mild systemic disease (mid diabetes, controlled hypertension, obesity ASA 3: a patient with a severe systemic disease that limits activity (angina , COPD, prior Myocardial infarction) ASA 4: a patient with an incapacitating disease that is a constant threat to life (CHF, renal failure) ASA 5: a moribund patient not expected to survive 24 hrs. (ruptured aneurysm) ASA 6: a declared brain- patient whose organs are being harvested. For emergent operations, add the letter E after the classification Mallampati Classification Grade 1 Sedation Plan Analgesia, Amnesia, Plan communicated to team members, Discussed options with patient/fam, Discussed risks with patient/fam The patient is an appropriate candidate to undergo the planned procedure, sedation, and anesthesia. The patient immediately re-assessed prior to indication. Ivan NORIEGA MD Feb 21, 2019 17:22
--- NOTE | 2019-02-21 17:27 | Coronary Angiography Report ---
Coronary Angiography Report DATE OF PROCEDURE: 02/21/19 INDICATION: Unstable angina. PREOPERATIVE DIAGNOSIS: Unstable angina. POSTOPERATIVE DIAGNOSIS: No severe CAD noted. Patent stents. HISTORY: This is a 53-year-old lady with history of CAD, PCI with 2 drug- eluting stents to the LAD in September 2018. She has been on dual antiplatelet therapy since then. She presented with prolonged episode of chest pain with negative serial troponin and EKG. Therefore, the patient was scheduled for coronary angiography. PROCEDURES PERFORMED: 1.Coronary angiography. 2.Left heart catheterization. 3. Aortic arch angiogram. COMPLICATIONS: None. SPECIMENS: None. ESTIMATED BLOOD LOSS: 10 mL ANESTHESIA: Conscious sedation ANTICOAGULATION: None. CONTRAST: 55 mL. FLUOROSCOPY: 2.8 minutes. FLOUROSCOPY DOSE: 362 mgy. PROCEDURE DETAILS: The patient is a 53 female and was brought to the cardiac cath tech after informed consent was taken. All the risks and complications were explained in detail; this included the risk of bleeding, vascular damage, stroke , MD and even . The patient was draped and prepped in the usual sterile fashion. Access was gained in the right femoral artery with a 5 Scottish sheath. Coronary angiography, aortic arch angiogram and left heart catheterization was performed with a JR4 and JL4 catheter. FINDINGS: 1.Left main: Patent. 2.LAD: Patent stents. Mild diffuse disease distally. 3.Left circumflex artery: Mild diffuse disease. 4.RCA: Ostial spasm. Mild disease. 5.Left heart catheterization: LV pressure 89/1 mmHg. LVEDP 8 mmHg. Aortic pressure 92/57 mmHg. Normal LV function with no wall motion abnormalities. Normal gradient across the aortic valve. 6. Aortic arch angiogram showed no evidence of aneurysm or dissection. Patent proximal segments of the great arteries including brachycephalic artery, common carotid artery and subclavian artery. CONCLUSIONS: Patent stents with no significant focal severe stenosis. Mild diffuse disease. Continue dual antiplatelet therapy. Normal LV function with normal LVEDP. Christopher Newell MD, FACP, FACC, [facility] Interventional Cardiology Ivan NEWELL MD Feb 21, 2019 17:27
[2019-02-21] MEDS ORDERED: PATIENT MAY USE OWN MEDS, ALL PO SCH (17:30)
--- NOTE | 2019-02-21 17:42 | NUR ---
Pt to laboratory engineer holding bay 1. pt awake and denies any issues. Pt access site is soft without any blood noted on dressing. Pt placed on monitors and V/S will be taken per order. Pt will be transported to 4th floor after 30 mins of post op recovery without issues.
--- NOTE | 2019-02-21 18:20 | NUR ---
RETURNED FROM HEART CATH PER BED. ALERT AND ORIENTED. SKIN W/D. RESP. REGULAR. DEEP BREATHING ENCOURAGED. RIGHT GROIN DRESSING D/I WITH GAUGE AND OP-SITE IN PLACE. RIGHT FOOT PINK AND WARM. DENIES DISCOMFORT AT THIS TIME.
[2019-02-21] MEDS: NS IV 1000 ML 1,000 ML IV SCH (18:57)
[2019-02-21] MEDS ORDERED: ATORVASTATIN 80 MG (LIPITOR) TABLET PO SCH (21:00)
[2019-02-21] MEDS: TICAGRELOR 90 MG TABLET (BRILINTA) PO SCH (21:24)
[2019-02-22] VITALS: BP 89/52
[2019-02-22] MEDS: NS IV 1000 ML 1,000 ML IV SCH (03:29)
[2019-02-22 04:00] VITALS: BP 111/58
[2019-02-22] MEDS: CATHETER FLUSH 10 ML SYR IV SCH (05:17)
[2019-02-22 06:28] LABS: HEMOGLOBIN 12.3 G/DL (11.5-16.0); MEAN PLATELET VOLUME 11.1 FL (7.4-10.4); RED CELL DISTRIBUTION WIDTH 16.2 % (10.0-14.5); WHITE BLOOD COUNT 9.4 10^3/uL (4.3-11.0)
[2019-02-22 08:00] VITALS: BP 113/70
[2019-02-22] MEDS ORDERED: buPROPion SR 150 MG (WELLBUTRIN SR) TAB PO SCH (09:00)
[2019-02-22] MEDS ORDERED: buPROPion XL 150 MG (WELLBUTRIN XL) NON-FORM PO SCH (09:00)
[2019-02-22] MEDS ORDERED: ASPIRIN E.C. 81 MG (ECOTRIN) TAB PO SCH (09:00)
[2019-02-22] MEDS: meTOprolol TARTRATE 25 MG (LOPRESSOR) TABLET PO SCH (09:04)
[2019-02-22] MEDS: lisINopril 10 MG (PRINIVIL) TABLET PO SCH (09:04)
[2019-02-22] MEDS: TICAGRELOR 90 MG TABLET (BRILINTA) PO SCH (09:04)
--- NOTE | 2019-02-22 10:32 | NUR ---
LASHAWN CHOUDHURY demonstrates understanding of discharge instructions and accurately returns instructions upon questioning. Copy of Post-Discharge Instructions and Medication Discharge Instructions given to patient and . LASHAWN CHOUDHURY is able to manage continuing needs after discharge. Patients belongings returned to patient. Skin dry and intact; no breakdown noted. Patient discharged from [facility] on 02/22/19 at 1023. LASHAWN CHOUDHURY left floor via wheelchair, accompanied by staff and .
--- NOTE | 2019-02-22 11:58 | Discharge Summary ---
Diagnosis/Chief Complaint Date of Admission Feb 20, 2019 at 23:21 Date of Discharge February 22, 2019 at 10:23 Admission Diagnosis Admission Diagnosis Chest pain Discharge Diagnosis See problem list Problems/Diagnosis: (1) Chest pain Assessment & Plan: Troponin negative but high risk, Cardiology consulted, appreciate recommendations. Cath showed patent stents. Qualifiers: Qualified Codes: R07.9 - Chest pain, unspecified Status: Acute (2) Coronary artery disease Qualifiers: Qualified Codes: I25.10 - Atherosclerotic heart disease of [place] coronary artery without angina pectoris Status: Acute (3) HLD (hyperlipidemia) Qualifiers: Qualified Codes: E78.00 - Pure hypercholesterolemia, unspecified Status: Chronic (4) HTN (hypertension) Qualifiers: Qualified Codes: I10 - Essential (primary) hypertension Status: Acute (5) Tobacco abuse Assessment & Plan: Encouraged cessation Status: Chronic Chief Complaint/HPI Chief Complaint/HPI 53 yo female came to ER due to recurrent chest pain. She had 2 stents placed a few months ago and follows with Dr. Newell. She states yesterday am she was woken from sleep with chest pain, nausea, dizziness and diaphoresis. She brushed it off because she had to go to work, but it did persist throughout the day until she finally felt she should take nitroglycerin, which helped a little. At the end of the day when she was showering the pain recurred and she decided to come to the ER. Discharge Summary-Simple/Stand Consultations Discharge Physical Examination Allergies: Coded Allergies: No Known Drug Allergies (Unverified , 12/21/17) Vitals & I&Os Vital Sign - Last 12Hours Date Time Temp Pulse Resp B/P (MAP) Pulse Ox O2 Delivery O2 Flow Rate FiO2 02/22/19 08:00 97.9 59 18 113/70 (84) 97 Room Air Intake and Output 02/22/19 00:00 Intake Total 1350 ml Balance 1350 ml Hospital Course See final discharge diagnosis. Radiology Reviewed CXR 02/20 no acute abnormalities Discharge Instructions to patient/family Please see electronic discharge instructions given to patient. Discharge Medications Reviewed and agree with Discharge Medication list on patient's Discharge Instruction sheet Clinical Quality Measures AMI/AHF: ASA po Prior to arrival: Yes (THIS MORNING 81 MG) DVT/VTE Risk/Contraindication: Risk Factor Score Per Nursin RFS Level Per Nursing on Admit: 3=High Copy Copies To 1: GAULT,MURRAY R MD STERLING,KIM Cummings MD February 22, 2019 11:58
--- NOTE | 2019-02-22 13:50 | Cardiology Progress Note ---
Cardiology SOAP Progress Note Subjective: No chest pain today. Patient is upset that we did not find anything on coronary angiography. Objective: I&O/Vital Signs 02/22/19 02/22/19 02/22/19 02/22/19 04:00 04:17 07:15 08:00 Temp 97.6 97.9 Pulse 78 60 59 Resp 16 18 B/P (MAP) 111/58 (75) 113/70 (84) Pulse Ox 94 96 97 O2 Delivery Room Air Room Air Room Air 02/22/19 00:00 Intake Total 1350 ml Balance 1350 ml Weight (Pounds): 184 Weight (Ounces): 4.0 Weight (Calculated Kilograms): 83.146090 Constitutional: appears stated age, AAO x 3; No apparent distress; well- developed, well-nourished Respiratory: No accessory muscle use, No respiratory distress, No chest tender , No chest expansion is symmetric; chest is bilaterally symmetric; No lungs clear to percussion; lungs clear to auscultation; No crackles, No rhonchi, No rales, No stridor, No wheezing, No pleural rub, No other Cardiovascular: regular rate-rhythm; No irregularly irregular, No extra beats, No parasternal heave is noted, No JVD, No edema, No bradycardia, No tachycardia , No point of maximal impulse, No cardiac thrills are palpable; S1 and S2; No gallop/S3, No gallop/S4, No diastolic murmur, No systolic murmur, No friction rub, No click, No other Gastrointestional: No tender, No soft, No round, No distended, No pulsatile mass, No organomegaly, No guarding, No rebound, No tenderness, No hernia, No mass, No audible bowel sounds, No abnormal bowel sounds, No abdominal bruits, No spleenomegaly, No other Extremities: No normal range of motion, No non-tender, No normal inspection, No pedal edema, No calf tenderness, No normal capillary refill, No pelvis stable , No calf tenderness, No inflammation, No pedal edema, No slow capillary refill , No swelling, No other, No abrasion, No clubbing, No cyanosis, No ecchymosis, No laceration, No no lower extremity edema bilateral, No significant edema, No tenderness, No wound Neurologic/Psychiatric: no motor/sensory deficits, alert, normal mood/affect, oriented x 3, power is 5/5 both on sides Skin: No normal color, No warm/dry, No cyanosis, No cool, No diaphoresis, No damp, No ecchymosis, No jaundice, No mottled, No pallor, No rash, No tattoos/ piercings, No ulcerations, No rash on exposed areas, No ulcerations on exposed areas, No other Results/Procedures: Labs Laboratory Tests 02/22/19 06:10: White Blood Count 9.4, Red Blood Count 4.66, Hemoglobin 12.3, Hematocrit 39, Mean Corpuscular Volume 83, Mean Corpuscular Hemoglobin 26, Mean Corpuscular Hemoglobin Concent 32, Red Cell Distribution Width 16.2H, Platelet Count 204, Mean Platelet Volume 11.1H A/P: Assessment/Dx: Prolonged chest pain, CAD, Hypertension, Hyperlipidemia Plan: Prolonged chest pain, coronary angiography done 02/21/2019 showed patent stents in the LAD, moderate disease in the ostial RCA with no severe stenosis. Medical therapy is recommended. Other etiologies for chest pain need to be considered including peptic ulcer disease and esophageal spasm. Patient was upset that we did not find anything on coronary angiography. I explained to her at length that her chest pain is very unlikely due to cardiac in origin and other noncardiac causes need to be evaluated including musculoskeletal and GI causes. And that I will discuss with her primary care physician Dr. Cruz. CAD, known PCI to the LAD in September 2018 with 2 drug-eluting stents. Continue aspirin, Brilinta, Lipitor. Hypertension, currently patient heart rate was in the 50s and systolic blood pressure of 100 mmHg. Therefore beta jahaira and lisinopril was held. Hyperlipidemia, continue atorvastatin. Thank you for your consultation. Please call me if you have any questions. Christopher Newell MD, FACP, FACC, FSCAI, FHRS, CCDS Interventional Cardiology Cardiac Electrophysiology Vascular Medicine and Endovascular Interventions Clinical Quality Measures AMI/AHF: ASA po Prior to arrival: Yes (THIS MORNING 81 MG) Ivan NEWELL MD February 22, 2019 13:50
== END 2019-02-22 10:23 | disposition home or self-care (01) ==
LOC: EDUNIT# 21:50 → ER 21:52 → ICU 23:21 → 4TH 02-21 11:15
PROVIDERS: ADMIT Family Medicine; ATTEND Family Medicine
DX: R07.89 Other chest pain (principal); I25.10 Atherosclerotic heart disease of native coronary artery without angina pectoris; I10 Essential (primary) hypertension; E78.5 Hyperlipidemia, unspecified; J44.9 Chronic obstructive pulmonary disease, unspecified; K50.90 Crohn's disease, unspecified, without complications; F17.210 Nicotine dependence, cigarettes, uncomplicated; K59.09 Other constipation; M19.91 Primary osteoarthritis, unspecified site; Z95.5 Presence of coronary angioplasty implant and graft; Z79.82 Long term (current) use of aspirin; Z79.899 Other long term (current) drug therapy
CPT/HCPCS: 36221; 36415; 71045; 80053; 80061; 83735; 83874; 84484; 85025; 85027; 85610; 85730; 93005; 93041; 93458

== ENCOUNTER → 2019-05-16 | Outpatient (CLI) | payer OTHER ==
[~2019-05-16] MED LIST changes: +BUPR-42 PO
[2019-05-16 12:20] LABS: ABG BASE EXCESS -4.2 MMOL/L (-2.5-2.5); ABG OXYGEN SATURATION 96 % (94-100); ABG PCO2 33 MMHG (35-45); ABG PH 7.39 (7.37-7.43); ABG PO2 68 MMHG (79-93); ABG TCO2 21.1 MMOL/L (21.0-31.0); ALLENS TEST YES-POS; INSPIRED O2 ROOM AIR; PATIENT TEMP 96.5; VENTILATOR NO
== END ==
LOC: PULM 11:29
PROVIDERS: ATTEND Nurse Practitioner Family
DX: J45.909 Unspecified asthma, uncomplicated (principal); G47.10 Hypersomnia, unspecified; G47.50 Parasomnia, unspecified
CPT/HCPCS: 36600; 82805

== ENCOUNTER 2019-05-19 10:29 | Emergency (ER) | payer OTHER ==
[~2019-05-19] VITALS: Ht 154.9 cm; Wt 80.7 kg
[2019-05-19] MEDS ORDERED: ASPIRIN 81 MG CHEW (CHILDREN'S ASA) PO ONE (10:45)
[2019-05-19] MEDS ORDERED: NITROGLYCERIN 0.4 MG SL TABS BTL 25'S SL PRN (10:45)
--- NOTE | 2019-05-19 10:48 | NUR ---
Pt's BP 99/68. Holding Nitro at this time.
[2019-05-19 10:50] LABS: BASOPHILS # (AUTO) 0.1 10^3/uL (0.0-0.1); BASOPHILS % (AUTO) 1 % (0-10); EOSINOPHILS # (AUTO) 0.4 10^3/uL (0.0-0.3); EOSINOPHILS % (AUTO) 3 % (0-10); HEMATOCRIT 41 % (35-52); HEMOGLOBIN 13.5 G/DL (11.5-16.0); LYMPHOCYTES # (AUTO) 2.8 X 10^3 (1.0-4.0); LYMPHOCYTES % (AUTO) 22 % (12-44); MEAN CORPUSCULAR HEMOGLOBIN 27 PG (25-34); MEAN CORPUSCULAR HGB CONC 33 G/DL (32-36); MEAN CORPUSCULAR VOLUME 83 FL (80-99); MEAN PLATELET VOLUME 10.4 FL (7.4-10.4); MONOCYTES # (AUTO) 0.8 X 10^3 (0.0-1.0); MONOCYTES % (AUTO) 6 % (0-12); NEUTROPHILS # (AUTO) 8.7 X 10^3 (1.8-7.8); NEUTROPHILS % (AUTO) 69 % (42-75); PLATELET COUNT 240 10^3/uL (130-400); RED CELL DISTRIBUTION WIDTH 15.6 % (10.0-14.5); WHITE BLOOD COUNT 12.6 10^3/uL (4.3-11.0)
[2019-05-19 11:01] LABS: PROTHROMBIN TIME PATIENT 13.9 SEC (12.2-14.7)
--- OUTSIDE RECORDS SUMMARY | 2019-05-19 11:04 | XMS REPORT | Continuity of Care Document ---
Author Organization Unknown Address Unknown Allergies Active Description Code Type Severity Reaction Onset Reported/Identified Relationship to Patient Clinical Status Yes No Known Drug Allergies [id number] Drug Allergy Unknown N/A 12/21/2017 Medications There is no data. 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 12/23/2011 Ot V17.49 FAMILY HISTORY OF OTHER CARDIOVASCULAR D 12/23/2011 Ot V58.65 LONG-TERM(CURRENT)USE OF STEROIDS 12/23/2011 Ot V58.69 OTH MED,LT,CURRENT USE 02/12/2014 GLENDA LAI MD Ot 034.0 [...] UNSPECIFIED 11/13/2016 GLENDA LAI MD Ot Z79.82 LONGTERM (CURRENT) USE OF ASPIRIN 11/13/2016 GLENDA LAI MD Ot Z79.899 OTHER TRIMMER MACHINE (CURRENT) DRUG THERAPY 07/16/2017 JORDY DO, DARCY K Ot E78.00 PURE HYPERCHOLESTEROLEMIA, UNSPECIFIED 07/16/2017 JORDY DO, DARCY K Ot F17.210 NICOTINE DEPENDENCE, CIGARETTES, UNCOMPL 07/16/2017 JORDY DO, DARCY K Ot I10 ESSENTIAL (PRIMARY) HYPERTENSION 07/16/2017 JORDY DO, DARCY K Ot I25.10 ATHSCL HEART DISEASE OF [place] CORONARY 07/16/2017 JORDY DO DARCY K Ot J44.9 CHRONIC OBSTRUCTIVE PULMONARY DISEASE, U 07/16/2017 JORDY DO, DARCY K Ot J45.909 UNSPECIFIED ASTHMA, UNCOMPLICATED 07/16/2017 JORDY DO, DARCY K Ot K21.9 GASTRO-ESOPHAGEAL REFLUX DISEASE WITHOUT 07/16/2017 JORDY DO, DARCY K Ot K59.00 CONSTIPATION, UNSPECIFIED 07/16/2017 JORDY DO DARCY K Ot R10.11 RIGHT UPPER QUADRANT PAIN 07/16/2017 JORDY DO DARCY K Ot Z79.4 LONGTERM (CURRENT) USE OF INSULIN 07/16/2017 JORDY DO DARCY K Ot Z87.19 PERSONAL HISTORY OF OTHER DISEASES OF TH 07/21/2017 JORDY DO, DARCY K Ot E78.00 PURE HYPERCHOLESTEROLEMIA, UNSPECIFIED 07/21/2017 JORDY DO, DARCY K Ot F17.210 NICOTINE DEPENDENCE, CIGARETTES, UNCOMPL 07/21/2017 JORDY DO, DARCY K Ot I10 ESSENTIAL (PRIMARY) HYPERTENSION 07/21/2017 JORDY DO, DARCY K Ot I25.10 ATHSCL HEART DISEASE OF [place] CORONARY 07/21/2017 JORDY DO, DARCY K Ot J44.9 CHRONIC OBSTRUCTIVE PULMONARY DISEASE, U 07/21/2017 JORDY DO, DARCY K Ot J45.909 UNSPECIFIED ASTHMA, UNCOMPLICATED 07/21/2017 JORDY DO, DARCY K Ot K21.9 GASTRO-ESOPHAGEAL REFLUX DISEASE WITHOUT 07/21/2017 JORDY DO, DARCY K Ot K59.00 CONSTIPATION, UNSPECIFIED 07/21/2017 JORDY DO, DARCY K Ot R10.11 RIGHT UPPER QUADRANT PAIN 07/21/2017 JORDY DO, DARCY K Ot Z79.4 TRIMMER MACHINE (CURRENT) USE OF INSULIN 07/21/2017 JORDY DO, DARCY K Ot Z87.19 PERSONAL HISTORY OF OTHER DISEASES OF TH 12/06/2017 JORDY DO, DARCY K Ot E78.00 PURE HYPERCHOLESTEROLEMIA, UNSPECIFIED 12/06/2017 JORDY DO, DARCY K Ot F17.210 NICOTINE DEPENDENCE, CIGARETTES, UNCOMPL 12/06/2017 JORDY DO, DARCY K Ot I10 ESSENTIAL (PRIMARY) HYPERTENSION 12/06/2017 JORDY DO, DARCY K Ot I25.10 ATHSCL HEART DISEASE OF [place] CORONARY 12/06/2017 JORDY DO, DARCY K Ot J44.9 CHRONIC OBSTRUCTIVE PULMONARY DISEASE, U 12/06/2017 JORDY DO, DARCY K Ot K21.9 GASTRO-ESOPHAGEAL REFLUX DISEASE WITHOUT 12/06/2017 JORDY DO, DARCY K Ot R10.11 RIGHT UPPER QUADRANT PAIN 12/06/2017 JORDY DO, DARCY K Ot Z79.82 TRIMMER MACHINE (CURRENT) USE OF ASPIRIN 12/06/2017 JORDY DO, DARCY K Ot Z87.19 PERSONAL HISTORY OF OTHER DISEASES OF 12/07/2017 JORDY DO, DARCY K Ot E78.00 PURE HYPERCHOLESTEROLEMIA, UNSPECIFIED 12/07/2017 JORDY DO, DARCY K Ot F17.210 NICOTINE DEPENDENCE, CIGARETTES, UNCOMPL 12/07/2017 ILDEFONSO SPENCE DOA K Ot I10 ESSENTIAL (PRIMARY) HYPERTENSION 12/07/2017 DARCY SPENCE DO K Ot I25.10 ATHSCL HEART DISEASE OF [place] CORONARY 12/07/2017 DARCY SPENCE DO Ot J44.9 CHRONIC OBSTRUCTIVE PULMONARY DISEASE, U 12/07/2017 JORDY DARCY MASSEY Ot K21.9 GASTRO-ESOPHAGEAL REFLUX DISEASE WITHOUT 12/07/2017 JORDY DODARCY Ot R10.11 RIGHT UPPER QUADRANT PAIN 12/07/2017 DARCY SPENCE DO K Ot Z79.82 TRIMMER MACHINE (CURRENT) USE OF ASPIRIN 12/07/2017 JORDY ILDEFONSOA [...] Z01.818 ENCOUNTER FOR OTHER PREPROCEDURAL EXAMIN 12/22/2017 SHAIZA GILES, TASHA Love Ot K80.10 CALCULUS OF GALLBLADDER W CHRONIC CHOLEC 12/22/2017 SHAZIA GILES, TASHA Love Ot Z01.818 ENCOUNTER FOR OTHER PREPROCEDURAL EXAMIN 12/22/2017 SHAZIA GILES, TASHA Love Ot F17.210 NICOTINE DEPENDENCE, CIGARETTES, UNCOMPL 12/22/2017 SHAZIA GILES, TASHA Love Ot G47.33 OBSTRUCTIVE SLEEP APNEA (ADULT) (PEDIATR 12/22/2017 SHAZIA GILSE, TASHA Love Ot I10 ESSENTIAL (PRIMARY) HYPERTENSION 12/22/2017 SHAZIA GILES, TASHA Love Ot I25.10 ATHSCL HEART DISEASE OF [place] CORONARY 12/22/2017 SHAZIA GILES, TASHA Love Ot [...] BACTER 12/22/2017 TASHA MCCRAY MD Ot Z79.82 LONGTERM (CURRENT) USE OF ASPIRIN 12/22/2017 TASHA MCCRAY MD Ot Z79.899 OTHER LONGTERM (CURRENT) DRUG THERAPY 12/23/2017 TASHA MCCRAY MD Ot F17.210 NICOTINE DEPENDENCE, CIGARETTES, UNCOMPL 12/23/2017 TASHA MCCRAY MD Ot G47.33 OBSTRUCTIVE SLEEP APNEA (ADULT) (PEDIATR 12/23/2017 TASHA MCCRAY MD Ot I10 ESSENTIAL (PRIMARY) HYPERTENSION 12/23/2017 TASHA MCCRAY MD Ot I25.10 ATHSCL HEART DISEASE OF [place] CORONARY 12/23/2017 TASHA MCCRAY MD Ot J44.9 [...] BACTER 12/23/2017 TASHA MCCRAY MD Ot Z79.82 TRIMMER MACHINE (CURRENT) USE OF ASPIRIN 12/23/2017 TASHA MCCRAY MD Ot Z79.899 OTHER TRIMMER MACHINE (CURRENT) DRUG THERAPY 12/28/2017 TASHA MCCRAY MD Ot F17.210 NICOTINE DEPENDENCE, CIGARETTES, UNCOMPL 12/28/2017 TASHA MCCRAY MD Ot G47.33 OBSTRUCTIVE SLEEP APNEA (ADULT) (PEDIATR 12/28/2017 TASHA MCCRAY MD Ot I10 ESSENTIAL (PRIMARY) HYPERTENSION 12/28/2017 TASHA MCCRAY MD Ot I25.10 ATHSCL HEART DISEASE OF [place] CORONARY 12/28/2017 TASHA MCCRAY MD Ot J44.9 [...] BACTER 12/28/2017 TASHA MCCRAY MD Ot Z79.82 LONGTERM (CURRENT) USE OF ASPIRIN 12/28/2017 TASHA MCCRAY MD, Ot Z79.899 OTHER TRIMMER MACHINE (CURRENT) DRUG THERAPY 12/31/2017 TASHA MCCRAY MD Ot F17.210 NICOTINE DEPENDENCE, CIGARETTES, UNCOMPL 12/31/2017 TASHA MCCRAY MD Ot G47.33 OBSTRUCTIVE SLEEP APNEA (ADULT) (PEDIATR 12/31/2017 TASHA MCCRAY MD Ot I10 ESSENTIAL (PRIMARY) HYPERTENSION 12/31/2017 TASHA MCCRAY MD Ot I25.10 ATHSCL HEART DISEASE OF [place] CORONARY 12/31/2017 TASHA MCCRAY MD Ot J44.9 [...] BACTER 12/31/2017 TASHA MCCRAY MD Ot Z79.82 TRIMMER MACHINE (CURRENT) USE OF ASPIRIN 12/31/2017 TASHA MCCRAY MD Ot Z79.899 OTHER LONGTERM (CURRENT) DRUG THERAPY 03/07/2018 MURRAY OROZCO MD Ot N63 UNSPECIFIED LUMP IN BREAST 03/07/2018 MURRAY OROZCO MD Ot K80.20 CALCULUS OF GALLBLADDER W/O CHOLECYSTITI 03/07/2018 MURRAY OROZCO MD Ot K80.20 CALCULUS OF GALLBLADDER W/O CHOLECYSTITI 03/08/2018 SHAZIA GILES, TASHA Love Ot F17.210 NICOTINE DEPENDENCE, CIGARETTES, UNCOMPL 03/08/2018 SHAZIA GILES, TASHA oLve Ot G47.33 OBSTRUCTIVE SLEEP APNEA (ADULT) (PEDIATR 03/08/2018 SHAZIA GILES, TASHA Love Ot I10 ESSENTIAL (PRIMARY) HYPERTENSION 03/08/2018 SHAZIA GILES, TASHA Love Ot I25.10 ATHSCL HEART DISEASE OF [place] CORONARY 03/08/2018 SHAZIA GILES, TASHA Love Ot [...] 03/08/2018 SHAZIA GILES, TASHA Love Ot Z79.82 LONGTERM (CURRENT) USE OF ASPIRIN 03/08/2018 TASHA MCCRAY MD Ot Z79.899 OTHER LONGTERM (CURRENT) DRUG THERAPY 05/13/2018 MURRAY OROZCO MD [...] GALLBLADDER W/O CHOLECYSTITI 10/05/2018 MURRAY OROZCO MD R Ot K80.20 CALCULUS OF GALLBLADDER W/O CHOLECYSTITI 10/08/2018 ERNESTO GILES, MURRAY Tomlinson Ot E78.5 HYPERLIPIDEMIA, UNSPECIFIED 10/08/2018 ERNESTO GILES, MURRAY R Ot F17.210 NICOTINE DEPENDENCE, CIGARETTES, UNCOMPL 10/08/2018 ERNESTO GILES, MURRAY R Ot I10 ESSENTIAL (PRIMARY) HYPERTENSION 10/08/2018 ERNESTO GILES, MURRAY R Ot I25.119 ATHSCL HEART DISEASE OF [place] COR ART W 10/08/2018 MURRAY OROZCO MD R Ot K21.9 GASTRO-ESOPHAGEAL REFLUX DISEASE WITHOUT 10/08/2018 ERNESTO GILES, MURRAY R Ot K50.90 CROHN'S DISEASE, UNSPECIFIED, WITHOUT CO 10/08/2018 MURRAY OROZCO MD R Ot R51 HEADACHE 10/10/2018 MURRAY OROZCO MD R Ot E78.5 HYPERLIPIDEMIA, UNSPECIFIED 10/10/2018 ERNESTO GILES, MURRAY R Ot F17.210 NICOTINE DEPENDENCE, CIGARETTES, UNCOMPL 10/10/2018 MURRAY OROZCO MD R Ot I10 ESSENTIAL (PRIMARY) HYPERTENSION 10/10/2018 ERNESTO GILES, MURRAY R Ot I25.119 ATHSCL HEART DISEASE OF [place] COR ART W 10/10/2018 MURRAY OROZCO MD R Ot K21.9 GASTRO-ESOPHAGEAL REFLUX DISEASE WITHOUT 10/10/2018 ERNESTO GILES, MURRAY R Ot K50.90 CROHN'S DISEASE, UNSPECIFIED, WITHOUT CO 10/10/2018 MURRAY OROZCO MD R Ot R51 HEADACHE 11/29/2018 MURRAY OROZCO MD R Ot K80.20 CALCULUS OF GALLBLADDER W/O CHOLECYSTITI 11/29/2018 LEANN GILES, Ivan SUNSHINE Ot R06.02 SHORTNESS OF BREATH 11/29/2018 LEANN GILES, Iavn SUNSHINE Ot R06.02 SHORTNESS OF BREATH 01/24/2019 LEANN GILES, Ivan SUNSHINE Ot R06.02 SHORTNESS OF BREATH 02/20/2019 MURRAY OROZCO MD Ot K80.20 CALCULUS OF GALLBLADDER W/O CHOLECYSTITI 02/20/2019 LEANN GILES, Ivan SUNSHINE Ot R06.02 SHORTNESS OF BREATH 02/21/2019 Ivan NORIEGA MD Ot R06.02 SHORTNESS OF BREATH 02/22/2019 KIM KATZ MD Ot E78.5 HYPERLIPIDEMIA, UNSPECIFIED 02/22/2019 KIM KATZ MD Ot F17.210 NICOTINE DEPENDENCE, CIGARETTES, UNCOMPL 02/22/2019 KIM KATZ MD Ot I10 ESSENTIAL (PRIMARY) HYPERTENSION 02/22/2019 KIM KATZ MD Ot I25.10 ATHSCL HEART DISEASE OF [place] CORONARY 02/22/2019 KIM KATZ MD Ot J44.9 CHRONIC OBSTRUCTIVE PULMONARY DISEASE, U 02/22/2019 KIM KATZ MD Ot K50.90 CROHN'S DISEASE, UNSPECIFIED, WITHOUT CO 02/22/2019 KIM KATZ MD Ot K59.09 OTHER CONSTIPATION 02/22/2019 KIM KATZ MD Ot M19.91 PRIMARY OSTEOARTHRITIS, UNSPECIFIED SITE 02/22/2019 KIM KATZ MD Ot R07.89 OTHER CHEST PAIN 02/22/2019 KIM KATZ MD Ot Z79.82 TRIMMER MACHINE (CURRENT) USE OF ASPIRIN 02/22/2019 KIM KATZ MD Ot Z79.899 OTHER TRIMMER MACHINE (CURRENT) DRUG THERAPY 02/22/2019 KIM KATZ MD Ot Z95.5 PRESENCE OF CORONARY ANGIOPLASTY IMPLANT 02/27/2019 ERNESTO GILES, MURRAY Tomlinson Ot K80.20 CALCULUS OF GALLBLADDER W/O CHOLECYSTITI 02/27/2019 Ivan NORIEGA MD Ot R06.02 SHORTNESS OF BREATH 03/02/2019 KIM KATZ MD Ot E78.5 HYPERLIPIDEMIA, UNSPECIFIED 03/02/2019 KIM KATZ MD Ot F17.210 NICOTINE DEPENDENCE, CIGARETTES, UNCOMPL 03/02/2019 KIM KATZ MD Ot I10 ESSENTIAL (PRIMARY) HYPERTENSION 03/02/2019 KIM KATZ MD Ot I25.10 ATHSCL HEART DISEASE OF [place] CORONARY 03/02/2019 KIM KATZ MD Ot J44.9 CHRONIC OBSTRUCTIVE PULMONARY DISEASE, U 03/02/2019 KIM KATZ MD Ot K50.90 CROHN'S DISEASE, UNSPECIFIED, WITHOUT CO 03/02/2019 KIM KATZ MD Ot K59.09 OTHER CONSTIPATION 03/02/2019 KIM KATZ MD Ot M19.91 PRIMARY OSTEOARTHRITIS, UNSPECIFIED SITE 03/02/2019 KIM KATZ MD Ot R07.89 OTHER CHEST PAIN 03/02/2019 KIM KATZ MD Ot Z79.82 LONGTERM (CURRENT) USE OF ASPIRIN 03/02/2019 KIM KATZ MD Ot Z79.899 OTHER TRIMMER MACHINE (CURRENT) DRUG THERAPY 03/02/2019 KIM KATZ MD Ot Z95.5 PRESENCE OF CORONARY ANGIOPLASTY IMPLANT 03/03/2019 KIM KATZ MD Ot E78.5 HYPERLIPIDEMIA, UNSPECIFIED 03/03/2019 KIM KATZ MD Ot F17.210 NICOTINE DEPENDENCE, CIGARETTES, UNCOMPL 03/03/2019 KIM KATZ MD Ot I10 ESSENTIAL (PRIMARY) HYPERTENSION 03/03/2019 KIM KATZ MD Ot I25.10 ATHSCL HEART DISEASE OF [place] CORONARY 03/03/2019 KIM KATZ MD Ot J44.9 CHRONIC OBSTRUCTIVE PULMONARY DISEASE, U 03/03/2019 KIM KATZ MD Ot K50.90 CROHN'S DISEASE, UNSPECIFIED, WITHOUT CO 03/03/2019 KIM KATZ MD Ot K59.09 OTHER CONSTIPATION 03/03/2019 KIM KATZ MD Ot M19.91 PRIMARY OSTEOARTHRITIS, UNSPECIFIED SITE 03/03/2019 KIM KATZ MD Ot R07.89 OTHER CHEST PAIN 03/03/2019 KIM KATZ MD Ot Z79.82 LONGTERM (CURRENT) USE OF ASPIRIN 03/03/2019 KIM KATZ MD Ot Z79.899 OTHER TRIMMER MACHINE (CURRENT) DRUG THERAPY 03/03/2019 KIM KATZ MD Ot Z95.5 PRESENCE OF CORONARY ANGIOPLASTY IMPLANT 05/16/2019 Ivan NORIEGA MD Ot R06.02 SHORTNESS OF BREATH 05/16/2019 ERNESTO GILES, MURRAY Tomlinson Ot K80.20 CALCULUS OF GALLBLADDER W/O CHOLECYSTITI 05/16/2019 Ivan NORIEGA MD Ot R06.02 SHORTNESS OF [...] Automated erythrocyte mean corpuscular hemoglobin concentration measurement (mass/volume) 34 g/dL 32-36 Automated erythrocyte distribution width ratio 15.4 % 10.0- 14.5 Automated blood platelet count (count/volume) 250 10*3/uL [...] Blood monocytes automated count (number/volume) 0.8 10*3 0.0- 1.0 Automated eosinophil count 0.2 10*3/uL 0.0-0.3 Automated [...] Serum or plasma aspartate aminotransferase measurement (enzymatic activity/volume) 26 U/L 5-34 Serum or plasma alanine aminotransferase measurement (enzymatic activity/volume) 34 U/L 0-55 Serum or plasma protein measurement (mass/volume) 7.5 g/dL 6.4-8.2 Serum or plasma albumin measurement (mass/volume) 4.5 g/dL 3.2-4.5 Lipase - 05/21/16 19:27 Lipase 28 U/L 8-78 Serum or plasma C reactive protein measurement (mass/volume) - 05/21/16 19:27 Serum or plasma C reactive protein measurement (mass/volume) 0.87 mg/dL 0.00-0.50 Erythrocyte sedimentation rate by westergren method - 05/21/16 19:27 Erythrocyte sedimentation rate by westergren method 11 mm 0-30 Complete urinalysis with reflex to culture - 05/21/16 21:24 Urine color determination YELLOW NRG Urine clarity determination CLEAR NRG Urine pH measurement by test strip 5 5-9 Specific gravity of urine by test strip 1.010 1.016-1.022 Urine protein assay by test strip, semi-quantitative [...] sediment leukocyte count by microscopy (number/high power field) [HPF] NRG Bacteria detection in urine sediment [...] Automated erythrocyte mean corpuscular hemoglobin concentration measurement (mass/volume) 35 g/dL 32-36 Automated erythrocyte distribution width ratio 17.4 % 10.0- 14.5 Automated blood platelet count (count/volume) 255 10*3/uL [...] Blood monocytes automated count (number/volume) 1.0 10*3 0.0- 1.0 Automated eosinophil count 0.2 10*3/uL 0.0-0.3 Automated [...] measurement in platelet poor plasma (mass/volume) - 11/13/16 13:50 Fibrin D-dimer FEU measurement in platelet [...] Serum or plasma aspartate aminotransferase measurement (enzymatic activity/volume) 17 U/L 5-34 Serum or plasma alanine aminotransferase measurement (enzymatic activity/volume) 19 U/L 0-55 Serum or plasma protein measurement (mass/volume) 7.6 g/dL 6.4-8.2 Serum or plasma albumin measurement (mass/volume) 4.2 g/dL 3.2-4.5 Magnesium - 11/13/16 13:50 Magnesium 2.1 mg/dL 1.8-2.4 Serum or plasma troponin i.cardiac measurement (mass/volume) - 11/13/16 13:50 Serum or plasma troponin i.cardiac measurement (mass/volume) < ng/mL <0.30 Blood manual differential performed detection - [...] Automated erythrocyte mean corpuscular hemoglobin concentration measurement (mass/volume) 33 g/dL 32-36 Automated erythrocyte distribution width ratio 14.5 % 10.0- 14.5 Automated blood platelet count (count/volume) 296 10*3/uL [...] Blood monocytes automated count (number/volume) 0.5 10*3 0.0- 1.0 Automated eosinophil count 0.0 10*3/uL 0.0-0.3 Automated blood basophil count (count/volume) 0.0 10*3/uL 0.0-0.1 Complete urinalysis with reflex to culture - 07/15/17 21:50 Urine color determination YELLOW NRG Urine clarity determination CLEAR NRG Urine pH measurement by test strip 6 5-9 Specific gravity of urine by test strip 1.010 1.016-1.022 Urine protein assay by test strip, semi-quantitative [...] sediment leukocyte count by microscopy (number/high power field) NONE NRG Bacteria detection in urine sediment [...] Serum or plasma aspartate aminotransferase measurement (enzymatic activity/volume) 17 U/L 5-34 Serum or plasma alanine aminotransferase measurement (enzymatic activity/volume) 27 U/L 0-55 Serum or plasma protein measurement (mass/volume) 8.3 g/dL 6.4-8.2 Serum or plasma albumin measurement (mass/volume) 4.5 g/dL 3.2-4.5 Serum or plasma amylase measurement (enzymatic activity/volume) - 07/15/17 21:56 Serum or plasma amylase measurement (enzymatic activity/volume) 66 U/L 25-125 Lipase - 07/15/17 21:56 Lipase 41 U/L 8-78 Complete urinalysis with reflex to culture - 12/05/17 23:30 Urine color determination YELLOW NRG Urine clarity determination CLEAR NRG Urine pH measurement by test strip 6.5 5-9 Specific gravity of urine by test strip 1.015 1.016-1.022 Urine protein assay by test strip, semi-quantitative [...] sediment leukocyte count by microscopy (number/high power field) RARE NRG Bacteria detection in urine sediment [...] Automated erythrocyte mean corpuscular hemoglobin concentration measurement (mass/volume) 33 g/dL 32-36 Automated erythrocyte distribution width ratio 14.9 % 10.0- 14.5 Automated blood platelet count (count/volume) 320 10*3/uL [...] Blood monocytes automated count (number/volume) 0.3 10*3 0.0- 1.0 Automated eosinophil count 0.1 10*3/uL 0.0-0.3 Automated [...] Serum or plasma aspartate aminotransferase measurement (enzymatic activity/volume) 22 U/L 5-34 Serum or plasma alanine aminotransferase measurement (enzymatic activity/volume) 26 U/L 0-55 Serum or plasma protein measurement (mass/volume) 7.6 g/dL 6.4-8.2 Serum or plasma albumin measurement (mass/volume) 4.3 g/dL 3.2-4.5 Serum or plasma amylase measurement (enzymatic activity/volume) - 12/05/17 23:45 Serum or plasma amylase measurement (enzymatic activity/volume) 56 U/L 25-125 Lipase - 12/05/17 23:45 Lipase 27 U/L 8-78 Urine beta human chorionic gonadotropin (hCG) measurement - 12/22/17 06:25 Urine beta human chorionic gonadotropin (hCG) measurement NEGATIVE NEGATIVE Methicillin resistant Staphylococcus aureus (MRSA) screening culture - 12/22/17 06:25 Methicillin resistant Staphylococcus aureus (MRSA) screening [...] Automated erythrocyte mean corpuscular hemoglobin concentration measurement (mass/volume) 34 g/dL 32-36 Automated erythrocyte distribution width ratio 15.0 % 10.0- 14.5 Automated blood platelet count (count/volume) 250 10*3/uL [...] Blood monocytes automated count (number/volume) 0.7 10*3 0.0- 1.0 Automated eosinophil count 0.3 10*3/uL 0.0-0.3 Automated [...] Serum or plasma aspartate aminotransferase measurement (enzymatic activity/volume) 16 U/L 5-34 Serum or plasma alanine aminotransferase measurement (enzymatic activity/volume) 16 U/L 0-55 Serum or plasma protein measurement (mass/volume) 7.5 g/dL 6.4-8.2 Serum or plasma albumin measurement (mass/volume) 4.4 g/dL 3.2-4.5 CALCIUM CORRECTED 9.3 mg/dL 8.5-10.1 Magnesium - 10/05/18 10:24 Magnesium 2.2 mg/dL 1.8-2.4 Serum or plasma troponin i.cardiac measurement (mass/volume) - 10/05/18 10:24 Serum or plasma troponin i.cardiac measurement (mass/volume) < ng/mL <0.30 PT panel in platelet poor plasma [...] measurement in platelet poor plasma (mass/volume) - 10/05/18 10:24 Fibrin D-dimer FEU measurement in platelet poor plasma (mass/volume) 0.31 ug/mL 0.00-0.49 Myoglobin, serum - 10/05/18 10:24 Myoglobin, serum 28.1 ng/mL 10.0-92.0 Lipase - 10/05/18 10:24 Lipase 25 U/L 8-78 Serum or plasma troponin i.cardiac measurement (mass/volume) - 10/05/18 16:10 Serum or plasma troponin i.cardiac measurement (mass/volume) < ng/mL <0.30 Myoglobin, serum - 10/05/18 16:10 Myoglobin, serum 29.5 ng/mL 10.0-92.0 Methicillin resistant Staphylococcus aureus (MRSA) screening culture - 10/05/18 18:10 Methicillin resistant Staphylococcus aureus (MRSA) screening [...] Automated erythrocyte mean corpuscular hemoglobin concentration measurement (mass/volume) 33 g/dL 32-36 Automated erythrocyte distribution width ratio 15.2 % 10.0- 14.5 Automated blood platelet count (count/volume) 274 10*3/uL [...] Blood monocytes automated count (number/volume) 0.7 10*3 0.0- 1.0 Automated eosinophil count 0.3 10*3/uL 0.0-0.3 Automated [...] Serum or plasma aspartate aminotransferase measurement (enzymatic activity/volume) 17 U/L 5-34 Serum or plasma alanine aminotransferase measurement (enzymatic activity/volume) 17 U/L 0-55 Serum or plasma protein measurement (mass/volume) 7.3 g/dL 6.4-8.2 Serum or plasma albumin measurement (mass/volume) 4.3 g/dL 3.2-4.5 CALCIUM CORRECTED 9.4 mg/dL 8.5-10.1 Lipid 1996 panel - 10/06/18 04:17 Serum or plasma triglyceride measurement (mass/volume) 219 mg/dL <150 Serum or plasma cholesterol measurement (mass/volume) 237 mg/dL < 200 Serum or plasma cholesterol in HDL measurement (mass/volume) 41 mg/dL 40-60 Cholesterol in LDL [mass/volume] in serum or plasma by direct assay 152 mg/dL 1-129 Serum or plasma cholesterol in VLDL measurement (mass/volume) 44 mg/dL 5-40 Whole blood basic metabolic panel - [...] Automated erythrocyte mean corpuscular hemoglobin concentration measurement (mass/volume) 33 g/dL 32-36 Automated erythrocyte distribution width ratio 14.8 % 10.0- 14.5 Automated blood platelet count (count/volume) 188 10*3/uL [...] plasma calcium measurement (mass/volume) 8.9 mg/dL 8.5-10.1 Complete blood count (CBC) with automated white blood cell (WBC) differential - 02/20/19 21:58 Blood leukocytes automated count (number/volume) 9.6 10*3/uL 4.3-11.0 Blood erythrocytes automated count (number/volume) 4.87 10*6/uL 4.35-5.85 Venous blood hemoglobin measurement (mass/volume) 13.0 g/dL 11.5-16.0 Blood hematocrit (volume fraction) 40 % 35-52 Automated erythrocyte mean corpuscular volume 82 [foz_us] 80-99 Automated erythrocyte mean corpuscular hemoglobin (mass per erythrocyte) 27 pg 25-34 Automated erythrocyte mean corpuscular hemoglobin concentration measurement (mass/volume) 33 g/dL 32-36 Automated erythrocyte distribution width ratio 16.3 % 10.0- 14.5 Automated blood platelet count (count/volume) 252 10*3/uL 130-400 Automated blood platelet mean volume measurement 11.0 [foz_us] 7.4-10.4 Automated blood neutrophils/100 leukocytes 39 % 42-75 Automated blood lymphocytes/100 leukocytes 48 % 12-44 Blood monocytes/100 leukocytes 8 % 0-12 Automated blood eosinophils/100 leukocytes 3 % 0-10 Automated blood basophils/100 leukocytes 1 % 0-10 Blood neutrophils automated count (number/volume) 3.8 10*3 1.8-7.8 Blood lymphocytes automated count (number/volume) 4.6 10*3 1.0-4.0 Blood monocytes automated count (number/volume) 0.8 10*3 0.0- 1.0 Automated eosinophil count 0.3 10*3/uL 0.0-0.3 Automated blood basophil count (count/volume) 0.1 10*3/uL 0.0-0.1 PT panel in platelet poor plasma by coagulation assay - 02/20/19 21:58 Prothrombin time (PT) in platelet poor plasma by coagulation assay 14.3 s 12.2-14.7 INR in platelet poor plasma or blood by coagulation assay 1.1 0.8-1.4 Activated partial thromboplastin time (aPTT) in platelet poor plasma bycoagulation assay - 02/20/19 21:58 Activated partial thromboplastin time (aPTT) in platelet poor plasma bycoagulation assay 34 s 24-35 Comprehensive metabolic panel - 02/20/19 21:58 Serum or plasma sodium measurement (moles/volume) 142 mmol/L 135-145 Serum or plasma potassium measurement (moles/volume) 3.6 mmol/L 3.6-5.0 Serum or plasma chloride measurement (moles/volume) 106 mmol/L 98-107 Carbon dioxide 22 mmol/L 21-32 Serum or plasma anion gap determination (moles/volume) 14 mmol/L 5-14 Serum or plasma urea nitrogen measurement (mass/volume) 18 mg/dL 7-18 Serum or plasma creatinine measurement (mass/volume) 0.82 mg/dL 0.60-1.30 Serum or plasma urea nitrogen/creatinine mass ratio 22 NRG Serum or plasma creatinine measurement with calculation of estimated glomerular filtration rate > NRG Serum or plasma glucose measurement (mass/volume) 103 mg/dL 70-105 Serum or plasma calcium measurement (mass/volume) 9.5 mg/dL 8.5-10.1 Serum or plasma total bilirubin measurement (mass/volume) 0.7 mg/dL 0.1-1.0 Serum or plasma alkaline phosphatase measurement (enzymatic activity/volume) 110 U/L 40-136 Serum or plasma aspartate aminotransferase measurement (enzymatic activity/volume) 18 U/L 5-34 Serum or plasma alanine aminotransferase measurement (enzymatic activity/volume) 22 U/L 0-55 Serum or plasma protein measurement (mass/volume) 7.5 g/dL 6.4-8.2 Serum or plasma albumin measurement (mass/volume) 4.5 g/dL 3.2-4.5 CALCIUM CORRECTED 9.1 mg/dL 8.5-10.1 Magnesium - 02/20/19 21:58 Magnesium 2.4 mg/dL 1.8-2.4 Serum or plasma troponin i.cardiac measurement (mass/volume) - 02/20/19 21:58 Serum or plasma troponin i.cardiac measurement (mass/volume) < ng/mL <0.028 Myoglobin, serum - 02/20/19 21:58 Myoglobin, serum 26.9 ng/mL 10.0-92.0 Serum or plasma troponin i.cardiac measurement (mass/volume) - 02/21/19 04:15 Serum or plasma troponin i.cardiac measurement (mass/volume) < ng/mL <0.028 Lipid 1996 panel - 02/21/19 04:15 Serum or plasma triglyceride measurement (mass/volume) 211 mg/dL <150 Serum or plasma cholesterol measurement (mass/volume) 110 mg/dL < 200 Serum or plasma cholesterol in HDL measurement (mass/volume) 33 mg/dL 40-60 Cholesterol in LDL [mass/volume] in serum or plasma by direct assay 46 mg/dL 1-129 Serum or plasma cholesterol in VLDL measurement (mass/volume) 42 mg/dL 5-40 Automated blood complete blood count (hemogram) panel - 02/22/19 06:10 Blood leukocytes automated count (number/volume) 9.4 10*3/uL 4.3-11.0 Blood erythrocytes automated count (number/volume) 4.66 10*6/uL 4.35-5.85 Venous blood hemoglobin measurement (mass/volume) 12.3 g/dL 11.5-16.0 Blood hematocrit (volume fraction) 39 % 35-52 Automated erythrocyte mean corpuscular volume 83 [foz_us] 80-99 Automated erythrocyte mean corpuscular hemoglobin (mass per erythrocyte) 26 pg 25-34 Automated erythrocyte mean corpuscular hemoglobin concentration measurement (mass/volume) 32 g/dL 32-36 Automated erythrocyte distribution width ratio 16.2 % 10.0- 14.5 Automated blood platelet count (count/volume) 204 10*3/uL 130-400 Automated blood platelet mean volume measurement 11.1 [foz_us] 7.4-10.4 Arterial blood gas measurement - 05/16/19 12:12 Blood pCO2 33 mm[Hg] 35-45 Blood pO2 68 mm[Hg] 79-93 Arterial blood bicarbonate measurement (moles/volume) 20 mmol/L 23-27 Arterial blood base excess by calculation -4.2 mmol/L -2.5-2.5 Arterial blood oxygen saturation measurement 96 % 94-100 * Inhaled oxygen flow rate ROOM AIR NRG Arterial blood pH measurement with patient temperature correction 7.39 7.37-7.43 Arterial blood carbon dioxide, total measurement (moles/volume) 21.1 mmol/L 21.0-31.0 Body site R BRACHIAL NRG Assessment of wrist artery patency prior to arterial puncture YES-POS NRG Setting of ventilation mode NO NRG Measurement of body temperature 96.5 NRG Complete blood count (CBC) with automated white blood cell (WBC) differential - 05/19/19 10:42 Blood leukocytes automated count (number/volume) 12.6 10*3/uL 4.3-11.0 Blood erythrocytes automated count (number/volume) 4.97 10*6/uL 4.35-5.85 Venous blood hemoglobin measurement (mass/volume) 13.5 g/dL 11.5-16.0 Blood hematocrit (volume fraction) 41 % 35-52 Automated erythrocyte mean corpuscular volume 83 [foz_us] 80-99 Automated erythrocyte mean corpuscular hemoglobin (mass per erythrocyte) 27 pg 25-34 Automated erythrocyte mean corpuscular hemoglobin concentration measurement (mass/volume) 33 g/dL 32-36 Automated erythrocyte distribution width ratio 15.6 % 10.0- 14.5 Automated blood platelet count (count/volume) 240 10*3/uL 130-400 Automated blood platelet mean volume measurement 10.4 [foz_us] 7.4-10.4 Automated blood neutrophils/100 leukocytes 69 % 42-75 Automated blood lymphocytes/100 leukocytes 22 % 12-44 Blood monocytes/100 leukocytes 6 % 0-12 Automated blood eosinophils/100 leukocytes 3 % 0-10 Automated blood basophils/100 leukocytes 1 % 0-10 Blood neutrophils automated count (number/volume) 8.7 10*3 1.8-7.8 Blood lymphocytes automated count (number/volume) 2.8 10*3 1.0-4.0 Blood monocytes automated count (number/volume) 0.8 10*3 0.0- 1.0 Automated eosinophil count 0.4 10*3/uL 0.0-0.3 Automated blood basophil count (count/volume) 0.1 10*3/uL 0.0-0.1 Encounters ACCT No. Visit Date/Time Discharge Status Pt. Type Provider Facility Loc./Unit Complaint [id number] 05/17/2019 09:20:00 ACT Outpatient MURRAY OROZCO [facility] [id number] 02/20/2019 23:21:00 02/22/2019 10:23:00 DIS Outpatient KIM KATZ MD [facility] CATH CHEST PAIN,CAD [id number] 11/18/2018 15:39:00 11/18/2018 23:59:59 CLS Outpatient Ivan NORIEGA MD [facility] RT SOB [id number] 10/05/2018 13:45:00 10/08/2018 10:46:00 DIS Outpatient MURRAY OROZCO MD [facility] CATH CHEST PAIN [id number] 12/22/2017 06:12:00 12/22/2017 11:20:00 DIS Outpatient TASHA MCCRAY MD [facility] SDC GALLSTONES [id number] 12/21/2017 06:05:00 12/21/2017 13:47:00 DIS Outpatient TASHA MCCRAY MD [facility] PREOP GALLSTONES [id number] 12/15/2017 11:44:00 12/15/2017 23:59:59 CLS Outpatient MURRAY OROZCO MD [facility] RAD R10.11 RUQ ABD PAIN [id number] 12/05/2017 21:23:00 12/06/2017 01:16:00 DIS Emergency JORDY DODARCY [facility] ER CHRONS FLARE UP [id number] 08/11/2017 07:29:00 08/11/2017 23:59:59 CLS Preadmit MURRAY OROZCO MD [facility] SLEEP HYPERSOMNIA G47.10 [id number] 07/15/2017 21:47:00 07/16/2017 00:18:00 DIS Emergency JORDY DODARCY [facility] ER VOMITING;FEVER [id number] 11/13/2016 13:43:00 11/13/2016 16:55:00 DIS Emergency GLENDA LAI MD [facility] ER CHEST PAIN/SOA LEFT ARM NUMBNESS [id number] 08/12/2016 12:39:00 08/12/2016 23:59:59 CLS Outpatient MURRAY OROZCO MD [facility] RAD BREAST LUMP [id number] 05/21/2016 19:12:00 05/21/2016 22:38:00 DIS Emergency SARI ROSARIO [facility] ER ABD PAIN [id number] 02/12/2014 14:40:00 02/12/2014 16:34:00 DIS Emergency GLENDA LAI MD [facility] ER MULTIPLE COMPLAINTS [id number] 05/19/2019 10:51:00 Document Registration [id number] 05/16/2019 11:29:00 ACT Outpatient RAMSEY PAVON APRN [facility] PULM ROUTINE [id number] 12/22/2011 18:45:00 Document Registration [id number] 11/18/2011 08:25:00 Document Registration [id number] 11/17/2011 04:41:00 Document Registration
[2019-05-19 11:08] LABS: ALANINE AMINOTRANSFERASE 22 U/L (0-55); ALBUMIN 4.4 GM/DL (3.2-4.5); ALKALINE PHOSPHATASE 112 U/L (40-136); BILIRUBIN,TOTAL 0.8 MG/DL (0.1-1.0); BUN/CREATININE RATIO 19; CALCIUM 9.8 MG/DL (8.5-10.1); CARBON DIOXIDE 18 MMOL/L (21-32); CHLORIDE 108 MMOL/L (98-107); CREATININE SERUM 0.78 MG/DL (0.60-1.30); GFR ESTIMATED > 60; GLUCOSE 117 MG/DL (70-105); MAGNESIUM 2.6 MG/DL (1.8-2.4); POTASSIUM 4.6 MMOL/L (3.6-5.0); SODIUM 139 MMOL/L (135-145); TOTAL PROTEIN 7.8 GM/DL (6.4-8.2)
--- NOTE | 2019-05-19 11:09 | Diagnostic Imaging Report ---
INDICATION: Chest pain COMPARISON: 02/20/2019 FINDINGS: Single frontal view of the chest demonstrates normal heart size and pulmonary vascularity. The lungs are well aerated and clear. No large pleural effusion or pneumothorax is seen. The visualized osseous structures show no acute abnormalities. IMPRESSION: 1. No acute cardiopulmonary process. Dictated by: Dictated on workstation # [id number]
--- NOTE | 2019-05-19 11:45 | NUR ---
Patient is resting comfortably at this time and denies chest pain.
--- NOTE | 2019-05-19 13:15 | Consultation-Cardiology ---
HPI-Cardiology Cardiology Consultation: Date of Consultation 05/19/19 Date of Admission Attending Physician Admitting Physician Sandra Cruz MD Consulting Physician Ivan NEWELL MD HPI: Time Seen by a Provider: 13:15 Chief Complaint: Chest pain This is a 53-year-old lady who is well known to me from the clinic. She has previous history of CAD with PCI to proximal LAD on 09/2018. She is on dual antiplatelet therapy. She presented with chest pain again in January 2019, we performed coronary angiography which revealed patent stent and mild to moderate disease in the proximal RCA. No PCI was indicated. She presented again to my office with complains of recurrent chest discomfort. She was started on long- acting nitrates. She presented to the ER today with complains of chest pain which improved with nitroglycerin. She does tell me that she has history of hiatal hernia. Review of Systems-Cardiology Review of Systems Constitutional: As described under HPI; No As described under HPI, No no symptoms reported, No chills, No fever, No lightheadedness Eyes: No As described under HPI, No no symptoms reported, No blindness, No blurred vision, No contact lenses, No drainage, No decreased acuity, No foreign body sensation, No pain, No vision change Ears/Nose/Throat: No As described under HPI, No no symptoms reported, No chronic hearing loss, No ear discharge, No ear pain, No nasal drainage, No ulcerations Respiratory: No no symptoms reported; As described under HPI; No As described u nder HPI, No cough, No orthopnea, No shortness of breath, No SOB with excertion Cardiovascular: No no symptoms reported; As described under HPI; No As described under HPI; chest pain; No edema, No irregular heart rate, No lightheadedness, No palpitations Gastrointestinal: No no symptoms reported, No As described under HPI, No abdomen distended, No abdominal pain, No blood streaked bowels, No constipation, No diarrhea, No nausea, No vomiting, No stool coloration changes Genitourinary: No As described under HPI, No burning, No dysuria, No discharge, No frequency, No flank pain, No hematuria, No urgency : Yes : No Skin: No rash, No skin related problems, No ulcerations Psychiatric/Neurological: No anxiety, No depression, No seizure, No focal weakness, No syncope Hematologic: No bleeding abnormalities [id number] Hx Patient Social History Alcohol Use: Denies Use Recreational Drug Use: No Smoking Status: Current Everyday Smoker Type Used: Cigarettes 2nd Hand Smoke Exposure: Yes Recent Foreign Travel: No Recent Infectious Disease Expo: No Immunizations Up To Date Tetanus Booster (TDap): Unknown Date of Pneumonia Vaccine: Sep 24, 2018 Past Medical History PMH As described under Assessment. Family Medical History Family History: Cancer of mouth 19 MOTHER, , Age:67, Onset:Unknown Cardiovascular disease 19 MOTHER, , Age:67, Onset:Unknown Completed stroke 19 MOTHER, , Age:67, Onset:Unknown Diabetes mellitus 19 MOTHER, , Age:67, Onset:Unknown FH: CABG (coronary artery bypass surgery) 19 MOTHER, , Age:67, Onset:Unknown FH: lung cancer 19 MOTHER, , Age:67, Onset:Unknown FH: ovarian cancer 19 MOTHER, , Age:67, Onset:Unknown GERD 19 FATHER, , Age:69, Onset:Unknown Hypertension 19 MOTHER, , Age:67, Onset:Unknown Allergies and Home Medications Allergies Coded Allergies: No Known Drug Allergies (Unverified , 12/21/17) Home Medications Aspirin 81 Mg Tablet.dr, 81 MG PO DAILY, (Reported) Atorvastatin Calcium 80 Mg Tablet, 80 MG PO HS, (Reported) Bupropion HCl 150 Mg Tab.er.24h, 150 MG PO DAILY, (Reported) Hydrocodone/Acetaminophen 1 Each Tablet, 1 TAB PO TID PRN for PAIN-MODERATE, (Reported) Lisinopril 10 Mg Tablet, 10 MG PO DAILY, (Reported) Metoprolol Tartrate 25 Mg Tablet, 12.5 MG PO BID, (Reported) TAKES 1/2 (25MG) TABLET Pantoprazole Sodium 40 Mg Tablet.dr, 40 MG PO DAILY Prescribed by: AUGUSTUS KENNEDY on 05/19/19 1326 Ticagrelor 90 Mg Tablet, 90 MG PO BID, (Reported) Patient Home Medication List Home Medication List Reviewed: Yes Physical Exam-Cardiology Physical Exam Vital Signs/I&O 05/19/19 05/19/19 05/19/19 05/19/19 10:34 10:40 10:40 13:29 Temp 98.0 Pulse 62 54 Resp 14 14 B/P (MAP) 121/82 (95) 112/79 (90) Pulse Ox 97 99 98 O2 Delivery Room Air Room Air Room Air Room Air Capillary Refill : Less Than 3 Seconds Constitutional: appears stated age, AAO x 3; No apparent distress; well- developed, well-nourished HEENT: PERRL; No normal ENT inspection, No TMs normal, No pharynx normal, No scleral icterus (R), No scleral icterus (L), No pale conjunctivae (R), No pale conjunctivae (L), No photophobia, No TM abnormal (R), No TM abnormal (L), No pharyngeal erythema, No tonsillar exudate, No other, No discharge, No EOMI; hea ring is well preserved; No hard of hearing; oral hygience is good; No ulceration, No xanthelasmas are seen Neck: No non-tender, No full range of motion, No supple, No normal inspection, No carotid bruit, No limited range of motion, No lymphadenopathy (R), No lymphadenopathy (L), No tender lateral, No tender midline, No thyromegaly, No other; carotid pulses are 2 + bilaterally; No with good upstrokes Respiratory: No accessory muscle use, No respiratory distress, No chest tender, No chest expansion is symmetric; chest is bilaterally symmetric; No lungs clear to percussion; lungs clear to auscultation; No crackles, No rhonchi, No rales, No stridor, No wheezing, No pleural rub, No other Cardiovascular: regular rate-rhythm; No irregularly irregular, No extra beats, No parasternal heave is noted, No JVD, No edema, No bradycardia, No tachycardia, No point of maximal impulse, No cardiac thrills are palpable; S1 and S2; No gallop/S3, No gallop/S4, No diastolic murmur, No systolic murmur, No friction rub, No click, No other Gastrointestinal: No tender, No soft, No round, No distended, No pulsatile mass, No organomegaly, No guarding, No rebound, No tenderness, No hernia, No mass, No audible bowel sounds, No abnormal bowel sounds, No abdominal bruits, No spleenomegaly, No other Rectal: deferred Extremities: No normal range of motion, No non-tender, No normal inspection, No pedal edema, No calf tenderness, No normal capillary refill, No pelvis stable, No calf tenderness, No inflammation, No pedal edema, No slow capillary refill, No swelling, No other, No abrasion, No clubbing, No cyanosis, No ecchymosis, No laceration, No no lower extremity edema bilateral, No significant edema, No tenderness, No wound Neurologic/Psychiatric: no motor/sensory deficits, alert, normal mood/affect, oriented x 3, power is 5/5 both on sides Skin: No rash, No ulcerations Data Review Labs Laboratory Tests 05/19/19 10:42: White Blood Count 12.6H, Red Blood Count 4.97, Hemoglobin 13.5, Hematocrit 41, Mean Corpuscular Volume 83, Mean Corpuscular Hemoglobin 27, Mean Corpuscular Hemoglobin Concent 33, Red Cell Distribution Width 15.6H, Platelet Count 240, Mean Platelet Volume 10.4, Neutrophils (%) (Auto) 69, Lymphocytes (%) (Auto) 22, Monocytes (%) (Auto) 6, Eosinophils (%) (Auto) 3, Basophils (%) (Auto) 1, Neutrophils # (Auto) 8.7H, Lymphocytes # (Auto) 2.8, Monocytes # (Auto) 0.8, Eosinophils # (Auto) 0.4H, Basophils # (Auto) 0.1, Prothrombin Time 13.9, INR Comment 1.0, Activated Partial Thromboplast Time 33, D-Dimer 0.26, Sodium Level 139, Potassium Level 4.6, Chloride Level 108H, Carbon Dioxide Level 18L, Anion Gap 13, Blood Urea Nitrogen 15, Creatinine 0.78, Estimat Glomerular Filtration Rate > 60, BUN/Creatinine Ratio 19, Glucose Level 117H, Calcium Level 9.8, Corrected Calcium 9.5, Magnesium Level 2.6H, Total Bilirubin 0.8, Aspartate Amino Transf (AST/SGOT) 25, Alanine Aminotransferase (ALT/SGPT) 22, Alkaline Phosphatase 112, Myoglobin 27.5, Troponin I < 0.028, Total Protein 7.8, Albumin 4.4 05/19/19 12:39: Troponin I < 0.028 ECG Impression ECG Initial ECG Rhythm: Normal Sinus Initial ECG Impression: Normal A/P-Cardiology Assessment/Admission Diagnosis Chest pain, CAD/PCI, Hiatal hernia Plan Acute coronary syndrome is ruled out with negative serial cardiac enzymes. Negative EKG. We will continue long-acting nitrate. Nuclear stress test as an outpatient. CAD/PCI, continue dual antiplatelet therapy, statin therapy. Hiatal hernia, possible esophageal spasm. I will recommend general surgery consultation. We will give PPI. Patient was educated in the ER. Thank you for your consultation. Please call me if you have any questions. Christopher Newell MD, FACP, FACC, FSCAI, FHRS, CCDS Interventional Cardiology Cardiac Electrophysiology Vascular Medicine and Endovascular Interventions Clinical Quality Measures AMI/AHF: ASA po Prior to arrival: Ivan Reich MD May 19, 2019 13:15
[2019-05-19] MEDS ORDERED: PANT40TA2 PO (13:26)
--- NOTE | 2019-05-19 13:27 | ED Chest Pain ---
General Chief Complaint: Chest Pain Stated Complaint: CHEST PAIN Nursing Triage Note: Patient advises she has been experiencing chest pain x 2 days that has become progressively worse. She advises Dr. Harris recently started her on a knew medication but is unsure what it is called. She state shte chest pain is a heavy pressure that radiates into her left arm. Nursing Sepsis Screen: No Definite Risk Source: patient, old records Exam Limitations: no limitations History of Present Illness Date Seen by Provider: May 19, 2019 Time Seen by Provider: 10:38 Initial Comments This 53-year-old woman presents to the emergency room with heaviness and tightness in the chest accompanied by left arm pain. She rates the pain as a 7 out of 10. She has known heart disease and had a angiogram in January of this year. No severe disease was noted and her stents were patent. She noted relief of her pain with nitroglycerin used at home. However, she is now out of her nitroglycerin. She attempted to get her nitroglycerin filled at the [facility] pharmacy but they referred her to the ER to have her chest pain evaluated first. She had intermittent pain throughout the night. Her most recent episode of pain started at around 09:00. Chest pain resolved shortly after my assessment without treatment. Allergies and Home Medications Allergies Coded Allergies: No Known Drug Allergies (Unverified , 12/21/17) Home Medications Aspirin 81 Mg Tablet., 81 MG PO DAILY, (Reported) Atorvastatin Calcium 80 Mg Tablet, 80 MG PO HS, (Reported) Bupropion HCl 150 Mg Tab.er.24h, 150 MG PO DAILY, (Reported) Hydrocodone/Acetaminophen 1 Each Tablet, 1 TAB PO TID PRN for PAIN-MODERATE, (Reported) Lisinopril 10 Mg Tablet, 10 MG PO DAILY, (Reported) Metoprolol Tartrate 25 Mg Tablet, 12.5 MG PO BID, (Reported) TAKES 1/2 (25MG) TABLET Pantoprazole Sodium 40 Mg Tablet., 40 MG PO DAILY Prescribed by: AUGUSTUS KENNEDY on 05/19/19 1326 Ticagrelor 90 Mg Tablet, 90 MG PO BID, (Reported) Patient Home Medication List Home Medication List Reviewed: Yes Review of Systems Review of Systems Constitutional: no symptoms reported EENTM: No Symptoms Reported Respiratory: No Symptoms Reported Cardiovascular: See HPI Gastrointestinal: No Symptoms Reported Genitourinary: No Symptoms Reported Musculoskeletal: no symptoms reported Skin: no symptoms reported Psychiatric/Neurological: No Symptoms Reported Endocrine: No Symptoms Reported Hematologic/Lymphatic: No Symptoms Reported Past Lzmtenh-Wikkfp-Urhwoo Hx Patient Social History Alcohol Use: Denies Use Alcohol Beverage of Choice: Wine Recreational Drug Use: No Smoking Status: Current Everyday Smoker Type Used: Cigarettes 2nd Hand Smoke Exposure: Yes Recent Foreign Travel: No Contact w/Someone Who Travel: No Recent Infectious Disease Expo: No Recent Hopitalizations: No Immunizations Up To Date Tetanus Booster (TDap): Unknown PED Vaccines UTD: Yes Date of Pneumonia Vaccine: Sep 24, 2018 Seasonal Allergies Seasonal Allergies: No Past Medical History Surgeries: Yes Coronary Stent Respiratory: Yes Asthma Cardiac: Yes (CORONARY STENTS X 2) Coronary Artery Disease, Hypertension Neurological: Yes Headaches /Migraines 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 Disorders: 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 Sexually Transmitted Disease: No HIV/AIDS: Yes Genitourinary: No Gastrointestinal: Yes Crohns Disease Musculoskeletal: Yes Arthritis Endocrine: No HEENT: No Loss of Vision: Bilateral Hearing Impairment: Denies Cancer: No Psychosocial: No Integumentary: No Blood Disorders: No Adverse Reaction/Blood Tranf: No (N/A) Family Medical History Cancer of mouth 19 MOTHER, , Age:67, Onset:Unknown Cardiovascular disease 19 MOTHER, , Age:67, Onset:Unknown Completed stroke 19 MOTHER, , Age:67, Onset:Unknown Diabetes mellitus 19 MOTHER, , Age:67, Onset:Unknown FH: CABG (coronary artery bypass surgery) 19 MOTHER, , Age:67, Onset:Unknown FH: lung cancer 19 MOTHER, , Age:67, Onset:Unknown FH: ovarian cancer 19 MOTHER, , Age:67, Onset:Unknown GERD 19 FATHER, , Age:69, Onset:Unknown Hypertension 19 MOTHER, , Age:67, Onset:Unknown Physical Exam Vital Signs Vital Signs - First Documented 05/19/19 10:34 Pulse Ox 97 O2 Delivery Room Air Capillary Refill : Less Than 3 Seconds Height, Weight, BMI Height: 5'1.00" Weight: 178lbs. 4.0oz. 80.011696eu; 34.1 BMI Method:Stated General Appearance: No Apparent Distress, WD/WN HEENT: PERRL/EOMI, Normal ENT Inspection Neck: Normal Inspection Respiratory: Lungs Clear, Normal Breath Sounds, No Accessory Muscle Use, No Respiratory Distress Cardiovascular: Regular Rate, Rhythm, No Edema, No Murmur Gastrointestinal: Normal Bowel Sounds, Non Tender, Soft Extremity: Normal Inspection, Non Tender, No Calf Tenderness, No Pedal Edema Neurologic/Psychiatric: Alert, Oriented x3, No Motor/Sensory Deficits, Normal Mood/Affect, rn or lpn II-XII Norm as Tested Skin: Normal Color, Warm/Dry Progress/Results/Core Measures Results/Orders Lab Results Laboratory Tests Test 05/19/19 10:42 05/19/19 12:39 Range/Units White Blood Count 12.6 H 4.3-11.0 10^3/uL Red Blood Count 4.97 4.35-5.85 10^6/uL Hemoglobin 13.5 11.5-16.0 G/DL Hematocrit 41 35-52 % Mean Corpuscular Volume 83 80-99 FL Mean Corpuscular Hemoglobin 27 25-34 PG Mean Corpuscular Hemoglobin Concent 33 32-36 G/DL Red Cell Distribution Width 15.6 H 10.0-14.5 % Platelet Count 240 130-400 10^3/uL Mean Platelet Volume 10.4 7.4-10.4 FL Neutrophils (%) (Auto) 69 42-75 % Lymphocytes (%) (Auto) 22 12-44 % Monocytes (%) (Auto) 6 0-12 % Eosinophils (%) (Auto) 3 0-10 % Basophils (%) (Auto) 1 0-10 % Neutrophils # (Auto) 8.7 H 1.8-7.8 X 10^3 Lymphocytes # (Auto) 2.8 1.0-4.0 X 10^3 Monocytes # (Auto) 0.8 0.0-1.0 X 10^3 Eosinophils # (Auto) 0.4 H 0.0-0.3 10^3/uL Basophils # (Auto) 0.1 0.0-0.1 10^3/uL Prothrombin Time 13.9 12.2-14.7 SEC INR Comment 1.0 0.8-1.4 Activated Partial Thromboplast Time 33 24-35 SEC D-Dimer 0.26 0.00-0.49 UG/ML Sodium Level 139 135-145 MMOL/L Potassium Level 4.6 3.6-5.0 MMOL/L Chloride Level 108 H 98-107 MMOL/L Carbon Dioxide Level 18 L 21-32 MMOL/L Anion Gap 13 5-14 MMOL/L Blood Urea Nitrogen 15 7-18 MG/DL Creatinine 0.78 0.60-1.30 MG/DL Estimat Glomerular Filtration Rate > 60 BUN/Creatinine Ratio 19 Glucose Level 117 H 70-105 MG/DL Calcium Level 9.8 8.5-10.1 MG/DL Corrected Calcium 9.5 8.5-10.1 MG/DL Magnesium Level 2.6 H 1.8-2.4 MG/DL Total Bilirubin 0.8 0.1-1.0 MG/DL Aspartate Amino Transf (AST/SGOT) 25 5-34 U/L Alanine Aminotransferase (ALT/SGPT) 22 0-55 U/L Alkaline Phosphatase 112 40-136 U/L Myoglobin 27.5 10.0-92.0 NG/ML Troponin I < 0.028 < 0.028 <0.028 NG/ML Total Protein 7.8 6.4-8.2 GM/DL Albumin 4.4 3.2-4.5 GM/DL My Orders Orders - AUGUSTUS DIAZ MD Cbc With Automated Diff (05/19/19 10:39) Magnesium (05/19/19 10:39) Chest 1 View, Ap/Pa Only (05/19/19 10:39) Ekg Tracing (05/19/19 10:39) Cardiac Profile 1 (05/19/19 10:39) Comprehensive Metabolic Panel (05/19/19 10:39) Myoglobin Serum (05/19/19 10:39) Protime With Inr (05/19/19 10:39) Partial Thromboplastin Time (05/19/19 10:39) O2 (05/19/19 10:39) Monitor-Rhythm Ecg Trace Only (05/19/19 10:39) Ed Iv/Invasive Line Start (05/19/19 10:39) Nitroglycerin 0.4 Mg Btl 25's (Nitrostat (05/19/19 10:45) Aspirin Chewable Tablet (Baby Aspirin Ch (05/19/19 10:45) Troponin I (05/19/19 12:45) Fibrin Degradation Products (05/19/19 11:31) Medications Given in ED Vital Signs/I&O 05/19/19 05/19/19 05/19/19 05/19/19 10:34 10:40 10:40 13:29 Temp 98.0 Pulse 62 54 Resp 14 14 B/P (MAP) 121/82 (95) 112/79 (90) Pulse Ox 97 99 98 O2 Delivery Room Air Room Air Room Air Room Air Blood Pressure Mean: 95 Progress Progress Note : Progress Note Nitroglycerin was not given due to patient's blood pressure. Chest pain resolved without treatment. Repeat troponin at 2 hours was obtained and was also negative. Patient remained pain free. Case was discussed with Dr. Newell who also came to see the patient. He suggested further workup with endoscopy as patient is concerned she may have acid reflux or hiatal hernia. She may be experiencing esophageal spasm that is relieved with her nitroglycerin. I did contact Dr. Ernandez who wished to see the patient in the office on Wednesday. I called the office and made that appointment. Patient is pleased with this plan. She has a refill left on her nitroglycerin and plans to pick that up at the in today. Protonix was prescribed. Patient was encouraged to aggressively pursue smoking cessation. Initial ECG Impression Date: May 19, 2019 Initial ECG Impression Time: 10:34 Initial ECG Rate: 59 Initial ECG Rhythm: Normal Sinus Initial ECG Intervals: Normal Initial ECG Impression: Normal Comment Normal sinus rhythm with no ST elevation or depression. No abnormal intervals or axis deviation. Diagnostic Imaging Diagonstic Imaging: Xray Plain Films/CT/US/NM/MRI: chest Comments Chest x-ray viewed by me and report reviewed. See report below: NAME: LASHAWN CHOUDHURY [facility] REC#: [id number] PT STATUS: REG ER : 1965 PHYSICIAN: AUGUSTUS DIAZ MD ADMIT DATE: 05/19/19/ER Signed Date of Exam: 05/19/19 CHEST 1 VIEW, AP/PA ONLY INDICATION: Chest pain COMPARISON: 02/20/2019 FINDINGS: Single frontal view of the chest demonstrates normal heart size and pulmonary vascularity. The lungs are well aerated and clear. No large pleural effusion or pneumothorax is seen. The visualized osseous structures show no acute abnormalities. IMPRESSION: 1. No acute cardiopulmonary process. Dictated by: Dictated on workstation # [id number] Dict: 05/19/19 1107 Trans: 05/19/19 1127 Interpreted by: MANDO RAYMOND MD Electronically signed by: MANDO RAYMOND MD 05/19/19 1127 Departure Impression Primary Impression: Chest pain Qualified Codes: R07.9 - Chest pain, unspecified Disposition: 01 HOME, SELF-CARE Condition: Improved Departure-Patient Inst. Decision time for Depature: 13:24 Referrals: MURRAY OROZCO MD (PCP/Family) Primary Care Physician Ivan NEWELL MD, TAKAAKI MD Patient Instructions: Chest Pain Add. Discharge Instructions: Follow-up with Dr. Newell as previously directed. Continue medications as previously prescribed by Dr. Newell. You have an appointment with Dr. Ernandez at 4:15 on Wednesday, May 22. Please call his office to confirm the time and provide any further information they need. Start Protonix as prescribed and work toward quitting smoking. Return to the ER if you have worsening symptoms. All discharge instructions reviewed with patient and/or family. Voiced understanding. Scripts Pantoprazole Sodium (Protonix) 40 Mg Tablet. 40 MG PO DAILY, #30 TAB Prov: AUGUSTUS DIAZ MD 05/19/19 Copy Copies To 1: Ivan NEWELL MD Copies To 2: ANIL ERNANDEZ MD, JOSHUA T MD May 19, 2019 13:27
[2019-05-19 13:29] VITALS: BP 112/79
== END 2019-05-19 13:34 | disposition home or self-care (01) ==
LOC: EDUNIT# 10:29 → ER 10:32
DX: R07.9 Chest pain, unspecified (principal); J45.909 Unspecified asthma, uncomplicated; I25.10 Atherosclerotic heart disease of native coronary artery without angina pectoris; I10 Essential (primary) hypertension; G43.909 Migraine, unspecified, not intractable, without status migrainosus; F17.210 Nicotine dependence, cigarettes, uncomplicated; Z87.19 Personal history of other diseases of the digestive system; Z79.82 Long term (current) use of aspirin; Z95.5 Presence of coronary angioplasty implant and graft; Z82.49 Family history of ischemic heart disease and other diseases of the circulatory system; Z80.1 Family history of malignant neoplasm of trachea, bronchus and lung; Z80.0 Family history of malignant neoplasm of digestive organs; Z80.8 Family history of malignant neoplasm of other organs or systems
CPT/HCPCS: 36415; 71045; 80053; 83735; 83874; 84484; 85025; 85379; 85610; 85730; 93005; 93041

== ENCOUNTER → 2019-05-23 | Outpatient (CLI) | payer OTHER ==
[2019-05-23 13:52] LABS: BUN/CREATININE RATIO 15; CREATININE SERUM 0.87 MG/DL (0.60-1.30); GFR ESTIMATED > 60
--- NOTE | 2019-05-23 16:30 | Diagnostic Imaging Report ---
PROCEDURE: CT chest with contrast only. TECHNIQUE: Multiple contiguous axial images were obtained through the chest after administration of intravenous contrast. Auto Exposure Controls were utilized during the CT exam to meet ALARA standards for radiation dose reduction. INDICATION: Dyspnea and chest pain. Patient is a smoker. COMPARISON: Comparison is made with prior CT chest from 11/13/2016. FINDINGS: No axillary lymphadenopathy is detected. No hilar or mediastinal lymphadenopathy is detected. No pericardial or pleural fluid is identified. The central airways are patent. There are centrilobular emphysematous changes in the upper lung pena bilaterally. No parenchymal consolidation or mass is seen. The upper abdomen is unremarkable. IMPRESSION: Emphysematous changes, similar to prior CT chest from 11/13/2016. No acute abnormality is detected. Dictated by: Dictated on workstation # [id number]
== END ==
LOC: RAD 13:07
PROVIDERS: ATTEND Nurse Practitioner Family
DX: J43.9 Emphysema, unspecified (principal); J30.9 Allergic rhinitis, unspecified; G47.10 Hypersomnia, unspecified; G47.50 Parasomnia, unspecified; F17.200 Nicotine dependence, unspecified, uncomplicated
CPT/HCPCS: 36415; 71260; 82565; 84520

== ENCOUNTER 2019-06-03 13:20 | Day surgery (SDC) | payer OTHER ==
[~2019-06-03] VITALS: Ht 154.9 cm; Wt 81.6 kg
[2019-06-03] VITALS (11 sets, daily range): BP systolic 100–135; BP diastolic 65–81
[2019-06-03 13:32] LABS: BASOPHILS # (AUTO) 0.1 10^3/uL (0.0-0.1); BASOPHILS % (AUTO) 1 % (0-10); EOSINOPHILS # (AUTO) 0.3 10^3/uL (0.0-0.3); EOSINOPHILS % (AUTO) 3 % (0-10); HEMATOCRIT 41 % (35-52); HEMOGLOBIN 13.6 G/DL (11.5-16.0); LYMPHOCYTES # (AUTO) 3.4 X 10^3 (1.0-4.0); LYMPHOCYTES % (AUTO) 33 % (12-44); MEAN CORPUSCULAR HEMOGLOBIN 28 PG (25-34); MEAN CORPUSCULAR HGB CONC 33 G/DL (32-36); MEAN CORPUSCULAR VOLUME 83 FL (80-99); MEAN PLATELET VOLUME 10.9 FL (7.4-10.4); MONOCYTES # (AUTO) 0.7 X 10^3 (0.0-1.0); MONOCYTES % (AUTO) 7 % (0-12); NEUTROPHILS # (AUTO) 5.9 X 10^3 (1.8-7.8); NEUTROPHILS % (AUTO) 57 % (42-75); PLATELET COUNT 252 10^3/uL (130-400); RED CELL DISTRIBUTION WIDTH 15.2 % (10.0-14.5); WHITE BLOOD COUNT 10.3 10^3/uL (4.3-11.0)
[2019-06-03] MEDS ORDERED: LIDOCAINE 2% VISCOUS 15 ML UDC PO ONE (13:45)
[2019-06-03] MEDS ORDERED: ANTACID SUSP 30 ML UDC (MYLANTA) PO ONE (13:45)
[2019-06-03] MEDS ORDERED: morphine INJ 10 MG/ML 1ML (SYR OR VIAL) IVP ONE (13:45)
[2019-06-03 13:46] LABS: PROTHROMBIN TIME PATIENT 13.8 SEC (12.2-14.7)
[2019-06-03 13:54] LABS: ALANINE AMINOTRANSFERASE 29 U/L (0-55); ALBUMIN 4.5 GM/DL (3.2-4.5); ALKALINE PHOSPHATASE 112 U/L (40-136); BILIRUBIN,TOTAL 0.6 MG/DL (0.1-1.0); BUN/CREATININE RATIO 20; CALCIUM 9.5 MG/DL (8.5-10.1); CARBON DIOXIDE 20 MMOL/L (21-32); CHLORIDE 107 MMOL/L (98-107); CREATININE SERUM 0.84 MG/DL (0.60-1.30); GFR ESTIMATED > 60; GLUCOSE 108 MG/DL (70-105); MAGNESIUM 2.1 MG/DL (1.8-2.4); POTASSIUM 4.1 MMOL/L (3.6-5.0); SODIUM 142 MMOL/L (135-145); TOTAL PROTEIN 7.7 GM/DL (6.4-8.2)
--- NOTE | 2019-06-03 14:00 | Diagnostic Imaging Report ---
EXAMINATION: Single AP view of the chest. INDICATION: Chest pain. COMPARISON: Multiple priors, most recent performed on 05/19/2019. FINDINGS: There is mild elevation of left hemidiaphragm. There is mild hyperlucency in the upper lung pena, likely reflecting chronic changes of COPD. The lungs are clear and the pulmonary vasculature is normal. No pneumothorax or large pleural effusion. The cardiomediastinal silhouette is unchanged. No acute osseous abnormality is appreciated. IMPRESSION: No radiographic evidence of acute chest disease. No significant change from prior. Dictated by: Dictated on workstation # [id number]
--- NOTE | 2019-06-03 14:11 | ED Chest Pain ---
General Chief Complaint: Chest Pain Stated Complaint: CHEST PAIN Nursing Triage Note: Patient reports sternal chest pain starting at 0230 that woke her up. patient reports taking numerous nitro without relief and 2 hydro 5/325mg tablets without relief. Nursing Sepsis Screen: No Definite Risk Source: patient Exam Limitations: no limitations History of Present Illness Date Seen by Provider: Jun 03, 2019 Time Seen by Provider: 13:21 Initial Comments Here with report of central chest pain that has woke her up several times since early this morning. She has tried nitroglycerin on 3 or 4 occasions in that might help briefly and then it continues. She is also tried taking 2 hydrocodone and that has not helped. Ultimately she called EMS due to severe pain that is central to lower and radiates to her back. Describes it as sharp and achy. Denies nausea and vomiting. When episodes occur she feels rapid heart rate and pain in the center of her chest and feels like her heart is beating fast. Timing/Duration: 12 hours Severity/Quality: moderate, severe, aching, sharp Location: central Radiation: back, epigastric ASA po EVENTS INTERN: Yes NTG SL EVENTS INTERN: Yes Associated Symptoms: abdominal pain, back pain; No diaphoresis, No fatigue, No nausea/vomiting, No shortness of breath, No weakness Allergies and Home Medications Allergies Coded Allergies: No Known Drug Allergies (Unverified , 12/21/17) Home Medications Aspirin 81 Mg Tablet.dr, 81 MG PO DAILY, (Reported) Atorvastatin Calcium 80 Mg Tablet, 80 MG PO HS, (Reported) Bupropion HCl 150 Mg Tab.er.24h, 150 MG PO DAILY, (Reported) Hydrocodone/Acetaminophen 1 Each Tablet, 1 TAB PO TID PRN for PAIN-MODERATE, (Reported) Lisinopril 10 Mg Tablet, 10 MG PO DAILY, (Reported) Metoprolol Tartrate 25 Mg Tablet, 12.5 MG PO BID, (Reported) TAKES 1/2 (25MG) TABLET Pantoprazole Sodium 40 Mg Tablet.dr, 40 MG PO DAILY Prescribed by: AUGUSTUS KENNEDY on 05/19/19 1326 Ticagrelor 90 Mg Tablet, 90 MG PO BID, (Reported) Patient Home Medication List Home Medication List Reviewed: Yes Review of Systems Review of Systems Constitutional: see HPI; No chills, No fever EENTM: No Symptoms Reported Respiratory: Denies Orthopnea, Denies Shortness of Air Cardiovascular: Chest Pain; Denies Edema; Irregular Heart Rate, Palpitations All Other Systems Reviewed Negative Unless Noted: Yes Past Jlaadfg-Kzzgnw-Pkpzjo Hx Patient Social History Alcohol Use: Denies Use Number of Drinks Today: Alcohol Beverage of Choice: Wine Recreational Drug Use: No Type Used: Cigarettes 2nd Hand Smoke Exposure: Yes Recent Foreign Travel: No Contact w/Someone Who Travel: No Recent Infectious Disease Expo: No Recent Hopitalizations: No Physical Abuse: No Sexual Abuse: No Immunizations Up To Date Tetanus Booster (TDap): Unknown PED Vaccines UTD: Yes Date of Pneumonia Vaccine: Sep 24, 2018 Seasonal Allergies Seasonal Allergies: No Past Medical History Surgeries: Yes Coronary Stent, Gallbladder Respiratory: Yes Asthma Cardiac: Yes (CORONARY STENTS X 2) Coronary Artery Disease, Hypertension Neurological: Yes Headaches /Migraines 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 Sexually Transmitted Disease: No HIV/AIDS: Yes Genitourinary: No Gastrointestinal: Yes Crohns Disease Musculoskeletal: Yes Arthritis Endocrine: No HEENT: No Loss of Vision: Bilateral Hearing Impairment: Denies Cancer: No Psychosocial: No Integumentary: No Blood Disorders: No Adverse Reaction/Blood Tranf: No (N/A) Family Medical History Reviewed Nursing Family Hx Cancer of mouth 19 MOTHER, , Age:67, Onset:Unknown Cardiovascular disease 19 MOTHER, , Age:67, Onset:Unknown Completed stroke 19 MOTHER, , Age:67, Onset:Unknown Diabetes mellitus 19 MOTHER, , Age:67, Onset:Unknown FH: CABG (coronary artery bypass surgery) 19 MOTHER, , Age:67, Onset:Unknown FH: lung cancer 19 MOTHER, , Age:67, Onset:Unknown FH: ovarian cancer 19 MOTHER, , Age:67, Onset:Unknown GERD 19 FATHER, , Age:69, Onset:Unknown Hypertension 19 MOTHER, , Age:67, Onset:Unknown Physical Exam Vital Signs Vital Signs - First Documented 06/03/19 13:24 Temp 98.2 Pulse 75 Resp 18 B/P (MAP) 136/83 (100) Pulse Ox 97 Capillary Refill : Less Than 3 Seconds Height, Weight, BMI Height: 5'1.00" Weight: 178lbs. 4.0oz. 80.398473lm; 34.1 BMI Method:Stated General Appearance: WD/WN, Anxious, Mild Distress HEENT: PERRL/EOMI, Pharynx Normal Neck: Non Tender, Supple Respiratory: Lungs Clear, Normal Breath Sounds, Other (tender across the anterior chest wall especially mid sternum and on the left side) Cardiovascular: Regular Rate, Rhythm, No Murmur Gastrointestinal: Non Tender, Soft Extremity: Normal Range of Motion, Non Tender Neurologic/Psychiatric: Alert, Oriented x3 Skin: Normal Color, Warm/Dry Progress/Results/Core Measures Results/Orders Lab Results Laboratory Tests Test 06/03/19 13:21 06/03/19 15:45 Range/Units White Blood Count 10.3 4.3-11.0 10^3/uL Red Blood Count 4.95 4.35-5.85 10^6/uL Hemoglobin 13.6 11.5-16.0 G/DL Hematocrit 41 35-52 % Mean Corpuscular Volume 83 80-99 FL Mean Corpuscular Hemoglobin 28 25-34 PG Mean Corpuscular Hemoglobin Concent 33 32-36 G/DL Red Cell Distribution Width 15.2 H 10.0-14.5 % Platelet Count 252 130-400 10^3/uL Mean Platelet Volume 10.9 H 7.4-10.4 FL Neutrophils (%) (Auto) 57 42-75 % Lymphocytes (%) (Auto) 33 12-44 % Monocytes (%) (Auto) 7 0-12 % Eosinophils (%) (Auto) 3 0-10 % Basophils (%) (Auto) 1 0-10 % Neutrophils # (Auto) 5.9 1.8-7.8 X 10^3 Lymphocytes # (Auto) 3.4 1.0-4.0 X 10^3 Monocytes # (Auto) 0.7 0.0-1.0 X 10^3 Eosinophils # (Auto) 0.3 0.0-0.3 10^3/uL Basophils # (Auto) 0.1 0.0-0.1 10^3/uL Prothrombin Time 13.8 12.2-14.7 SEC INR Comment 1.0 0.8-1.4 Activated Partial Thromboplast Time 26 24-35 SEC Sodium Level 142 135-145 MMOL/L Potassium Level 4.1 3.6-5.0 MMOL/L Chloride Level 107 98-107 MMOL/L Carbon Dioxide Level 20 L 21-32 MMOL/L Anion Gap 15 H 5-14 MMOL/L Blood Urea Nitrogen 17 7-18 MG/DL Creatinine 0.84 0.60-1.30 MG/DL Estimat Glomerular Filtration Rate > 60 BUN/Creatinine Ratio 20 Glucose Level 108 H 70-105 MG/DL Calcium Level 9.5 8.5-10.1 MG/DL Corrected Calcium 9.1 8.5-10.1 MG/DL Magnesium Level 2.1 1.8-2.4 MG/DL Total Bilirubin 0.6 0.1-1.0 MG/DL Aspartate Amino Transf (AST/SGOT) 21 5-34 U/L Alanine Aminotransferase (ALT/SGPT) 29 0-55 U/L Alkaline Phosphatase 112 40-136 U/L Myoglobin 46.2 10.0-92.0 NG/ML Troponin I < 0.028 0.055 H <0.028 NG/ML Total Protein 7.7 6.4-8.2 GM/DL Albumin 4.5 3.2-4.5 GM/DL My Orders Orders - GLENDA LAI MD Cbc With Automated Diff (06/03/19:) Magnesium (06/03/19:) Chest 1 View, Ap/Pa Only (06/03/19:) Ekg Tracing (06/03/19:) Cardiac Profile 1 (06/03/19:) Comprehensive Metabolic Panel (06/03/19:) Myoglobin Serum (06/03/19:) Protime With Inr (06/03/19:) Partial Thromboplastin Time (06/03/19:) O2 (06/03/19:) Monitor-Rhythm Ecg Trace Only (06/03/19:) Lipid Panel (06/04/19 06:00) Ed Iv/Invasive Line Start (06/03/19:21) Morphine Injection (Morphine Injection (06/03/19 13:45) Lidocaine 2% Viscous 15 Ml (Xylocaine Vi (06/03/19 13:45) Antacid Suspension (Mylanta Suspension (06/03/19 13:45) Famotidine Injection (Pepcid Injection) (06/03/19 15:21) Pantoprazole Injection (Protonix Injecti (06/03/19 15:30) Ekg Tracing (06/03/19 15:22) Troponin I (06/03/19 15:45) Medications Given in ED Current Medications Medications Dose Ordered Sig/Calin Route Start Time Stop Time Status Last Admin Dose Admin Al Hydrox/Mg Hydrox/Simethicone 30 ml ONCE ONCE PO 06/03/19 13:45 06/03/19 13:46 DC 06/03/19 13:50 30 ML Lidocaine HCl 15 ml ONCE ONCE PO 06/03/19 13:45 06/03/19 13:46 DC 06/03/19 13:50 15 ML Morphine Sulfate 4 mg ONCE ONCE IVP 06/03/19 13:45 06/03/19 13:46 DC 06/03/19 13:51 4 MG Pantoprazole 40 mg ONCE ONCE IV 06/03/19 15:30 06/03/19 15:31 DC 06/03/19 15:32 40 MG Vital Signs/I&O 06/03/19 06/03/19 06/03/19 13:24 13:28 13:28 Temp 98.2 Pulse 75 Resp 18 B/P (MAP) 136/83 (100) Pulse Ox 97 97 O2 Delivery Room Air Room Air Blood Pressure Mean: 100 Progress Progress Note : Progress Note Seen and evaluated. IV, aspirin and nitroglycerin given by EMS. Patient still with chest pain. Labs, EKG and chest x-ray ordered. Morphine 4 mg IV and GI cocktail ordered. I did review her previous history. Monitor patient. 1530: Repeat troponin and EKG ordered for further evaluation. Patient is pain-free. Pepcid 20 mg IV and Protonix 40 mg IV ordered. Monitor patient. 1648: Repeat troponin did elevate to 0.055. Patient remains chest pain-free. I did discuss the case with Dr. Castro at 1648 and she accepts patient for admission. I did discuss the case with Dr. Barahona at 1652 and he accepts patient in consult. Requests repeat troponin in the morning which was ordered. All findings and concerns discussed with patient and family and they agree. Initial ECG Impression Date: Jun 03, 2019 Initial ECG Impression Time: 13:21 Initial ECG Rate: 75 Initial ECG Rhythm: Normal Sinus Initial ECG Comparisson: Unchanged Comment Sinus rhythm with normal axis. No evidence of ST elevation IN. Unchanged from previous. Interpreted by me. EKG : EKG Time: 15:47 Rate: 56 Rhythm: Normal Sinus ECG Comparisson: Unchanged ECG Impression: Normal Comment Sinus rhythm with normal axis. No evidence of ST elevation IN. Unchanged from previous done earlier today. Interpreted by me. Diagnostic Imaging Diagonstic Imaging: Xray Plain Films/CT/US/NM/MRI: chest Comments [facility] [place] [place] NAME: LASHAWN CHOUDHURY [facility] REC#: [id number] PT STATUS: REG ER : 1965 PHYSICIAN: GLENDA LAI MD ADMIT DATE: 06/03/19/ER Draft Date of Exam:06/03/19 CHEST 1 VIEW, AP/PA ONLY EXAMINATION: Single AP view of the chest. INDICATION: Chest pain. COMPARISON: Multiple priors, most recent performed on 05/19/2019. FINDINGS: There is mild elevation of left hemidiaphragm. There is mild hyperlucency in the upper lung pena, likely reflecting chronic changes of COPD. The lungs are clear and the pulmonary vasculature is normal. No pneumothorax or large pleural effusion. The cardiomediastinal silhouette is unchanged. No acute osseous abnormality is appreciated. IMPRESSION: No radiographic evidence of acute chest disease. No significant change from prior. Dictated on workstation # [id number] Dict: 06/03/19 1357 Trans: 06/03/19 1400 [facility] [id number] Interpreted by: DEBI WEST DO Electronically signed by: Departure Communication (Admissions) Time/Spoke to Admitting Phy: 16:48 Time/Spoke to Consulting Phy: 16:52 Impression Primary Impression: Chest pain Qualified Codes: R07.9 - Chest pain, unspecified Disposition: ADMITTED INPATIENT Condition: Stable Admissions Decision to Admit Reason: Admit from ER (General) Decision to Admit/Date: Jun 03, 2019 Time/Decision to Admit Time: 16:48 Departure-Patient Inst. Referrals: MURRAY OROZCO MD (PCP/Family) Primary Care Physician GLENDA LAI MD Jun 03, 2019 14:11
[2019-06-03] MEDS ORDERED: FAMOTIDINE 20MG/2ML IV (PEPCID) IV STA (15:21)
[2019-06-03] MEDS ORDERED: PANTOPRAZOLE 40 MG (PROTONIX) VIAL IV ONE (15:30)
--- NOTE | 2019-06-03 17:38 | NUR ---
MACEYLASHAWN admitted to room 411-1, with an admitting diagnosis of chest pain , on 06/03/19 from ED via wheelchair, accompanied by staff, and family. LASHAWN CHOUDHURY introduced to surroundings, call light, bed controls, phone, TV, temperature control, lights, meal times, smoking policy, visitor policy, side rail policy, bathrooms and showers. Patient Rights given to patient in the handbook. LASHAWN CHOUDHURY verbalizes understanding that [facility] is not responsible for the loss or damage to any personal effects or valuables that are kept in the patients posession during their hospitalization. The following Patient Care Plans were discussed with the patient: Discharge Planning, medications, pain managment, and dehydration. LASHAWN CHOUDHURY verbalizes understanding of Interdisciplinary Patient Education. Patient and/or family were informed about the Rapid Response Team and its purpose.
[2019-06-03] MEDS ORDERED: morphine INJ 10 MG/ML 1ML (SYR OR VIAL) IVP PRN (18:30)
[2019-06-03] MEDS ORDERED: NITROGLYCERIN 0.4 MG SL TABS BTL 25'S SL PRN (18:30)
[2019-06-03] MEDS: NS IV 1000 ML 1,000 ML IV SCH (19:00)
--- NOTE | 2019-06-03 20:55 | NUR ---
PT CONCERNED ABOUT NOT BEING ABLE TO TAKE HOME MEDS SCHEDULED. HOME MEDS REVIEWED. DR. TURK AND DR. JOHN CONTACTED BY THIS RN. BOTH DRS ORDERED TO RESTART HOME MEDS.
[2019-06-03] MEDS ORDERED: NON-FORMULARY MEDICATION 1 EA EA (Hydrocodone/Acetaminophen (Hydrocodone-Acetamin 5-325 mg PO PRN (21:30)
[2019-06-03] MEDS ORDERED: MONT10TA21 PO (21:57)
[2019-06-03] MEDS ORDERED: TICAGRELOR 90 MG TABLET (BRILINTA) PO ONE (21:59)
[2019-06-03] MEDS ORDERED: meTOprolol TARTRATE 25 MG (LOPRESSOR) TABLET ONE (21:59)
[2019-06-03] MEDS: TICAGRELOR 90 MG TABLET (BRILINTA) PO SCH (22:56)
[2019-06-03] MEDS: meTOprolol TARTRATE 25 MG (LOPRESSOR) TABLET PO SCH (22:56)
[2019-06-04 00:17] VITALS: BP 95/63
[2019-06-04] MEDS ORDERED: PATIENT MAY USE OWN MEDS, ALL MC SCH (03:15)
[2019-06-04 04:19] VITALS: BP 94/67
[2019-06-04 05:30] LABS: BASOPHILS # (AUTO) 0.1 10^3/uL (0.0-0.1); BASOPHILS % (AUTO) 1 % (0-10); EOSINOPHILS # (AUTO) 0.3 10^3/uL (0.0-0.3); EOSINOPHILS % (AUTO) 3 % (0-10); HEMATOCRIT 40 % (35-52); HEMOGLOBIN 12.8 G/DL (11.5-16.0); LYMPHOCYTES # (AUTO) 3.7 X 10^3 (1.0-4.0); LYMPHOCYTES % (AUTO) 34 % (12-44); MEAN CORPUSCULAR HEMOGLOBIN 27 PG (25-34); MEAN CORPUSCULAR HGB CONC 32 G/DL (32-36); MEAN CORPUSCULAR VOLUME 84 FL (80-99); MONOCYTES # (AUTO) 0.8 X 10^3 (0.0-1.0); MONOCYTES % (AUTO) 7 % (0-12); NEUTROPHILS % (AUTO) 55 % (42-75); PLATELET COUNT 257 10^3/uL (130-400); RED CELL DISTRIBUTION WIDTH 15.6 % (10.0-14.5); WHITE BLOOD COUNT 10.8 10^3/uL (4.3-11.0)
[2019-06-04 05:49] LABS: ALANINE AMINOTRANSFERASE 24 U/L (0-55); ALBUMIN 4.2 GM/DL (3.2-4.5); ALKALINE PHOSPHATASE 120 U/L (40-136); BILIRUBIN,TOTAL 0.5 MG/DL (0.1-1.0); BUN/CREATININE RATIO 21; CALCIUM 9.3 MG/DL (8.5-10.1); CARBON DIOXIDE 19 MMOL/L (21-32); CHLORIDE 107 MMOL/L (98-107); CHOLESTEROL 140 MG/DL (< 200); CREATININE SERUM 0.85 MG/DL (0.60-1.30); GFR ESTIMATED > 60; GLUCOSE 92 MG/DL (70-105); HDL CHOLESTEROL 46 MG/DL (40-60); POTASSIUM 4.6 MMOL/L (3.6-5.0); SODIUM 140 MMOL/L (135-145); TOTAL PROTEIN 7.3 GM/DL (6.4-8.2); TRIGLYCERIDES 168 MG/DL (<150); VLDL CHOLESTEROL 34 MG/DL (5-40)
[2019-06-04 05:54] LABS: CARDIAC PROFILE 2 < 0.028 NG/ML (<0.028)
[2019-06-04 08:00] VITALS: BP 108/72
[2019-06-04] MEDS: TICAGRELOR 90 MG TABLET (BRILINTA) PO SCH ×2 (08:08→21:21)
[2019-06-04] MEDS: PANTOPRAZOLE 40 MG (PROTONIX) TAB PO SCH (08:08)
[2019-06-04] MEDS: meTOprolol TARTRATE 25 MG (LOPRESSOR) TABLET PO SCH ×2 (08:08→21:21)
[2019-06-04] MEDS: lisINopril 10 MG (PRINIVIL) TABLET PO SCH (08:09)
[2019-06-04] MEDS: buPROPion SR 150 MG (WELLBUTRIN SR) TAB PO SCH (08:10)
[2019-06-04] MEDS: ASPIRIN E.C. 81 MG (ECOTRIN) TAB PO SCH (08:13)
[2019-06-04] MEDS ORDERED: ASPIRIN E.C. 81 MG (ECOTRIN) TAB PO SCH (09:00)
--- NOTE | 2019-06-04 11:05 | Consultation-Cardiology ---
HPI-Cardiology Cardiology Consultation Date of Consultation 06/04/19 Date of Admission Time Seen by Provider: 10:58 Indication: Chest pain HPI 53 years old lady with history of coronary artery disease, hypertension hyperlipidemia. Has been having recurrent episodes of chest pain, had a severe episode of chest pain around 230 in the morning described it as achiness in the retrosternal area and left shoulder and arm numbness associated with shortness of breath and diaphoresis, took nitroglycerin without significant relief. Came into the emergency room and reported improvement after receiving nitroglycerin and morphine and Tylenol. Currently having mild discomfort in the lower retrosternal area and upper epigastric area. Has been having episode of chest pain on and off. Reporting some dyspnea on exertion. No PND or orthopnea. Has been compliant with her medication and she is an active smoker Home Medications & Allergies Allergies: Coded Allergies: No Known Drug Allergies (Unverified , 12/21/17) Home Medication List Reviewed: Yes MWL-Tsrvrk-Ndsnxb Hx Patient Social History Marital Status: Employed/Student: employed Alcohol Use: Denies Use Recreational Drug Use: No Type Used: Cigarettes 2nd Hand Smoke Exposure: Yes Recent Foreign Travel: No Recent Infectious Disease Expo: No Recent Hopitalizations: No Immunizations Up To Date Tetanus Booster (TDap): Unknown Date of Pneumonia Vaccine: Sep 24, 2018 Past Medical History discussed below Family Medical History Family History: Cancer of mouth 19 MOTHER, , Age:67, Onset:Unknown Cardiovascular disease 19 MOTHER, , Age:67, Onset:Unknown Completed stroke 19 MOTHER, , Age:67, Onset:Unknown Diabetes mellitus 19 MOTHER, , Age:67, Onset:Unknown FH: CABG (coronary artery bypass surgery) 19 MOTHER, , Age:67, Onset:Unknown FH: lung cancer 19 MOTHER, , Age:67, Onset:Unknown FH: ovarian cancer 19 MOTHER, , Age:67, Onset:Unknown GERD 19 FATHER, , Age:69, Onset:Unknown Hypertension 19 MOTHER, , Age:67, Onset:Unknown Review of Systems-General Review of Systems Constitutional: see HPI; No chills, No diaphoresis, No dizziness, No fever, No malaise, No weakness, No weight gain, No weight loss, No other EENTM: see HPI, no symptoms reported Respiratory: see HPI, dyspnea on exertion, short of breath, wheezing Cardiovascular: see HPI, chest pain; No edema, No Hx of Intervention, No palpitations, No syncope, No vascular heart diseas, No other Gastrointestinal: no symptoms reported, see HPI Genitourinary: no symptoms reported, see HPI Musculoskeletal: no symptoms reported, see HPI Skin: no symptoms reported, see HPI Psychiatric/Neurological: No Symptoms Reported, See HPI All Other Systems Reviewed Negative Unless Noted: Yes Reviewed Test Results Reviewed Test Results Lab Laboratory Tests Test 06/03/19 13:21 06/03/19 15:45 06/04/19 05:17 Range/Units White Blood Count 10.3 10.8 4.3-11.0 10^3/uL Red Blood Count 4.95 4.77 4.35-5.85 10^6/uL Hemoglobin 13.6 12.8 11.5-16.0 G/DL Hematocrit 41 40 35-52 % Mean Corpuscular Volume 83 84 80-99 FL Mean Corpuscular Hemoglobin 28 27 25-34 PG Mean Corpuscular Hemoglobin Concent 33 32 32-36 G/DL Red Cell Distribution Width 15.2 H 15.6 H 10.0-14.5 % Platelet Count 252 257 130-400 10^3/uL Mean Platelet Volume 10.9 H 11.0 H 7.4-10.4 FL Neutrophils (%) (Auto) 57 55 42-75 % Lymphocytes (%) (Auto) 33 34 12-44 % Monocytes (%) (Auto) 7 7 0-12 % Eosinophils (%) (Auto) 3 3 0-10 % Basophils (%) (Auto) 1 1 0-10 % Neutrophils # (Auto) 5.9 6.0 1.8-7.8 X 10^3 Lymphocytes # (Auto) 3.4 3.7 1.0-4.0 X 10^3 Monocytes # (Auto) 0.7 0.8 0.0-1.0 X 10^3 Eosinophils # (Auto) 0.3 0.3 0.0-0.3 10^3/uL Basophils # (Auto) 0.1 0.1 0.0-0.1 10^3/uL Prothrombin Time 13.8 12.2-14.7 SEC INR Comment 1.0 0.8-1.4 Activated Partial Thromboplast Time 26 24-35 SEC Sodium Level 142 140 135-145 MMOL/L Potassium Level 4.1 4.6 3.6-5.0 MMOL/L Chloride Level 107 107 98-107 MMOL/L Carbon Dioxide Level 20 L 19 L 21-32 MMOL/L Anion Gap 15 H 14 5-14 MMOL/L Blood Urea Nitrogen 17 18 7-18 MG/DL Creatinine 0.84 0.85 0.60-1.30 MG/DL Estimat Glomerular Filtration Rate > 60 > 60 BUN/Creatinine Ratio 20 21 Glucose Level 108 H 92 70-105 MG/DL Calcium Level 9.5 9.3 8.5-10.1 MG/DL Corrected Calcium 9.1 9.1 8.5-10.1 MG/DL Magnesium Level 2.1 1.8-2.4 MG/DL Total Bilirubin 0.6 0.5 0.1-1.0 MG/DL Aspartate Amino Transf (AST/SGOT) 21 19 5-34 U/L Alanine Aminotransferase (ALT/SGPT) 29 24 0-55 U/L Alkaline Phosphatase 112 120 40-136 U/L Myoglobin 46.2 10.0-92.0 NG/ML Troponin I < 0.028 0.055 H < 0.028 <0.028 NG/ML Total Protein 7.7 7.3 6.4-8.2 GM/DL Albumin 4.5 4.2 3.2-4.5 GM/DL Triglycerides Level 168 H <150 MG/DL Cholesterol Level 140 < 200 MG/DL LDL Cholesterol Direct 68 1-129 MG/DL VLDL Cholesterol 34 5-40 MG/DL HDL Cholesterol 46 40-60 MG/DL Physical Exam Physical Exam Vital Signs Vital Signs - First Documented 06/03/19 13:24 Temp 98.2 Pulse 75 Resp 18 B/P (MAP) 136/83 (100) Pulse Ox 97 Capillary Refill : Less Than 3 Seconds Height, Weight, BMI Height: 5'1.00" Weight: 180lbs. 0.0oz. [id number]; 34.0 BMI Method:Stated General Appearance: No Apparent Distress, WD/WN, Anxious Eyes: Bilateral Eye Normal Inspection, Bilateral Eye PERRL, Bilateral Eye EOMI HEENT: PERRL/EOMI, TMs Normal, Normal ENT Inspection, Pharynx Normal Neck: Full Range of Motion, Non Tender, Supple Respiratory: Chest Non Tender, Lungs Clear, Normal Breath Sounds, No Accessory Muscle Use, No Respiratory Distress, Other (tender across the anterior chest wall especially mid sternum and on the left side) Cardiovascular: Regular Rate, Rhythm, No Edema, No Gallop, No JVD, No Murmur, Normal Peripheral Pulses Gastrointestinal: Normal Bowel Sounds, No Organomegaly, Non Tender, Soft Rectal: Normal Exam, Deferred Back: Normal Inspection, No CVA Tenderness, No Vertebral Tenderness Extremity: Normal Capillary Refill, Normal Inspection, Normal Range of Motion, Non Tender Neurologic/Psychiatric: Alert, Oriented x3, No Motor/Sensory Deficits, Normal Mood/Affect Skin: Normal Color, Warm/Dry Lymphatic: No Adenopathy A/P-Cardiology Admission Diagnosis Chest pain Coronary artery disease Hypertension Hyperlipidemia Assessment/Plan Chest pain nonspecific etiology, atypical in presentation, associated with shortness of breath and diaphoresis. Had extensive workup done in the past, she will need to have stress test done as an outpatient, patient is requesting to have it done while she is in the hospital Coronary artery disease, history of stenting to the LAD done in September [address] Newell, had another cardiac catheter done in January 2019 showing patent stent with novy-[id number]-svmbzfco disease, another hospitalization in April 2019 for chest pain recommended a stress test to be done as an outpatient, did not have the stress test done. Hypertension, controlled on current medication, continue on her medication. Monitor blood pressure Hyperlipidemia, continue on current medication monitor lipids Tobaccoism, educated on smoking cessation History of hiatal hernia, has been on Protonix, continue with current medications and monitor History of Crohn's disease Okay for discharge, I instructed her on smoking cessation, continue current medication and seek an appointment with Dr. Newell next week to have a stress test done as soon as possible. Clinical Quality Measures AMI/AHF: ASA po Prior to arrival: Yes DVT/VTE Risk/Contraindication: Risk Factor Score Per Nursin RFS Level Per Nursing on Admit: 3=High EN JOHN MD Jun 04, 2019 11:05
[2019-06-04] MEDS ORDERED: REGADENOSON 0.4 MG/5 ML SYR (LEXISCAN) IV ONE (11:45)
[2019-06-04 12:00] VITALS: BP 98/53
--- NOTE | 2019-06-04 12:20 | History & Physical-Hospitalist ---
History of Present Illness HPI/Chief Complaint 53-year-old white female with a history of coronary artery disease and previous stent placement. She relates a history of severe midsternal chest pain that awakened her from a sound sleep 2 nights ago. She took a nitroglycerin with relief, then went back to sleep and awakened again in an hour with chest pain associated with diaphoresis and gasping shortness of breath, took another nitroglycerin with relief and went back to sleep. The pain re-occurred in about an hour and awakened her and she called the ambulance. The nitroglycerin they gave her in the ambulance seemed to provide her with some relief. She is extremely anxious about going home without having her heart checked. She identifies increase stress in her with this continued chest pain that causes her and inability to work consistently. She is raising HER-2 grandchildren, and is very tight on finances. She continues to smoke. Source: patient Exam Limitations: no limitations Date Seen 06/04/19 Time Seen by a Provider: 11:00 Attending Physician Joy Castro MD PCP Murray Orozco MD Referring Physician Date of Admission Jun 03, 2019 at 16:56 Home Medications & Allergies Home Medications Reviewed patient Home Medication Reconciliation performed by pharmacy medication reconciliations radioactivity technician and/or nursing. Patients Allergies have been reviewed. Allergies Allergies Coded Allergies No Known Drug Allergies (Unverified12/21/17) Past Gklaxfw-Gruocq-Ilkkew Hx Past Med/Social Hx: Reviewed Nursing Past Med/Soc Hx Patient Social History Marrital Status: Employed/Student: employed Alcohol Use: Denies Use Number of Drinks Today: Alcohol Beverage of Choice: Wine Recreational Drug Use: No Type Used: Cigarettes 2nd Hand Smoke Exposure: Yes Recent Foreign Travel: No Contact w/other who traveled: No Recent Hopitalizations: No Recent Infectious Disease Expo: No Immunizations Up To Date Tetanus Booster (TDap): Unknown Pediatric: Yes Date of Pneumonia Vaccine: Sep 24, 2018 Seasonal Allergies Seasonal Allergies: No Past Medical History Surgeries: Coronary Stent, Gallbladder Cardiac: Coronary Artery Disease, High Cholesterol, Hypertension Neurological: Headaches /Migraines 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: No Sexually Transmitted Disease: No HIV/AIDS: Yes Menopausal Gastrointestinal: Crohns Disease, Irritable Bowel Musculoskeletal: Arthritis Loss of Vision: Bilateral Hearing Impairment: Denies History of Blood Disorders: No Adverse Reaction to Blood Nagy: No (N/A) Family History Reviewed Nursing Family Hx Cancer of mouth 19 MOTHER, , Age:67, Onset:Unknown Cardiovascular disease 19 MOTHER, , Age:67, Onset:Unknown Completed stroke 19 MOTHER, , Age:67, Onset:Unknown Diabetes mellitus 19 MOTHER, , Age:67, Onset:Unknown FH: CABG (coronary artery bypass surgery) 19 MOTHER, , Age:67, Onset:Unknown FH: lung cancer 19 MOTHER, , Age:67, Onset:Unknown FH: ovarian cancer 19 MOTHER, , Age:67, Onset:Unknown GERD 19 FATHER, , Age:69, Onset:Unknown Hypertension 19 MOTHER, , Age:67, Onset:Unknown Review of Systems Constitutional: see HPI EENTM: no symptoms reported Respiratory: cough, dyspnea on exertion, orthopnea Cardiovascular: chest pain Gastrointestinal: abdominal pain, constipation, diarrhea, heartburn Genitourinary: no symptoms reported Musculoskeletal: muscle cramps Skin: no symptoms reported Psychiatric/Neurological: Anxiety Physical Exam Physical Exam Vital Signs Vital Signs - First Documented 06/03/19 13:24 Temp 98.2 Pulse 75 Resp 18 B/P (MAP) 136/83 (100) Pulse Ox 97 Capillary Refill : Less Than 3 Seconds Height, Weight, BMI Height: 5'1.00" Weight: 180lbs. 0.0oz. 81.520367mn; 34.0 BMI Method:Stated General Appearance: Anxious HEENT: Normal ENT Inspection, Pharynx Normal Neck: Full Range of Motion, Normal Inspection, Non Tender, Supple Respiratory: Chest Non Tender, Lungs Clear, Normal Breath Sounds, No Accessory Muscle Use, No Respiratory Distress Cardiovascular: Regular Rate, Rhythm, No Edema, No Gallop, No JVD, No Murmur, Normal Peripheral Pulses Gastrointestinal: Normal Bowel Sounds, Non Tender, Soft Extremity: Normal Capillary Refill, Normal Inspection, Normal Range of Motion, Non Tender, No Calf Tenderness Neurologic/Psychiatric: Alert, Oriented x3, No Motor/Sensory Deficits, Normal Mood/Affect Skin: Normal Color, Warm/Dry Results Results/Procedures Labs Laboratory Tests 06/03/19 13:21 06/04/19 05:17 Patient resulted labs reviewed. Imaging: Reviewed Imaging Report Assessment/Plan Admission Diagnosis chest pain PND coronary artery disease hypertension reflux possibly tobaccoism anxiety poor social situation discussed with Dr. Wilson will order a stress test for the morning before discharge. consider beginning medication for anxiety Admission Status: Observation Clinical Quality Measures AMI/AHF: ASA po Prior to arrival: Yes DVT/VTE Risk/Contraindication: Risk Factor Score Per Nursin RFS Level Per Nursing on Admit: 3=High Copy Copies To 1: MURRAY OROZCO MD, KATHLEEN M MD Jun 04, 2019 12:20
[2019-06-04] MEDS ORDERED: FAMOTIDINE 20 MG (PEPCID) TABLET PO PRN (12:30)
[2019-06-04 15:55] VITALS: BP 117/69
[2019-06-04] MEDS: NS IV 1000 ML 1,000 ML IV SCH (17:14)
[2019-06-04 19:40] VITALS: BP 135/87
--- NOTE | 2019-06-04 20:10 | NUR ---
PATIENT C/O CHEST PAIN AT 1999. PT HAD SOB AND PULSE AT 122. PRN NITRO ADMIN AND CHEST PAIN RESOLVED W/I 5 MINUTES. PT HAD JUST GOTTEN OUT OF SHOWER WHEN EPISODE OCCURRED AND TELEMETRY WAS OFF AT THIS TIME. TELEMETRY PUT BACK ON PT AND RUNNING SINUS RHYTHM PER TECH. EKG ORDERED PER PROTOCOL. VS 129/63 P 68 RR 20 T 96.8 02 97 % RA. DR TURK NOTIFIED AND ORDERED TROPININ. EKG BEING ADMIN AT THIS TIME. PT LAYING IN BED AND REPORTS THAT SHE HAS NO PAIN. FAMILY AT BEDSIDE
[2019-06-04] MEDS: ATORVASTATIN 80 MG (LIPITOR) TABLET PO SCH (21:21)
--- NOTE | 2019-06-04 21:44 | NUR ---
DR JOHN NOTIFIED OF TROPONIN AT 0.030. NO NEW ORDERS.
[2019-06-05] VITALS (14 sets, daily range): BP systolic 83–140; BP diastolic 56–97
[2019-06-05] MEDS: lisINopril 10 MG (PRINIVIL) TABLET PO SCH (09:00)
[2019-06-05] MEDS: TICAGRELOR 90 MG TABLET (BRILINTA) PO SCH ×2 (09:00→20:38)
[2019-06-05] MEDS: PANTOPRAZOLE 40 MG (PROTONIX) TAB PO SCH (09:00)
[2019-06-05] MEDS: meTOprolol TARTRATE 25 MG (LOPRESSOR) TABLET PO SCH ×2 (09:00→20:39)
[2019-06-05] MEDS: buPROPion SR 150 MG (WELLBUTRIN SR) TAB PO SCH (09:00)
--- NOTE | 2019-06-05 09:19 | Cardiology Progress Note ---
Subjective Date Seen by Provider: Jun 05, 2019 Time Seen by Provider: 09:17 Subjective/Events-last exam patient is laying down in bed, had significant chest pain, appear to be rep roducible by pushing on her lower portion of her sternum Review of Systems General: No Chills, No Night Sweats, No Fatigue, No Malaise, No Appetite, No Other HEENT: No Head Aches, No Visual Changes, No Eye Pain, No Ear Pain, No Dysphasia, No Sinus Congestion, No Post Nasal Drip, No Sore Throat, No Other Pulmonary: No Dyspnea, No Cough, No Pleuritic Chest Pain, No Other Cardiovascular: Chest Pain; No: Palpitations, Orthopnea, Paroxysmal Noc. Dyspnea, Edema, Lt Headedness, Other Objective-Cardiology Exam Last Set of Vital Signs Vital Signs 06/05/19 08:00 Temp 97.8 Pulse 57 Resp 18 B/P (MAP) 109/72 (84) Pulse Ox 97 O2 Delivery Room Air Capillary Refill : Less Than 3 Seconds I&O Intake and Output 06/05/19 00:00 Intake Total 2640 ml Balance 2640 ml Intake Oral 2640 ml # Voids 7 # Bowel Movements 1 General: Alert, Oriented X3, Cooperative HEENT: Atraumatic, PERRLA Neck: Supple, No JVD, No Thyromegaly Lungs: Clear to Auscultation, Normal Air Movement Heart: Regular Rate, Normal S1, Normal S2, No Murmurs Abdomen: Normal Bowel Sounds, Soft, No Tenderness, No Hepatosplenomegaly, No Masses Extremities: No Clubbing, No Cyanosis, No Edema, Normal Pulses, No Tenderness/Swelling Skin: No Rashes, No Breakdown, No Significant Lesion Neuro: Normal Gait, Normal Speech, Strength at 5/5 X4 Ext, Normal Tone, Sensation Intact Psych/Mental Status: Mental Status NL, Mood NL Results Lab Laboratory Tests Test 06/04/19 21:05 Range/Units Troponin I 0.030 H <0.028 NG/ML A/P-Cardiology Admission Diagnosis Chest pain Coronary artery disease Hypertension Hyperlipidemia Assessment/Plan Chest pain nonspecific etiology, atypical in presentation, associated with shortness of breath and diaphoresis. Had extensive workup done in the past, scheduled for stress test today. Coronary artery disease, history of stenting to the LAD done in September [address] Newell, had another cardiac catheter done in January 2019 showing patent stent with [id number] disease, another hospitalization in April 2019 for chest pain recommended a stress test, she is scheduled for stress test. Questionable gastroesophageal reflux disease, questionable had a hernia as a cause of her chest pain. Consider EGD Cholelithiasis noted on gallbladder ultrasound, will need evaluation. Hypertension, controlled on current medication, continue on her medication. Monitor blood pressure Hyperlipidemia, continue on current medication monitor lipids Tobaccoism, educated on smoking cessation History of hiatal hernia, has been on Protonix, continue with current medications and monitor History of Crohn's disease Clinical Quality Measures AMI/AHF: ASA po Prior to arrival: Yes DVT/VTE Risk/Contraindication: Risk Factor Score Per Nursin RFS Level Per Nursing on Admit: 3=High EN JOHN MD Jun 05, 2019 09:18
[2019-06-05] MEDS ORDERED: CETI10TA17 PO (09:49)
[2019-06-05] MEDS ORDERED: NITR0.4T42 SL (09:49)
--- NOTE | 2019-06-05 09:53 | NUR ---
SPOKE WITH PT, WELL GOING THRU THE EXTERNAL MED HISTORY TO COMPLETE MED REC. NOTHING CURRENT SHOWED IN THE EXTERNAL MED HISTORY BUT PT HAD ALL HER BOTTLES FROM [facility] AND THEY ALL HAD CURRENT DATING. OTC MEDICATIONS: ASPIRIN 81M DAILY
--- NOTE | 2019-06-05 11:43 | NUR ---
Patient off floor at this time for zunilda.
[2019-06-05] MEDS: ASPIRIN E.C. 81 MG (ECOTRIN) TAB PO SCH (11:52)
[2019-06-05] MEDS ORDERED: REGADENOSON 0.4 MG/5 ML SYR (LEXISCAN) IV ONE ×2 (12:34→12:45)
--- NOTE | 2019-06-05 13:45 | NUR ---
Patient back on floor from [facility].
[2019-06-05] MEDS: NS IV 1000 ML 1,000 ML IV SCH ×2 (14:01→17:00)
--- NOTE | 2019-06-05 14:05 | NUR ---
Pastoral care visit.
[2019-06-05] MEDS ORDERED: LIDOCAINE 1% INJ 20 ML 20 ML VIAL ONE (15:02)
[2019-06-05] MEDS ORDERED: NS IV 1000 ML 0 ML ONE (15:02)
[2019-06-05] MEDS ORDERED: HEParin (CATH LAB) 2,000 ML IV ONE (15:02)
[2019-06-05] MEDS ORDERED: fentaNYL INJECTION 100 MCG/2 ML AMP ONE (15:38)
[2019-06-05] MEDS ORDERED: MIDAZOLAM 5 MG/5 ML (VERSED) VIAL ONE (15:38)
[2019-06-05] MEDS ORDERED: NITRO DRIP 25000 MCG/D5W 250 ML IV ONE (16:46)
[2019-06-05] MEDS ORDERED: morphine INJ 10 MG/ML 1ML (SYR OR VIAL) ONE (16:47)
[2019-06-05] MEDS ORDERED: MIDAZOLAM 2 MG/2 ML (VERSED) VIAL ONE (16:47)
[2019-06-05] MEDS ORDERED: PATIENT MAY USE OWN MEDS, ALL PO SCH (17:00)
--- NOTE | 2019-06-05 17:11 | Cardiac Cath Report ---
Cardiac Cath Report Physician (s)/Plumber Assistant (s) Physician EN JOHN MD Pre-Procedure Diagnosis Pre-Procedure Diagnosis: CAD, Chest pain Post-Procedure Note Procedure Start Date: Jun 05, 2019 Name of Procedure: left heart catheterization Findings/Procedure Note PROCEDURE NOTE: 53 years old lady with history of coronary artery disease multiple intervention continued to have recurrent chest pain, underwent stress test which was abnormal she was brought for cardiac catheterization possible PTCA. After explaining the procedure to the patient, all pros and cons were explained, all questions were answered. The patient signed the consent and then she was placed on the cardiac catheterization laboratory. Groin was prepped SL fashion local anesthesia was used. Sheath placed in the Right femoral artery. Ehsan right and left catheter were used to access the coronary system. Pigtail was used to access the left ventricular cavity. Left ventriculogram was done next During the procedure patient continued to have significant coronary spasm in the right coronary artery induced by the catheter, progressed into severe spasm the proximal portion, patient developed chest pain and ST depression and short runs of supraventricular tachycardia, responded to Versed and intra-arterial and sublingual nitroglycerin. The left Ehsan catheter imaging was significantly difficult with significant spasm in the left main, probably had tubular stenosis in the left main or the artery is fairly small At the end of the procedure the sheath was removed. Closure device was used FINDINGS: Hemodynamics LV 152/39, and diastolic pressure of 39 Aorta 152/67 mean of 115 ANATOMY: Left Main is small with questionable tubular stenosis and ostial stenosis, where require intravascular ultrasound evaluation Left Anterior Descending has proximal and mid stent with an area of moderate to severe stenosis in between the Left Circumflex is moderate in size with no obstructive disease Right Coronory Artery is moderate in size with moderate disease proximally, progressing to severe spasm in the proximal region induced by catheter LV Gram was done showing normal left ventricular size and systolic function test ejection fraction 60 percent CONCLUSION: 1. Patent stent in the proximal and mid LAD with moderate severe stenosis in the area between the stents 2. Tubular stenosis with ostial stenosis in the left main coronary artery 3. Catheter-induced spasm in the right coronary artery with significant EKG changes with ST depression and responded to nitroglycerin 4. Severe chest pain and ST depression responded to nitroglycerin DISCUSSION AND RECOMMENDATION: restart isosorbide, will consider adding Ranexa, continue on aspirin and Brili nta and will arrange for evaluation for possible intravascular ultrasound to the left main and intervention or bypass surgery to the LAD and right coronary artery Anesthesia Type: Conscious Sedation Estimated blood loss (mL): 15 ml Contrast Amount: 100 ml Total Radiation Dose: 689 mGy Post-Procedure Diagnosis Post-operative diagnosis: Chest pain Coronary artery disease Hypertension Hyperlipidemia EN JOHN MD Jun 05, 2019 17:11
[2019-06-05] MEDS: ISOSORBIDE MONONITRATE 30 MG (IMDUR) TAB PO SCH (17:57)
[2019-06-05] MEDS: HYDROcodone/APAP 5 MG/325 MG (LORTAB) TAB PO PRN (19:05)
--- NOTE | 2019-06-05 20:27 | Progress Note - Hospitalist ---
Subjective HPI/CC On Admission Date Seen by Provider: Jun 05, 2019 Time Seen by Provider: 09:00 53-year-old white female with a history of coronary artery disease and previous stent placement. She relates a history of severe midsternal chest pain that awakened her from a sound sleep 2 nights ago. She took a nitroglycerin with relief, then went back to sleep and awakened again in an hour with chest pain associated with diaphoresis and gasping shortness of breath, took another nitroglycerin with relief and went back to sleep. The pain re-occurred in about an hour and awakened her and she called the ambulance. The nitroglycerin they gave her in the ambulance seemed to provide her with some relief. She is extremely anxious about going home without having her heart checked. She identifies increase stress in her with this continued chest pain that causes her and inability to work consistently. She is raising HER-2 grandchildren, and is very tight on finances. She continues to smoke. Subjective/Events-last exam Hospital course: Pt had an uneventful hospital course. Dr. Barahona was consulted for chest pain, she had a history of cholecystectomy for gallbladder disease in addition had a coronary stent placed last year, a normal stress test in January, so telemetry was monitored and showed a PAC that appeared to have artifact instead of atrial fibrillation that the electronic device monitor thought so she underwent stress test by Dr. Barahona and since it was abnormal she underwent cath revealing moderate stenosis in between stent so further management will be required, Dr. Ortiz will perform EGD as an outpatient, smoking cessation was counseled. She is already on a long acting nitrate which was restarted. Appreciate Dr. Barahona recommendations and expert advice. Patient will be monitored in ICU tonight while future planning completed. Review of Systems Cardiovascular: Chest Pain Objective Exam Vital Signs Vital Signs Date Time Temp Pulse Resp B/P (MAP) Pulse Ox O2 Delivery O2 Flow Rate FiO2 06/05/19 20:00 80 16 105/60 (75) 96 Room Air 06/05/19 19:48 98.4 Capillary Refill : Less Than 3 Seconds General Appearance: No Apparent Distress, WD/WN, Chronically ill Respiratory: Chest Non Tender, Lungs Clear, Normal Breath Sounds, No Accessory Muscle Use, No Respiratory Distress Cardiovascular: Regular Rate, Rhythm, No Edema, No Gallop, No JVD, No Murmur, Normal Peripheral Pulses Neurologic/Psychiatric: Alert, Oriented x3, No Motor/Sensory Deficits, Normal Mood/Affect Results/Procedures Lab Patient resulted labs reviewed. Imaging: Reviewed Imaging Report Assessment/Plan Assessment and Plan Assess & Plan/Chief Complaint Assessment: Chest pain with abnormal EST then abnormal cath revealing stenosis in-between stents needs CABG or intravascular USG with intervention Smoker Anxiety Plan: Appreciate Dr Barahona's expertise Diagnosis/Problems Diagnosis/Problems (1) Chest pain Status: Acute Qualifiers: Chest pain type: unspecified Qualified Codes: R07.9 - Chest pain, unspecified (2) HTN (hypertension) Status: Acute Qualifiers: Hypertension type: essential hypertension Qualified Codes: I10 - Essential (primary) hypertension (3) HLD (hyperlipidemia) Status: Chronic Qualifiers: Hyperlipidemia type: mixed hyperlipidemia Qualified Codes: E78.2 - Mixed hyperlipidemia (4) Tobacco abuse Status: Chronic (5) Headache Status: Acute Qualifiers: Headache type: tension-type Headache chronicity pattern: unspecified pattern Intractability: not intractable Qualified Codes: G44.209 - Tension- type headache, unspecified, not intractable (6) Coronary artery disease Status: Chronic Qualifiers: Coronary Disease-Associated Artery/Lesion type: [place] artery [place] vs. transplanted heart: [place] heart Associated angina: with unstable angina Qualified Codes: I25.110 - Atherosclerotic heart disease of [place] coronary artery with unstable angina pectoris Clinical Quality Measures AMI/AHF: ASA po Prior to arrival: Yes DVT/VTE Risk/Contraindication: Risk Factor Score Per Nursin RFS Level Per Nursing on Admit: 3=High JAYMIE PEPE DO Jun 05, 2019 20:27
[2019-06-05] MEDS: ATORVASTATIN 80 MG (LIPITOR) TABLET PO SCH (20:38)
[2019-06-06] VITALS: BP 99/60
[2019-06-06 03:48] LABS: HEMOGLOBIN 11.5 G/DL (11.5-16.0); MEAN PLATELET VOLUME 11.2 FL (7.4-10.4); RED CELL DISTRIBUTION WIDTH 15.3 % (10.0-14.5); WHITE BLOOD COUNT 8.9 10^3/uL (4.3-11.0)
[2019-06-06 04:00] VITALS: BP 101/54
[2019-06-06 04:02] LABS: BUN/CREATININE RATIO 18; CALCIUM 8.7 MG/DL (8.5-10.1); CARBON DIOXIDE 20 MMOL/L (21-32); CHLORIDE 109 MMOL/L (98-107); CREATININE SERUM 0.73 MG/DL (0.60-1.30); GFR ESTIMATED > 60; GLUCOSE 102 MG/DL (70-105); POTASSIUM 3.8 MMOL/L (3.6-5.0); SODIUM 143 MMOL/L (135-145)
[2019-06-06] MEDS: NS IV 1000 ML 1,000 ML IV SCH ×2 (04:26→13:22)
[2019-06-06] MEDS: PANTOPRAZOLE 40 MG (PROTONIX) TAB PO SCH (08:26)
[2019-06-06] MEDS: meTOprolol TARTRATE 25 MG (LOPRESSOR) TABLET PO SCH (08:26)
[2019-06-06] MEDS: lisINopril 10 MG (PRINIVIL) TABLET PO SCH (08:26)
[2019-06-06] MEDS: TICAGRELOR 90 MG TABLET (BRILINTA) PO SCH (08:27)
[2019-06-06] MEDS: ASPIRIN E.C. 81 MG (ECOTRIN) TAB PO SCH (08:27)
[2019-06-06] MEDS: ISOSORBIDE MONONITRATE 30 MG (IMDUR) TAB PO SCH (08:27)
[2019-06-06] MEDS: buPROPion SR 150 MG (WELLBUTRIN SR) TAB PO SCH ×2 (08:27→09:25)
--- NOTE | 2019-06-06 12:41 | Discharge Summary ---
Diagnosis/Chief Complaint Date of Admission Jun 03, 2019 at 16:56 Date of Discharge Admission Diagnosis chest pain PND coronary artery disease hypertension reflux possibly tobaccoism anxiety poor social situation discussed with Dr. Wilson will order a stress test for the morning before discharge. consider beginning medication for anxiety Discharge Diagnosis (1) Chest pain Status: Acute (2) HTN (hypertension) Status: Acute (3) HLD (hyperlipidemia) Status: Chronic (4) Tobacco abuse Status: Chronic (5) Headache Status: Acute (6) Coronary artery disease Status: Chronic Discharge Summary Discharge Physical Exam Allergies: Coded Allergies: No Known Drug Allergies (Unverified , 12/21/17) Vitals & I&Os Vital Signs Date Time Temp Pulse Resp B/P (MAP) Pulse Ox O2 Delivery O2 Flow Rate FiO2 06/06/19 19:21 97.6 67 16 127/63 (84) 99 Room Air General Appearance: No Apparent Distress, WD/WN, Chronically ill Respiratory: Chest Non Tender, Lungs Clear, Normal Breath Sounds, No Accessory Muscle Use, No Respiratory Distress Cardiovascular: Regular Rate, Rhythm, No Edema, No Gallop, No JVD, No Murmur, Normal Peripheral Pulses Neurologic/Psychiatric: Alert, Oriented x3, No Motor/Sensory Deficits, Normal Mood/Affect Hospital Course Was the Problem List Reviewed?: Yes Pt still awaiting decision from cardiology whether or not additional stents can be placed or she will require bypass surgery. Smoking cessation counseled. has a good understanding of the decision that is being made in order how to manage this coronary artery stenosis. Conferred with Dr Barahona and he has arranged transfer to [place] for bypass consideration. Labs (last 24 hrs) Laboratory Tests 06/06/19 03:10: White Blood Count 8.9, Red Blood Count 4.24L, Hemoglobin 11.5, Hematocrit 36, Mean Corpuscular Volume 85, Mean Corpuscular Hemoglobin 27, Mean Corpuscular Hemoglobin Concent 32, Red Cell Distribution Width 15.3H, Platelet Count 207, Mean Platelet Volume 11.2H, Sodium Level 143, Potassium Level 3.8, Chloride Level 109H, Carbon Dioxide Level 20L, Anion Gap 14, Blood Urea Nitrogen 13, Creatinine 0.73, Estimat Glomerular Filtration Rate > 60, BUN/Creatinine Ratio 18, Glucose Level 102, Calcium Level 8.7 Patient resulted labs reviewed. Imaging: Reviewed Imaging Report Discussion & Recommendations Discharge Planning: <30 minutes discharge planning Discharge Home Medications: Active Scripts Active Protonix (Pantoprazole Sodium) 40 Mg Tablet.dr 40 Mg PO DAILY Reported Nitroglycerin 0.4 Mg Tab.subl 0.4 Mg SL UD Cetirizine HCl 10 Mg Tablet 10 Mg PO DAILY Singulair (Montelukast Sodium) 10 Mg Tablet 10 Mg PO HS Brilinta (Ticagrelor) 90 Mg Tablet 90 Mg PO BID Metoprolol Tartrate 25 Mg Tablet 12.5 Mg PO BID TAKES 1/2 (25MG) TABLET Atorvastatin Calcium 80 Mg Tablet 80 Mg PO HS Hydrocodone-Acetamin 5-325 mg (Hydrocodone/Acetaminophen) 1 Each Tablet 1 Tab PO TID PRN Aspirin EC (Aspirin) 81 Mg Tablet.dr 81 Mg PO DAILY Lisinopril 10 Mg Tablet 10 Mg PO DAILY Instructions to patient/family Please see electronic discharge instructions given to patient. Clinical Quality Measures AMI/AHF: ASA po Prior to arrival: Yes DVT/VTE Risk/Contraindication: Risk Factor Score Per Nursin RFS Level Per Nursing on Admit: 3=High Problem Qualifiers (1) Chest pain: Chest pain type: unspecified Qualified Codes: R07.9 - Chest pain, unspecified (2) HTN (hypertension): Hypertension type: essential hypertension Qualified Codes: I10 - Essential (primary) hypertension (3) HLD (hyperlipidemia): Hyperlipidemia type: mixed hyperlipidemia Qualified Codes: E78.2 - Mixed hyperlipidemia (4) Headache: Headache type: tension-type Headache chronicity pattern: unspecified pattern Intractability: not intractable Qualified Codes: G44.209 - Tension-type headache, unspecified, not intractable (5) Coronary artery disease: Coronary Disease-Associated Artery/Lesion type: [place] artery [place] vs. transplanted heart: [place] heart Associated angina: with unstable angina Qualified Codes: I25.110 - Atherosclerotic heart disease of [place] coronary artery with unstable angina pectoris JAYMIE PEPE DO Jun 06, 2019 12:41
[2019-06-06 12:45] VITALS: BP 129/61
[2019-06-06] MEDS: HYDROcodone/APAP 5 MG/325 MG (LORTAB) TAB PO PRN (12:47)
--- NOTE | 2019-06-06 14:54 | Cardiology Progress Note ---
Subjective Date Seen by Provider: Jun 06, 2019 Time Seen by Provider: 13:00 Subjective/Events-last exam Patient is sitting in a chair, feeling better. Denied any chest pain. Review of Systems General: No Chills, No Night Sweats, No Fatigue, No Malaise, No Appetite, No Other HEENT: No Head Aches, No Visual Changes, No Eye Pain, No Ear Pain, No Dysphasia, No Sinus Congestion, No Post Nasal Drip, No Sore Throat, No Other Pulmonary: No Dyspnea, No Cough, No Pleuritic Chest Pain, No Other Cardiovascular: No: Chest Pain, Palpitations, Orthopnea, Paroxysmal Noc. Dyspnea, Edema, Lt Headedness, Other Objective-Cardiology Exam Last Set of Vital Signs Vital Signs 06/05/19 06/06/19 06/06/19 06/06/19 06/06/19 22:00 07:00 08:35 11:26 12:45 Temp 96.9 Pulse 68 Resp 22 B/P (MAP) 129/61 (83) Pulse Ox 95 O2 Delivery Room Air Capillary Refill : Less Than 3 Seconds I&O Intake and Output 06/06/19 00:00 Intake Total 1800 ml Output Total 700 ml Balance 1100 ml Intake Oral 800 ml IV Total 1000 ml Output Urine Total 700 ml # Voids 5 # Bowel Movements 2 General: Alert, Oriented X3, Cooperative HEENT: Atraumatic, PERRLA Neck: Supple, No JVD, No Thyromegaly Lungs: Clear to Auscultation, Normal Air Movement Heart: Regular Rate, Normal S1, Normal S2, No Murmurs Abdomen: Normal Bowel Sounds, Soft, No Tenderness, No Hepatosplenomegaly, No Masses Extremities: No Clubbing, No Cyanosis, No Edema, Normal Pulses, No Tenderness/Swelling Skin: No Rashes, No Breakdown, No Significant Lesion Neuro: Normal Gait, Normal Speech, Strength at 5/5 X4 Ext, Normal Tone, Sensation Intact Psych/Mental Status: Mental Status NL, Mood NL Results Lab Laboratory Tests 06/06/19 03:10 A/P-Cardiology Admission Diagnosis Chest pain Coronary artery disease Hypertension Hyperlipidemia Assessment/Plan Chest pain nonspecific etiology, unstable angina, coronary artery disease as described below. Coronary artery disease, history of stenting to the LAD done in September [address] Newell, had another cardiac catheter done in January 2019 showing pa tent stent with [id number] disease, cardiac catheterization was carried out yesterday showing significant stenosis in the mid and proximal LAD, significant spasm in the right coronary artery and questionable stenosis to the left main. Discussed with her the management plan, reviewed the coronary anatomy with Dr. Beckford and decided to reevaluate the left main with FFR then probably stenting the LAD and right coronary artery, I will transfer to [place] for the management. Cholelithiasis noted on gallbladder ultrasound, will need evaluation. Hypertension, controlled on current medication, continue on her medication. Monitor blood pressure Hyperlipidemia, continue on current medication monitor lipids Tobaccoism, educated on smoking cessation History of hiatal hernia, has been on Protonix, continue with current medications and monitor History of Crohn's disease I discussed the management plan with Dr. Jimenez who accepted the patient, I will arrange for the transfer. Clinical Quality Measures AMI/AHF: ASA po Prior to arrival: Yes DVT/VTE Risk/Contraindication: Risk Factor Score Per Nursin RFS Level Per Nursing on Admit: 3=High EN JOHN MD Jun 06, 2019 2:54 pm
[2019-06-06 19:21] VITALS: BP 127/63
--- NOTE | 2019-06-06 19:51 | NUR ---
This RN gave report to COURT Pena at [facility]. Pt will be transferred to [facility] at 284. EMS notified at this time.
--- NOTE | 2019-06-06 21:05 | NUR ---
This RN gave report to EMS. Patient left with EMS at this time on stretcher.
--- NOTE | 2019-06-11 15:30 | Cardiology Stress Test Report ---
Stress Test Report Type of NM Stress Test: Test Type: NUCLEAR TREADMILL Date of Procedure/Referring: Date of Procedure: Jun 05, 2019 PCP Joy Castro MD Admitting Physician Sandra Cruz MD Indications: Chest pain Baseline Heart Rate: 52 Baseline Blood Pressure: Blood Pressure Systolic: 127 Blood Pressure Diastolic: 63 Baseline EKG: Baseline EKG: sinus rhythm Summary & Conclusion: Summary: The patient was brought to the stress lab after informed consent was taken. S tress test was performed according to the Mike protocol. Patient exercised for 5.2 minutes. Achieved 3.6 metabolic equivalents. Maximum heart rate 128 BPM which is 77 percent of maximum predicted heart rate response. Initial blood pressure 115/75 mmHg. Maximum blood pressure 159/79 mmHg. Numerous ventricular couplets noted. ST depression noted in leads [address] elevation noted in leads V1, aVL, V3. Patient felt very lightheaded. 9.5 mCi of Myoview were given for rest imaging and 29.7 mCi of Myoview given for stress imaging. Transient ischemic dilatation score 1.54, EF 63 percent. Normal wall motion. Reversible large anterior/apical defect. Conclusion: Exercise stress test was positive for ischemia. Evidence of anterior ischemia. Coronary angiography is recommended. Ivan NORIEGA MD Jun 11, 2019 15:30
== END 2019-06-06 21:05 | disposition short-term general hospital (02) ==
LOC: EDUNIT# 13:20 → ER 13:21 → UNDOADMOB 16:56 → 4TH 16:56 → CATH 17:35 → 4TH 17:35 → ICU 06-05 17:19 → CATH 06-06 21:05 → UNDODISOB 06-06 21:05
PROVIDERS: ATTEND Internal Medicine
DX: R07.9 Chest pain, unspecified (principal); I25.10 Atherosclerotic heart disease of native coronary artery without angina pectoris; I10 Essential (primary) hypertension; E78.5 Hyperlipidemia, unspecified; G43.909 Migraine, unspecified, not intractable, without status migrainosus; K50.90 Crohn's disease, unspecified, without complications; F17.210 Nicotine dependence, cigarettes, uncomplicated; M19.90 Unspecified osteoarthritis, unspecified site; H54.3 Unqualified visual loss, both eyes; K80.20 Calculus of gallbladder without cholecystitis without obstruction; R06.00 Dyspnea, unspecified; F41.9 Anxiety disorder, unspecified; Z79.891 Long term (current) use of opiate analgesic; Z79.82 Long term (current) use of aspirin; Z95.5 Presence of coronary angioplasty implant and graft; Z82.49 Family history of ischemic heart disease and other diseases of the circulatory system; Z82.3 Family history of stroke; Z83.3 Family history of diabetes mellitus; Z80.1 Family history of malignant neoplasm of trachea, bronchus and lung; Z80.41 Family history of malignant neoplasm of ovary; Z87.19 Personal history of other diseases of the digestive system; Z60.9 Problem related to social environment, unspecified
CPT/HCPCS: 36415; 71045; 78452; 80048; 80053; 80061; 83735; 83874; 84484; 85025; 85027; 85610; 85730; 93005; 93017; 93041; 93458; 96374; 96375; G0378

== ENCOUNTER → 2020-05-27 | Outpatient (CLI) | payer MEDICAID ==
[~2020-05-27] MED LIST changes: +CETI10TA17 PO; -HYDR-3812 PO; +MONT10TA21 PO; +NITR0.4T42 SL; +TRM50T PO
== END ==
LOC: CARD 13:54
PROVIDERS: ATTEND Internal Medicine Cardiovascular Disease
DX: I25.10 Atherosclerotic heart disease of native coronary artery without angina pectoris (principal); I10 Essential (primary) hypertension; R10.12 Left upper quadrant pain
CPT/HCPCS: 93306

== ENCOUNTER → 2020-05-27 | Outpatient (CLI) | payer MEDICAID ==
--- NOTE | 2020-05-27 16:41 | Diagnostic Imaging Report ---
CT Lung Screening INDICATION: Screening for lung cancer, 40-pack year history of smoking, current smoker. TECHNIQUE: Noncontrast, low-dose CT imaging performed according to the lung cancer screening protocol. Auto Exposure Controls were utilize during the CT exam to meet ALARA standards for radiation dose reduction. COMPARISON: May 23, 2019, and November 13, 2016. FINDINGS: No significant adenopathy within the chest. No aneurysmal dilatation of the thoracic aorta. The heart is within normal limits in size. Significant calcifications within the coronary arteries. No pericardial effusion. No pleural effusion. No pneumothorax. Mild background centrilobular emphysematous changes are again noted, with an upper lobe predilection. No suspicious pulmonary nodule or opacity. The trachea is patent. Diffusely decreased density within the liver. The visualized upper abdomen is otherwise unremarkable. Scattered osseous degenerative changes without acute osseous abnormality. IMPRESSION: No acute abnormality. Mild background emphysematous changes without suspicious pulmonary nodule or consolidation. Fatty infiltration of the liver. LUNG-RADS CATEGORY: 1s: Negative. MODIFIER: S: Significant coronary artery calcifications and mild background emphysematous changes. Follow-up: Continued annual low-dose CT of the chest in 12 months. Dictated by: Dictated on workstation # [id number]
== END ==
LOC: RAD 13:53
PROVIDERS: ATTEND Internal Medicine Critical Care Medicine
DX: Z12.2 Encounter for screening for malignant neoplasm of respiratory organs (principal); J43.9 Emphysema, unspecified; F17.210 Nicotine dependence, cigarettes, uncomplicated

== ENCOUNTER → 2020-06-12 | Day surgery (SDC) | payer MEDICAID ==
[~2020-06-12] MED LIST changes: +AMLO5TAB9 PO; +ASPI-1238 PO; -ASPI-983 PO; +FLUT1DIS26 IH; +FLUT1DIS28 IH; +HURRICAINE EXT TUBE (BENZOCAINE) ONE; +ISOS30TA3 PO; +LACTATED RINGERS 1,000 ML IV ONE; +LIDOCAINE JELLY 2% 6 ML SYRINGE ONE; +MEMA5TAB43 PO; +MIDAZOLAM 2 MG/2 ML (VERSED) VIAL ONE; +PANT40TA52 PO; +PREG75CA PO; +PREG75CA75 PO; +PROPOFOL INJECTION 50 ML IV ONE; +RT-ALBUINH IH; +SUCR1TAB36 PO
--- NOTE | 2020-06-12 20:50 | OPERATIVE REPORT ---
DATE OF SERVICE: 06/12/2020 ATTENDING PRIMARY CARE PHYSICIAN: Dr. Sandra Cruz. PREOPERATIVE DIAGNOSES: Gastroesophageal reflux disease, history of Gallardo's esophagus, dysphagia and change in bowel habits with history of colon polyps. POSTOPERATIVE DIAGNOSES: Gastroesophageal reflux esophagitis between stage II and III, clinical Gallardo's esophagus, mild distal esophageal stricture, small to moderate size hiatal hernia approximately 2 to 2.5 cm in size, moderate gastritis, chronic stage II external and internal hemorrhoids and small hyperplastic polyp of the rectum. Remainder of the colon and rectum were normal. PROCEDURES PERFORMED: 1. EGD with biopsy and balloon dilatation. 2. Colonoscopy with biopsy. SURGEON: Anil Ernandez MD. ANESTHESIA: Monitored anesthesia care. ESTIMATED BLOOD LOSS: Minimal. FINDINGS: Same as postoperative diagnoses. DISPOSITION: The patient tolerated the procedure well. INDICATIONS FOR PROCEDURE: The patient is a 54-year-old female, who has had a longstanding history of gastroesophageal reflux disease as well as biopsy proven Gallardo's esophagus. She has been treated with the proton pump inhibitor as well as the necessary lifestyle and diet accommodation. She does have risk factors including taking in caffeinated beverages, body habitus as well as smoking. She has had worsening reflux, which has progressed to dysphagia for some types of solids. She also reports change in bowel habits with intermittent episodes of diarrhea and constipation. No red blood per rectum and no dark tarry stools. She does also have a history of benign polyps. DESCRIPTION OF PROCEDURE: The patient was brought to the endoscopy suite and laid in the left lateral decubitus position. After adequate IV pain and sedative medications and monitored anesthesia care, the mouthpiece was applied. The endoscope was then placed in the mouth, visualizing the pharynx and hypopharyngeal region. Vocal cords, epiglottis and vallecula were identified and appeared to be normal. The endoscope was then gently intubated, the esophageal opening and esophagus insufflated. The endoscope was then advanced through the first, second and third portion of the esophagus at the level of the GE junction and reflux esophagitis between stage II and III identified. The GE junction was also intrathoracic consistent with a hiatal hernia. There was also a distal esophageal stricture identified. Biopsies were taken of the GE junction with forceps with visualization of good hemostasis. The endoscope was then advanced into the stomach and endoscope retroflexed, visualizing a small to moderate size hiatal hernia approximately 2 to 2.5 cm in size. The distal esophageal stricture was also identified through this view. A moderate gastritis was noted. No formal ulcerations, polyps or any neoplasms. A biopsy was taken of the stomach antrum to rule out H. pylori with visualization of good hemostasis. The endoscope was then advanced to the pylorus and the first and second portion of the duodenum, which appeared normal with no distal obstructions. We then proceeded with the balloon dilatation of the distal esophageal stricture. The balloon was then placed into the stomach and pulled back to the area of stricture and insufflated to 2 and then 4 atmospheres of pressure. At approximately 5 atmospheres of pressure or approximately 19.5 mm in luminal diameter, moderate resistance was encountered and we left the balloon in place for 60 seconds. The balloon was then desufflated and removed with visualization of good hemostasis as well as no mucosal tears. The endoscope was then slowly withdrawn while taking a second look and suctioning of residual air with no additional findings. Under the same anesthesia, we then proceeded with the colonoscopy portion of procedure. A digital rectal examination was performed, which revealed mild chronic stage II external and internal hemorrhoids, not actively edematous nor inflamed and no bleeding. Normal sphincter tone was felt and there were no palpable masses. The endoscope was then intubated and anus and rectum gently insufflated. The endoscope was then advanced through the valves of [place] of the rectum, where a few very small hyperplastic polyps, each less than 1 mm in size was identified. One of these was biopsied using forceps with visualization of good hemostasis. The endoscope was then advanced through the sigmoid colon, where no diverticulosis was identified. The endoscope was then advanced and remainder of the descending, transverse and ascending colon to the cecum. These segments were normal. There were no other lesions identified. The endoscope was then slowly withdrawn while taking a second look and suctioning of residual air with no additional findings. The patient tolerated the procedure well. We will recommend the necessary lifestyle and diet accommodation for her reflux esophagitis, stricture as well as a hiatal hernia. We will recommend medical management with all the necessary lifestyle and diet accommodation. She needs to proceed with avoidance of caffeinated beverages as well as smoking as well as avoid spicy, greasy and acidic foods and take in small and more frequent meals and avoid eating at night. Any form of diet and exercise regimen for weight loss and maintenance would also be beneficial. For now, we will have her continue with the Protonix 40 mg daily. From a colon standpoint, the benign hyperplastic polyps do not have any growth or malignancy potential and we will recommend a high fiber diet with 25 grams of fiber daily as well as significant amounts of water to promote soft stools on a daily basis. If she is asymptomatic, she does not need another colonoscopy for another 10 years. Job ID: [id number] DocumentID: [id number] Dictated Date: 06/12/2020 11:20:16 Dental Lab Technician Date: 06/12/2020 16:16:02 Dictated By: ANIL ERNANDEZ MD
== END | disposition home or self-care (01) ==
LOC: ENDO 08:40
PROVIDERS: ATTEND Surgery
DX: K21.0 Gastro-esophageal reflux disease with esophagitis (principal); K22.70 Barrett's esophagus without dysplasia; K22.2 Esophageal obstruction; K44.9 Diaphragmatic hernia without obstruction or gangrene; K29.70 Gastritis, unspecified, without bleeding; K64.1 Second degree hemorrhoids; K62.1 Rectal polyp; R19.7 Diarrhea, unspecified; K59.00 Constipation, unspecified; E78.00 Pure hypercholesterolemia, unspecified; I10 Essential (primary) hypertension; I25.10 Atherosclerotic heart disease of native coronary artery without angina pectoris; I73.9 Peripheral vascular disease, unspecified; J43.9 Emphysema, unspecified; Z95.5 Presence of coronary angioplasty implant and graft; E66.9 Obesity, unspecified; Z68.38 Body mass index [BMI] 38.0-38.9, adult; M06.9 Rheumatoid arthritis, unspecified; F17.210 Nicotine dependence, cigarettes, uncomplicated; Z79.899 Other long term (current) drug therapy; Z79.82 Long term (current) use of aspirin; Z86.010 Personal history of colon polyps
CPT/HCPCS: 88305

== ENCOUNTER 2020-07-16 14:41 | Observation (INO) | payer MEDICAID ==
[~2020-07-16] VITALS: Ht 152.4 cm; Wt 92.5 kg
[~2020-07-16 14:41] MED LIST changes: -FLUT1DIS26 IH; -FLUT1DIS28 IH; -HURRICAINE EXT TUBE (BENZOCAINE) ONE; -LACTATED RINGERS 1,000 ML IV ONE; -LIDOCAINE JELLY 2% 6 ML SYRINGE ONE; -MIDAZOLAM 2 MG/2 ML (VERSED) VIAL ONE; -PREG75CA75 PO; -PROPOFOL INJECTION 50 ML IV ONE; -RT-ALBUINH IH
--- NOTE | 2020-07-16 15:01 | ED Chest Pain ---
General Stated Complaint: CP Source: patient, EMS, old records Exam Limitations: no limitations History of Present Illness Date Seen by Provider: Jul 16, 2020 Time Seen by Provider: 14:45 Initial Comments 55-year-old female who was brought to the emergency room by [facility] from [facility]. She was an appointment with Dr. Orozco today for a follow-up blood pressure medication change when she was laughing with Dr. Orozco and develop chest pain. She has a history of angina and describes the pain differently than her normal pain. The clinic did administer one sublingual nitroglycerin that relieved the patient's pain. She reports that she's been having this change pain for the past week. 1 week ago she was working harder than normal became short of breath and had this chest pain. She has history of small vessel disease and previous stents. She is a patient of Dr. Sosa. She is on Berlinta for thinner. 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 NTG SL KEG VARNISHER: Yes Associated Symptoms: denies symptoms Allergies and Home Medications Allergies Coded Allergies: No Known Drug Allergies (Unverified , 12/21/17) Home Medications Amlodipine Besylate 5 Mg Tablet, 5 MG PO DAILY, (Reported) Aspirin 81 Mg Tablet.dr, 81 MG PO DAILY, (Reported) Atorvastatin Calcium 80 Mg Tablet, 80 MG PO HS, (Reported) Cetirizine HCl 10 Mg Tablet, 10 MG PO DAILY, (Reported) Hydrocodone/Acetaminophen 1 Each Tablet, 1 EACH PO TID PRN for PAIN-MODERATE (5- 7), (Reported) Isosorbide Mononitrate 30 Mg Tab.er.24h, 30 MG PO DAILY, (Reported) Memantine HCl 5 Mg Tablet, 5 MG PO DAILY, (Reported) Metoprolol Tartrate 25 Mg Tablet, 12.5 MG PO BID, (Reported) TAKES 1/2 (25MG) TABLET Montelukast Sodium 10 Mg Tablet, 10 MG PO HS, (Reported) Nitroglycerin 0.4 Mg Tab.subl, 0.4 MG SL UD, (Reported) Pantoprazole Sodium 40 Mg Tablet.dr, 40 MG PO DAILY, (Reported) Pregabalin 75 Mg Capsule, 75 MG PO DAILY, (Reported) Sucralfate 1 Gm Tablet, 1 GM PO QIDACHS, (Reported) Ticagrelor 90 Mg Tablet, 90 MG PO BID, (Reported) Patient Home Medication List Home Medication List Reviewed: Yes Review of Systems Review of Systems Constitutional: see HPI; No chills, No fever Cardiovascular: See HPI, Chest Pain Gastrointestinal: No Symptoms Reported, See HPI Genitourinary: No Symptoms Reported, See HPI All Other Systems Reviewed Negative Unless Noted: Yes Past Oajmepd-Vbsaer-Femlny Hx Past Med/Social Hx: Reviewed Nursing Past Med/Soc Hx Patient Social History Alcohol Beverage of Choice: Wine Type Used: Cigarettes 2nd Hand Smoke Exposure: Yes Recent Hopitalizations: No Immunizations Up To Date Tetanus Booster (TDap): Unknown PED Vaccines UTD: Yes Date of Pneumonia Vaccine: Sep 24, 2018 Seasonal Allergies Seasonal Allergies: No Past Medical History Surgeries: Yes Coronary Stent, Gallbladder Respiratory: Yes Asthma, Emphysema Cardiac: Yes (CORONARY STENTS X 2) Coronary Artery Disease, High Cholesterol, Hypertension, Peripheral Vascular Neurological: Yes Headaches /Migraines 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 Disorders: No 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 Sexually Transmitted Disease: No HIV/AIDS: Yes Genitourinary: No Gastrointestinal: Yes Gallardo's Esophagus, Diverticulosis, Polyps, Hiatal Hernia, Irritable Bowel Musculoskeletal: Yes Arthritis Endocrine: No HEENT: No Loss of Vision: Bilateral Hearing Impairment: Denies Cancer: No Psychosocial: No Integumentary: No Blood Disorders: No Adverse Reaction/Blood Tranf: No (N/A) Family Medical History Reviewed Nursing Family Hx Cancer of mouth 19 MOTHER, , Age:67, Onset:Unknown Cardiovascular disease 19 MOTHER, , Age:67, Onset:Unknown Completed stroke 19 MOTHER, , Age:67, Onset:Unknown Diabetes mellitus 19 MOTHER, , Age:67, Onset:Unknown FH: CABG (coronary artery bypass surgery) 19 MOTHER, , Age:67, Onset:Unknown FH: lung cancer 19 MOTHER, , Age:67, Onset:Unknown FH: ovarian cancer 19 MOTHER, , Age:67, Onset:Unknown GERD 19 FATHER, , Age:69, Onset:Unknown Hypertension 19 MOTHER, , Age:67, Onset:Unknown Physical Exam Vital Signs Vital Signs - First Documented 07/16/20 07/16/20 14:43 15:29 Temp 36.6 Pulse 67 Resp 18 B/P (MAP) 145/76 (99) Pulse Ox 95 O2 Delivery Room Air Capillary Refill : Height, Weight, BMI Height: 5'1.00" Weight: 180lbs. 0.0oz. 81.296391dx; 38.38 BMI Method:Stated General Appearance: No Apparent Distress, WD/WN Respiratory: Chest Non Tender, Lungs Clear, Normal Breath Sounds, No Accessory Muscle Use, No Respiratory Distress Cardiovascular: Regular Rate, Rhythm, No Edema, No Gallop, No JVD, No Murmur, Normal Peripheral Pulses Extremity: Normal Capillary Refill, Normal Inspection Neurologic/Psychiatric: Alert, Oriented x3, Normal Mood/Affect Skin: Normal Color, Warm/Dry Progress/Results/Core Measures Results/Orders Lab Results Laboratory Tests Test 07/16/20 14:54 Range/Units White Blood Count 9.2 4.3-11.0 10^3/uL Red Blood Count 4.51 3.80-5.11 10^6/uL Hemoglobin 12.3 11.5-16.0 g/dL Hematocrit 37 35-52 % Mean Corpuscular Volume 83 80-99 fL Mean Corpuscular Hemoglobin 27 25-34 pg Mean Corpuscular Hemoglobin Concent 33 32-36 g/dL Red Cell Distribution Width 15.1 H 10.0-14.5 % Platelet Count 232 130-400 10^3/uL Mean Platelet Volume 11.3 9.0-12.2 fL Immature Granulocyte % (Auto) 0 % Neutrophils (%) (Auto) 54 42-75 % Lymphocytes (%) (Auto) 35 12-44 % Monocytes (%) (Auto) 7 0-12 % Eosinophils (%) (Auto) 4 0-10 % Basophils (%) (Auto) 1 0-10 % Neutrophils # (Auto) 5.0 1.8-7.8 10^3/uL Lymphocytes # (Auto) 3.2 1.0-4.0 10^3/uL Monocytes # (Auto) 0.6 0.0-1.0 10^3/uL Eosinophils # (Auto) 0.3 0.0-0.3 10^3/uL Basophils # (Auto) 0.1 0.0-0.1 10^3/uL Immature Granulocyte # (Auto) 0.0 0.0-0.1 10^3/uL Prothrombin Time 14.4 12.2-14.7 SEC INR Comment 1.1 0.8-1.4 Activated Partial Thromboplast Time 33 24-35 SEC D-Dimer 0.28 0.00-0.49 UG/ML Sodium Level 142 135-145 MMOL/L Potassium Level 3.9 3.6-5.0 MMOL/L Chloride Level 108 H 98-107 MMOL/L Carbon Dioxide Level 26 21-32 MMOL/L Anion Gap 8 5-14 MMOL/L Blood Urea Nitrogen 14 7-18 MG/DL Creatinine 0.78 0.60-1.30 MG/DL Estimat Glomerular Filtration Rate > 60 BUN/Creatinine Ratio 18 Glucose Level 106 H 70-105 MG/DL Calcium Level 9.1 8.5-10.1 MG/DL Corrected Calcium 8.9 8.5-10.1 MG/DL Magnesium Level 2.1 1.6-2.4 MG/DL Total Bilirubin 0.6 0.1-1.0 MG/DL Aspartate Amino Transf (AST/SGOT) 21 5-34 U/L Alanine Aminotransferase (ALT/SGPT) 28 0-55 U/L Alkaline Phosphatase 102 40-136 U/L Myoglobin 33.2 10.0-92.0 NG/ML Troponin I < 0.028 <0.028 NG/ML Total Protein 7.4 6.4-8.2 GM/DL Albumin 4.3 3.2-4.5 GM/DL My Orders Orders - BERNOT,NEFTALY Cbc With Automated Diff (07/16/20 14:42) Magnesium (07/16/20 14:42) Chest 1 View, Ap/Pa Only (07/16/20 14:42) Ekg Tracing (07/16/20 14:42) Comprehensive Metabolic Panel (07/16/20 14:42) Myoglobin Serum (07/16/20 14:42) Protime With Inr (07/16/20 14:42) Partial Thromboplastin Time (07/16/20 14:42) O2 (07/16/20 14:42) Monitor-Rhythm Ecg Trace Only (07/16/20 14:42) Lipid Panel (07/17/20 06:00) Ed Iv/Invasive Line Start (07/16/20 14:42) Fibrin Degradation Products (07/16/20 14:42) Troponin I (07/16/20 14:42) Vital Signs/I&O 07/16/20 07/16/20 14:43 15:29 Temp 36.6 Pulse 67 58 Resp 18 18 B/P (MAP) 145/76 (99) 136/77 (96) Pulse Ox 95 O2 Delivery Room Air Progress Progress Note : Time: 16:00 Progress Note I have seen and evaluated the patient. I've informed her of her laboratory and imaging studies. I have discussed the case with Dr. Newell and patient for chest pain rule out. I also discussed the case with Dr. Salazar and she agrees with admission. Dr. Newell will consult. Patient agrees with plan of care and plans for admission. Initial ECG Impression Date: Jul 16, 2020 Initial ECG Impression Time: 14:44 Initial ECG Rate: 60 Initial ECG Intervals: Normal Initial ECG Impression: Normal Initial ECG Comparisson: Unchanged Departure Communication (Admissions) Time/Spoke to Admitting Phy: 16:14 Dr. Salazar Time/Spoke to Consulting Phy: 16:00 Dr. Newell Impression Primary Impression: Chest pain Disposition: ADMITTED INPATIENT Condition: Stable/Unchanged Admissions Decision to Admit Reason: Admit from ER (General) Decision to Admit/Date: Jul 16, 2020 Time/Decision to Admit Time: 16:15 Departure-Patient Inst. Referrals: MURRAY OROZCO MD (PCP/Family) Primary Care Physician NEFTALY ATWOOD Jul 16, 2020 15:01
--- NOTE | 2020-07-16 15:12 | Diagnostic Imaging Report ---
INDICATION: Chest pain. COMPARISON: June 03, 2019. TECHNIQUE: Single radiograph of the chest dated July 16, 2020. FINDINGS: The cardiac silhouette is within normal limits in size. No significant pulmonary vascular congestion. The lungs are clear of focal pulmonary opacity. No significant pleural effusion. No pneumothorax. No acute osseous abnormality. IMPRESSION: Similar-appearing examination without acute cardiopulmonary abnormality. Dictated by: Dictated on workstation # [id number]
[2020-07-16 15:13] LABS: BASOPHILS # (AUTO) 0.1 10^3/uL (0.0-0.1); BASOPHILS % (AUTO) 1 % (0-10); EOSINOPHILS # (AUTO) 0.3 10^3/uL (0.0-0.3); EOSINOPHILS % (AUTO) 4 % (0-10); HEMATOCRIT 37 % (35-52); HEMOGLOBIN 12.3 g/dL (11.5-16.0); LYMPHOCYTES # (AUTO) 3.2 10^3/uL (1.0-4.0); LYMPHOCYTES % (AUTO) 35 % (12-44); MEAN CORPUSCULAR HEMOGLOBIN 27 pg (25-34); MEAN CORPUSCULAR HGB CONC 33 g/dL (32-36); MEAN CORPUSCULAR VOLUME 83 fL (80-99); MEAN PLATELET VOLUME 11.3 fL (9.0-12.2); MONOCYTES # (AUTO) 0.6 10^3/uL (0.0-1.0); MONOCYTES % (AUTO) 7 % (0-12); NEUTROPHILS % (AUTO) 54 % (42-75); PLATELET COUNT 232 10^3/uL (130-400); WHITE BLOOD COUNT 9.2 10^3/uL (4.3-11.0)
--- NOTE | 2020-07-16 15:15 | NUR ---
CALLED TO GIVE UPDATE TO NO ANSWER.
[2020-07-16 15:18] LABS: INR 1.1 (0.8-1.4); PROTHROMBIN TIME PATIENT 14.4 SEC (12.2-14.7)
[2020-07-16 15:20] LABS: ALBUMIN 4.3 GM/DL (3.2-4.5); CHLORIDE 108 MMOL/L (98-107); POTASSIUM 3.9 MMOL/L (3.6-5.0); SODIUM 142 MMOL/L (135-145)
[2020-07-16 15:21] LABS: CALCIUM 9.1 MG/DL (8.5-10.1)
[2020-07-16 15:22] LABS: GLUCOSE 106 MG/DL (70-105)
[2020-07-16 15:23] LABS: TOTAL PROTEIN 7.4 GM/DL (6.4-8.2)
[2020-07-16 15:24] LABS: BILIRUBIN,TOTAL 0.6 MG/DL (0.1-1.0); CARBON DIOXIDE 26 MMOL/L (21-32)
[2020-07-16 15:26] LABS: ALKALINE PHOSPHATASE 102 U/L (40-136); CREATININE SERUM 0.78 MG/DL (0.60-1.30); GFR ESTIMATED > 60
[2020-07-16 15:27] LABS: BUN/CREATININE RATIO 18
[2020-07-16 15:29] VITALS: BP 136/77
[2020-07-16 15:29] LABS: ALANINE AMINOTRANSFERASE 28 U/L (0-55); MAGNESIUM 2.1 MG/DL (1.6-2.4)
--- NOTE | 2020-07-16 15:56 | NUR ---
TALKED WITH TEE INFORMED WHAT WAS GOING ON.
--- NOTE | 2020-07-16 16:10 | NUR ---
NEFTALY CALLED AND UPDATED ABOUT ADMIT.
[2020-07-16 16:54] VITALS: BP 149/90
--- NOTE | 2020-07-16 16:54 | NUR ---
MACEYLASHAWN admitted to room 509-1, with an admitting diagnosis of CP, on 07/16/20 from ER via WC accompanied by STAFF.LASHAWN CHOUDHURY introduced to surroundings, call light, bed controls, phone, TV, temperature control, lights, meal times, smoking policy, visitor policy, side rail policy, bathrooms and showers. Patient Rights given to patient in the handbook. LASHAWN CHOUDHURY verbalizes understanding that [facility] is not responsible for the loss or damage to any personal effects or valuables that are kept in the patients posession during their hospitalization. The following Patient Care Plans were discussed with the PT: Discharge Planning, PAIN,ACTIVITY INTOLERANCE, and ANXIETY. LASHAWN CHOUDHURY verbalizes understanding of Interdisciplinary Patient Education. Patient and family were informed about the Rapid Response Team and its purpose.
[2020-07-16] MEDS ORDERED: ONDANSETRON 4 MG/2 ML (SDV) Z0FRAN IVP PRN ×2 (17:00→17:15)
[2020-07-16] MEDS ORDERED: NITROGLYCERIN 0.4 MG SL TABS BTL 25'S SL PRN (17:00)
[2020-07-16] MEDS ORDERED: CATHETER FLUSH 10 ML SYR IV PRN (17:00)
[2020-07-16 17:09] VITALS: BP 145/83
[2020-07-16] MEDS ORDERED: FLUT1DIS28 IH (17:10)
[2020-07-16] MEDS ORDERED: PREG75CA75 PO ×2 (17:10)
[2020-07-16] MEDS ORDERED: RT-ALBUINH IH ×2 (17:10)
[2020-07-16] MEDS ORDERED: LOPERAMIDE 2 MG (IMODIUM) TABLET PO PRN (17:15)
[2020-07-16] MEDS ORDERED: CALCIUM CARBONATE 500 MG (TUMS) TAB.CHEW PO PRN (17:15)
[2020-07-16] MEDS ORDERED: MELATONIN 3 MG TABLET PO PRN (17:15)
[2020-07-16] MEDS ORDERED: ENOXAPARIN 40 MG/0.4 ML (LOVENOX) SYR SC SCH (17:15)
[2020-07-16] MEDS ORDERED: DOCUSATE SODIUM 100 MG (COLACE) CAP PO PRN (17:15)
[2020-07-16] MEDS ORDERED: diphenhydrAMINE 25 MG TAB (BENADRYL) PO PRN (17:15)
[2020-07-16] MEDS ORDERED: ALPRAZolam 0.25 MG (XANAX) TAB PO PRN (17:15)
[2020-07-16] MEDS ORDERED: NITROGLYCERIN 0.4 MG SL TABS BTL 25'S SL SCH (17:15)
[2020-07-16] MEDS ORDERED: ACETAMINOPHEN 500 MG TAB (TYLENOL) PO PRN (17:15)
--- NOTE | 2020-07-16 17:16 | History & Physical-Hospitalist ---
History of Present Illness HPI/Chief Complaint CC: Chest pain HPI: This is a 55yoWF clinic patient of Dr Cruz who has a h/o CAD who presents to the ER with chest pressure that worsened the past 2 days. Patient continues to smoke and wears O2 at 2L/min at night chronically. Patient does use an inhaler. She lives at home with her and raising 4 grandchildren so she has a lot of stress. Dr Newell is appreciated. Source: patient Exam Limitations: no limitations Date Seen 07/16/20 Time Seen by a Provider: 18:00 Attending Physician Juany Pepe Holly R MD Referring Physician Date of Admission Jul 16, 2020 at 16:41 Home Medications & Allergies Home Medications Reviewed patient Home Medication Reconciliation performed by pharmacy medication reconciliations robotics technician and/or nursing. Patients Allergies have been reviewed. Allergies Allergies Coded Allergies No Known Drug Allergies (Unverified12/21/17) Past Bidkavu-Wumqkj-Qrqssc Hx Past Med/Social Hx: Reviewed Nursing Past Med/Soc Hx, Reviewed and Corrections made Patient Social History Marrital Status: Employed/Student: retired Alcohol Use: Denies Use Alcohol Beverage of Choice: Wine Recreational Drug Use: No Smoking Status: Current Everyday Smoker Type Used: Cigarettes 2nd Hand Smoke Exposure: Yes Recent Foreign Travel: No Contact w/other who traveled: No Recent Hopitalizations: No Recent Infectious Disease Expo: No Immunizations Up To Date Tetanus Booster (TDap): Unknown Pediatric: Yes Date of Pneumonia Vaccine: Sep 24, 2018 Seasonal Allergies Seasonal Allergies: No Past Medical History Surgeries: Coronary Stent, Gallbladder Respiratory: COPD, Emphysema, Sleep Apnea Currently Using CPAP: No Currently Using BIPAP: No Cardiac: Coronary Artery Disease, High Cholesterol, Hypertension, Peripheral Vascular Neurological: Headaches /Migraines 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: No Sexually Transmitted Disease: No HIV/AIDS: Yes Menopausal Gastrointestinal: Gallardo's Esophagus, Diverticulosis, Polyps, Hiatal Hernia, Irritable Bowel Musculoskeletal: Arthritis Loss of Vision: Bilateral Hearing Impairment: Denies History of Blood Disorders: No Adverse Reaction to Blood Nagy: No (N/A) Family History Reviewed Nursing Family Hx Cancer of mouth 19 MOTHER, , Age:67, Onset:Unknown Cardiovascular disease 19 MOTHER, , Age:67, Onset:Unknown Completed stroke 19 MOTHER, , Age:67, Onset:Unknown Diabetes mellitus 19 MOTHER, , Age:67, Onset:Unknown FH: CABG (coronary artery bypass surgery) 19 MOTHER, , Age:67, Onset:Unknown FH: lung cancer 19 MOTHER, , Age:67, Onset:Unknown FH: ovarian cancer 19 MOTHER, , Age:67, Onset:Unknown GERD 19 FATHER, , Age:69, Onset:Unknown Hypertension 19 MOTHER, , Age:67, Onset:Unknown Review of Systems Constitutional: see HPI Cardiovascular: chest pain Physical Exam Physical Exam Vital Signs Vital Signs - First Documented 07/16/20 07/16/20 14:43 15:29 Temp 36.6 Pulse 67 Resp 18 B/P (MAP) 145/76 (99) Pulse Ox 95 O2 Delivery Room Air Capillary Refill : Less Than 3 Seconds Height, Weight, BMI Height: 5'1.00" Weight: 180lbs. 0.0oz. 81.727245qi; 39.00 BMI Method:Stated General Appearance: No Apparent Distress, WD/WN, Chronically ill, Obese Eyes: Right Eye Normal Inspection, Right Eye PERRL HEENT: PERRL/EOMI, Normal ENT Inspection, Pharynx Normal, Moist Mucous Membranes Neck: Full Range of Motion, Normal Inspection, Non Tender Respiratory: Chest Non Tender, Lungs Clear, Normal Breath Sounds, No Accessory Muscle Use, No Respiratory Distress Cardiovascular: Regular Rate, Rhythm, No Edema, No Gallop, No JVD, No Murmur, Normal Peripheral Pulses Gastrointestinal: Normal Bowel Sounds, No Organomegaly, No Pulsatile Mass, Non Tender, Soft Back: Normal Inspection, No CVA Tenderness, No Vertebral Tenderness Extremity: Normal Capillary Refill, Normal Inspection, Normal Range of Motion, Non Tender, No Calf Tenderness, No Pedal Edema Neurologic/Psychiatric: Alert, Oriented x3, No Motor/Sensory Deficits, Normal Mood/Affect Skin: Normal Color, Warm/Dry Lymphatic: No Adenopathy Results Results/Procedures Labs Laboratory Tests 07/16/20 14:54 07/17/20 02:50 Patient resulted labs reviewed. Assessment/Plan Admission Diagnosis Assessment: Chest pain r/o ACS COPD O2 at night Smoker HTN HLP CAD Plan: Appreciate Cardiology Home meds O2 Admission Status: Observation Diagnosis/Problems Diagnosis/Problems (1) Chest pain Status: Acute (2) HLD (hyperlipidemia) Status: Chronic (3) Tobacco abuse Status: Chronic (4) HTN (hypertension) Status: Acute Clinical Quality Measures AMI/AHF: ASA po Prior to arrival: Yes JUANY PEPE DO Jul 16, 2020 17:16
[2020-07-16 17:21] VITALS: BP 149/90
[2020-07-16] MEDS ORDERED: PREGABALIN 75 MG (LYRICA) CAP PO SCH (17:30)
--- NOTE | 2020-07-16 17:53 | Consultation-Cardiology ---
HPI-Cardiology Cardiology Consultation: Date of Consultation 07/16/20 Date of Admission Attending Physician Juany Salazar DO Admitting Physician Sandra Cruz MD Consulting Physician Ivan NEWELL MD HPI: Time Seen by a Provider: 16:00 Review of Systems-Cardiology All Other Systems Reviewed Negative Unless Noted: Yes OBG-Xtkhyo-Dpqgwk Hx Patient Social History Alcohol Use: Denies Use Recreational Drug Use: No Type Used: Cigarettes 2nd Hand Smoke Exposure: Yes Recent Foreign Travel: No Recent Infectious Disease Expo: No Immunizations Up To Date Tetanus Booster (TDap): Unknown Date of Pneumonia Vaccine: Sep 24, 2018 Date of Influenza Vaccine: Jul 12, 2020 Past Medical History PMH As described under Assessment. Family Medical History Family History: Cancer of mouth 19 MOTHER, , Age:67, Onset:Unknown Cardiovascular disease 19 MOTHER, , Age:67, Onset:Unknown Completed stroke 19 MOTHER, , Age:67, Onset:Unknown Diabetes mellitus 19 MOTHER, , Age:67, Onset:Unknown FH: CABG (coronary artery bypass surgery) 19 MOTHER, , Age:67, Onset:Unknown FH: lung cancer 19 MOTHER, , Age:67, Onset:Unknown FH: ovarian cancer 19 MOTHER, , Age:67, Onset:Unknown GERD 19 FATHER, , Age:69, Onset:Unknown Hypertension 19 MOTHER, , Age:67, Onset:Unknown Allergies and Home Medications Allergies Coded Allergies: No Known Drug Allergies (Unverified , 12/21/17) Home Medications Albuterol Sulfate 1 Puff Puff, 2 PUFF IH Q4H, (Reported) 1 PUFF = 90 MCG Aspirin 81 Mg Tablet.dr, 81 MG PO DAILY, (Reported) Atorvastatin Calcium 80 Mg Tablet, 80 MG PO HS, (Reported) Cetirizine HCl 10 Mg Tablet, 10 MG PO DAILY, (Reported) Fluticasone/Salmeterol 1 Each Blst.w.dev, 1 EACH IH BID, (Reported) Hydrocodone/Acetaminophen 1 Each Tablet, 1 EACH PO TID PRN for PAIN-MODERATE (5- 7), (Reported) Isosorbide Mononitrate 30 Mg Tab.er.24h, 30 MG PO DAILY, (Reported) Memantine HCl 5 Mg Tablet, 5 MG PO DAILY, (Reported) Metoprolol Tartrate 25 Mg Tablet, 12.5 MG PO BID, (Reported) TAKES 1/2 (25MG) TABLET Montelukast Sodium 10 Mg Tablet, 10 MG PO HS, (Reported) Nitroglycerin 0.4 Mg Tab.subl, 0.4 MG SL UD, (Reported) Pantoprazole Sodium 40 Mg Tablet.dr, 40 MG PO DAILY, (Reported) Pregabalin 75 Mg Capsule, 75 MG PO DAILY, (Reported) takes at 1700 Sucralfate 1 Gm Tablet, 1 GM PO QIDACHS, (Reported) Ticagrelor 90 Mg Tablet, 90 MG PO BID, (Reported) Physical Exam-Cardiology Physical Exam Vital Signs/I&O 07/16/20 07/16/20 07/16/20 07/16/20 14:43 15:29 16:35 16:54 Temp 36.6 Pulse 67 58 66 Resp 18 18 18 B/P (MAP) 145/76 (99) 136/77 (96) 137/80 Pulse Ox 95 98 O2 Delivery Room Air Room Air Room Air 07/16/20 07/16/20 07/16/20 07/16/20 16:54 17:01 17:09 17:21 Temp 35.8 35.8 Pulse 60 56 53 60 Resp 16 16 B/P (MAP) 149/90 (109) 145/83 (103) 149/90 Pulse Ox 100 99 100 O2 Delivery Room Air Room Air Room Air Capillary Refill : Less Than 3 Seconds Data Review Labs Laboratory Tests 07/16/20 14:54: White Blood Count 9.2, Red Blood Count 4.51, Hemoglobin 12.3, Hematocrit 37, Mean Corpuscular Volume 83, Mean Corpuscular Hemoglobin 27, Mean Corpuscular Hemoglobin Concent 33, Red Cell Distribution Width 15.1H, Platelet Count 232, Mean Platelet Volume 11.3, Immature Granulocyte % (Auto) 0, Neutrophils (%) (Auto) 54, Lymphocytes (%) (Auto) 35, Monocytes (%) (Auto) 7, Eosinophils (%) (Auto) 4, Basophils (%) (Auto) 1, Neutrophils # (Auto) 5.0, Lymphocytes # (Auto) 3.2, Monocytes # (Auto) 0.6, Eosinophils # (Auto) 0.3, Basophils # (Auto) 0.1, Immature Granulocyte # (Auto) 0.0, Prothrombin Time 14.4, INR Comment 1.1, Activated Partial Thromboplast Time 33, D-Dimer 0.28, Sodium Level 142, Potassium Level 3.9, Chloride Level 108H, Carbon Dioxide Level 26, Anion Gap 8, Blood Urea Nitrogen 14, Creatinine 0.78, Estimat Glomerular Filtration Rate > 60, BUN/Creatinine Ratio 18, Glucose Level 106H, Calcium Level 9.1, Corrected Calcium 8.9, Magnesium Level 2.1, Total Bilirubin 0.6, Aspartate Amino Transf (AST/SGOT) 21, Alanine Aminotransferase (ALT/SGPT) 28, Alkaline Phosphatase 102, Myoglobin 33.2, Troponin I < 0.028, Total Protein 7.4, Albumin 4.3 A/P-Cardiology Plan Thank you for your consultation. Please call me if you have any questions. Christopher Newell MD, FACP, FACC, FSCAI, FHRS, CCDS Interventional Cardiology Cardiac Electrophysiology Vascular Medicine and Endovascular Interventions Clinical Quality Measures AMI/AHF: ASA po Prior to arrival: Yes DVT/VTE Risk/Contraindication: Risk Factor Score Per Nursin RFS Level Per Nursing on Admit: 3=High Ivan NEWELL MD Jul 16, 2020 17:53
[2020-07-16] MEDS: HYDROcodone/APAP 5 MG/325 MG (LORTAB) TAB PO PRN (18:02)
[2020-07-16 18:03] VITALS: BP 149/81
[2020-07-16 20:00] VITALS: BP 139/82
[2020-07-16] MEDS: TICAGRELOR 90 MG TABLET (BRILINTA) PO SCH (20:27)
[2020-07-16] MEDS: meTOprolol TARTRATE 25 MG (LOPRESSOR) TABLET PO SCH (20:29)
[2020-07-16] MEDS: SUCRALFATE 1 GM (CARAFATE) TAB PO SCH (20:29)
[2020-07-16] MEDS: SENNA W/DOCUSATE (SENOKOT S) TABLET PO SCH (20:33)
[2020-07-16] MEDS ORDERED: MONTELUKAST 10 MG (SINGULAIR) TAB PO SCH (21:00)
[2020-07-16] MEDS: CATHETER FLUSH 10 ML SYR IV SCH (23:41)
[2020-07-17] VITALS: BP 115/65
[2020-07-17 03:27] LABS: BASOPHILS # (AUTO) 0.1 10^3/uL (0.0-0.1); BASOPHILS % (AUTO) 1 % (0-10); EOSINOPHILS # (AUTO) 0.4 10^3/uL (0.0-0.3); EOSINOPHILS % (AUTO) 4 % (0-10); HEMATOCRIT 39 % (35-52); HEMOGLOBIN 12.4 g/dL (11.5-16.0); LYMPHOCYTES # (AUTO) 3.5 10^3/uL (1.0-4.0); LYMPHOCYTES % (AUTO) 42 % (12-44); MEAN CORPUSCULAR HEMOGLOBIN 26 pg (25-34); MEAN CORPUSCULAR HGB CONC 32 g/dL (32-36); MEAN CORPUSCULAR VOLUME 83 fL (80-99); MEAN PLATELET VOLUME 11.2 fL (9.0-12.2); MONOCYTES # (AUTO) 0.6 10^3/uL (0.0-1.0); MONOCYTES % (AUTO) 7 % (0-12); NEUTROPHILS # (AUTO) 3.8 10^3/uL (1.8-7.8); NEUTROPHILS % (AUTO) 45 % (42-75); PLATELET COUNT 218 10^3/uL (130-400); WHITE BLOOD COUNT 8.3 10^3/uL (4.3-11.0)
[2020-07-17 03:53] LABS: ALANINE AMINOTRANSFERASE 27 U/L (0-55); ALKALINE PHOSPHATASE 93 U/L (40-136); BILIRUBIN,TOTAL 0.5 MG/DL (0.1-1.0); BUN/CREATININE RATIO 18; CALCIUM 8.7 MG/DL (8.5-10.1); CARBON DIOXIDE 21 MMOL/L (21-32); CHLORIDE 109 MMOL/L (98-107); CHOLESTEROL 121 MG/DL (< 200); CREATININE SERUM 0.92 MG/DL (0.60-1.30); GFR ESTIMATED > 60; GLUCOSE 90 MG/DL (70-105); HDL CHOLESTEROL 39 MG/DL (40-60); POTASSIUM 3.7 MMOL/L (3.6-5.0); SODIUM 142 MMOL/L (135-145); TOTAL PROTEIN 6.7 GM/DL (6.4-8.2); TRIGLYCERIDES 166 MG/DL (<150); VLDL CHOLESTEROL 33 MG/DL (5-40)
[2020-07-17 04:00] VITALS: BP 131/88
[2020-07-17] MEDS: HYDROcodone/APAP 5 MG/325 MG (LORTAB) TAB PO PRN (04:48)
[2020-07-17] MEDS: CATHETER FLUSH 10 ML SYR IV SCH ×2 (05:52→14:02)
[2020-07-17] MEDS: SUCRALFATE 1 GM (CARAFATE) TAB PO SCH ×2 (05:52→12:32)
[2020-07-17 08:00] VITALS: BP 125/78
[2020-07-17] MEDS: TICAGRELOR 90 MG TABLET (BRILINTA) PO SCH (08:53)
[2020-07-17] MEDS: meTOprolol TARTRATE 25 MG (LOPRESSOR) TABLET PO SCH (08:53)
[2020-07-17] MEDS: SENNA W/DOCUSATE (SENOKOT S) TABLET PO SCH (08:53)
[2020-07-17] MEDS ORDERED: PANTOPRAZOLE 40 MG (PROTONIX) TAB PO SCH (09:00)
[2020-07-17] MEDS ORDERED: ASPIRIN E.C. 81 MG (ECOTRIN) TAB PO SCH ×2 (09:00)
[2020-07-17] MEDS ORDERED: MEMANTINE 5 MG (NAMENDA) TABLET PO SCH (09:00)
[2020-07-17] MEDS ORDERED: LORATADINE (CLARITIN) 10 MG TAB PO SCH (09:00)
[2020-07-17] MEDS ORDERED: NON-FORMULARY MEDICATION 1 EA EA (Cetirizine HCl 10 MG) PO SCH (09:00)
[2020-07-17] MEDS ORDERED: ISOSORBIDE MONONITRATE 30 MG (IMDUR) TAB PO SCH (09:00)
--- NOTE | 2020-07-17 11:29 | Progress Note - Hospitalist ---
Subjective HPI/CC On Admission Date Seen by Provider: Jul 17, 2020 Time Seen by Provider: 10:00 CC: Chest pain HPI: This is a 55yoWF clinic patient of Dr Cruz who has a h/o CAD who presents to the ER with chest pressure that worsened the past 2 days. Patient continues to smoke and wears O2 at 2L/min at night chronically. Patient does use an inhaler. She lives at home with her and raising 4 grandchildren so she has a lot of stress. Dr Newell is appreciated. Subjective/Events-last exam Pt still having some chest pain Likely needs cardiac cath since she has had stents placed Cardiology yet to update us on plan No other issues remain Review of Systems General: Fatigue, Malaise Neurological: Weakness Objective Exam Vital Signs Vital Signs Date Time Temp Pulse Resp B/P (MAP) Pulse Ox O2 Delivery O2 Flow Rate FiO2 07/17/20 14:20 36.4 61 16 133/89 98 Room Air 07/17/20 04:00 2.00 Capillary Refill : NONE General Appearance: No Apparent Distress, WD/WN HEENT: PERRL/EOMI, TMs Normal, Normal ENT Inspection, Pharynx Normal, Moist Mucous Membranes Neck: Full Range of Motion, Normal Inspection, Non Tender, Supple, Carotid Bruit Respiratory: Chest Non Tender, Lungs Clear, Normal Breath Sounds, No Accessory Muscle Use, No Respiratory Distress Cardiovascular: Regular Rate, Rhythm, No Edema, No Gallop, No JVD, No Murmur, Normal Peripheral Pulses Gastrointestinal: Normal Bowel Sounds, No Organomegaly, No Pulsatile Mass, Non Tender, Soft Back: Normal Inspection, No CVA Tenderness, No Vertebral Tenderness Extremity: Normal Capillary Refill, Normal Inspection, Normal Range of Motion, Non Tender, No Calf Tenderness, No Pedal Edema Neurologic/Psychiatric: Alert, Oriented x3, No Motor/Sensory Deficits, Normal Mood/Affect Skin: Normal Color, Warm/Dry Lymphatic: No Adenopathy Results/Procedures Lab Laboratory Tests 07/17/20 02:50 Patient resulted labs reviewed. Assessment/Plan Assessment and Plan Assess & Plan/Chief Complaint Assessment: Chest pain r/o ACS COPD O2 at night Smoker HTN HLP CAD Plan: Appreciate Cardiology Home meds O2 07/17/20: Await cardiology regarding plan May very well need cardiac catheterization Diagnosis/Problems Diagnosis/Problems (1) Chest pain Status: Acute (2) HLD (hyperlipidemia) Status: Chronic (3) Tobacco abuse Status: Chronic (4) HTN (hypertension) Status: Acute Clinical Quality Measures AMI/AHF: ASA po Prior to arrival: Yes DVT/VTE Risk/Contraindication: Risk Factor Score Per Nursin RFS Level Per Nursing on Admit: 3=High AJYMIE PEPE DO Jul 17, 2020 11:29
[2020-07-17 12:00] VITALS: BP 133/89
[2020-07-17] MEDS ORDERED: FLUT1DIS26 IH ×2 (12:56)
--- NOTE | 2020-07-17 12:59 | NUR ---
SPOKE WITH THE PT AND CALLED [facility] TO COMPLETE THE MED REC 03-07-2020 NITROGLYCERIN 0.4MG #25 06-05-2020 METOPROLOL TART 25MG #60/60DS 06-05-2020 ATORVASTATIN 80MG #90/90DS 06-06-2020 ADVAIR 250/50MG #1 06-06-2020 PROAIR #1 06-19-2020 MEMANTINE 5MG #30/30DS 07-02-2020 NORCO 5/325MG #84/28DS 07-02-2020 PREGABALIN 75MG #28/28DS 07-04-2020 ISOSORBIDE ER MONO 30MG #30/30DS 07-04-2020 PANTOPRAZOLE 40MG #30/30DS 07-04-2020 CARAFATE 1GM #120/30DS 07-15-2020 MONTELUKAST 10MG #30/30DS 07-15-2020 CETIRIZINE 10MG #30/3D0S ON 07-04-2020 [facility] FILLED AMLODIPINE 5MG HOWEVER PT SAYS THIS WAS DISCONTINUED OTC MEDS: ASPIRIN 81MG
[2020-07-17 14:20] VITALS: BP 133/89
--- NOTE | 2020-07-17 17:21 | Cardiology Progress Note ---
Cardiology SOAP Progress Note Objective: I&O/Vital Signs 07/17/20 07/17/20 07/17/20 07/17/20 06:44 08:00 08:00 09:00 Temp 36.4 Pulse 53 56 Resp 16 B/P (MAP) 125/78 (94) Pulse Ox 94 98 95 O2 Delivery Room Air Room Air Room Air 07/17/20 07/17/20 07/17/20 07/17/20 12:00 12:00 12:39 14:20 Temp 36.4 Pulse 57 61 61 Resp 16 16 B/P (MAP) 133/89 (104) 133/89 Pulse Ox 98 98 98 O2 Delivery Room Air Room Air Room Air 07/17/20 00:00 Intake Total 350 ml Balance 350 ml Weight (Pounds): 180 Weight (Ounces): 0.0 Weight (Calculated Kilograms): 81.902078 Results/Procedures: Labs Laboratory Tests 07/16/20 21:11: Troponin I < 0.028 07/17/20 02:50: Troponin I < 0.028, White Blood Count 8.3, Red Blood Count 4.70, Hemoglobin 12.4, Hematocrit 39, Mean Corpuscular Volume 83, Mean Corpuscular Hemoglobin 26, Mean Corpuscular Hemoglobin Concent 32, Red Cell Distribution Width 15.2H, Platelet Count 218, Mean Platelet Volume 11.2, Immature Granulocyte % (Auto) 0, Neutrophils (%) (Auto) 45, Lymphocytes (%) (Auto) 42, Monocytes (%) (Auto) 7, Eosinophils (%) (Auto) 4, Basophils (%) (Auto) 1, Neutrophils # (Auto) 3.8, Lymphocytes # (Auto) 3.5, Monocytes # (Auto) 0.6, Eosinophils # (Auto) 0.4H, Basophils # (Auto) 0.1, Immature Granulocyte # (Auto) 0.0, Sodium Level 142, Potassium Level 3.7, Chloride Level 109H, Carbon Dioxide Level 21, Anion Gap 12, Blood Urea Nitrogen 17, Creatinine 0.92, Estimat Glomerular Filtration Rate > 60, BUN/Creatinine Ratio 18, Glucose Level 90, Calcium Level 8.7, Corrected Calcium 8.7, Total Bilirubin 0.5, Aspartate Amino Transf (AST/SGOT) 22, Alanine Aminotransferase (ALT/SGPT) 27, Alkaline Phosphatase 93, Total Protein 6.7, Albumin 4.0, Triglycerides Level 166H, Cholesterol Level 121, LDL Cholesterol Direct 54, VLDL Cholesterol 33, HDL Cholesterol 39L A/P: Thank you for your consultation. Please call me if you have any questions. Christopher Newell MD, FACP, FACC, FSCAI, FHRS, CCDS Interventional Cardiology Cardiac Electrophysiology Vascular Medicine and Endovascular Interventions Clinical Quality Measures AMI/AHF: ASA po Prior to arrival: Yes Ivan NEWELL MD Jul 17, 2020 17:21
== END 2020-07-17 14:10 | disposition home or self-care (01) ==
LOC: ER 14:41 → EDUNIT# 14:41 → CSD 16:41
PROVIDERS: ADMIT Internal Medicine; ATTEND Internal Medicine
DX: R07.2 Precordial pain (principal); J43.9 Emphysema, unspecified; I25.10 Atherosclerotic heart disease of native coronary artery without angina pectoris; E78.00 Pure hypercholesterolemia, unspecified; I10 Essential (primary) hypertension; G43.909 Migraine, unspecified, not intractable, without status migrainosus; K44.9 Diaphragmatic hernia without obstruction or gangrene; K22.70 Barrett's esophagus without dysplasia; F17.210 Nicotine dependence, cigarettes, uncomplicated; G47.30 Sleep apnea, unspecified; M19.90 Unspecified osteoarthritis, unspecified site; E78.5 Hyperlipidemia, unspecified; Z79.82 Long term (current) use of aspirin; Z79.899 Other long term (current) drug therapy; Z95.5 Presence of coronary angioplasty implant and graft; Z80.1 Family history of malignant neoplasm of trachea, bronchus and lung; Z83.3 Family history of diabetes mellitus; Z80.41 Family history of malignant neoplasm of ovary; Z80.0 Family history of malignant neoplasm of digestive organs
CPT/HCPCS: 71045; 80053 ×2; 80061; 83735; 83874; 84484 ×2; 85025 ×2; 85379; 85610; 85730; 93005 ×2; 93041; 93306; 99284; G0378; 36415

== ENCOUNTER → 2020-09-24 | Outpatient (CLI) | payer MEDICAID ==
[~2020-09-24] MED LIST changes: +AMLO-250 PO; -AMLO5TAB9 PO; +CATHETER FLUSH 10 ML SYR IV PRN; +FLUT1DIS26 IH; +FLUT1DIS28 IH; +HOLD METFORMIN - RECEIVED CONTRAST 20 ML VIAL IV SCH; +IOHEXOL 350 MG/ML 100 ML (OMNIPAQUE 350) VIAL IV ONE; +NS 100 ML (IVPB) BAG IV ONE; +PREG75CA75 PO; +RT-ALBUINH IH; +RT-ALBUTEROL SULF 2.5 MG/3 ML PRE-MIX VIAL INH ONE
[2020-09-24 10:17] LABS: BUN/CREATININE RATIO 16; GFR ESTIMATED > 60
--- NOTE | 2020-09-24 12:14 | Diagnostic Imaging Report ---
EXAMINATION: CT Chest with intravenous contrast. TECHNIQUE: Multiple contiguous axial images were obtained through the chest after the uneventful administration of intravenous contrast. All CT scans use one or more of the following dose optimizing techniques: automated exposure control, MA and/or KvP adjustment based on a patient size and exam type, or iterative reconstruction. HISTORY: COPD. COMPARISON: 05/23/2019. FINDINGS: There is no edema or pneumonia. No pleural effusion. No pneumothorax. No suspicious nodules. There is moderate emphysema. There is no axillary or supraclavicular lymphadenopathy. There is no mediastinal lymphadenopathy. Heart size is normal. There are mild coronary artery calcifications. No pericardial effusion. Aorta is normal in caliber. Limited views of the upper abdomen are unremarkable. There are no suspicious osseous lesions. IMPRESSION: 1. Moderate emphysema, otherwise no acute abnormality. Dictated by: Dictated on workstation # [id number]
== END ==
LOC: RT 10:30
PROVIDERS: ATTEND Nurse Practitioner Family
DX: J43.9 Emphysema, unspecified (principal)
CPT/HCPCS: 36415; 71260; 82565; 84520; 94060; 94726; 94729

== ENCOUNTER → 2020-11-25 | Outpatient (CLI) | payer MEDICAID ==
[~2020-11-25] MED LIST changes: -CATHETER FLUSH 10 ML SYR IV PRN; -HOLD METFORMIN - RECEIVED CONTRAST 20 ML VIAL IV SCH; -IOHEXOL 350 MG/ML 100 ML (OMNIPAQUE 350) VIAL IV ONE; -NS 100 ML (IVPB) BAG IV ONE; -RT-ALBUTEROL SULF 2.5 MG/3 ML PRE-MIX VIAL INH ONE
[2020-11-25 15:24] LABS: BUN/CREATININE RATIO 18; CALCIUM 9.4 MG/DL (8.5-10.1); CARBON DIOXIDE 23 MMOL/L (21-32); CHLORIDE 107 MMOL/L (98-107); CREATININE SERUM 0.82 MG/DL (0.60-1.30); GFR ESTIMATED > 60; GLUCOSE 92 MG/DL (70-105); MAGNESIUM 2.1 MG/DL (1.6-2.4); POTASSIUM 4.1 MMOL/L (3.6-5.0); SODIUM 143 MMOL/L (135-145)
== END ==
LOC: LAB 14:11
PROVIDERS: ATTEND Physician Assistant
DX: I10 Essential (primary) hypertension (principal)
CPT/HCPCS: 36415; 80048; 83735

== ENCOUNTER → 2020-12-27 | Outpatient (CLI) | payer MEDICAID ==
[~2020-12-27] MED LIST changes: -ISOS30TA3 PO; +ISOS30TA82 PO; -LISI10TA2 PO; +LISI10TA25 PO
--- NOTE | 2020-12-27 14:15 | Diagnostic Imaging Report ---
INDICATION: Chronic back pain. While I have no previous for direct comparison the study interpreted in correlation with chest CT 05/27/2020 that includes sagittal reconstructions. The thoracic vertebral body heights are stable and remain in anatomic alignment. The thoracic spinal cord has a normal volume, morphology and signal intensity. The thoracic spinal canal is widely patent at each vertebral body and disc space level. There is a multilevel mild degenerative disc desiccation stature loss with anterior greater than posterior disc bulge and predominantly anteriorly oriented endplate osteophytes. When differing modality taken into account no appreciable change in the degenerative disease found and no resultant canal or foraminal stenoses. Ligamentous structures intact. The facet relationships unremarkable. There was no paraspinal mass, hemorrhage or fluid collection. IMPRESSION: Mild chronic degenerative changes without stenosis normal alignment. No acute bony pathology. Unremarkable appearance of the cord. Dictated by: Dictated on workstation # [id number]
--- NOTE | 2020-12-27 15:08 | Diagnostic Imaging Report ---
PROCEDURE: MRI lumbar spine. TECHNIQUE: Multiplanar, multisequence MRI of the lumbar spine was performed without contrast. INDICATION: Mid and low back pain. COMPARISON: None. FINDINGS: There are 5 lumbar-type vertebral bodies for the purposes of this report. Normal alignment. Vertebral body heights are preserved. Modic type II degenerative endplate changes at L5-S1. Bone marrow signal is otherwise unremarkable. No abnormal signal in the conus which terminates at L1-L2. Normal morphology of the cauda equina. The visualized pelvis and paravertebral soft tissues are unremarkable. L1-L2: Normal. L2-L3: Central radial tear with tiny disc protrusion. No spinal canal, lateral recess or neural foraminal narrowing. L3-L4: Normal. L4-L5: Mild facet arthropathy. No spinal canal, lateral recess or neural foraminal narrowing. L5-S1: Moderate facet arthropathy. No spinal canal, lateral recess or neural foraminal narrowing. IMPRESSION: 1. Mild spondylotic changes in the lumbar spine result in no neural impingement. 2. No acute osseous findings. Dictated by: Dictated on workstation # [id number]
== END ==
LOC: RAD 12:49
PROVIDERS: ATTEND Family Medicine
DX: M47.816 Spondylosis without myelopathy or radiculopathy, lumbar region (principal); M47.817 Spondylosis without myelopathy or radiculopathy, lumbosacral region; M51.34 Other intervertebral disc degeneration, thoracic region
CPT/HCPCS: 72146; 72148

== ENCOUNTER 2021-10-10 08:45 | Outpatient (CLI) | payer MEDICAID ==
[~2021-10-10] VITALS: Ht 154 cm; Wt 92.5 kg
[~2021-10-10 08:45] MED LIST changes: +DICY20TA PO; -DICY20TA10 PO
[2021-10-10 09:03] VITALS: BP 138/79
[2021-10-10] MEDS ORDERED: ONDANSETRON 4 MG/2 ML (SDV) Z0FRAN IV PRN (09:30)
[2021-10-10] MEDS ORDERED: ACETAMINOPHEN 500 MG TAB (TYLENOL) PO PRN (09:30)
[2021-10-10] MEDS ORDERED: BAMLANIVIMAB 700 MG/ETESEVIMAB 1,400 MG IN NS IV ONE ×3 (09:30)
[2021-10-10] MEDS ORDERED: EPINEPHrine INJECTION 1 MG/ML AMP IM PRN (09:30)
[2021-10-10] MEDS ORDERED: diphenhydrAMINE 50 MG/ML INJ (BENADRYL) IV PRN (09:30)
[2021-10-10 11:10] VITALS: BP 154/79
== END 2021-10-10 11:10 | disposition home or self-care (01) ==
LOC: INFUSION 08:45
PROVIDERS: ATTEND Nurse Practitioner Family
DX: U07.1 COVID-19 (principal)

== ENCOUNTER → 2021-10-21 | Outpatient (CLI) | payer MEDICAID | LOC: ORTHO 13:30 | PROVIDERS: ATTEND Orthopaedic Surgery | DX: M47.26 Other spondylosis with radiculopathy, lumbar region (principal) | CPT/HCPCS: 99202 ==

== ENCOUNTER 2022-02-05 07:27 | Outpatient (CLI) | payer MEDICAID ==
[~2022-02-05] VITALS: Ht 157 cm; Wt 93.6 kg
[2022-02-10] MEDS ORDERED: CYCL10TA25 PO (13:30)
== END 2022-02-10 14:06 | disposition home or self-care (01) ==
LOC: PREOP 07:27
PROVIDERS: ATTEND Surgery
DX: Z01.818 Encounter for other preprocedural examination (principal)

== ENCOUNTER 2022-02-17 09:26 | Day surgery (SDC) | payer MEDICAID ==
[~2022-02-17] VITALS: Ht 157.5 cm; Wt 93.6 kg
[~2022-02-17 09:26] MED LIST changes: +CYCL10TA25 PO
[2022-02-17] MEDS ORDERED: LACTATED RINGERS 1,000 ML IV STA (09:31)
[2022-02-17 09:45] VITALS: BP 142/82
[2022-02-17] MEDS ORDERED: HURRICAINE EXT TUBE (BENZOCAINE) XX PRN (09:45)
--- NOTE | 2022-02-17 10:00 | Progress Note-Pre Operative ---
Pre-Operative Progress Note H&P Reviewed The H&P was reviewed, patient examined and no changes noted. Date Seen by Provider: Feb 17, 2022 Time Seen by Provider: 10:00 Date H&P Reviewed: Feb 17, 2022 Time H&P Reviewed: 10:00 Pre-Operative Diagnosis: h/o polyps, Gallardo's esophagus. RENU ALEMAN DO Feb 17, 2022 10:00
[2022-02-17] MEDS ORDERED: MIDAZOLAM 2 MG/2 ML (VERSED) VIAL ONE (11:03)
[2022-02-17] MEDS ORDERED: PROPOFOL INJECTION 50 ML IV ONE ×2 (11:03→11:28)
--- NOTE | 2022-02-17 12:02 | Progress Note-Post Operative ---
Post-Operative Progess Note Surgeon (s)/Dialysis Technician (s) Surgeon RENU ALEMAN DO Dialysis Technician: none Pre-Operative Diagnosis h/o polyps, Gallardo's esophagus. Post-Operative Diagnosis Gastritis, Gallardo's. Colon polyps x3. Procedure & Operative Findings Date of Procedure 02/17/22 Procedure Performed/Findings EGD with biopsies. Colonoscopy with hot biopsy polypectomy x3. Anesthesia Type per CHANGE ROOM ATTENDANT Estimated Blood Loss Estimated blood loss (mL): none Specimens/Packing Specimens Removed Antrum x1, GE junction x4. Sigmoid polyp x2, rectal polyp x1. RENU ALEMAN DO Feb 17, 2022 12:02
--- NOTE | 2022-02-17 12:03 | Discharge Inst-Simple/Standard ---
Discharge Inst-Standard Patient Instructions/Follow Up Plan of Care/Instructions/FU: 2 weeks Diana Activity as Tolerated: Yes Discharge Diet: Regular Diet RENU ALEMAN DO Feb 17, 2022 12:03
[2022-02-17 12:05] VITALS: BP 128/79
[2022-02-17 12:19] VITALS: BP 95/55
[2022-02-17 12:40] VITALS: BP 108/80
--- NOTE | 2022-02-17 14:07 | Anesthesia-General Post-Op ---
MAC Patient Condition Mental Status/LOC: Same as Preop Cardiovascular: Satisfactory Nausea/Vomiting: Absent Respiratory: Satisfactory Pain: Controlled Complications: Absent Post Op Complications Complications None Follow Up Care/Instructions Patient Instructions None needed. Anesthesiology Discharge Order Discharge Order Patient was doing well after the procedure, no complaints, stable vital signs, no apparent adverse anesthesia problems. BLAISE BRAND DO Feb 17, 2022 14:07
--- NOTE | 2022-02-17 15:51 | OPERATIVE REPORT ---
DATE OF SERVICE: 02/17/2022 PREOPERATIVE DIAGNOSES: History of Gallardo's and history of polyps. POSTOPERATIVE DIAGNOSES: Gastritis, Gallardo's, and colon polyps x3. PROCEDURES PERFORMED: EGD with biopsies, colonoscopy with hot biopsy polypectomy x3. SURGEON: Renu Ortiz DO. ANESTHESIA: Per INVESTMENT REPRESENTATIVE. ESTIMATED BLOOD LOSS: None. COMPLICATIONS: None. INDICATIONS FOR PROCEDURE: The patient is a 56-year-old female needing EGD and colonoscopy. She understands risks and benefits of the procedure and wished to proceed. The consent was signed in the chart. DESCRIPTION OF PROCEDURE: The patient was taken to the endoscopy suite and placed in a left lateral recumbent position. Timeout was performed. Scope was inserted in mouth, down the esophagus, stomach and duodenum without difficulty. There were no polyps, masses or ulcerations within the duodenum. Scope was slowly retracted back in the stomach, where it was further insufflated. Changes of slight gastritis were present. Biopsy of the antrum was obtained. Scope was retroflexed noting no other pathology. Scope was returned to its normal position, slowly withdrawn. To the distal esophagus, slight changes of Gallardo's were present, four-quadrant biopsies were obtained. Scope was then slowly retracted back until completely removed, noting no other pathology. Digital rectal exam was performed noting some slight hemorrhoidal disease. No palpable polyps, masses or ulcerations. Scope was inserted in the rectum and advanced all the way to cecum with minimal difficulty. Prep was adequate with irrigation and suction. Scope was then slowly retracted back. No polyps, masses or ulcerations were visualized within the cecum, ascending colon, transverse colon, and descending colon. In the sigmoid colon, two small polyps were present, which hot biopsy polypectomies were performed. Scope was then continuously and slowly retracted back into the rectum, where there was also another polyp was present, which hot biopsy polypectomy was performed. Scope was retroflexed noting no other pathology. Scope was returned to its normal position, slowly withdrawn until completely removed. The patient tolerated the procedure well without any complications. She was taken to recovery room in stable condition. RECOMMENDATIONS: The patient will need repeat colonoscopy in five years. Any issues before that will be seen at that time. The patient will follow up on biopsies of the Gallardo's. any surveillance would repeat in 2 to 3 years. CC: Dr. Sandra Cruz - requested, unable to deliver. Job ID: [id number] DocumentID: [id number] Dictated Date: 02/17/2022 12:04:13 Bedspring Assembler Date: 02/17/2022 15:51:06 Dictated By: RENU ORTIZ DO
== END 2022-02-17 12:50 | disposition home or self-care (01) ==
LOC: ENDO 09:26
PROVIDERS: ATTEND Surgery
DX: Z12.11 Encounter for screening for malignant neoplasm of colon (principal); K63.5 Polyp of colon; K22.70 Barrett's esophagus without dysplasia; K29.50 Unspecified chronic gastritis without bleeding; K62.1 Rectal polyp; K64.9 Unspecified hemorrhoids; F17.210 Nicotine dependence, cigarettes, uncomplicated; E66.9 Obesity, unspecified; Z79.02 Long term (current) use of antithrombotics/antiplatelets; Z68.37 Body mass index [BMI] 37.0-37.9, adult; Z95.5 Presence of coronary angioplasty implant and graft
CPT/HCPCS: 88305

== ENCOUNTER → 2022-04-30 | Outpatient (CLI) | payer MEDICAID ==
[~2022-04-30] MED LIST changes: +RT-ALBUTEROL SULF 2.5 MG/3 ML PRE-MIX VIAL INH ONE
--- NOTE | 2022-04-30 10:59 | Diagnostic Imaging Report ---
Indication: COPD. Time of Exam: 10:18 AM Comparison is made to prior chest 07/14/2020. Heart size normal. Lungs are clear. No infiltrates are seen. There is no effusion or pneumothorax. Impression: No acute cardiopulmonary process is detected. Dictated by: Dictated on workstation # [id number]
== END ==
LOC: RT 09:15
PROVIDERS: ATTEND Internal Medicine Critical Care Medicine
DX: J44.9 Chronic obstructive pulmonary disease, unspecified (principal)
CPT/HCPCS: 71046; 94060; 94621; 94726; 94729

== ENCOUNTER 2022-09-23 23:45 | Emergency (ER) | payer MEDICAID ==
[~2022-09-23] VITALS: Ht 152 cm; Wt 95.3 kg
[~2022-09-23 23:45] MED LIST changes: +ALBU8.5H6 IH; -RT-ALBUINH IH; -RT-ALBUTEROL SULF 2.5 MG/3 ML PRE-MIX VIAL INH ONE
[2022-09-24] MEDS ORDERED: ORPHENADRINE 60 MG/2 ML (NORFLEX) AMP (ED ONLY) IV ONE (01:00)
[2022-09-24] MEDS ORDERED: fentaNYL INJ 100 MCG/2 ML AMP IVP ONE ×2 (01:00→02:15)
[2022-09-24] MEDS ORDERED: LACTATED RINGERS 1,000 ML IV ONE (01:00)
[2022-09-24 01:24] LABS: BASOPHILS # (AUTO) 0.1 10^3/uL (0.0-0.1); BASOPHILS % (AUTO) 2 % (0-10); EOSINOPHILS # (AUTO) 0.4 10^3/uL (0.0-0.3); EOSINOPHILS % (AUTO) 4 % (0-10); HEMATOCRIT 38 % (35-52); HEMOGLOBIN 12.3 g/dL (11.5-16.0); LYMPHOCYTES # (AUTO) 3.2 10^3/uL (1.0-4.0); LYMPHOCYTES % (AUTO) 33 % (12-44); MEAN CORPUSCULAR HEMOGLOBIN 26 pg (25-34); MEAN CORPUSCULAR HGB CONC 32 g/dL (32-36); MEAN CORPUSCULAR VOLUME 82 fL (80-99); MONOCYTES # (AUTO) 0.7 10^3/uL (0.0-1.0); MONOCYTES % (AUTO) 7 % (0-12); NEUTROPHILS # (AUTO) 5.1 10^3/uL (1.8-7.8); NEUTROPHILS % (AUTO) 54 % (42-75); PLATELET COUNT 254 10^3/uL (130-400); WHITE BLOOD COUNT 9.6 10^3/uL (4.3-11.0)
[2022-09-24 01:33] LABS: ALBUMIN 4.3 GM/DL (3.2-4.5); POTASSIUM 3.7 MMOL/L (3.6-5.0)
[2022-09-24 01:34] LABS: CALCIUM 9.1 MG/DL (8.5-10.1)
[2022-09-24 01:35] LABS: TOTAL PROTEIN 7.5 GM/DL (6.4-8.2)
[2022-09-24 01:37] LABS: BILIRUBIN,TOTAL 0.6 MG/DL (0.1-1.0)
[2022-09-24 01:39] LABS: CREATININE SERUM 0.69 MG/DL (0.60-1.30)
[2022-09-24 01:42] LABS: MAGNESIUM 1.9 MG/DL (1.6-2.4)
[2022-09-24 01:48] LABS: BILIRUBIN,URINE NEGATIVE (NEGATIVE); CLARITY,URINE CLEAR; COLOR,URINE YELLOW; GLUCOSE, URINE (UA) NEGATIVE (NEGATIVE); KETONES,URINE NEGATIVE (NEGATIVE); LEUKOCYTE ESTERASE ,URINE NEGATIVE (NEGATIVE); NITRITE,URINE NEGATIVE (NEGATIVE); PH,URINE 5.5 (5-9); PROTEIN,URINE NEGATIVE (NEGATIVE)
[2022-09-24 01:59] LABS: BACTERIA,URINE TRACE /HPF
[2022-09-24] MEDS ORDERED: oxyCODONE/APAP 5/325MG (PERCOCET 5) TABLET PO ONE (02:15)
[2022-09-24] MEDS ORDERED: PRD20T PO (02:17)
[2022-09-24] MEDS ORDERED: OXYC1TAB87 PO (02:17)
--- NOTE | 2022-09-24 02:18 | ED General ---
General Chief Complaint: Lower Extremity Stated Complaint: BACK PAIN Nursing Triage Note: PATIENT STATES CHRONIC BACK PAIN, THAT IS WORSE TODAY NOT RELEIVED BY HER MEDICATIONS. PATIENT STATES SHE HAS NOT VOIDED SINCE 1700 STATES HAS THE URGE, BUT ONLY DRIBBLES. Source of Information: Patient Exam Limitations: No Limitations History of Present Illness Date Seen by Provider: Sep 24, 2022 Allergies and Home Medications Allergies Coded Allergies: No Known Drug Allergies (Unverified , 12/21/17) Patient Home Medication List Albuterol Sulfate (Ventolin Hfa) 1 Puff Puff, 2 PUFF IH Q4H PRN for SHORTNESS OF BREATH, (Reported) Entered as Reported by: MANINDER PRADO on 07/16/20 1710 Aspirin (Aspirin EC) 81 Mg Tablet.dr, 81 MG PO DAILY, (Reported) Entered as Reported by: KATY WEST on 10/05/18 1402 Atorvastatin Calcium (Atorvastatin Calcium) 80 Mg Tablet, 80 MG PO HS, (Reported) Entered as Reported by: KATY WEST on 02/21/19 1022 Cetirizine HCl (Cetirizine HCl) 10 Mg Tablet, 10 MG PO DAILY, (Reported) Entered as Reported by: FARIDA BLACKWELL on 06/05/19 0949 Cyclobenzaprine HCl (Cyclobenzaprine HCl) 10 Mg Tablet, 10 MG PO DAILY, (Reported) Entered as Reported by: JIMBO POWERS on 02/10/22 1330 Fluticasone/Salmeterol (Advair 250-50 Diskus) 1 Each Blst.w.dev, 1 EACH IH BID, (Reported) Entered as Reported by: FARIDA BLACKWELL on 07/17/20 1256 Hydrocodone/Acetaminophen (Hydrocodone-Acetamin 5-325 mg) 1 Each Tablet, 1 EACH PO TID PRN for PAIN-MODERATE (5-7), (Reported) Entered as Reported by: ELIZABETH DICKENS on 06/06/20 1431 Isosorbide Mononitrate (Isosorbide Mononitrate ER) 30 Mg Tab.er.24h, 30 MG PO DAILY, (Reported) Entered as Reported by: ELIZABETH DICKENS on 06/06/20 1431 Memantine HCl (Memantine HCl) 5 Mg Tablet, 5 MG PO DAILY, (Reported) Entered as Reported by: ELIZABETH DICKENS on 06/06/20 1431 Metoprolol Tartrate (Metoprolol Tartrate) 25 Mg Tablet, 12.5 MG PO BID, (Reported) Entered as Reported by: KATY WEST on 02/21/19 1041 Montelukast Sodium (Singulair) 10 Mg Tablet, 10 MG PO HS, (Reported) Entered as Reported by: NATE RUSS on 06/03/19 2157 Nitroglycerin (Nitroglycerin) 0.4 Mg Tab.subl, 0.4 MG SL UD PRN for CHEST PAIN (ANGINA), (Reported) Entered as Reported by: FARIDA BLACKWELL on 06/05/19 0949 Pantoprazole Sodium (Pantoprazole Sodium) 40 Mg Tablet.dr, 40 MG PO DAILY, (Reported) Entered as Reported by: ELIZABETH DICKENS on 06/06/20 1431 Pregabalin (Pregabalin) 75 Mg Capsule, 75 MG PO 1700, (Reported) Entered as Reported by: MANINDER PRADO on 07/16/20 1710 Sucralfate (Carafate) 1 Gm Tablet, 1 GM PO QIDACHS, (Reported) Entered as Reported by: ELIZABETH DICKENS on 06/06/20 1431 Ticagrelor (Brilinta) 90 Mg Tablet, 90 MG PO BID, (Reported) Entered as Reported by: KATY WEST on 02/21/19 1041 Past Dkaqqhl-Zreuzp-Mpbvxi Hx Immunizations Up To Date Tetanus Booster (TDap): Unknown PED Vaccines UTD: Yes First/Initial COVID19 Vaccinat: DECEMBER 2020 Second COVID19 Vaccination Harman: JANUARY 2021 Third COVID19 Vaccination Date: NO Seasonal Allergies Seasonal Allergies: No Past Medical History Surgeries: Yes Coronary Stent, Gallbladder Respiratory: Yes Asthma, Emphysema Currently Using CPAP: No Currently Using BIPAP: No Cardiac: Yes (CORONARY STENTS X 2) Coronary Artery Disease, High Cholesterol, Hypertension, Peripheral Vascular Neurological: Yes Headaches /Migraines 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 Disorders: No 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 Sexually Transmitted Disease: No HIV/AIDS: Yes Genitourinary: No Gastrointestinal: Yes Gallardo's Esophagus, Diverticulosis, Polyps, Hiatal Hernia, Irritable Bowel Musculoskeletal: Yes Arthritis Endocrine: No HEENT: No Loss of Vision: Bilateral Hearing Impairment: Denies Cancer: No Psychosocial: No Integumentary: No Blood Disorders: No Adverse Reaction/Blood Tranf: No (N/A) Family Medical History Cancer of mouth 19 MOTHER, , Age:67, Onset:Unknown Cardiovascular disease 19 MOTHER, , Age:67, Onset:Unknown Completed stroke 19 MOTHER, , Age:67, Onset:Unknown Diabetes mellitus 19 MOTHER, , Age:67, Onset:Unknown FH: CABG (coronary artery bypass surgery) 19 MOTHER, , Age:67, Onset:Unknown FH: lung cancer 19 MOTHER, , Age:67, Onset:Unknown FH: ovarian cancer 19 MOTHER, , Age:67, Onset:Unknown GERD 19 FATHER, , Age:69, Onset:Unknown Hypertension 19 MOTHER, , Age:67, Onset:Unknown Physical Exam Vital Signs Vital Signs - First Documented 09/23/22 23:45 Temp 36.0 Pulse 89 Resp 22 B/P (MAP) 171/100 (123) Pulse Ox 97 O2 Delivery Room Air Capillary Refill : Less Than 3 Seconds Height, Weight, BMI Height: 5'1.00" Weight: 180lbs. 0.0oz. 81.487510mf; 41.00 BMI Method:Stated Progress/Results/Core Measures Suspected Sepsis SIRS Temperature: Pulse: 89 Respiratory Rate: 22 Laboratory Tests 09/24/22 01:10: White Blood Count 9.6 Blood Pressure 171 /100 Mean: 123 Laboratory Tests 09/24/22 01:10: Creatinine 0.69, Platelet Count 254, Total Bilirubin 0.6 Results/Orders Lab Results Laboratory Tests Test 09/24/22 01:10 09/24/22 01:43 Range/Units White Blood Count 9.6 4.3-11.0 10^3/uL Red Blood Count 4.69 3.80-5.11 10^6/uL Hemoglobin 12.3 11.5-16.0 g/dL Hematocrit 38 35-52 % Mean Corpuscular Volume 82 80-99 fL Mean Corpuscular Hemoglobin 26 25-34 pg Mean Corpuscular Hemoglobin Concent 32 32-36 g/dL Red Cell Distribution Width 16.0 H 10.0-14.5 % Platelet Count 254 130-400 10^3/uL Mean Platelet Volume 11.0 9.0-12.2 fL Immature Granulocyte % (Auto) 0 % Neutrophils (%) (Auto) 54 42-75 % Lymphocytes (%) (Auto) 33 12-44 % Monocytes (%) (Auto) 7 0-12 % Eosinophils (%) (Auto) 4 0-10 % Basophils (%) (Auto) 2 0-10 % Neutrophils # (Auto) 5.1 1.8-7.8 10^3/uL Lymphocytes # (Auto) 3.2 1.0-4.0 10^3/uL Monocytes # (Auto) 0.7 0.0-1.0 10^3/uL Eosinophils # (Auto) 0.4 H 0.0-0.3 10^3/uL Basophils # (Auto) 0.1 0.0-0.1 10^3/uL Immature Granulocyte # (Auto) 0.0 0.0-0.1 10^3/uL Sodium Level 140 135-145 MMOL/L Potassium Level 3.7 3.6-5.0 MMOL/L Chloride Level 107 98-107 MMOL/L Carbon Dioxide Level 19 L 21-32 MMOL/L Anion Gap 14 5-14 MMOL/L Blood Urea Nitrogen 11 7-18 MG/DL Creatinine 0.69 0.60-1.30 MG/DL Estimat Glomerular Filtration Rate 100 BUN/Creatinine Ratio 16 Glucose Level 122 H 70-105 MG/DL Calcium Level 9.1 8.5-10.1 MG/DL Corrected Calcium 8.9 8.5-10.1 MG/DL Magnesium Level 1.9 1.6-2.4 MG/DL Total Bilirubin 0.6 0.1-1.0 MG/DL Aspartate Amino Transf (AST/SGOT) 23 5-34 U/L Alanine Aminotransferase (ALT/SGPT) 30 0-55 U/L Alkaline Phosphatase 102 40-136 U/L Total Protein 7.5 6.4-8.2 GM/DL Albumin 4.3 3.2-4.5 GM/DL Urine Color YELLOW Urine Clarity CLEAR Urine pH 5.5 5-9 Urine Specific [place] 1.020 1.016-1.022 Urine Protein NEGATIVE NEGATIVE Urine Glucose (UA) NEGATIVE NEGATIVE Urine Ketones NEGATIVE NEGATIVE Urine Nitrite NEGATIVE NEGATIVE Urine Bilirubin NEGATIVE NEGATIVE Urine Urobilinogen 0.2 < = 1.0 MG/DL Urine Leukocyte Esterase NEGATIVE NEGATIVE Urine RBC (Auto) NEGATIVE NEGATIVE Urine RBC NONE /HPF Urine WBC NONE /HPF Urine Squamous Epithelial Cells 2-5 /HPF Urine Crystals NONE /LPF Urine Bacteria TRACE /HPF Urine Casts NONE /LPF Urine Mucus NEGATIVE /LPF Urine Culture Indicated NO My Orders Orders - AUGUSTUS DIAZ MD Ua Culture If Indicated (09/23/22 23:56) Bladder Scan (09/23/22 23:56) Fentanyl Inj (Sublimaze Injection) (09/24/22 01:00) Orphenadrine Inj (Ed Only) (Norflex Inje (09/24/22 01:00) Ed Iv/Invasive Line Start (09/24/22 00:56) Lactated Ringers (Lr 1000 Ml Iv Solution (09/24/22 01:00) Cbc With Automated Diff (09/24/22 00:56) Comprehensive Metabolic Panel (09/24/22 00:56) Magnesium (09/24/22 00:56) Fentanyl Inj (Sublimaze Injection) (09/24/22 02:15) Oxycodone/Apap 5/325mg Tablet (Percocet (09/24/22 02:15) Medications Given in ED Current Medications Medications Dose Ordered Sig/Calin Route Start Time Stop Time Status Last Admin Dose Admin Fentanyl Citrate 75 mcg ONCE ONCE IVP 09/24/22 01:00 09/24/22 01:01 DC 09/24/22 01:20 75 MCG Lactated Ringer's 1,000 ml @ 0 mls/hr Q0M ONCE IV 09/24/22 01:00 09/24/22 01:01 DC 09/24/22 01:20 0 MLS/HR Orphenadrine Citrate 30 mg ONCE ONCE IV 09/24/22 01:00 09/24/22 01:01 DC 09/24/22 01:20 30 MG Vital Signs/I&O 09/23/22 23:45 Temp 36.0 Pulse 89 Resp 22 B/P (MAP) 171/100 (123) Pulse Ox 97 O2 Delivery Room Air Capillary Refill : Less Than 3 Seconds Blood Pressure Mean: 123 Departure Impression Primary Impression: Exacerbation of chronic back pain Additional Impression: Urinary urgency Disposition: 01 HOME, SELF-CARE Condition: Improved Departure-Patient Inst. Decision time for Depature: 02:15 Referrals: MURRAY OROZCO MD (PCP/Family) Primary Care Physician Patient Instructions: Low Back Pain ED Add. Discharge Instructions: You may use your hydrocodone for moderate pain and the Percocet as prescribed for more severe pain. You may continue using your muscle relaxer and Lyrica as previously directed. Start the prednisone tablets in the morning to help reduce inflammation around your back. Return to care if you have worsening symptoms, especially if you develop numbness of your groin, true weakness of your legs, or problems controlling bowel or bladder function. Follow-up with your primary care provider soon as possible. All discharge instructions reviewed with patient and/or family. Voiced understanding. Scripts Prednisone (Prednisone) 20 Mg Tab 40 MG PO DAILY, #6 TAB 0 Refills Prov: AUGUSTUS DIAZ MD 09/24/22 Oxycodone HCl/Acetaminophen (Percocet 5-325 mg Tablet) 1 Each Tablet 1-2 TAB PO Q4H PRN for PAIN-SEVERE (8-10) MDD 6 TABS, #10 TAB Prov: AUGUSTUS DIAZ MD 09/24/22 AUGUSTUS DIAZ MD Sep 24, 2022 02:18
[2022-09-24 02:45] VITALS: BP 145/100
== END 2022-09-24 02:44 | disposition home or self-care (01) ==
LOC: EDUNIT# 23:45 → ER 23:47
DX: M54.9 Dorsalgia, unspecified (principal); G89.29 Other chronic pain; R39.15 Urgency of urination; Z28.310 Unvaccinated for COVID-19
CPT/HCPCS: 36415; 80053; 81000; 83735; 85025; 99283